=== PATIENT | male | born 1955 | race American Indian/Alaskan Native ===

== ENCOUNTER 2016-11-18 11:36 | Inpatient (IN) | payer MEDICAID, OTHER ==
[2016-11-18 11:41] VITALS: BMI 27.5
--- NOTE | 2016-11-18 12:17 | C.PDOC ---
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 Patient is currently c/o feeling nausea and chills for "a while now". He denies chest pain, SOB, or any other complaints. Time Seen by Provider: 11/18/16 11:47 Chief Complaint (Nursing): Lower Extremity Problem/Injury History Per: Patient History/Exam Limitations: no limitations Onset/Duration Of Symptoms: Persistent Current Symptoms Are (Timing): Still Present Severity: Moderate Past Medical History Reviewed: Historical Data, Nursing Documentation, Vital Signs Vital Signs: Last Vital Signs Temp 97.4 F L 11/20/16 08:23 Pulse 66 11/20/16 08:23 Resp 20 11/20/16 08:23 BP 150/80 11/20/16 08:23 Pulse Ox 96 11/20/16 17:22 - Medical History PMH: Anxiety, Arthritis, Atrial Fibrillation, Depression, Deep Vein Thrombosis, Fractures (neck, back Rt. leg fx in 5 places), Hepatitis (Patient reported history of alcohol hepatitis), HTN, Hypercholesterolemia, Pancreatitis, Peripheral Edema (chronic), Seizures (alcohol induced), Chronic Pain (leg pain/ dermatitis) Surgical History: Back Surgery, Cholecystectomy - [facility] Procedures ALCOHOL DETOXIFICATION (09/09/13) CENTRAL VENOUS CATHETER PLACEMENT WITH GUIDANCE (11/27/13) DETOXIFICATION SERVICES FOR SUBSTANCE ABUSE TREATMENT (06/02/15) GROUP PSYCHOTHERAPY (06/02/15) INFLUENZA VACCINATION (07/14/14) INJECT/INFUSE NEC (03/20/13) INSERTION OF TOTALLY IMPLANTABLE VASC ACCESS DEVIC (04/10/14) NONEXCIS DEBRID OF WOUND, INFECT, OR BURN (04/10/14) REMOV THERAPEUT DEV NEC (11/27/13) VACCINATION NEC (07/14/14) Family History: States: No Known Family Hx - Social History Hx Tobacco Use: No Hx Alcohol Use: Yes (3-4 ounces of liquor/day) Hx Substance Use: Yes (Marijuana smoking daily) - Immunization History Hx Tetanus Toxoid Vaccination: Yes Hx Influenza Vaccination: Yes Hx Pneumococcal Vaccination: Yes Review Of Systems Except As Marked, All Systems Reviewed And Found Negative. Constitutional: Positive for: Chills Cardiovascular: Negative for: Chest Pain, Palpitations Respiratory: Negative for: Cough, Shortness of Breath Gastrointestinal: Positive for: Nausea. Negative for: Vomiting, Abdominal Pain , Diarrhea Musculoskeletal: Positive for: Foot Pain (Bilateral foot/leg wounds) Physical Exam - Physical Exam Appears: Non-toxic, Unkempt, Chronically Ill, Other (Smells of ETOH) Skin: Warm, Dry, Other (see extremity exam) Head: Normacephalic Oral Mucosa: Moist Cardiovascular: Rhythm Regular Respiratory: Normal Breath Sounds, No Rales, No Rhonchi, No Wheezing Gastrointestinal/Abdominal: Normal Exam, Bowel Sounds, Soft, No Tenderness Extremity: Tenderness (difuse TTP B/L lower legs), No Calf Tenderness, Capillary Refill (<2 secs all digits ), No Deformity, Other (Chronic skin changes B/L lower legs, weeping, oozing wounds to the bilateral lower legs.) Neurological/Psych: Oriented x3 ED Course And Treatment - Laboratory Results Result Diagrams: 11/18/16 12:58 11/18/16 12:58 O2 Sat by Pulse Oximetry: 96 (RA) Pulse Ox Interpretation: Normal Progress Note: Blood work ordered and reviewed. Patient given dose of IV Vancomycin in ED. - Physician Consult Information Physician Contacted: Roman Brand Outcome Of Conversation: Discussed patient with Dr. Brand, he agrees with admission for lower leg cellulitis, infected wounds. Will consult Dr. Masters for podiatry. Disposition - Disposition Disposition: HOSPITALIZED Disposition Time: 14:38 Condition: STABLE - Clinical Impression Clinical Impression: Cellulitis, leg, Infection of wound due to methicillin resistant Staphylococcus aureus (MRSA) - Scribe Statement The provider has reviewed the documentation as recorded by the Yingibpolly martin All medical record entries made by the Yingibpolly were at my direction and personally dictated by me. I have reviewed the chart and agree that the record accurately reflects my personal performance of the history, physical exam, medical decision making, and the department course for this patient. I have also personally directed, reviewed, and agree with the discharge instructions and disposition. Decision To Admit - Pt Status Changed To: Hospital Disposition Of: Inpatient - Admit Certification Admit to Inpatient:: After my assessment, the patient will require hospitalization for at least two midnights. This is because of the severity of symptoms shown, intensity of services needed, and/or the medical risk in this patient being treated as an outpatient. - InPatient: Physician Admission Certification: I certify that this patient requires 2 or more midnights of care for the following reason:: see notes - . Bed Request Type: Regular Admitting Physician: Roman Brand Patient Diagnosis: Cellulitis, leg, Infection of wound due to methicillin resistant Staphylococcus aureus (MRSA)
[2016-11-18] MEDS ORDERED: Vancomycin 1 GM 1 GM/250 ML BAG IV STA (12:53)
[2016-11-18 13:09] LABS: BASO % 0.4 % (0.0-2.0); EOS # 0.2 K/uL (0.0-0.7); EOS % 2.9 % (0.0-4.0); LYMPH # 0.7 K/uL (1.0-4.3); LYMPH % 10.5 % (20.0-40.0); MEAN CELL VOLUME 86.5 fL (80.0-94.0); MEAN CORPUSCULAR HEMOGLOBIN 29.9 pg (27.0-31.0); MEAN CORPUSCULAR HGB CONC 34.6 g/dL (33.0-37.0); MEAN PLATELET VOLUME 5.5 fL (7.2-11.7); MONO # 0.6 K/uL (0.0-0.8); NEUT # 5.5 K/uL (1.8-7.0); NEUT % 77.2 % (50.0-75.0); RBC 3.56 Mil/uL (4.40-5.90); RED CELL DISTRIBUTION WIDTH 13.9 % (11.5-14.5); WHITE BLOOD COUNT 7.1 K/uL (4.8-10.8)
[2016-11-18 13:11] LABS: HEMOGLOBIN 10.7 g/dL (12.0-18.0)
[2016-11-18] MEDS ORDERED: Vancomycin 1 GM 1 GM/250 ML BAG IVPB ONE (13:12)
[2016-11-18 13:16] LABS: ALBUMIN 2.9 g/dL (3.5-5.0)
[2016-11-18 13:19] LABS: ALB/GLOB RATIO 0.9 (1.0-2.1); AST/SGOT 12 U/L (17-59); GFR AFRICAN-AMERICAN > 60; GFR NON-AFRICAN AMERICAN 52
[2016-11-18 13:20] LABS: ALT/SGPT 22 U/L (21-72); BLOOD UREA NITROGEN 11 mg/dL (9-20)
--- NOTE | 2016-11-18 16:39 | CP.PCM.CON ---
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 Patient is c/o feeling nausea and chills for a while now. Denies SOB, chest pain, or any other complaints. - Medical History PMH: Anxiety, Arthritis, Atrial Fibrillation, Depression, Deep Vein Thrombosis, Fractures (neck, back Rt. leg fx in 5 places), Hepatitis (Patient reported history of alcohol hepatitis), HTN, Hypercholesterolemia, Pancreatitis, Peripheral Edema (chronic), Seizures (alcohol induced), Chronic Pain (leg pain/ dermatitis) Denies: Chronic Kidney Disease Surgical History: Back Surgery, Cholecystectomy Denies: Pacemaker Review of Systems - Constitutional Constitutional: As Per HPI - EENT Eyes: absent: As Per HPI, Blind Spots, Blurred Vision, Change in Vision, Decreased Night Vision, Diplopia, Discharge, Dry Eye, Exophthalmos, Floaters, Irritation, Itchy Eyes, Loss of Peripheral Vision, Pain, Photophobia, Requires Corrective Lenses, Sees Flashes, Spots in Vision, Tunnel Vision, Other Visual Disturbances, Loss of Vision, Other Ears: absent: As Per HPI, Decreased Hearing, Ear Discharge, Ear Pain, Tinnitus, Abnormal Hearing, Disequilibrium, Dizziness, Other Nose/Mouth/Throat: absent: As Per HPI, Epistaxis, Nasal Congestion, Nasal Discharge, Nasal Obstruction, Nasal Trauma, Nose Pain, Post Nasal Drip, Sinus Pain, Sinus Pressure, Bleeding Gums, Change in Voice, Dental Pain, Dry Mouth, Dysphagia, Halitosis, Hoarsness, Lip Swelling, Mouth Lesions, Mouth Pain, Odynophagia, Sore Throat, Throat Swelling, Tongue Swelling, Facial Pain, Neck Pain, Neck Mass, Other - Cardiovascular Cardiovascular: absent: As Per HPI, Acrocyanosis, Chest Pain, Chest Pain at Rest , Chest Pain with Activity, Claudication, Diaphoresis, Dyspnea, Dyspnea on Exertion, Edema, Irregular Heart Rhythm, Pain Radiating to Arm/Neck/Jaw, Leg Edema, Leg Ulcers, Lightheadedness, Orthopnea, Palpitations, Paroxysmal Nocturnal Dyspnea, Pedal Edema, Radiating Pain, Rapid Heart Rate, Slow Heart Rate, Syncope, Other - Respiratory Respiratory: absent: As Per HPI, Cough, Dyspnea, Hemoptysis, Dyspnea on Exertion , Wheezing, Snoring, Stridor, Pain on Inspiration, Chest Congestion, Excessive Mucous Production, Change in Mucous Color, Pain with Coughing, Other - Gastrointestinal Gastrointestinal: absent: As Per HPI, Abdominal Pain, Belching, Bloating, Change in Bowel Habits, Change in Stool Character, Coffee Ground Emesis, Constipation, Cramping, Diarrhea, Dyspepsia, Dysphagia, Early Satiety, Excessive Flatus, Fecal Incontinence, Heartburn, Hematemesis, Hematochezia, Loose Stools, Melena, Nausea, Odynophagia, Temesmus, Vomiting, Other - Genitourinary Genitourinary: absent: As Per HPI, Change in Urinary Stream, Difficulty Urinating, Dysuria, Flank Pain, Hematuria, Pyuria, Nocturia, Urinary Incontinence, Urinary Frequency, Urinary Hesitance, Urinary Urgency, Voiding Freq/Small Amts, Freq UTI, Hx Renal/Bladder Calculi, Hx /Renal Surgery, Bladder Distension, Other - Musculoskeletal Musculoskeletal: As Per HPI, Deformity - Integumentary Integumentary: As Per HPI, Skin Pain, Wounds - Neurological Neurological: absent: As Per HPI, Abnormal Gait, Abnormal Hearing, Abnormal Movements, Abnormal Speech, Behavioral Changes, Burning Sensations, Confusion, Convulsions, Disequilibrium, Dizziness, Numbness, Focal Weakness, Frequent Falls , Headaches, Lack of Coordination, Loss of Vision, Memory Loss, Paresthesias, Radicular Pain, Restless Legs, Sensory Deficit, Syncope, Tingling, Tremor, Vertigo, Weakness, Other Visual Disturbances, Other - Psychiatric Psychiatric: absent: As Per HPI, Abnormal Sleep Pattern, Anhedonia, Anxiety, Auditory Hallucinations, Behavioral Changes, Change in Appetite, Change in Libido, Confusion, Depression, Difficulty Concentrating, Hallucinations, Homicidal Ideation, Hopelessness, Irritability, Memory Loss, Mood Swings, Panic Attacks, Paranoia, Suicidal Ideation, Visual Hallucinations, Tactile Hallucinations, Other - Endocrine Endocrine: absent: As Per HPI, Change in Body Appearance, Change in Libido, Cold Intolorance, Deepening of Voice, Excessive Sweating, Fatigue, Flushing, Heat Intolorance, Increase in Ring/Shoe/Hat Size, Palpitations, Polydipsia, Polyphagia, Polyuria, Other - Hematologic/Lymphatic Hematologic: absent: As Per HPI, Easy Bleeding, Easy Bruising, Lymphadenopathy, Other Past Patient History - Infectious Disease Hx of Infectious Diseases: None - Tetanus Immunizations Tetanus Immunization: Unknown - Past Medical History & Family History Past Medical History?: Yes - Past Social History Smoking Status: Former Smoker - CARDIAC Hx Atrial Fibrillation: Yes Hx Hypercholesterolemia: Yes Hx Hypertension: Yes Hx Pacemaker: No Hx Peripheral Edema: Yes (chronic) - PULMONARY Hx Respiratory Disorders: No - NEUROLOGICAL Hx Seizures: Yes (alcohol induced) - HEENT Hx Cataracts: Yes (Rt. and Lt. cataract sx) - RENAL Hx Chronic Kidney Disease: No - ENDOCRINE/METABOLIC Hx Endocrine Disorders: Yes Other/Comment: SPOT ON PANCREAS - INTEGUMENTARY Hx Dermatological Problems: Yes Hx Cellulitis: Yes (bilateral legs) Other/Comment: Venous stasis bilateral legs - MUSCULOSKELETAL/RHEUMATOLOGICAL Hx Arthritis: Yes Hx Fractures: Yes (neck, back Rt. leg fx in 5 places) - GASTROINTESTINAL Hx Pancreatitis: Yes - PSYCHIATRIC Hx Anxiety: Yes Hx Depression: Yes Hx Substance Use: Yes (Marijuana smoking daily) - SURGICAL HISTORY Hx Cholecystectomy: Yes - ANESTHESIA Hx Anesthesia: Yes Hx Anesthesia Reactions: No Hx Malignant Hyperthermia: No Meds Allergies/Adverse Reactions: Allergies Allergy/AdvReac Type Severity Reaction Status Date / Time Penicillins Allergy Severe RASH Verified 11/18/16 11:40 - Medications Medications: Current Medications Heparin Sodium (Porcine) (Heparin) 5,000 units SC Q12 [facility] Pantoprazole Sodium (Protonix Ec Tab) 40 mg PO DAILY [facility] Thiamine HCl (Vitamin B1 Tab) 100 mg PO DAILY [facility] Tramadol HCl (Ultram) 50 mg PO TID PRN PRN Reason: Pain, moderate (4-7) Physical Exam - Constitutional Appears: Non-toxic, Chronically Ill - Head Exam Head Exam: NORMOCEPHALIC - Eye Exam Eye Exam: absent: Scleral icterus - ENT Exam ENT Exam: Mucous Membranes Dry, Normal External Ear Exam - Neck Exam Neck exam: Negative for: Lymphadenopathy, Thyromegaly - Respiratory Exam Respiratory Exam: Decreased Breath Sounds, Rhonchi - Cardiovascular Exam Cardiovascular Exam: REGULAR RHYTHM - GI/Abdominal Exam GI & Abdominal Exam: Diminished Bowel Sounds, Soft. absent: Tenderness - Rectal Exam Rectal Exam: Deferred - Exam Exam: NORMAL INSPECTION - Extremities Exam Extremities exam: Positive for: calf tenderness, pedal edema, tenderness, pedal pulses present - Back Exam Back exam: absent: CVA tenderness (L), CVA tenderness (R) - Neurological Exam Neurological exam: Alert, CN II-XII Intact, Oriented x3, Reflexes Normal - Psychiatric Exam Psychiatric exam: Normal Mood - Skin Skin Exam: Rash Results - Vital Signs Recent Vital Signs: Last Vital Signs Temp 97.5 F L 11/18/16 15:26 Pulse 96 H 11/18/16 15:26 Resp 19 11/18/16 15:26 BP 131/65 11/18/16 15:26 Pulse Ox 96 11/18/16 15:26 - Labs Result Diagrams: 11/18/16 12:58 11/18/16 12:58 Assessment & Plan (1) Alcohol use Status: Acute (2) Bilateral cellulitis of lower leg Status: Acute - Assessment and Plan (Free Text) Assessment: cont iv rx will discuss with dr silva and dr boggs- may need or/debridement
[2016-11-18 21:45] VITALS: RESP 20
--- NOTE | 2016-11-18 22:59 | CP.PCM.HP ---
History of Present Illness - History of Present Illness History of Present Illness: 61 Y/O WAS ADMITTED WITH POSITIVE CULTURES FROM THE LEG WITH MRSA, AND HE NEEDS ANTIBIOTICS, SEEING WOUND CARE DR QUIGLEY IN [facility], NO FEVER, PAIN, IN THE LEGS NO SOB, NO NAUSEA, NO CHEST PAIN, NO VERTIGO Present on Admission - Present on Admission Any Indicators Present on Admission: No History of DVT/PE: No History of Uncontrolled Diabetes: No Urinary Catheter: No Decubitus Ulcer Present: No Review of Systems - Review of Systems Systems not reviewed;Unavailable: Uncooperative - Constitutional Constitutional: Headache, Night Sweats - EENT Eyes: Blurred Vision Nose/Mouth/Throat: Nasal Congestion - Cardiovascular Cardiovascular: Leg Edema, Leg Ulcers, Rapid Heart Rate - Respiratory Respiratory: Cough - Gastrointestinal Gastrointestinal: Bloating, Nausea - Musculoskeletal Musculoskeletal: Abnormal Gait, Arthralgias, Joint Swelling, Limited Range of Motion - Integumentary Integumentary: Pruritus, Rash, Skin Pain, Skin Ulcer, Sores, Striae, Wounds - Neurological Neurological: Weakness - Psychiatric Psychiatric: Anhedonia, Anxiety, Change in Libido - Endocrine Endocrine: Fatigue, Palpitations Past Patient History - Infectious Disease Hx of Infectious Diseases: None - Tetanus Immunizations Tetanus Immunization: Unknown - Past Medical History & Family History Past Medical History?: Yes - Past Social History Smoking Status: marijuana - CARDIAC Hx Cardiac Disorders: Yes Hx Atrial Fibrillation: Yes Hx Hypercholesterolemia: Yes Hx Hypertension: Yes Hx Pacemaker: No Hx Peripheral Edema: Yes (chronic) - PULMONARY Hx Respiratory Disorders: No - NEUROLOGICAL Hx Neurological Disorder: Yes Hx Seizures: Yes (alcohol induced) - HEENT Hx HEENT Problems: Yes Hx Cataracts: Yes (Rt. and Lt. cataract sx) - RENAL Hx Chronic Kidney Disease: No - ENDOCRINE/METABOLIC Hx Endocrine Disorders: Yes Other/Comment: SPOT ON PANCREAS - HEMATOLOGICAL/ONCOLOGICAL Hx Blood Disorders: Yes Hx Blood Transfusions: Yes Hx Hepatitis C: Yes - INTEGUMENTARY Hx Dermatological Problems: Yes Hx Cellulitis: Yes (bilateral legs) Other/Comment: Venous stasis bilateral legs - MUSCULOSKELETAL/RHEUMATOLOGICAL Hx Arthritis: Yes Hx Falls: Yes Hx Fractures: Yes (neck, back Rt. leg fx in 5 places) Hx Unsteady Gait: Yes - GASTROINTESTINAL Hx Constipation: Yes Hx Gastroesophageal Reflux: Yes Hx Pancreatitis: Yes - GENITOURINARY/GYNECOLOGICAL Hx Genitourinary Disorders: No - PSYCHIATRIC Hx Psychophysiologic Disorder: Yes Hx Anxiety: Yes Hx Depression: Yes Hx Substance Use: Yes (Marijuana smoking daily) - SURGICAL HISTORY Hx Surgeries: Yes Hx Cholecystectomy: Yes - ANESTHESIA Hx Anesthesia: Yes Hx Anesthesia Reactions: No Hx Malignant Hyperthermia: No Has any member of the family had a problem w/ anesthesia?: No Meds Allergies/Adverse Reactions: Allergies Allergy/AdvReac Type Severity Reaction Status Date / Time Penicillins Allergy Severe RASH Verified 11/18/16 11:40 Physical Exam - Constitutional Appears: Non-toxic, No Acute Distress, Chronically Ill - Head Exam Head Exam: ATRAUMATIC, NORMAL INSPECTION, NORMOCEPHALIC - Eye Exam Eye Exam: EOMI, Normal appearance, PERRL Pupil Exam: NORMAL ACCOMODATION - ENT Exam ENT Exam: Mucous Membranes Moist, Normal Exam, Normal Oropharynx, TM's Normal Bilaterally - Neck Exam Neck exam: Positive for: Normal Inspection - Respiratory Exam Respiratory Exam: Clear to Auscultation Bilateral, NORMAL BREATHING PATTERN - Cardiovascular Exam Cardiovascular Exam: REGULAR RHYTHM, +S1, +S2 - GI/Abdominal Exam GI & Abdominal Exam: Normal Bowel Sounds - Rectal Exam Rectal Exam: NORMAL INSPECTION - Exam Exam: NORMAL INSPECTION External exam: NORMAL EXTERNAL EXAM - Back Exam Back exam: NORMAL INSPECTION - Neurological Exam Neurological exam: Abnormal Gait, Alert, CN II-XII Intact, Oriented x3, Reflexes Normal - Psychiatric Exam Psychiatric exam: Anxious, Flat Affect - Skin Skin Exam: Dry, Erythema, Rash Results - Vital Signs Recent Vital Signs: Last Vital Signs Temp 97.8 F 11/18/16 16:40 Pulse 97 H 11/18/16 16:40 Resp 20 11/18/16 16:40 BP 130/78 11/18/16 16:40 Pulse Ox 96 11/18/16 16:40 - Labs Result Diagrams: 11/18/16 12:58 11/18/16 12:58 Labs: Laboratory Results - last 24 hr 11/18/16 11/18/16 16:44 21:42 POC Glucose (mg/dL) 91 104 Assessment & Plan (1) Cellulitis and abscess of leg Assessment and Plan: MRSA Status: Acute (2) Stasis dermatitis of both legs Status: Chronic (3) Alcohol dependence Status: Chronic (4) Homelessness Status: Chronic
[2016-11-19] MEDS: Vancomycin 1 gm/NS 200 ml 1 GM/200 ML BAG IVPB SCH ×2 (02:20→13:42)
[2016-11-19] MEDS: Pantoprazole 40 mg EC Tab PO SCH (10:00)
--- NOTE | 2016-11-19 11:36 | CP.PCM.CON ---
History of Present Illness - History of Present Illness History of Present Illness: 61 year old male with extensive PMH was seen with attending, Dr. Masters for chronic wounds to bilateral legs. Patient states that yesterday he saw Dr. Masters in the [facility] and was sent to the ED for Iv abx. He currently complains of some tenderness to his right and left legs. He admits to some nausea but denies v/f/c/sob/cp. Past Patient History - Infectious Disease Hx of Infectious Diseases: None - Tetanus Immunizations Tetanus Immunization: Unknown - Past Medical History & Family History Past Medical History?: Yes - Past Social History Smoking Status: marijuana - CARDIAC Hx Cardiac Disorders: Yes Hx Atrial Fibrillation: Yes Hx Hypercholesterolemia: Yes Hx Hypertension: Yes Hx Pacemaker: No Hx Peripheral Edema: Yes (chronic) - PULMONARY Hx Respiratory Disorders: No - NEUROLOGICAL Hx Neurological Disorder: Yes Hx Seizures: Yes (alcohol induced) - HEENT Hx HEENT Problems: Yes Hx Cataracts: Yes (Rt. and Lt. cataract sx) - RENAL Hx Chronic Kidney Disease: No - ENDOCRINE/METABOLIC Hx Endocrine Disorders: Yes Other/Comment: SPOT ON PANCREAS - HEMATOLOGICAL/ONCOLOGICAL Hx Blood Disorders: Yes Hx Blood Transfusions: Yes Hx Hepatitis C: Yes - INTEGUMENTARY Hx Dermatological Problems: Yes Hx Cellulitis: Yes (bilateral legs) Other/Comment: Venous stasis bilateral legs - MUSCULOSKELETAL/RHEUMATOLOGICAL Hx Arthritis: Yes Hx Falls: Yes Hx Fractures: Yes (neck, back Rt. leg fx in 5 places) Hx Unsteady Gait: Yes - GASTROINTESTINAL Hx Constipation: Yes Hx Gastroesophageal Reflux: Yes Hx Pancreatitis: Yes - GENITOURINARY/GYNECOLOGICAL Hx Genitourinary Disorders: No - PSYCHIATRIC Hx Psychophysiologic Disorder: Yes Hx Anxiety: Yes Hx Depression: Yes Hx Substance Use: Yes (Marijuana smoking daily) - SURGICAL HISTORY Hx Surgeries: Yes Hx Cholecystectomy: Yes - ANESTHESIA Hx Anesthesia: Yes Hx Anesthesia Reactions: No Hx Malignant Hyperthermia: No Has any member of the family had a problem w/ anesthesia?: No Meds Allergies/Adverse Reactions: Allergies Allergy/AdvReac Type Severity Reaction Status Date / Time Penicillins Allergy Severe RASH Verified 11/18/16 11:40 - Medications Medications: Current Medications Acetaminophen (Tylenol 325mg Tab) 650 mg PO Q6 PRN PRN Reason: Pain, Mild (1-3) Last Admin: 11/18/16 21:22 Dose: 650 mg Heparin Sodium (Porcine) (Heparin) 5,000 units SC Q12 [facility] Last Admin: 11/19/16 10:00 Dose: 5,000 units Vancomycin/Sodium Chloride (Vancocin) 1 gm in 200 mls @ 133 mls/hr IVPB Q12H [facility] Stop: 11/24/16 01:31 Last Admin: 11/19/16 02:20 Dose: 133 mls/hr Ondansetron HCl (Zofran Inj) 4 mg IVP Q8 PRN PRN Reason: Nausea/Vomiting Last Admin: 11/18/16 21:23 Dose: 4 mg Pantoprazole Sodium (Protonix Ec Tab) 40 mg PO DAILY [facility] Last Admin: 11/19/16 10:00 Dose: 40 mg Thiamine HCl (Vitamin B1 Tab) 100 mg PO DAILY [facility] Last Admin: 11/19/16 10:00 Dose: 100 mg Tramadol HCl (Ultram) 50 mg PO TID PRN PRN Reason: Pain, moderate (4-7) Last Admin: 11/19/16 02:53 Dose: 50 mg Physical Exam - Constitutional Appears: Non-toxic, No Acute Distress - Extremities Exam Additional comments: lower extremity focused exam: VASC: DP/PT pulses are palpable 1/4 b/l, INTEGRATION AIDE: < 3 sec to all digits, TG: warm to warm pitting edema with skin tenting noted on distal lower extremity, R>L DERM: diffuse superficial ulcerations on bilateral legs from distal to tibial tuberosity to ankle joint (R>L), wound bases appeared fibro-granular with serous drainage from multiple sites no malodor present, no probe to bone, no undermining wounds, erythema extending from knee joint to the ankle joint with glossy appearance of the skin. moderate amount of serousanginoud drainage noted. Severe xerosis noted to entire foot b/l. NEURO: Protective sensation mildly diminished ORTHO: No tenderness to palpation lower extremity b/l. - Neurological Exam Neurological exam: Alert, Oriented x3 - Psychiatric Exam Psychiatric exam: Normal Affect, Normal Mood Results - Vital Signs Recent Vital Signs: Last Vital Signs Temp 97.0 F L 11/19/16 07:35 Pulse 66 11/19/16 07:35 Resp 20 11/19/16 07:35 BP 117/73 11/19/16 07:35 Pulse Ox 97 11/19/16 07:35 - Labs Result Diagrams: 11/18/16 12:58 11/18/16 12:58 Labs: Laboratory Results - last 24 hr 11/18/16 11/18/16 16:44 21:42 POC Glucose (mg/dL) 91 104 Assessment & Plan - Assessment and Plan (Free Text) Assessment: 61 year old male with chronic ulcerations to bilateral legs secondary to venous stasis Plan: Patient seen and evaluated at bedside with attending Dr. Masters Charts, labs, vitals reviewed Wounds cleansed with sterile saline then dressed with xeroform, ABDs, kerlix continue IV abx per ID wound culture gram neg rods, gram pos cocci podiatry will continue to follow while in house
--- NOTE | 2016-11-19 18:18 | CP.PCM.PN ---
Subjective - Date & Time of Evaluation Date of Evaluation: 11/19/16 Time of Evaluation: 07:00 - Subjective Subjective: bilat ulcers noted mixed keturah on c/s- add aztreonam Objective - Vital Signs/Intake and Output Vital Signs (last 24 hours): Temp Pulse Resp BP Pulse Ox 97.8 F 78 20 135/79 98 11/19/16 15:00 11/19/16 15:00 11/19/16 15:00 11/19/16 15:00 11/19/16 15:00 Intake and Output: 11/19/16 11/19/16 06:59 18:59 Intake Total 800 Balance 800 - Medications Medications: Current Medications Acetaminophen (Tylenol 325mg Tab) 650 mg PO Q6 PRN PRN Reason: Pain, Mild (1-3) Last Admin: 11/18/16 21:22 Dose: 650 mg Heparin Sodium (Porcine) (Heparin) 5,000 units SC Q12 [facility] Last Admin: 11/19/16 10:00 Dose: 5,000 units Vancomycin/Sodium Chloride (Vancocin) 1 gm in 200 mls @ 133 mls/hr IVPB Q12H [facility] Stop: 11/24/16 01:31 Last Admin: 11/19/16 13:42 Dose: 133 mls/hr Aztreonam 2 gm/ Sodium (Chloride) 100 mls @ 200 mls/hr IVPB Q8H [facility] Multivitamins (Hexavitamin) 1 tab PO DAILY [facility] Ondansetron HCl (Zofran Inj) 4 mg IVP Q8 PRN PRN Reason: Nausea/Vomiting Last Admin: 11/18/16 21:23 Dose: 4 mg Pantoprazole Sodium (Protonix Ec Tab) 40 mg PO DAILY [facility] Last Admin: 11/19/16 10:00 Dose: 40 mg Thiamine HCl (Vitamin B1 Tab) 100 mg PO DAILY [facility] Last Admin: 11/19/16 10:00 Dose: 100 mg Tramadol HCl (Ultram) 50 mg PO TID PRN PRN Reason: Pain, moderate (4-7) Last Admin: 11/19/16 02:53 Dose: 50 mg - Constitutional Appears: Non-toxic - Eye Exam Eye Exam: EOMI - ENT Exam ENT Exam: Mucous Membranes Dry - Neck Exam Neck Exam: absent: Lymphadenopathy - Respiratory Exam Respiratory Exam: Decreased Breath Sounds Assessment and Plan (1) Alcohol use Status: Acute (2) Bilateral cellulitis of lower leg Status: Acute
[2016-11-19] MEDS: Aztreonam 2 GM in Sodium Chloride 0.9% 100 ML IVPB SCH (19:46)
--- NOTE | 2016-11-19 22:08 | CP.PCM.PN ---
Subjective - Date & Time of Evaluation Date of Evaluation: 11/19/16 - Subjective Subjective: weakness, generlized, pain in legs with foul smell, no fever, wound culture both gram negative and positive Objective - Vital Signs/Intake and Output Vital Signs (last 24 hours): Temp Pulse Resp BP Pulse Ox 97.8 F 78 20 135/79 98 11/19/16 15:00 11/19/16 15:00 11/19/16 15:00 11/19/16 15:00 11/19/16 15:00 - Medications Medications: Current Medications Acetaminophen (Tylenol 325mg Tab) 650 mg PO Q6 PRN PRN Reason: Pain, Mild (1-3) Last Admin: 11/18/16 21:22 Dose: 650 mg Heparin Sodium (Porcine) (Heparin) 5,000 units SC Q12 [facility] Last Admin: 11/19/16 10:00 Dose: 5,000 units Vancomycin/Sodium Chloride (Vancocin) 1 gm in 200 mls @ 133 mls/hr IVPB Q12H [facility] Stop: 11/24/16 01:31 Last Admin: 11/19/16 13:42 Dose: 133 mls/hr Aztreonam 2 gm/ Sodium (Chloride) 100 mls @ 200 mls/hr IVPB Q8H [facility] Last Admin: 11/19/16 19:46 Dose: 200 mls/hr Multivitamins (Hexavitamin) 1 tab PO DAILY [facility] Ondansetron HCl (Zofran Inj) 4 mg IVP Q8 PRN PRN Reason: Nausea/Vomiting Last Admin: 11/18/16 21:23 Dose: 4 mg Pantoprazole Sodium (Protonix Ec Tab) 40 mg PO DAILY [facility] Last Admin: 11/19/16 10:00 Dose: 40 mg Thiamine HCl (Vitamin B1 Tab) 100 mg PO DAILY [facility] Last Admin: 11/19/16 10:00 Dose: 100 mg Tramadol HCl (Ultram) 50 mg PO TID PRN PRN Reason: Pain, moderate (4-7) Last Admin: 11/19/16 02:53 Dose: 50 mg - Constitutional Appears: Non-toxic - Head Exam Head Exam: ATRAUMATIC, NORMAL INSPECTION, NORMOCEPHALIC - Eye Exam Eye Exam: EOMI, Normal appearance, PERRL Pupil Exam: NORMAL ACCOMODATION - ENT Exam ENT Exam: Mucous Membranes Moist, Normal Exam, Normal Oropharynx, TM's Normal Bilaterally - Neck Exam Neck Exam: Normal Inspection - Respiratory Exam Respiratory Exam: Clear to Ausculation Bilateral, NORMAL BREATHING PATTERN - Cardiovascular Exam Cardiovascular Exam: REGULAR RHYTHM, +S1, +S2 - GI/Abdominal Exam GI & Abdominal Exam: Soft, Normal Bowel Sounds - Rectal Exam Rectal Exam: NORMAL INSPECTION - Exam Exam: NORMAL INSPECTION - Extremities Exam Extremities Exam: Normal Capillary Refill - Neurological Exam Neurological Exam: Abnormal Gait, Alert, Awake, CN II-XII Intact, Oriented x3 Neuro motor strength exam: Left Upper Extremity: 5, Right Upper Extremity: 5, Left Lower Extremity: 5, Right Lower Extremity: 5 - Psychiatric Exam Psychiatric exam: Anxious, Depressed, Flat Affect - Skin Skin Exam: Erythema, Intact, Mottled, Vesicles Assessment and Plan (1) Cellulitis and abscess of leg Assessment & Plan: wound cultures positive, on antibiotics Status: Acute (2) Stasis dermatitis of both legs Status: Chronic (3) Alcohol dependence Status: Chronic (4) Homelessness Status: Chronic
[2016-11-20] MEDS: Vancomycin 1 gm/NS 200 ml 1 GM/200 ML BAG IVPB SCH ×2 (02:00→15:13)
[2016-11-20] MEDS: Aztreonam 2 GM in Sodium Chloride 0.9% 100 ML IVPB SCH ×3 (04:55→20:04)
[2016-11-20] MEDS: Pantoprazole 40 mg EC Tab PO SCH (09:13)
[2016-11-20] MEDS: Multiple Vitamins Tab PO SCH (09:13)
[2016-11-20] MEDS ORDERED: Pneumococcal 23-Valent Vaccine IM ONE (10:00)
--- NOTE | 2016-11-20 15:03 | CP.PCM.PN ---
Subjective - Date & Time of Evaluation Date of Evaluation: 11/20/16 Time of Evaluation: 15:01 - Subjective Subjective: 61 year old male was seen at bedside for chronic wounds to bilateral legs. He complains of some itching to his legs. He is NAD, AAOx3. He denies n/v/f/c/sob/ cp. Objective - Vital Signs/Intake and Output Vital Signs (last 24 hours): Temp Pulse Resp BP Pulse Ox 97.4 F L 66 20 150/80 97 11/20/16 08:23 11/20/16 08:23 11/20/16 08:23 11/20/16 08:23 11/20/16 08:23 - Medications Medications: Current Medications Acetaminophen (Tylenol 325mg Tab) 650 mg PO Q6 PRN PRN Reason: Pain, Mild (1-3) Last Admin: 11/18/16 21:22 Dose: 650 mg Heparin Sodium (Porcine) (Heparin) 5,000 units SC Q12 [facility] Last Admin: 11/20/16 09:13 Dose: 5,000 units Vancomycin/Sodium Chloride (Vancocin) 1 gm in 200 mls @ 133 mls/hr IVPB Q12H [facility] Stop: 11/24/16 01:31 Last Admin: 11/20/16 02:00 Dose: 133 mls/hr Aztreonam 2 gm/ Sodium (Chloride) 100 mls @ 200 mls/hr IVPB Q8H [facility] Last Admin: 11/20/16 12:09 Dose: 200 mls/hr Multivitamins (Hexavitamin) 1 tab PO DAILY [facility] Last Admin: 11/20/16 09:13 Dose: 1 tab Ondansetron HCl (Zofran Inj) 4 mg IVP Q8 PRN PRN Reason: Nausea/Vomiting Last Admin: 11/18/16 21:23 Dose: 4 mg Pantoprazole Sodium (Protonix Ec Tab) 40 mg PO DAILY [facility] Last Admin: 11/20/16 09:13 Dose: 40 mg Thiamine HCl (Vitamin B1 Tab) 100 mg PO DAILY [facility] Last Admin: 11/20/16 09:13 Dose: 100 mg Tramadol HCl (Ultram) 50 mg PO TID PRN PRN Reason: Pain, moderate (4-7) Last Admin: 11/20/16 14:05 Dose: 50 mg - Constitutional Appears: Well, Non-toxic, No Acute Distress - Extremities Exam Additional comments: lower extremity focused exam: VASC: DP and PT pulses are palpable 1/4 b/l, GRID MOLDER: < 3 sec to all digits, TG: warm to warm pitting edema with skin tenting noted on distal lower extremity, R> L DERM: diffuse superficial ulcerations on bilateral legs from distal to tibial tuberosity to ankle joint on the right, and circumferential to the calf on the left, wound bases appeared fibro-granular with serous drainage from multiple sites no malodor present, no probe to bone, no undermining wounds, erythema extending from knee joint to the ankle joint with glossy appearance of the skin. moderate amount of serosanginous drainage noted. Severe xerosis noted to entire foot b/l. NEURO: Protective sensation mildly diminished ORTHO: No tenderness to palpation lower extremity b/l. - Neurological Exam Neurological Exam: Alert, Awake, Oriented x3 - Psychiatric Exam Psychiatric exam: Normal Affect, Normal Mood Assessment and Plan - Assessment and Plan (Free Text) Assessment: 61 year old male with chronic ulcerations to bilateral legs secondary to venous stasis Plan: Patient seen and evaluated at bedside discussed with attending Dr. Masters Charts, labs, vitals reviewed Wounds cleansed with sterile saline then dressed with xeroform, ABDs, kerlix wound cultures: acubectibacter,staph aurues, pseudomonas continue IV abx per ID podiatry will continue to follow while in house
--- NOTE | 2016-11-20 22:58 | CP.PCM.PN ---
Subjective - Date & Time of Evaluation Date of Evaluation: 11/20/16 - Subjective Subjective: ADMITTED WITH LEG INFECTION ,PAIN AND WEAKNESS, AND HE IS ON IV ANTIBIOTICS Objective - Vital Signs/Intake and Output Vital Signs (last 24 hours): Temp Pulse Resp BP Pulse Ox 97.4 F L 66 20 150/80 96 11/20/16 08:23 11/20/16 08:23 11/20/16 08:23 11/20/16 08:23 11/20/16 17:22 Intake and Output: 11/20/16 11/21/16 18:59 06:59 Intake Total 580 540 Output Total 1100 800 Balance -520 -260 - Medications Medications: Current Medications Acetaminophen (Tylenol 325mg Tab) 650 mg PO Q6 PRN PRN Reason: Pain, Mild (1-3) Last Admin: 11/18/16 21:22 Dose: 650 mg Heparin Sodium (Porcine) (Heparin) 5,000 units SC Q12 [facility] Last Admin: 11/20/16 21:20 Dose: 5,000 units Vancomycin/Sodium Chloride (Vancocin) 1 gm in 200 mls @ 133 mls/hr IVPB Q12H [facility] Stop: 11/24/16 01:31 Last Admin: 11/20/16 15:13 Dose: 133 mls/hr Aztreonam 2 gm/ Sodium (Chloride) 100 mls @ 200 mls/hr IVPB Q8H [facility] Last Admin: 11/20/16 20:04 Dose: 200 mls/hr Multivitamins (Hexavitamin) 1 tab PO DAILY [facility] Last Admin: 11/20/16 09:13 Dose: 1 tab Ondansetron HCl (Zofran Inj) 4 mg IVP Q8 PRN PRN Reason: Nausea/Vomiting Last Admin: 11/20/16 20:10 Dose: 4 mg Pantoprazole Sodium (Protonix Ec Tab) 40 mg PO DAILY [facility] Last Admin: 11/20/16 09:13 Dose: 40 mg Thiamine HCl (Vitamin B1 Tab) 100 mg PO DAILY [facility] Last Admin: 11/20/16 09:13 Dose: 100 mg Tramadol HCl (Ultram) 50 mg PO TID PRN PRN Reason: Pain, moderate (4-7) Last Admin: 11/20/16 14:05 Dose: 50 mg - Constitutional Appears: Non-toxic, No Acute Distress, Chronically Ill - Head Exam Head Exam: ATRAUMATIC, NORMAL INSPECTION, NORMOCEPHALIC - Eye Exam Eye Exam: EOMI, Normal appearance, PERRL Pupil Exam: NORMAL ACCOMODATION - ENT Exam ENT Exam: Mucous Membranes Moist, Normal Exam - Neck Exam Neck Exam: Normal Inspection - Respiratory Exam Respiratory Exam: Clear to Ausculation Bilateral, NORMAL BREATHING PATTERN - Cardiovascular Exam Cardiovascular Exam: REGULAR RHYTHM, +S1, +S2 - GI/Abdominal Exam GI & Abdominal Exam: Soft, Normal Bowel Sounds - Exam Exam: NORMAL INSPECTION - Extremities Exam Extremities Exam: Normal Capillary Refill - Neurological Exam Neurological Exam: Abnormal Gait, Alert, Awake, CN II-XII Intact, Oriented x3 - Psychiatric Exam Psychiatric exam: Flat Affect - Skin Skin Exam: Intact Assessment and Plan (1) Cellulitis and abscess of leg Status: Acute (2) Stasis dermatitis of both legs Status: Chronic (3) Alcohol dependence Status: Chronic (4) Homelessness Status: Chronic
[2016-11-21] MEDS: Vancomycin 1 gm/NS 200 ml 1 GM/200 ML BAG IVPB SCH ×2 (01:57→13:07)
[2016-11-21] MEDS: Aztreonam 2 GM in Sodium Chloride 0.9% 100 ML IVPB SCH ×3 (04:19→19:04)
[2016-11-21] MEDS: Pantoprazole 40 mg EC Tab PO SCH (09:47)
[2016-11-21] MEDS: Multiple Vitamins Tab PO SCH (09:47)
--- NOTE | 2016-11-21 15:04 | CP.PCM.PN ---
Subjective - Date & Time of Evaluation Date of Evaluation: 11/21/16 Time of Evaluation: 12:01 - Subjective Subjective: 61 year old male was seen at bedside for chronic wounds to bilateral legs. He complains of some itching to his legs. He is NAD, AAOx3. He denies n/v/f/c/sob/ cp. Objective - Vital Signs/Intake and Output Vital Signs (last 24 hours): Temp Pulse Resp BP Pulse Ox 97.3 F L 67 20 125/74 98 11/21/16 08:00 11/21/16 08:00 11/21/16 08:00 11/21/16 08:00 11/21/16 08:00 Intake and Output: 11/21/16 11/21/16 06:59 18:59 Intake Total 540 Output Total 800 Balance -260 - Medications Medications: Current Medications Acetaminophen (Tylenol 325mg Tab) 650 mg PO Q6 PRN PRN Reason: Pain, Mild (1-3) Last Admin: 11/18/16 21:22 Dose: 650 mg Heparin Sodium (Porcine) (Heparin) 5,000 units SC Q12 [facility] Last Admin: 11/21/16 09:47 Dose: 5,000 units Vancomycin/Sodium Chloride (Vancocin) 1 gm in 200 mls @ 133 mls/hr IVPB Q12H [facility] Stop: 11/24/16 01:31 Last Admin: 11/21/16 13:07 Dose: 133 mls/hr Aztreonam 2 gm/ Sodium (Chloride) 100 mls @ 200 mls/hr IVPB Q8H [facility] Last Admin: 11/21/16 04:19 Dose: 200 mls/hr Multivitamins (Hexavitamin) 1 tab PO DAILY [facility] Last Admin: 11/21/16 09:47 Dose: 1 tab Ondansetron HCl (Zofran Inj) 4 mg IVP Q8 PRN PRN Reason: Nausea/Vomiting Last Admin: 11/21/16 02:03 Dose: 4 mg Pantoprazole Sodium (Protonix Ec Tab) 40 mg PO DAILY [facility] Last Admin: 11/21/16 09:47 Dose: 40 mg Thiamine HCl (Vitamin B1 Tab) 100 mg PO DAILY [facility] Last Admin: 11/21/16 09:47 Dose: 100 mg Tramadol HCl (Ultram) 50 mg PO TID PRN PRN Reason: Pain, moderate (4-7) Last Admin: 11/20/16 23:58 Dose: 50 mg - Constitutional Appears: Well, Non-toxic, No Acute Distress - Extremities Exam Additional comments: lower extremity focused exam: VASC: DP and PT pulses are palpable 1/4 b/l, CONTACT LENS LATHE OPERATOR: < 3 sec to all digits, TG: warm to warm pitting edema with skin tenting noted on distal lower extremity, R> L DERM: diffuse superficial ulcerations on bilateral legs from distal to tibial tuberosity to ankle joint on the right, and circumferential to the calf on the left, wound bases appeared fibro-granular with serous drainage from multiple sites no malodor present, no probe to bone, no undermining wounds, erythema extending from knee joint to the ankle joint with glossy appearance of the skin. moderate amount of serosanginous drainage noted. Severe xerosis noted to entire foot b/l. NEURO: Protective sensation mildly diminished ORTHO: No tenderness to palpation lower extremity b/l. - Neurological Exam Neurological Exam: Alert, Awake, Oriented x3 - Psychiatric Exam Psychiatric exam: Normal Affect, Normal Mood Assessment and Plan - Assessment and Plan (Free Text) Assessment: 61 year old male with chronic ulcerations to bilateral legs secondary to venous stasis Plan: Patient seen and evaluated at bedside with attending Dr. Masters Charts, labs, vitals reviewed Wounds cleansed with sterile saline then dressed with xeroform, ABDs, kerlix continue IV abx per ID podiatry will continue to follow while in house
[2016-11-22] MEDS: Vancomycin 1 gm/NS 200 ml 1 GM/200 ML BAG IVPB SCH ×2 (01:39→13:22)
[2016-11-22] MEDS: Aztreonam 2 GM in Sodium Chloride 0.9% 100 ML IVPB SCH ×3 (04:54→20:00)
[2016-11-22 07:42] LABS: BASO % 0.5 % (0.0-2.0); EOS # 0.2 K/uL (0.0-0.7); EOS % 4.2 % (0.0-4.0); HEMOGLOBIN 11.4 g/dL (12.0-18.0); LYMPH # 0.8 K/uL (1.0-4.3); LYMPH % 15.9 % (20.0-40.0); MEAN CELL VOLUME 86.7 fL (80.0-94.0); MEAN CORPUSCULAR HEMOGLOBIN 29.5 pg (27.0-31.0); MEAN CORPUSCULAR HGB CONC 34.1 g/dL (33.0-37.0); MEAN PLATELET VOLUME 6.1 fL (7.2-11.7); MONO # 0.6 K/uL (0.0-0.8); MONO % 10.9 % (0.0-10.0); NEUT # 3.6 K/uL (1.8-7.0); NEUT % 68.5 % (50.0-75.0); RBC 3.86 Mil/uL (4.40-5.90); RED CELL DISTRIBUTION WIDTH 13.9 % (11.5-14.5); WHITE BLOOD COUNT 5.3 K/uL (4.8-10.8)
[2016-11-22 07:43] LABS: ALBUMIN 2.7 g/dL (3.5-5.0)
[2016-11-22 07:46] LABS: ALB/GLOB RATIO 0.8 (1.0-2.1); ALT/SGPT 24 U/L (21-72); AST/SGOT 20 U/L (17-59); BLOOD UREA NITROGEN 12 mg/dL (9-20); GFR AFRICAN-AMERICAN > 60; GFR NON-AFRICAN AMERICAN > 60
[2016-11-22 07:47] LABS: CALCIUM 7.9 mg/dl (8.6-10.4)
[2016-11-22] MEDS: Pantoprazole 40 mg EC Tab PO SCH (09:47)
[2016-11-22] MEDS: Multiple Vitamins Tab PO SCH (09:47)
--- NOTE | 2016-11-22 15:48 | CP.PCM.PN ---
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 cont wound care ands iv rx needs STEVE Objective - Vital Signs/Intake and Output Vital Signs (last 24 hours): Temp Pulse Resp BP Pulse Ox 98.1 F 73 20 134/80 95 11/22/16 08:44 11/22/16 08:44 11/22/16 08:44 11/22/16 08:44 11/22/16 08:44 Intake and Output: 11/22/16 11/22/16 06:59 18:59 Intake Total 300 Balance 300 - Medications Medications: Current Medications Acetaminophen (Tylenol 325mg Tab) 650 mg PO Q6 PRN PRN Reason: Pain, Mild (1-3) Last Admin: 11/18/16 21:22 Dose: 650 mg Vancomycin/Sodium Chloride (Vancocin) 1 gm in 200 mls @ 133 mls/hr IVPB Q12H [facility] Stop: 11/24/16 01:31 Last Admin: 11/22/16 13:22 Dose: 133 mls/hr Aztreonam 2 gm/ Sodium (Chloride) 100 mls @ 200 mls/hr IVPB Q8H [facility] Last Admin: 11/22/16 11:05 Dose: 200 mls/hr Multivitamins (Hexavitamin) 1 tab PO DAILY [facility] Last Admin: 11/22/16 09:47 Dose: 1 tab Ondansetron HCl (Zofran Inj) 4 mg IVP Q8 PRN PRN Reason: Nausea/Vomiting Last Admin: 11/21/16 02:03 Dose: 4 mg Pantoprazole Sodium (Protonix Ec Tab) 40 mg PO DAILY [facility] Last Admin: 11/22/16 09:47 Dose: 40 mg Thiamine HCl (Vitamin B1 Tab) 100 mg PO DAILY [facility] Last Admin: 11/22/16 09:47 Dose: 100 mg Tramadol HCl (Ultram) 50 mg PO TID PRN PRN Reason: Pain, moderate (4-7) Last Admin: 11/22/16 05:14 Dose: 50 mg - Labs Labs: 11/22/16 07:15 11/22/16 07:15 - Constitutional Appears: Non-toxic, Chronically Ill - Head Exam Head Exam: NORMOCEPHALIC - Eye Exam Eye Exam: PERRL - ENT Exam ENT Exam: Mucous Membranes Dry - Neck Exam Neck Exam: Lymphadenopathy - Respiratory Exam Respiratory Exam: Decreased Breath Sounds - Cardiovascular Exam Cardiovascular Exam: REGULAR RHYTHM - GI/Abdominal Exam GI & Abdominal Exam: Distended, Soft - Rectal Exam Rectal Exam: Deferred - Exam Exam: NORMAL INSPECTION - Extremities Exam Additional comments: lower extremity focused exam: VASC: DP and PT pulses are palpable 1/4 b/l, AG SERVICE MANAGER: < 3 sec to all digits, TG: warm to warm pitting edema with skin tenting noted on distal lower extremity, R> L DERM: diffuse superficial ulcerations on bilateral legs from distal to tibial tuberosity to ankle joint on the right, and circumferential to the calf on the left, wound bases appeared fibro-granular with serous drainage from multiple sites no malodor present, no probe to bone, no undermining wounds, erythema extending from knee joint to the ankle joint with glossy appearance of the skin. moderate amount of serosanginous drainage noted. Severe xerosis noted to entire foot b/l. NEURO: Protective sensation mildly diminished ORTHO: No tenderness to palpation lower extremity b/l. - Neurological Exam Neurological Exam: Alert, Awake, Oriented x3 Assessment and Plan (1) Alcohol use Status: Acute (2) Bilateral cellulitis of lower leg Status: Acute
--- NOTE | 2016-11-22 15:56 | CP.PCM.PN ---
Subjective - Date & Time of Evaluation Date of Evaluation: 11/22/16 Time of Evaluation: 12:53 - Subjective Subjective: 61 year old male was seen at bedside for chronic wounds to bilateral legs. He complains of some itching to his legs but states that the itching is improved since yesterday. He is NAD, AAOx3. He denies n/v/f/c/sob/cp. Objective - Vital Signs/Intake and Output Vital Signs (last 24 hours): Temp Pulse Resp BP Pulse Ox 98.1 F 73 20 134/80 95 11/22/16 08:44 11/22/16 08:44 11/22/16 08:44 11/22/16 08:44 11/22/16 08:44 Intake and Output: 11/22/16 11/22/16 06:59 18:59 Intake Total 300 Balance 300 - Medications Medications: Current Medications Acetaminophen (Tylenol 325mg Tab) 650 mg PO Q6 PRN PRN Reason: Pain, Mild (1-3) Last Admin: 11/18/16 21:22 Dose: 650 mg Vancomycin/Sodium Chloride (Vancocin) 1 gm in 200 mls @ 133 mls/hr IVPB Q12H [facility] Stop: 11/24/16 01:31 Last Admin: 11/22/16 13:22 Dose: 133 mls/hr Aztreonam 2 gm/ Sodium (Chloride) 100 mls @ 200 mls/hr IVPB Q8H [facility] Last Admin: 11/22/16 11:05 Dose: 200 mls/hr Multivitamins (Hexavitamin) 1 tab PO DAILY [facility] Last Admin: 11/22/16 09:47 Dose: 1 tab Ondansetron HCl (Zofran Inj) 4 mg IVP Q8 PRN PRN Reason: Nausea/Vomiting Last Admin: 11/21/16 02:03 Dose: 4 mg Pantoprazole Sodium (Protonix Ec Tab) 40 mg PO DAILY [facility] Last Admin: 11/22/16 09:47 Dose: 40 mg Thiamine HCl (Vitamin B1 Tab) 100 mg PO DAILY [facility] Last Admin: 11/22/16 09:47 Dose: 100 mg Tramadol HCl (Ultram) 50 mg PO TID PRN PRN Reason: Pain, moderate (4-7) Last Admin: 11/22/16 05:14 Dose: 50 mg - Labs Labs: 11/22/16 07:15 11/22/16 07:15 - Constitutional Appears: Well, Non-toxic, No Acute Distress - Extremities Exam Additional comments: lower extremity focused exam: VASC: DP and PT pulses are palpable 1/4 b/l, CULINARY DIRECTOR: < 3 sec to all digits, TG: warm to warm pitting edema DERM: diffuse superficial ulcerations on bilateral legs from distal to tibial tuberosity to ankle joint on the right, and circumferential to the calf on the left, wound bases appeared fibrogranular with serous drainage from multiple sites no malodor present, no probe to bone, no undermining wounds, erythema extending from knee joint to the ankle joint with glossy appearance of the skin. moderate amount of serosanginous drainage noted. Severe xerosis noted to entire foot b/l. Condition appears to be slowly improving NEURO: Protective sensation mildly diminished ORTHO: No tenderness to palpation lower extremity b/l. - Neurological Exam Neurological Exam: Alert, Awake, Oriented x3 - Psychiatric Exam Psychiatric exam: Normal Affect, Normal Mood Assessment and Plan - Assessment and Plan (Free Text) Assessment: 61 year old male with chronic ulcerations to bilateral legs secondary to venous stasis Plan: Patient seen and evaluated at bedside Charts, labs, vitals reviewed Plan discussed with attending Dr. Masters Wounds dressed with xeroform, ABDs, kerlix continue IV abx per ID podiatry will continue to follow while in house
--- NOTE | 2016-11-22 21:24 | CP.PCM.PN ---
Subjective - Date & Time of Evaluation Date of Evaluation: 11/21/16 - Subjective Subjective: PAIN IN LEGS WITH OPEN ULCERS, NO SOB, AND HE HAS POSITIVE WOUND CULTURES, NO NAUSEA, NO VOMITING Objective - Vital Signs/Intake and Output Vital Signs (last 24 hours): Temp Pulse Resp BP Pulse Ox 98.3 F 58 L 20 133/77 98 11/22/16 17:06 11/22/16 17:06 11/22/16 17:06 11/22/16 17:06 11/22/16 17:06 Intake and Output: 11/22/16 11/23/16 18:59 06:59 Intake Total 300 Balance 300 - Medications Medications: Current Medications Acetaminophen (Tylenol 325mg Tab) 650 mg PO Q6 PRN PRN Reason: Pain, Mild (1-3) Last Admin: 11/18/16 21:22 Dose: 650 mg Vancomycin/Sodium Chloride (Vancocin) 1 gm in 200 mls @ 133 mls/hr IVPB Q12H [facility] Stop: 11/24/16 01:31 Last Admin: 11/22/16 13:22 Dose: 133 mls/hr Aztreonam 2 gm/ Sodium (Chloride) 100 mls @ 200 mls/hr IVPB Q8H [facility] Last Admin: 11/22/16 11:05 Dose: 200 mls/hr Multivitamins (Hexavitamin) 1 tab PO DAILY [facility] Last Admin: 11/22/16 09:47 Dose: 1 tab Ondansetron HCl (Zofran Inj) 4 mg IVP Q8 PRN PRN Reason: Nausea/Vomiting Last Admin: 11/21/16 02:03 Dose: 4 mg Pantoprazole Sodium (Protonix Ec Tab) 40 mg PO DAILY [facility] Last Admin: 11/22/16 09:47 Dose: 40 mg Thiamine HCl (Vitamin B1 Tab) 100 mg PO DAILY [facility] Last Admin: 11/22/16 09:47 Dose: 100 mg Tramadol HCl (Ultram) 50 mg PO TID PRN PRN Reason: Pain, moderate (4-7) Last Admin: 11/22/16 05:14 Dose: 50 mg - Labs Labs: 11/22/16 07:15 11/22/16 07:15 - Constitutional Appears: Non-toxic, No Acute Distress, Chronically Ill - Head Exam Head Exam: ATRAUMATIC, NORMAL INSPECTION, NORMOCEPHALIC - Eye Exam Eye Exam: EOMI, Normal appearance Pupil Exam: NORMAL ACCOMODATION, PERRL - ENT Exam ENT Exam: Mucous Membranes Moist, Normal Exam - Respiratory Exam Respiratory Exam: Clear to Ausculation Bilateral, NORMAL BREATHING PATTERN - Cardiovascular Exam Cardiovascular Exam: REGULAR RHYTHM, +S1, +S2 - GI/Abdominal Exam GI & Abdominal Exam: Normal Bowel Sounds - Rectal Exam Rectal Exam: NORMAL INSPECTION - Exam External exam: NORMAL EXTERNAL EXAM - Extremities Exam Extremities Exam: Full ROM, Normal Capillary Refill, Normal Inspection - Back Exam Back Exam: NORMAL INSPECTION Assessment and Plan (1) Cellulitis and abscess of leg Assessment & Plan: ON IV ANTIBIOTICS Status: Acute (2) Stasis dermatitis of both legs Status: Chronic (3) Alcohol dependence Status: Chronic (4) Homelessness Status: Chronic
--- NOTE | 2016-11-22 22:29 | CP.PCM.PN ---
Subjective - Date & Time of Evaluation Date of Evaluation: 11/22/16 - Subjective Subjective: NO CHANGES, NO SOB Objective - Vital Signs/Intake and Output Vital Signs (last 24 hours): Temp Pulse Resp BP Pulse Ox 98.3 F 58 L 20 133/77 98 11/22/16 17:06 11/22/16 17:06 11/22/16 17:06 11/22/16 17:06 11/22/16 17:06 Intake and Output: 11/22/16 11/23/16 18:59 06:59 Intake Total 300 Balance 300 - Medications Medications: Current Medications Acetaminophen (Tylenol 325mg Tab) 650 mg PO Q6 PRN PRN Reason: Pain, Mild (1-3) Last Admin: 11/18/16 21:22 Dose: 650 mg Vancomycin/Sodium Chloride (Vancocin) 1 gm in 200 mls @ 133 mls/hr IVPB Q12H [facility] Stop: 11/24/16 01:31 Last Admin: 11/22/16 13:22 Dose: 133 mls/hr Aztreonam 2 gm/ Sodium (Chloride) 100 mls @ 200 mls/hr IVPB Q8H [facility] Last Admin: 11/22/16 20:00 Dose: 200 mls/hr Multivitamins (Hexavitamin) 1 tab PO DAILY [facility] Last Admin: 11/22/16 09:47 Dose: 1 tab Ondansetron HCl (Zofran Inj) 4 mg IVP Q8 PRN PRN Reason: Nausea/Vomiting Last Admin: 11/21/16 02:03 Dose: 4 mg Pantoprazole Sodium (Protonix Ec Tab) 40 mg PO DAILY [facility] Last Admin: 11/22/16 09:47 Dose: 40 mg Thiamine HCl (Vitamin B1 Tab) 100 mg PO DAILY [facility] Last Admin: 11/22/16 09:47 Dose: 100 mg Tramadol HCl (Ultram) 50 mg PO TID PRN PRN Reason: Pain, moderate (4-7) Last Admin: 11/22/16 05:14 Dose: 50 mg - Labs Labs: 11/22/16 07:15 11/22/16 07:15 - Constitutional Appears: Non-toxic, No Acute Distress, Chronically Ill - Head Exam Head Exam: ATRAUMATIC, NORMAL INSPECTION, NORMOCEPHALIC - Eye Exam Pupil Exam: NORMAL ACCOMODATION, PERRL - ENT Exam ENT Exam: Mucous Membranes Moist, Normal Exam - Respiratory Exam Respiratory Exam: Clear to Ausculation Bilateral, NORMAL BREATHING PATTERN - Cardiovascular Exam Cardiovascular Exam: REGULAR RHYTHM - Skin Skin Exam: Erythema, Rash Assessment and Plan (1) Cellulitis and abscess of leg Assessment & Plan: ON ANTIBIOTICS Status: Acute (2) Stasis dermatitis of both legs Status: Chronic (3) Alcohol dependence Status: Chronic (4) Homelessness Status: Chronic
[2016-11-23 00:41] VITALS: O2SAT 96
[2016-11-23] MEDS: Vancomycin 1 gm/NS 200 ml 1 GM/200 ML BAG IVPB SCH ×2 (00:53→14:03)
[2016-11-23] MEDS: Aztreonam 2 GM in Sodium Chloride 0.9% 100 ML IVPB SCH ×2 (03:51→11:44)
[2016-11-23] MEDS: Pantoprazole 40 mg EC Tab PO SCH (10:22)
[2016-11-23] MEDS: Multiple Vitamins Tab PO SCH (10:22)
[2016-11-23 13:13] LABS: BASO % 0.4 % (0.0-2.0); EOS # 0.2 K/uL (0.0-0.7); EOS % 3.2 % (0.0-4.0); HEMOGLOBIN 11.8 g/dL (12.0-18.0); LYMPH # 0.9 K/uL (1.0-4.3); LYMPH % 14.2 % (20.0-40.0); MEAN CELL VOLUME 86.7 fL (80.0-94.0); MEAN CORPUSCULAR HEMOGLOBIN 29.8 pg (27.0-31.0); MEAN CORPUSCULAR HGB CONC 34.3 g/dL (33.0-37.0); MEAN PLATELET VOLUME 5.8 fL (7.2-11.7); MONO # 0.5 K/uL (0.0-0.8); MONO % 7.2 % (0.0-10.0); NEUT # 4.8 K/uL (1.8-7.0); RBC 3.98 Mil/uL (4.40-5.90); RED CELL DISTRIBUTION WIDTH 14.2 % (11.5-14.5); WHITE BLOOD COUNT 6.4 K/uL (4.8-10.8)
[2016-11-23 13:31] LABS: BLOOD UREA NITROGEN 10 mg/dL (9-20); CALCIUM 7.9 mg/dl (8.6-10.4); GFR AFRICAN-AMERICAN > 60; GFR NON-AFRICAN AMERICAN > 60
--- NOTE | 2016-11-23 14:28 | CP.PCM.PN ---
Subjective - Date & Time of Evaluation Date of Evaluation: 11/23/16 Time of Evaluation: 14:26 - Subjective Subjective: 61 year old male was seen at bedside for chronic wounds to bilateral legs. He complains of some itching to his legs but states that the itching is improved since yesterday. He is NAD, AAOx3. He states that he wishes to go to rehab when he is done here. He denies n/v/f/c/sob/cp. Objective - Vital Signs/Intake and Output Vital Signs (last 24 hours): Temp Pulse Resp BP Pulse Ox 97.8 F 64 20 121/79 96 11/23/16 08:29 11/23/16 08:29 11/23/16 08:29 11/23/16 08:29 11/23/16 08:29 Intake and Output: 11/23/16 11/23/16 06:59 18:59 Intake Total 440 Output Total 400 Balance 440 -400 - Medications Medications: Current Medications Acetaminophen (Tylenol 325mg Tab) 650 mg PO Q6 PRN PRN Reason: Pain, Mild (1-3) Last Admin: 11/18/16 21:22 Dose: 650 mg Vancomycin/Sodium Chloride (Vancocin) 1 gm in 200 mls @ 133 mls/hr IVPB Q12H [facility] Stop: 11/24/16 01:31 Last Admin: 11/23/16 14:03 Dose: 133 mls/hr Aztreonam 2 gm/ Sodium (Chloride) 100 mls @ 200 mls/hr IVPB Q8H [facility] Last Admin: 11/23/16 11:44 Dose: 200 mls/hr Multivitamins (Hexavitamin) 1 tab PO DAILY [facility] Last Admin: 11/23/16 10:22 Dose: 1 tab Ondansetron HCl (Zofran Inj) 4 mg IVP Q8 PRN PRN Reason: Nausea/Vomiting Last Admin: 11/23/16 12:00 Dose: 4 mg Pantoprazole Sodium (Protonix Ec Tab) 40 mg PO DAILY [facility] Last Admin: 11/23/16 10:22 Dose: 40 mg Thiamine HCl (Vitamin B1 Tab) 100 mg PO DAILY [facility] Last Admin: 11/23/16 10:22 Dose: 100 mg Tramadol HCl (Ultram) 50 mg PO TID PRN PRN Reason: Pain, moderate (4-7) Last Admin: 11/23/16 11:59 Dose: 50 mg - Labs Labs: 11/23/16 13:08 11/23/16 13:08 - Constitutional Appears: Non-toxic, No Acute Distress - Extremities Exam Additional comments: lower extremity focused exam: VASC: DP and PT pulses are palpable 1/4 b/l, 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 moderate amount of serosanginous drainage noted. Severe xerosis noted to entire foot b/l. Condition appears to be slowly improving NEURO: Protective sensation mildly diminished ORTHO: No tenderness to palpation lower extremity b/l. - Neurological Exam Neurological Exam: Alert, Awake, Oriented x3 - Psychiatric Exam Psychiatric exam: Normal Affect, Normal Mood Assessment and Plan - Assessment and Plan (Free Text) Assessment: 61 year old male with chronic ulcerations to bilateral legs secondary to venous stasis Plan: Patient seen and evaluated at bedside Discussed in detail with attending, Dr. Masters Charts, labs, vitals reviewed Wounds dressed with xeroform, ABDs, kerlix continue IV abx per ID patient stable for d/c per podiatry patient will follow up with Dr. Masters in [facility] podiatry will continue to follow while in house
[2016-11-23 16:00] VITALS: BP 132/80; PULSE 62; TEMP 97.7
--- NOTE | 2016-11-23 16:40 | CP.PCM.PN ---
Subjective - Date & Time of Evaluation Date of Evaluation: 11/23/16 Time of Evaluation: 12:00 - Subjective Subjective: Patient seen an d examined today ,awake, alert, oriented , c/o B/L leg pain, denie s any chest pain, sob, abdominal pain a febrile Objective - Vital Signs/Intake and Output Vital Signs (last 24 hours): Temp Pulse Resp BP Pulse Ox 97.7 F 62 20 132/80 96 11/23/16 15:58 11/23/16 15:58 11/23/16 15:58 11/23/16 15:58 11/23/16 15:58 Intake and Output: 11/23/16 11/23/16 06:59 18:59 Intake Total 440 660 Output Total 400 Balance 440 260 - Medications Medications: Current Medications Acetaminophen (Tylenol 325mg Tab) 650 mg PO Q6 PRN PRN Reason: Pain, Mild (1-3) Last Admin: 11/18/16 21:22 Dose: 650 mg Vancomycin/Sodium Chloride (Vancocin) 1 gm in 200 mls @ 133 mls/hr IVPB Q12H [facility] Stop: 11/24/16 01:31 Last Admin: 11/23/16 14:03 Dose: 133 mls/hr Aztreonam 2 gm/ Sodium (Chloride) 100 mls @ 200 mls/hr IVPB Q8H [facility] Last Admin: 11/23/16 11:44 Dose: 200 mls/hr Multivitamins (Hexavitamin) 1 tab PO DAILY [facility] Last Admin: 11/23/16 10:22 Dose: 1 tab Ondansetron HCl (Zofran Inj) 4 mg IVP Q8 PRN PRN Reason: Nausea/Vomiting Last Admin: 11/23/16 12:00 Dose: 4 mg Pantoprazole Sodium (Protonix Ec Tab) 40 mg PO DAILY [facility] Last Admin: 11/23/16 10:22 Dose: 40 mg Thiamine HCl (Vitamin B1 Tab) 100 mg PO DAILY [facility] Last Admin: 11/23/16 10:22 Dose: 100 mg Tramadol HCl (Ultram) 50 mg PO TID PRN PRN Reason: Pain, moderate (4-7) Last Admin: 11/23/16 11:59 Dose: 50 mg - Labs Labs: 11/23/16 13:08 11/23/16 13:08
--- NOTE | 2016-11-23 23:21 | CP.PCM.DIS ---
Provider - Provider Date of Admission: 11/18/16 14:38 Attending physician: Roman Brand MD Diagnosis - Discharge Diagnosis (1) Cellulitis and abscess of leg Status: Acute (2) Stasis dermatitis of both legs Status: Chronic (3) Alcohol dependence Status: Chronic (4) Homelessness Status: Chronic Hospital Course - Lab Results Lab Results: Most Recent Lab Values WBC 6.4 K/uL (4.8-10.8) 11/23/16 13:08 RBC 3.98 Mil/uL (4.40-5.90) L 11/23/16 13:08 Hgb 11.8 g/dL (12.0-18.0) L 11/23/16 13:08 Hct 34.5 % (35.0-51.0) L 11/23/16 13:08 MCV 86.7 fL (80.0-94.0) 11/23/16 13:08 MCH 29.8 pg (27.0-31.0) 11/23/16 13:08 MCHC 34.3 g/dL (33.0-37.0) 11/23/16 13:08 RDW 14.2 % (11.5-14.5) 11/23/16 13:08 Plt Count 357 K/uL (130-400) 11/23/16 13:08 MPV 5.8 fL (7.2-11.7) L 11/23/16 13:08 Neut % (Auto) 75.0 % (50.0-75.0) 11/23/16 13:08 Lymph % (Auto) 14.2 % (20.0-40.0) L 11/23/16 13:08 [place] % (Auto) 7.2 % (0.0-10.0) 11/23/16 13:08 Eos % (Auto) 3.2 % (0.0-4.0) 11/23/16 13:08 Baso % (Auto) 0.4 % (0.0-2.0) 11/23/16 13:08 Neut # 4.8 K/uL (1.8-7.0) 11/23/16 13:08 Lymph # 0.9 K/uL (1.0-4.3) L 11/23/16 13:08 [place] # 0.5 K/uL (0.0-0.8) 11/23/16 13:08 Eos # 0.2 K/uL (0.0-0.7) 11/23/16 13:08 Baso # 0.0 K/uL (0.0-0.2) 11/23/16 13:08 ESR 75 mm/hr (0-15) H 11/18/16 12:58 Sodium 136 mmol/L (132-148) 11/23/16 13:08 Potassium 3.8 mmol/L (3.6-5.2) 11/23/16 13:08 Chloride 98 mmol/L (98-107) 11/23/16 13:08 Carbon Dioxide 29 mmol/L (22-30) 11/23/16 13:08 Anion Gap 13 (10-20) 11/23/16 13:08 BUN 10 mg/dL (9-20) 11/23/16 13:08 Creatinine 1.0 MG/DL (0.8-1.5) 11/23/16 13:08 Est GFR ( Amer) > 60 11/23/16 13:08 Est GFR (Non-Af Amer) > 60 11/23/16 13:08 POC Glucose (mg/dL) 104 mg/dL (65-110) 11/18/16 21:42 Random Glucose 126 mg/dL (75-110) H 11/23/16 13:08 Calcium 7.9 mg/dl (8.6-10.4) L 11/23/16 13:08 Total Bilirubin 0.4 mg/dL (0.2-1.3) 11/22/16 07:15 AST 20 U/L (17-59) 11/22/16 07:15 ALT 24 U/L (21-72) 11/22/16 07:15 Alkaline Phosphatase 82 U/L (38-126) 11/22/16 07:15 Total Protein 5.8 g/dL (6.3-8.3) L 11/22/16 07:15 Albumin 2.7 g/dL (3.5-5.0) L 11/22/16 07:15 Globulin 3.2 gm/dL (2.2-3.9) 11/22/16 07:15 Albumin/Globulin Ratio 0.8 (1.0-2.1) L 11/22/16 07:15 Vancomycin Trough 18.3 ug/mL (5.0-10.0) H 11/23/16 13:08 - Hospital Course Hospital Course: 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 AND WAS TARTED ON ANTIBIOTICS AND IS FOR DISCHARGE TO [facility] ON IV ANTIBIOTICS Discharge Exam - Head Exam Head Exam: ATRAUMATIC, NORMAL INSPECTION, NORMOCEPHALIC - Eye Exam Eye Exam: EOMI, Normal appearance, PERRL Pupil Exam: NORMAL ACCOMODATION - ENT Exam ENT Exam: Mucous Membranes Moist, Normal Exam - Neck Exam Neck exam: Normal Inspection - Respiratory Exam Respiratory Exam: Clear to PA & Lateral, NORMAL BREATHING PATTERN - Cardiovascular Exam Cardiovascular Exam: REGULAR RHYTHM, +S1, +S2 - GI/Abdominal Exam GI & Abdominal Exam: Normal Bowel Sounds - Exam Exam: NORMAL INSPECTION - Extremities Exam Extremities exam: normal capillary refill, pedal edema (OPEN WOUNDS) - Back Exam Back exam: rash noted - Neurological Exam Neurological exam: Abnormal Gait, Alert, CN II-XII Intact, Oriented x3 - Psychiatric Exam Psychiatric exam: Anxious, Depressed, Flat Affect - Skin Skin Exam: Dry, Erythema, Rash Discharge Plan - Discharge Medications Prescriptions: Aztreonam [Azactam] 2 gm IVPB Q8H 21 Days Calcium Carbonate [Calcium] 500 mg PO DAILY #10 tablet Vancomycin 1 gm/NS 200 ml [Vancocin] 1 gm IVPB DAILY 21 Days Ondansetron [Zofran] 4 mg PO Q8H PRN #20 tab PRN Reason: Nausea/Vomiting - Follow Up Plan Condition: STABLE Disposition: REHAB FACILITY/REHAB UNIT Instructions: Hypertension (DC), Hypertension (GEN) Additional Instructions: Please admit patient under Dr. Brand service - call Dr. Brand upon patient arrival to the facility PLEASE F/U WITH [facility] WITH DR. QUIGLEY- CALL AND MAKE APPOINTMENT AND ARRANGEMENT Continue medication as per Med. rec.continue Vancomycin and azactum 3 more weeks BMP CBC , VANCO TROUGH Q WEEKLY STARTING WEDNESDAY continue vancomycin and azactum 3 more weeks
== END 2016-11-23 19:52 | DRG 277 ==
LOC: C.ER 11:36 → C.9E 14:38 → C.5T 15:08 → C.3T 11-21 21:41
PROVIDERS: ADMIT Internal Medicine; ATTEND Internal Medicine
DX: L03.115 Cellulitis of right lower limb (principal); L97.311 Non-pressure chronic ulcer of right ankle limited to breakdown of skin; I10 Essential (primary) hypertension; L97.321 Non-pressure chronic ulcer of left ankle limited to breakdown of skin; I87.2 Venous insufficiency (chronic) (peripheral); L03.116 Cellulitis of left lower limb; I87.8 Other specified disorders of veins; F10.20 Alcohol dependence, uncomplicated; Z59.0 Homelessness; E78.00 Pure hypercholesterolemia, unspecified; I48.91 Unspecified atrial fibrillation; Z87.891 Personal history of nicotine dependence

== ENCOUNTER 2017-03-16 04:36 | Observation (INO) | payer OTHER ==
[2017-03-16 04:36] VITALS: BMI 27.5
--- NOTE | 2017-03-16 05:00 | C.PDOC ---
History Of Present Illness Patient presents to the ED with complaints of bilateral foot pain. Patient is homeless and [place] by EMS. Patient admits to drinking 3-5 quarts of alcohol daily. Patient denies fever or chills. Time Seen by Provider: 03/16/17 05:00 Chief Complaint (Nursing): Lower Extremity Problem/Injury History Per: Patient, EMS History/Exam Limitations: no limitations Onset/Duration Of Symptoms: Persistent Current Symptoms Are (Timing): Still Present Recent travel outside of the [place]: No Past Medical History Reviewed: Historical Data, Nursing Documentation, Vital Signs Vital Signs: Last Vital Signs Temp 98.3 F 03/16/17 04:49 Pulse 96 H 03/16/17 04:49 Resp 18 03/16/17 04:49 BP 131/72 03/16/17 04:49 Pulse Ox 100 03/16/17 06:15 - Medical History PMH: Anxiety, Arthritis, Atrial Fibrillation, Depression, Deep Vein Thrombosis, Fractures (neck, back Rt. leg fx in 5 places), Hepatitis (Patient reported history of alcohol hepatitis), HTN, Hypercholesterolemia, Pancreatitis, Peripheral Edema (chronic), Seizures (alcohol induced), Chronic Pain (leg pain/ dermatitis) Denies: Chronic Kidney Disease Surgical History: Back Surgery, Cholecystectomy Denies: Pacemaker - [facility] Procedures ALCOHOL DETOXIFICATION (09/09/13) CENTRAL VENOUS CATHETER PLACEMENT WITH GUIDANCE (11/27/13) DETOXIFICATION SERVICES FOR SUBSTANCE ABUSE TREATMENT (06/02/15) GROUP PSYCHOTHERAPY (06/02/15) INFLUENZA VACCINATION (07/14/14) INJECT/INFUSE NEC (03/20/13) INSERTION OF TOTALLY IMPLANTABLE VASC ACCESS DEVIC (04/10/14) NONEXCIS DEBRID OF WOUND, INFECT, OR BURN (04/10/14) REMOV THERAPEUT DEV NEC (11/27/13) VACCINATION NEC (07/14/14) Family History: States: No Known Family Hx - Social History Hx Tobacco Use: No Hx Alcohol Use: Yes (quart of hard liqour and beer) Hx Substance Use: Yes (Marijuana smoking daily) - Immunization History Hx Tetanus Toxoid Vaccination: Yes Hx Influenza Vaccination: Yes Hx Pneumococcal Vaccination: Yes Review Of Systems Constitutional: Negative for: Fever, Chills Musculoskeletal: Positive for: Foot Pain (bilateral foot pain ) Physical Exam - Physical Exam Appears: Non-toxic, No Acute Distress Skin: Warm, Dry, Other (patient has chronic skin changes; abrasions to bilateral feet) Head: Atraumatic, Normacephalic, No Tenderness Eye(s): bilateral: Normal Inspection, PERRL, EOMI Oral Mucosa: Moist Neck: Supple Chest: Symmetrical, No Deformity Cardiovascular: Rhythm Regular, No Murmur Respiratory: No Rales, No Rhonchi, No Wheezing, Other (clear to auscultation bilaterally) Gastrointestinal/Abdominal: No Distention, No Guarding, No Rebound Extremity: Tenderness (diffuse tenderness of bilateral feet ), Pedal Edema ( chronic edema of the lower extremity), No Calf Tenderness, Capillary Refill (< 2 seconds ), No Deformity (no obvious deformity ) Neurological/Psych: Oriented x3 ED Course And Treatment - Laboratory Results Result Diagrams: 03/16/17 05:53 03/16/17 05:53 ECG: Interpreted By Me, Viewed By Me ECG Rhythm: Sinus Rhythm (103), Nonspecific Changes O2 Sat by Pulse Oximetry: 100 (RA) Pulse Ox Interpretation: Normal Progress Note: VBG, EKG, CXR, blood work, and labs were ordered. Disposition Counseled Patient/Family Regarding: Studies Performed, Diagnosis - Disposition Disposition Time: 05:00 Condition: FAIR Forms: [facility] [facility] (Lao) - Clinical Impression Clinical Impression: Alcohol dependence, Chronic ulcer of leg, Stasis dermatitis of both legs - Scribe Statement The provider has reviewed the documentation as recorded by the Scribe Mary Membreno All medical record entries made by the Scribe were at my direction and personally dictated by me. I have reviewed the chart and agree that the record accurately reflects my personal performance of the history, physical exam, medical decision making, and the department course for this patient. I have also personally directed, reviewed, and agree with the discharge instructions and disposition. Physician Patient Turnover Patient Signed Over To: Jesús Subramanian Handoff Comments: pending labs, podiatry and social service
[2017-03-16 05:58] LABS: BASO % 0.5 % (0.0-2.0); EOS # 0.1 K/uL (0.0-0.7); EOS % 0.9 % (0.0-4.0); HEMATOCRIT 32.8 % (35.0-51.0); LYMPH # 0.9 K/uL (1.0-4.3); LYMPH % 11.5 % (20.0-40.0); MEAN CELL VOLUME 87.3 fL (80.0-94.0); MEAN CORPUSCULAR HEMOGLOBIN 30.2 pg (27.0-31.0); MEAN CORPUSCULAR HGB CONC 34.6 g/dL (33.0-37.0); MEAN PLATELET VOLUME 6.5 fL (7.2-11.7); MONO # 0.9 K/uL (0.0-0.8); MONO % 11.2 % (0.0-10.0); RED CELL DISTRIBUTION WIDTH 12.7 % (11.5-14.5); WHITE BLOOD COUNT 8.1 K/uL (4.8-10.8)
[2017-03-16 05:59] LABS: VENOUS BLOOD GAS BASE EXCESS -1.8 mmol/L (0.0-2.0); VENOUS BLOOD GAS PCO2 39 mmHg (40-60); VENOUS BLOOD PH 7.38 (7.32-7.43)
[2017-03-16 06:09] LABS: INR 1.1
[2017-03-16 06:15] LABS: ALB/GLOB RATIO 1.4 (1.0-2.1); ALCOHOL SERUM < 10 mg/dl (0-10); ALKALINE PHOSPHATASE 118 U/L (38-126); ALT/SGPT 35 U/L (21-72); AST/SGOT 27 U/L (17-59); BILIRUBIN,TOTAL 1.1 mg/dL (0.2-1.3); BLOOD UREA NITROGEN 9 mg/dL (9-20); CARBON DIOXIDE 22 mmol/L (22-30); CHLORIDE 99 mmol/L (98-107); GFR AFRICAN-AMERICAN > 60; GLUCOSE,RANDOM 97 mg/dL (75-110); POTASSIUM 3.6 mmol/L (3.6-5.2); SODIUM 132 mmol/L (132-148); TOTAL PROTEIN 6.5 g/dL (6.3-8.3)
--- NOTE | 2017-03-16 09:55 | RAD ---
PROCEDURE: CHEST RADIOGRAPH, 1 VIEW HISTORY: SOB COMPARISON: 11/10/2015 FINDINGS: LUNGS: Shallow lung volumes. Central pulmonary venous congestion/crowding. Where the expected round Port-A-Cath projects over the anterior right valencia thorax there is vague rounded opacity that is increased compared to the prior 11/10/2015. Findings are indeterminate. May simply represent increased conspicuity of the port. An underlying round infiltrate here is not excluded. PLEURA: No pneumothorax or pleural fluid seen. CARDIOVASCULAR: Mild cardiomegaly. Mild pulmonary venous congestion OSSEOUS STRUCTURES: Acromioclavicular osseous hypertrophic arthrosis. Bilateral cervical spine postsurgical hardware present -similar-appearing. VISUALIZED UPPER ABDOMEN: Normal. OTHER FINDINGS: None. IMPRESSION: Currently inspiration is less than before -intrinsic pulmonary venous congestion accentuated by crowding of vessels is inferred.Mild cardiomegaly. The vague relative increased opacity over the right port is indeterminate in its significance if any. This may simply represent increase conspicuity of it. Superimposed rounded patchy infiltrate or coalescing pulmonary edema here is not excluded. If needed, consider follow-up chest x-ray with improved inspiration -PA and lateral. .
--- NOTE | 2017-03-16 15:05 | CP.PCM.CON ---
<Jesús Subramanian M - Last Filed: 03/16/17 16:29> Meds Allergies/Adverse Reactions: Allergies Allergy/AdvReac Type Severity Reaction Status Date / Time Penicillins Allergy Severe RASH Verified 03/16/17 04:48 Results - Vital Signs Recent Vital Signs: Last Vital Signs Temp 97.6 F 03/16/17 15:52 Pulse 92 H 03/16/17 15:52 Resp 18 03/16/17 15:52 BP 147/88 03/16/17 15:52 Pulse Ox 99 03/16/17 15:52 - Labs Result Diagrams: 03/16/17 05:53 03/16/17 05:53 Labs: Laboratory Results - last 24 hr 03/16/17 03/16/17 03/16/17 05:53 05:53 05:53 WBC 8.1 RBC 3.76 L Hgb 11.3 L Hct 32.8 L MCV 87.3 MCH 30.2 MCHC 34.6 RDW 12.7 Plt Count 295 MPV 6.5 L Neut % (Auto) 75.9 H Lymph % (Auto) 11.5 L [place] % (Auto) 11.2 H Eos % (Auto) 0.9 Baso % (Auto) 0.5 Neut # 6.2 Lymph # 0.9 L [place] # 0.9 H Eos # 0.1 Baso # 0.0 PT 12.6 H INR 1.1 APTT 33 pO2 VBG pH VBG pCO2 VBG HCO3 VBG Total CO2 VBG O2 Sat (Calc) VBG Base Excess VBG Potassium Glucose Lactate Sodium 132 Potassium 3.6 Chloride 99 Carbon Dioxide 22 Anion Gap 15 BUN 9 Creatinine 0.6 L Est GFR ( Amer) > 60 Est GFR (Non-Af Amer) > 60 Random Glucose 97 Calcium 8.0 L Total Bilirubin 1.1 AST 27 ALT 35 Alkaline Phosphatase 118 Total Protein 6.5 Albumin 3.7 Globulin 2.7 Albumin/Globulin Ratio 1.4 Lipase 20 L Venous Blood Potassium Alcohol, Quantitative < 10 03/16/17 05:55 WBC RBC Hgb Hct MCV MCH MCHC RDW Plt Count MPV Neut % (Auto) Lymph % (Auto) [place] % (Auto) Eos % (Auto) Baso % (Auto) Neut # Lymph # [place] # Eos # Baso # PT INR APTT pO2 38 VBG pH 7.38 VBG pCO2 39 L VBG HCO3 22.8 VBG Total CO2 24.3 VBG O2 Sat (Calc) 81.1 H VBG Base Excess -1.8 L VBG Potassium 3.5 L Glucose 106 Lactate 1.4 Sodium 136.0 Potassium Chloride 104.0 Carbon Dioxide Anion Gap BUN Creatinine Est GFR ( Amer) Est GFR (Non-Af Amer) Random Glucose Calcium Total Bilirubin AST ALT Alkaline Phosphatase Total Protein Albumin Globulin Albumin/Globulin Ratio Lipase Venous Blood Potassium 3.5 L Alcohol, Quantitative Disposition Discussed With Dr.: Ave Olivarez Doctor Will See Patient In The: Hospital Counseled Patient/Family Regarding: Studies Performed, Diagnosis Disposition Time: 16:30 Condition: FAIR Referrals: Non [facility] Provider, [Primary Care Provider] - Stand Alone Forms: [facility] (Azeri) <Amy Elizabeth - Last Filed: 03/17/17 21:12> History of Present Illness - History of Present Illness History of Present Illness: 61 year old male with extensive PMH was seen at bedside in ED for chronic wounds to bilateral legs. Pt is well know to podiatry service. [facility] Pt is homeless and returned to indigent lifestyle of sleeping on benches. Pt reports that pain and irritation returned to his posterior lower leg. Pt denies recent f/c/cp/sob/n/v/d. Past Patient History - Infectious Disease Hx of Infectious Diseases: None - Tetanus Immunizations Tetanus Immunization: Unknown - Past Medical History & Family History Past Medical History?: Yes - Past Social History Smoking Status: Never Smoked - CARDIAC Hx Atrial Fibrillation: Yes Hx Hypercholesterolemia: Yes Hx Hypertension: Yes Hx Pacemaker: No Hx Peripheral Edema: Yes (chronic) - PULMONARY Hx Respiratory Disorders: No - NEUROLOGICAL Hx Seizures: Yes (alcohol induced) - HEENT Hx HEENT Problems: Yes Hx Cataracts: Yes (Rt. and Lt. cataract sx) - RENAL Hx Chronic Kidney Disease: No - ENDOCRINE/METABOLIC Hx Endocrine Disorders: Yes Other/Comment: SPOT ON PANCREAS - INTEGUMENTARY Hx Dermatological Problems: Yes Hx Cellulitis: Yes (bilateral legs) Other/Comment: Venous stasis bilateral legs - MUSCULOSKELETAL/RHEUMATOLOGICAL Hx Arthritis: Yes Hx Fractures: Yes (neck, back Rt. 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 Moderate pitting edema noted to distal lower extremity, L>R DERM: Localized identical patch of 3x2cm superficial ulcerations with wound bases appearing fibro-granular with serous drainage from multiple sites no malodor present, no probe to bone, no undermining. Wounds periwound skin maceration noted to posterior aspect of distal 1/3 of legs. Basent acute signs of infection, purulence or streaking erythema. Diffuse blanchable erythema noted to bilateral lower legs. Pallor on elevation, and rubor on dependency noted bilaterally. Indurated plaques noted to anterior aspect of right leg with mild diffuse lichenifications to left leg. Glossy appearance of the anterior medial leg skin absent fluctuance. NEURO: Protective sensation mildly diminished ORTHO: No tenderness to palpation lower extremity b/l. - Neurological Exam Neurological exam: Alert, Oriented x3 - Psychiatric Exam Psychiatric exam: Normal Affect, Normal Mood Results - Vital Signs Recent Vital Signs: Last Vital Signs Temp 99.0 F 03/16/17 07:45 Pulse 100 H 03/16/17 07:45 Resp 18 03/16/17 07:45 BP 141/79 03/16/17 07:45 Pulse Ox 96 03/16/17 07:45 - Labs Result Diagrams: 03/16/17 05:53 03/16/17 05:53 Labs: Laboratory Results - last 24 hr 03/16/17 03/16/17 03/16/17 05:53 05:53 05:53 WBC 8.1 RBC 3.76 L Hgb 11.3 L Hct 32.8 L MCV 87.3 MCH 30.2 MCHC 34.6 RDW 12.7 Plt Count 295 MPV 6.5 L Neut % (Auto) 75.9 H Lymph % (Auto) 11.5 L [place] % (Auto) 11.2 H Eos % (Auto) 0.9 Baso % (Auto) 0.5 Neut # 6.2 Lymph # 0.9 L [place] # 0.9 H Eos # 0.1 Baso # 0.0 PT 12.6 H INR 1.1 APTT 33 pO2 VBG pH VBG pCO2 VBG HCO3 VBG Total CO2 VBG O2 Sat (Calc) VBG Base Excess VBG Potassium Glucose Lactate Sodium 132 Potassium 3.6 Chloride 99 Carbon Dioxide 22 Anion Gap 15 BUN 9 Creatinine 0.6 L Est GFR ( Amer) > 60 Est GFR (Non-Af Amer) > 60 Random Glucose 97 Calcium 8.0 L Total Bilirubin 1.1 AST 27 ALT 35 Alkaline Phosphatase 118 Total Protein 6.5 Albumin 3.7 Globulin 2.7 Albumin/Globulin Ratio 1.4 Lipase 20 L Venous Blood Potassium Alcohol, Quantitative < 10 03/16/17 05:55 WBC RBC Hgb Hct MCV MCH MCHC RDW Plt Count MPV Neut % (Auto) Lymph % (Auto) [place] % (Auto) Eos % (Auto) Baso % (Auto) Neut # Lymph # [place] # Eos # Baso # PT INR APTT pO2 38 VBG pH 7.38 VBG pCO2 39 L VBG HCO3 22.8 VBG Total CO2 24.3 VBG O2 Sat (Calc) 81.1 H VBG Base Excess -1.8 L VBG Potassium 3.5 L Glucose 106 Lactate 1.4 Sodium 136.0 Potassium Chloride 104.0 Carbon Dioxide Anion Gap BUN Creatinine Est GFR ( Amer) Est GFR (Non-Af Amer) Random Glucose Calcium Total Bilirubin AST ALT Alkaline Phosphatase Total Protein Albumin Globulin Albumin/Globulin Ratio Lipase Venous Blood Potassium 3.5 L Alcohol, Quantitative Assessment & Plan - Assessment and Plan (Free Text) Assessment: 61 year old male with chronic ulcerations to bilateral legs secondary to venous stasis Plan: Patient seen and evaluated at bedside. Discussed with attending Dr. Masters Charts, labs, vitals reviewed. Afebribe, absent leukocytosis Wounds cleansed with sterile saline then dressed with xeroform, ABDs, kerlix, and KELSEA. Follow up in [facility], with attending Dr. Masters - Date & Time Date: 03/16/17 Time: 12:00
[2017-03-16 20:38] VITALS: RESP 20
[2017-03-16] MEDS: Enoxaparin 40 mg Syringe SC SCH (20:54)
[2017-03-16] MEDS: Pantoprazole 40 mg EC Tab PO SCH (20:55)
[2017-03-16 21:26] LABS: RBC URINE 1 /hpf (0-3); TRANSITIONAL EPITHIAL < 1 /hpf (0-3); URINE BACTERIA RARE (<OCC); URINE BILIRUBIN NEGATIVE (NEGATIVE); URINE BLOOD NEGATIVE (NEGATIVE); URINE COLOR Yellow (YELLOW); URINE GLUCOSE (UA) NORMAL (Normal); URINE KETONE TRACE mg/dL (NEGATIVE); URINE LEUKOCYTE ESTERASE NEG Leu/uL (Negative); URINE PROTEIN NEGATIVE (NEGATIVE); WBC URINE 1 /hpf (0-5)
--- NOTE | 2017-03-17 07:34 | CP.PCM.CON ---
History of Present Illness - History of Present Illness History of Present Illness: CONSULT DICTATED SUBSTANCE ABUSED NEUROPATHY PODIATRY CONSULT ABSTINENCE FROM DRUGS AND ETOH PSYCHIATRY CONSULT Past Patient History - Infectious Disease Hx of Infectious Diseases: None - Tetanus Immunizations Tetanus Immunization: Unknown - Past Medical History & Family History Past Medical History?: Yes - Past Social History Smoking Status: Never Smoked - CARDIAC Hx Hypercholesterolemia: Yes Hx Hypertension: Yes - PULMONARY Hx Respiratory Disorders: No - NEUROLOGICAL Hx Seizures: Yes (alcohol induced) - HEENT Hx HEENT Problems: Yes Hx Cataracts: Yes (Rt. and Lt. cataract sx) - RENAL Hx Chronic Kidney Disease: No - ENDOCRINE/METABOLIC Hx Endocrine Disorders: Yes Other/Comment: SPOT ON PANCREAS - INTEGUMENTARY Hx Dermatological Problems: Yes Hx Cellulitis: Yes (bilateral legs) Other/Comment: Venous stasis bilateral legs - MUSCULOSKELETAL/RHEUMATOLOGICAL Hx Falls: Yes - GASTROINTESTINAL Hx Pancreatitis: Yes - PSYCHIATRIC Hx Anxiety: Yes Hx Depression: Yes Hx Substance Use: Yes (Marijuana smoking daily) - SURGICAL HISTORY Hx Cholecystectomy: Yes - ANESTHESIA Hx Anesthesia: Yes Hx Anesthesia Reactions: No Hx Malignant Hyperthermia: No Meds Allergies/Adverse Reactions: Allergies Allergy/AdvReac Type Severity Reaction Status Date / Time Penicillins Allergy Severe RASH Verified 03/16/17 04:48 - Medications Medications: Current Medications Calcium Carbonate (Oscal) 500 mg PO DAILY [facility] Enoxaparin Sodium (Lovenox) 40 mg SC DAILY [facility] Last Admin: 03/16/17 20:54 Dose: 40 mg Multivitamins (Hexavitamin) 1 tab PO DAILY [facility] Ondansetron HCl (Zofran Tab) 4 mg PO Q8H PRN PRN Reason: Nausea/Vomiting Pantoprazole Sodium (Protonix Ec Tab) 40 mg PO DAILY [facility] Last Admin: 03/16/17 20:55 Dose: 40 mg Thiamine HCl (Vitamin B1 Tab) 100 mg PO DAILY [facility] Thiamine HCl (Vitamin B1 Tab) 100 mg PO DAILY [facility] Tramadol HCl (Ultram) 50 mg PO TID PRN PRN Reason: Pain, moderate (4-7) Last Admin: 03/16/17 23:06 Dose: 50 mg Results - Vital Signs Recent Vital Signs: Last Vital Signs Temp 98.8 F 03/17/17 00:00 Pulse 100 H 03/17/17 00:00 Resp 20 03/17/17 00:00 BP 130/64 03/17/17 00:00 Pulse Ox 96 03/17/17 00:00 - Labs Result Diagrams: 03/16/17 05:53 03/16/17 05:53 Labs: Laboratory Results - last 24 hr 03/16/17 03/16/17 20:57 20:57 Urine Color Yellow Urine Clarity Clear Urine pH 5.0 Ur Specific [place] 1.012 Urine Protein Negative Urine Glucose (UA) Normal Urine Ketones Trace Urine Blood Negative Urine Nitrate Negative Urine Bilirubin Negative Urine Urobilinogen 2.0 Ur Leukocyte Esterase Neg Urine WBC (Auto) 1 Urine RBC (Auto) 1 Ur Squamous Epith Cells < 1 Ur Transition Epith Cell < 1 Urine Bacteria Rare Urine Opiates Screen Negative Urine Methadone Screen Negative Ur Barbiturates Screen Negative Ur Phencyclidine Scrn Negative Ur Amphetamines Screen Negative U Benzodiazepines Scrn Negative U Oth Cocaine Metabols Negative U Cannabinoids Screen Positive H
[2017-03-17 08:09] LABS: FREE T4 1.19 ng/dL (0.78-2.19)
[2017-03-17 08:23] LABS: THYROID STIMULATING HORMONE 2.01 mIU/L (0.46-4.68)
[2017-03-17 09:00] LABS: FOLATE 14.2 ng/mL
[2017-03-17] MEDS: Multiple Vitamins Tab PO SCH (10:07)
[2017-03-17] MEDS: Enoxaparin 40 mg Syringe SC SCH (10:07)
[2017-03-17] MEDS: Pantoprazole 40 mg EC Tab PO SCH (10:07)
--- NOTE | 2017-03-17 11:58 | CON ---
DATE: 03/17/2017 REASON FOR CONSULTATION: Weakness of his legs. CHIEF COMPLAINT: The patient was brought into with a history of weakness of his feet. From neurologic point of view, I was called in to evaluate him for further management. HISTORY OF PRESENT ILLNESS: Mr. Brett Vines is a 61-year-old moderately obese, right-handed, well-built male, brought into with history of progressive weakness and swelling of his legs. No history of fall, tend to fall, losing his balance. No history of neck pain. No history of headache. No history of visual or bulbar dysfunction. However, he admits visual hallucination. No sign of auditory hallucination. No sign of depression. No sign of suicidal ideation. He has been drinking because of visual hallucination, which has been helping him for now. He also admits a history of marijuana smoking. MEDICATIONS: Ultram, vitamin B1, Protonix, Zofran, extra vitamins, calcium, and Tylenol. REVIEW OF SYSTEMS: A 12-point system had been reviewed. From neuro, weakness of his feet. PHYSICAL EXAMINATION: VITAL SIGNS: Blood pressure 130/65, mean arterial pressure 86, respiratory rate 18, temperature 98.8, pulse rate 100 and regular. NECK: Supple. No carotid bruit. HEART: Sounds are regular. EXTREMITIES: Edematous, infected. Stasis dermatitis had been dressed with bandage on both legs. NEUROLOGICAL: Mental status: He is awake, alert, and oriented to patient, place, and time. Speech is clear. Naming, repetition, fluency, and comprehension all within normal. Cranial nerves: Visual field intact. Pupils reactive to light. Extraocular movement normal. No nystagmus. No facial sensory deficit. No facial asymmetry. Hearing is normal. Tongue is midline. Good gag. Motor: Significant distal muscle group atrophy noted in both upper extremities. Pain limited exam. No tremor; however, we see the tremor on outstretched hand. No asterixis. Legs, he could able to lift both lower extremities against the gravity. Deep tendon reflexes absent. Plantars are mute. Sensory: Significantly impaired pinprick and temperature in both lower extremities appreciating the position sense noted. Coordination: Vvalrt-grdb-cspjhq test is intact. Gait is deferred at this time. LABORATORY DATA: WBC 8.1, hemoglobin 11.3, hematocrit 32.8, platelets 295. PT 12.6, INR 1.1, PTT 33. Sodium 132, potassium 3.6, chloride 99, bicarbonate 22, BUN 9, GFR more than 60, calcium 8.0. Lipase 20. Urine shows tox screen positive for cannabinoids and alcohol level is less than 10. CONCLUSION: Mr. Brett Vines had been presenting with, 1. Significant bilateral distal symmetric sensorimotor neuropathy, superimposed with cellulitis in both lower extremities. These are all related to his toxic use of alcohol for long period of time since he was 19 years old. 2. Auditory hallucination is probably secondary to his substance abuse; however, seizures should be ruled out. RECOMMENDATION: 1. Fall precaution. 2. Proper wound control by process mechanic. 3. Physical therapy. 4. Abstinence from alcohol and substance abuse. The patient may need psychiatric help because of auditory hallucination with substance abuse. The patient will be followed closely with you. Thom Lara MD
--- NOTE | 2017-03-17 18:55 | CP.PCM.HP ---
History of Present Illness - History of Present Illness History of Present Illness: A 61-year-old female with PMHanxiety, arthritis, atrial fibrillation, depression , DVT, hepatitis [alcoholic beverages], HTN, hypercholesterolemia, pancreatitis , seizures [alcohol induced] and lower limb dermatitis presents to the ER with C /O-bilateral foot pain. C/O - bilateral foot pain for a few days. Insidious in onset, progressive, burning sensation, from soles of lower limbs to the mid leg. Patient is homeless and was brought to the ER from [facility]. Patient admits to drinking 3-5 quarts of alcohol daily. No C/Oabdominal pain, fever, chills, rigors, shortness of breath, cough, the less description of urine and sclera. Present on Admission - Present on Admission Any Indicators Present on Admission: No Past Patient History - Infectious Disease Hx of Infectious Diseases: None - Tetanus Immunizations Tetanus Immunization: Unknown - Past Medical History & Family History Past Medical History?: Yes - Past Social History Smoking Status: Never Smoked - CARDIAC Hx Hypercholesterolemia: Yes Hx Hypertension: Yes - PULMONARY Hx Respiratory Disorders: No - NEUROLOGICAL Hx Seizures: Yes (alcohol induced) - HEENT Hx HEENT Problems: Yes Hx Cataracts: Yes (Rt. and Lt. cataract sx) - RENAL Hx Chronic Kidney Disease: No - ENDOCRINE/METABOLIC Hx Endocrine Disorders: Yes Other/Comment: SPOT ON PANCREAS - INTEGUMENTARY Hx Dermatological Problems: Yes Hx Cellulitis: Yes (bilateral legs) Other/Comment: Venous stasis bilateral legs - MUSCULOSKELETAL/RHEUMATOLOGICAL Hx Falls: Yes - GASTROINTESTINAL Hx Pancreatitis: Yes - PSYCHIATRIC Hx Anxiety: Yes Hx Depression: Yes Hx Substance Use: Yes (Marijuana smoking daily) - SURGICAL HISTORY Hx Cholecystectomy: Yes - ANESTHESIA Hx Anesthesia: Yes Hx Anesthesia Reactions: No Hx Malignant Hyperthermia: No Meds Allergies/Adverse Reactions: Allergies Allergy/AdvReac Type Severity Reaction Status Date / Time Penicillins Allergy Severe RASH Verified 03/16/17 04:48 Physical Exam - Constitutional Appears: Well - Head Exam Head Exam: ATRAUMATIC, NORMAL INSPECTION, NORMOCEPHALIC - Eye Exam Eye Exam: EOMI, Normal appearance, PERRL Pupil Exam: NORMAL ACCOMODATION, PERRL - ENT Exam ENT Exam: Mucous Membranes Moist, Normal Exam - Neck Exam Neck exam: Positive for: Normal Inspection - Respiratory Exam Respiratory Exam: Decreased Breath Sounds - Cardiovascular Exam Cardiovascular Exam: REGULAR RHYTHM, +S1, +S2 - GI/Abdominal Exam GI & Abdominal Exam: Diminished Bowel Sounds, Soft - Rectal Exam Rectal Exam: Deferred Results - Vital Signs Recent Vital Signs: Last Vital Signs Temp 98.8 F 03/17/17 00:00 Pulse 100 H 03/17/17 00:00 Resp 20 03/17/17 00:00 BP 130/64 03/17/17 00:00 Pulse Ox 96 03/17/17 00:00 - Labs Result Diagrams: 03/18/17 07:06 03/18/17 07:06 Labs: Laboratory Results - last 24 hr 03/16/17 03/16/17 03/17/17 20:57 20:57 06:55 ESR 48 H Hemoglobin A1c Vitamin B12 Folate Free T4 TSH 3rd Generation Urine Color Yellow Urine Clarity Clear Urine pH 5.0 Ur Specific [place] 1.012 Urine Protein Negative Urine Glucose (UA) Normal Urine Ketones Trace Urine Blood Negative Urine Nitrate Negative Urine Bilirubin Negative Urine Urobilinogen 2.0 Ur Leukocyte Esterase Neg Urine WBC (Auto) 1 Urine RBC (Auto) 1 Ur Squamous Epith Cells < 1 Ur Transition Epith Cell < 1 Urine Bacteria Rare Urine Opiates Screen Negative Urine Methadone Screen Negative Ur Barbiturates Screen Negative Ur Phencyclidine Scrn Negative Ur Amphetamines Screen Negative U Benzodiazepines Scrn Negative U Oth Cocaine Metabols Negative U Cannabinoids Screen Positive H RPR 03/17/17 03/17/17 03/17/17 06:55 06:55 06:55 ESR Hemoglobin A1c 6.0 Vitamin B12 283 Folate 14.2 Free T4 1.19 TSH 3rd Generation 2.01 Urine Color Urine Clarity Urine pH Ur Specific [place] Urine Protein Urine Glucose (UA) Urine Ketones Urine Blood Urine Nitrate Urine Bilirubin Urine Urobilinogen Ur Leukocyte Esterase Urine WBC (Auto) Urine RBC (Auto) Ur Squamous Epith Cells Ur Transition Epith Cell Urine Bacteria Urine Opiates Screen Urine Methadone Screen Ur Barbiturates Screen Ur Phencyclidine Scrn Ur Amphetamines Screen U Benzodiazepines Scrn U Oth Cocaine Metabols U Cannabinoids Screen RPR 03/17/17 06:55 ESR Hemoglobin A1c Vitamin B12 Folate Free T4 TSH 3rd Generation Urine Color Urine Clarity Urine pH Ur Specific [place] Urine Protein Urine Glucose (UA) Urine Ketones Urine Blood Urine Nitrate Urine Bilirubin Urine Urobilinogen Ur Leukocyte Esterase Urine WBC (Auto) Urine RBC (Auto) Ur Squamous Epith Cells Ur Transition Epith Cell Urine Bacteria Urine Opiates Screen Urine Methadone Screen Ur Barbiturates Screen Ur Phencyclidine Scrn Ur Amphetamines Screen U Benzodiazepines Scrn U Oth Cocaine Metabols U Cannabinoids Screen RPR Nonreactive
[2017-03-18 07:34] LABS: BASO % 0.4 % (0.0-2.0); EOS # 0.3 K/uL (0.0-0.7); HEMATOCRIT 32.7 % (35.0-51.0); LYMPH % 18.6 % (20.0-40.0); MEAN CELL VOLUME 88.9 fL (80.0-94.0); MEAN CORPUSCULAR HEMOGLOBIN 30.5 pg (27.0-31.0); MEAN CORPUSCULAR HGB CONC 34.3 g/dL (33.0-37.0); MEAN PLATELET VOLUME 6.8 fL (7.2-11.7); MONO # 0.5 K/uL (0.0-0.8); MONO % 9.2 % (0.0-10.0); NRBC % 0.1 % (0.0-2.0); RED CELL DISTRIBUTION WIDTH 12.6 % (11.5-14.5); WHITE BLOOD COUNT 5.1 K/uL (4.8-10.8)
[2017-03-18 08:33] LABS: BLOOD UREA NITROGEN 6 mg/dL (9-20); CALCIUM 7.6 mg/dl (8.6-10.4); CARBON DIOXIDE 29 mmol/L (22-30); CHLORIDE 100 mmol/L (98-107); GFR AFRICAN-AMERICAN > 60; GLUCOSE,RANDOM 96 mg/dL (75-110); POTASSIUM 3.9 mmol/L (3.6-5.2); SODIUM 138 mmol/L (132-148)
[2017-03-18] MEDS: Pantoprazole 40 mg EC Tab PO SCH (09:30)
[2017-03-18] MEDS: Enoxaparin 40 mg Syringe SC SCH (09:30)
[2017-03-18] MEDS: Multiple Vitamins Tab PO SCH (09:30)
[2017-03-18 13:25] VITALS: BP 150/73; PULSE 88; TEMP 97.5; O2SAT 97
--- NOTE | 2017-03-18 13:34 | CP.PCM.PN ---
Subjective - Date & Time of Evaluation Date of Evaluation: 03/18/17 Time of Evaluation: 12:00 - Subjective Subjective: 61 year old male seen at bedside for chronic wounds to bilateral legs. with attending, Dr. Masters present. Pt reports no pain or irritation to his posterior lower legs today. Pt has no pedal discomfort at this time. Pt denies recent f/c/ cp/sob/n/v/d. Objective - Vital Signs/Intake and Output Vital Signs (last 24 hours): Temp Pulse Resp BP Pulse Ox 97.5 F L 88 20 150/73 97 03/18/17 10:00 03/18/17 10:00 03/18/17 10:00 03/18/17 10:00 03/18/17 10:00 Intake and Output: 03/18/17 03/18/17 06:59 18:59 Intake Total 300 Balance 300 - Medications Medications: Current Medications Calcium Carbonate (Oscal) 500 mg PO DAILY [facility] Last Admin: 03/18/17 09:30 Dose: 500 mg Enoxaparin Sodium (Lovenox) 40 mg SC DAILY [facility] Last Admin: 03/18/17 09:30 Dose: 40 mg Multivitamins (Hexavitamin) 1 tab PO DAILY [facility] Last Admin: 03/18/17 09:30 Dose: 1 tab Ondansetron HCl (Zofran Tab) 4 mg PO Q8H PRN PRN Reason: Nausea/Vomiting Pantoprazole Sodium (Protonix Ec Tab) 40 mg PO DAILY [facility] Last Admin: 03/18/17 09:30 Dose: 40 mg Thiamine HCl (Vitamin B1 Tab) 100 mg PO DAILY [facility] Last Admin: 03/18/17 09:30 Dose: 100 mg Tramadol HCl (Ultram) 50 mg PO TID PRN PRN Reason: Pain, moderate (4-7) Last Admin: 03/16/17 23:06 Dose: 50 mg - Labs Labs: 03/18/17 07:06 03/18/17 07:06 PT 12.6 SECONDS (9.7-12.2) H 03/16/17 05:53 INR 1.1 03/16/17 05:53 APTT 33 SECONDS (21-34) 03/16/17 05:53 - Constitutional Appears: Well, Non-toxic, No Acute Distress - Extremities Exam Additional comments: lower extremity focused exam: VASC: DP/PT pulses are palpable 1/4 b/l, [employer]: < 3 sec to all digits, TG runs warm to warm proximal to distal. Moderate pitting edema noted to distal lower extremity, L>R DERM: Localized identical patch of 2x1cm superficial ulcerations to left posterior lower leg with granular wound base. Weeping serous drainage site, no noted malodor present, no probe to bone, no undermining. Wounds periwound skin maceration noted to posterior aspect of distal 1/3 of legs. Absent acute signs of infection, purulence or streaking erythema. Diffuse blanchable erythema noted to bilateral lower legs. Pallor on elevation, and rubor on dependency noted bilaterally. Indurated plaques noted to anterior aspect of right leg with mild diffuse lichenifications to left leg. Glossy appearance of the anterior medial leg skin absent fluctuance. Right side posterior leg wound resolved. NEURO: Protective sensation mildly diminished ORTHO: No tenderness to palpation lower extremity b/l. - Neurological Exam Neurological Exam: Alert, Awake, Oriented x3 - Psychiatric Exam Psychiatric exam: Normal Affect, Normal Mood Assessment and Plan - Assessment and Plan (Free Text) Assessment: 61 year old male with chronic ulcerations to bilateral legs secondary to venous stasis Plan: Patient seen and evaluated at bedside, with attending Dr. Masters present Charts, labs, vitals reviewed. Afebribe, absent leukocytosis Right leg ulcerations resolved. Left leg ulcer active. Left leg wounds cleansed with sterile saline then dressed with xeroform, ABDs, kerlix, and KELSEA. Right leg dressed with KELSEA wrap. Pt is stable from podiatry standpoint for discharge. Podiatry will continue to follow while inhouse. Follow up in [facility], with attending Dr. Masters
--- NOTE | 2017-03-18 16:56 | CP.PCM.PN ---
Subjective - Date & Time of Evaluation Date of Evaluation: 03/18/17 Time of Evaluation: 16:56 Objective - Vital Signs/Intake and Output Vital Signs (last 24 hours): Temp Pulse Resp BP Pulse Ox 97.5 F L 88 20 150/73 97 03/18/17 10:00 03/18/17 10:00 03/18/17 10:00 03/18/17 10:00 03/18/17 10:00 Intake and Output: 03/18/17 03/18/17 06:59 18:59 Intake Total 300 400 Balance 300 400 - Medications Medications: Current Medications Calcium Carbonate (Oscal) 500 mg PO DAILY [facility] Last Admin: 03/18/17 09:30 Dose: 500 mg Enoxaparin Sodium (Lovenox) 40 mg SC DAILY [facility] Last Admin: 03/18/17 09:30 Dose: 40 mg Multivitamins (Hexavitamin) 1 tab PO DAILY [facility] Last Admin: 03/18/17 09:30 Dose: 1 tab Ondansetron HCl (Zofran Tab) 4 mg PO Q8H PRN PRN Reason: Nausea/Vomiting Pantoprazole Sodium (Protonix Ec Tab) 40 mg PO DAILY [facility] Last Admin: 03/18/17 09:30 Dose: 40 mg Thiamine HCl (Vitamin B1 Tab) 100 mg PO DAILY [facility] Last Admin: 03/18/17 09:30 Dose: 100 mg Tramadol HCl (Ultram) 50 mg PO TID PRN PRN Reason: Pain, moderate (4-7) Last Admin: 03/16/17 23:06 Dose: 50 mg - Labs Labs: 03/18/17 07:06 03/18/17 07:06 PT 12.6 SECONDS (9.7-12.2) H 03/16/17 05:53 INR 1.1 03/16/17 05:53 APTT 33 SECONDS (21-34) 03/16/17 05:53
--- NOTE | 2017-03-18 18:48 | CP.PCM.PN ---
Subjective - Date & Time of Evaluation Date of Evaluation: 03/18/17 Time of Evaluation: 07:40 - Subjective Subjective: clinically same Objective - Vital Signs/Intake and Output Vital Signs (last 24 hours): Temp Pulse Resp BP Pulse Ox 97.5 F L 88 20 150/73 97 03/18/17 10:00 03/18/17 10:00 03/18/17 10:00 03/18/17 10:00 03/18/17 10:00 Intake and Output: 03/18/17 03/18/17 06:59 18:59 Intake Total 300 400 Balance 300 400 - Medications Medications: Current Medications Calcium Carbonate (Oscal) 500 mg PO DAILY [facility] Last Admin: 03/18/17 09:30 Dose: 500 mg Enoxaparin Sodium (Lovenox) 40 mg SC DAILY [facility] Last Admin: 03/18/17 09:30 Dose: 40 mg Multivitamins (Hexavitamin) 1 tab PO DAILY [facility] Last Admin: 03/18/17 09:30 Dose: 1 tab Ondansetron HCl (Zofran Tab) 4 mg PO Q8H PRN PRN Reason: Nausea/Vomiting Pantoprazole Sodium (Protonix Ec Tab) 40 mg PO DAILY [facility] Last Admin: 03/18/17 09:30 Dose: 40 mg Thiamine HCl (Vitamin B1 Tab) 100 mg PO DAILY [facility] Last Admin: 03/18/17 09:30 Dose: 100 mg Tramadol HCl (Ultram) 50 mg PO TID PRN PRN Reason: Pain, moderate (4-7) Last Admin: 03/16/17 23:06 Dose: 50 mg - Labs Labs: 03/18/17 07:06 03/18/17 07:06 PT 12.6 SECONDS (9.7-12.2) H 03/16/17 05:53 INR 1.1 03/16/17 05:53 APTT 33 SECONDS (21-34) 03/16/17 05:53
--- NOTE | 2017-03-19 19:37 | CARD ---
APPROVED REPORT EKG Measurement Heart [id number] CO [id number] <Conclusion> Sinus tachycardia Otherwise normal ECG
== END 2017-03-18 21:55 ==
LOC: C.ER 04:36 → SUPCPDRO 04:36 → C.9E 16:31 → INTOOBSV 16:31 → C.3T 20:23
PROVIDERS: ADMIT Internal Medicine Nephrology; ATTEND Internal Medicine Nephrology
DX: I83.218 Varicose veins of right lower extremity with both ulcer of other part of lower extremity and inflammation (principal); I83.228 Varicose veins of left lower extremity with both ulcer of other part of lower extremity and inflammation; L97.819 Non-pressure chronic ulcer of other part of right lower leg with unspecified severity; L97.829 Non-pressure chronic ulcer of other part of left lower leg with unspecified severity; R26.2 Difficulty in walking, not elsewhere classified; I10 Essential (primary) hypertension; F10.20 Alcohol dependence, uncomplicated; G60.8 Other hereditary and idiopathic neuropathies; L03.116 Cellulitis of left lower limb; L03.115 Cellulitis of right lower limb; R44.0 Auditory hallucinations; Z59.0 Homelessness
CPT/HCPCS: 36415; 71010; 80048; 80053; 80320; 80324; 80345; 80346; 80349; 80353; 80358; 80361; 81001; 82607; 82746; 82803; 83036; 83520; 83690; 83992; 84439; 84443; 85025; 85610; 85651; 85730; 86334; 86592; 96372; 97162; 97530; 99285; G0378; G8978; G8979; J1642; J1650

== ENCOUNTER 2017-04-25 07:52 | Emergency (ER) | payer OTHER ==
[2017-04-25 08:01] VITALS: BMI 28.1
[2017-04-25 08:23] VITALS: TEMP 97.5
--- NOTE | 2017-04-25 08:32 | C.PDOC ---
History Of Present Illness Patient is a 61 y/o male, with a Hx of alcoholism, homelessness, and venou stasis, who presents to the ED with a complaint of chronic pain to lower extremity. Patient reports lower extremities are "painful"; denies any new injuries or trauma. Denies fever or chills. No other physical complaints at this time. Time Seen by Provider: 04/25/17 08:05 Chief Complaint (Nursing): Lower Extremity Problem/Injury History Per: Patient History/Exam Limitations: no limitations Current Symptoms Are (Timing): Still Present Recent travel outside of the [place]: No Past Medical History Reviewed: Historical Data, Nursing Documentation, Vital Signs Vital Signs: Last Vital Signs Temp 97.5 F L 04/25/17 08:00 Pulse 95 H 04/25/17 13:12 Resp 18 04/25/17 13:12 BP 129/53 L 04/25/17 13:12 Pulse Ox 99 04/25/17 15:05 - Medical History PMH: Anxiety, Arthritis, Atrial Fibrillation, Depression, Deep Vein Thrombosis, Fractures (neck, back Rt. leg fx in 5 places), Hepatitis (Patient reported history of alcohol hepatitis), HTN, Hypercholesterolemia, Pancreatitis, Peripheral Edema (chronic), Seizures (alcohol induced), Chronic Pain (leg pain/ dermatitis) Denies: Chronic Kidney Disease Surgical History: Back Surgery, Cholecystectomy Denies: Pacemaker - [facility] ALCOHOL DETOXIFICATION (09/09/13) CENTRAL VENOUS CATHETER PLACEMENT WITH GUIDANCE (11/27/13) DETOXIFICATION SERVICES FOR SUBSTANCE ABUSE TREATMENT (06/02/15) GROUP PSYCHOTHERAPY (06/02/15) INFLUENZA VACCINATION (07/14/14) INJECT/INFUSE NEC (03/20/13) INSERTION OF TOTALLY IMPLANTABLE VASC ACCESS DEVIC (04/10/14) NONEXCIS DEBRID OF WOUND, INFECT, OR BURN (04/10/14) REMOV THERAPEUT DEV NEC (11/27/13) VACCINATION NEC (07/14/14) Family History: States: Unknown Family Hx - Social History Hx Tobacco Use: No Hx Alcohol Use: Yes Hx Substance Use: Yes (Marijuana smoking daily) - Immunization History Hx Tetanus Toxoid Vaccination: Yes Hx Influenza Vaccination: Yes Hx Pneumococcal Vaccination: Yes Review Of Systems Constitutional: Negative for: Fever, Chills Musculoskeletal: Positive for: Leg Pain Physical Exam - Physical Exam Appears: Well, Non-toxic, No Acute Distress Skin: Normal Color, Warm, Dry Head: Atraumatic, Normacephalic Oral Mucosa: Moist Chest: Symmetrical Cardiovascular: Rhythm Regular, No Murmur Respiratory: Normal Breath Sounds, No Rales, No Rhonchi, No Wheezing Gastrointestinal/Abdominal: Other (hepatomegaly) Extremity: Other (chronic venous stasis to bilateral extremities; positive fungal changes to bilateral feet) ED Course And Treatment - Laboratory Results Result Diagrams: 04/25/17 10:05 04/25/17 10:05 ECG: Interpreted By Me, Viewed By Me ECG Rhythm: Sinus Tachycardia, Nonspecific Changes (ST/T wave changes) Interpretation Of ECG: left axis deviation; normal intervals. Positive artifact present. Rate From EC (bpm) O2 Sat by Pulse Oximetry: 99 (room air) Pulse Ox Interpretation: Normal Progress Note: Venous Duplex interpretation: bilateral lower extremity deep calf veins; poorly visualized due to severe edema. Venous stasis, chronic dermatitis and cellulitis. Medical Decision Making Medical Decision Making: EKG, CXR, and blood work ordered. Ultram administered. Podiatry paged at 8:45am and is to assess patient. Patient assessed by podiatry and cleared by Dr. Masters. Patient states he is going through withdrawal and requests detox; no clinical signs of withdrawal were noted by the physician. Crisis consulted the patient, clearing him for discharge. Patient ambulated in ER without limitations or instability. Patient diagnosed with chronic venous stasis and alcohol abuse; patient to be discharged home and to follow up as discussed. Disposition Counseled Patient/Family Regarding: Studies Performed, Diagnosis, Need For Followup, Rx Given - Disposition Referrals: Danilo Masters DPM [Staff Provider] - Disposition: HOME/ ROUTINE Disposition Time: 15:03 Condition: STABLE Additional Instructions: follow up with Dr. Masters in 2 days call to make an appointment take pain medication as needed return to ER if symptoms worsens or progress Prescriptions: traMADol [Ultram] 50 mg PO TID PRN #12 tab PRN Reason: Pain, Moderate (4-7) Instructions: Stasis Dermatitis (ED), Chronic Wound Care (ED), Abuse of Alcohol (ED) Forms: [facility] (Korean) - POA Present On Arrival: Pressure Ulcer - Clinical Impression Clinical Impression: Leg ulcer, Stasis dermatitis, Alcohol dependence - Scribe Statement The provider has reviewed the documentation as recorded by the Scribe Elisas Suárezan All medical record entries made by the Yingibpolly were at my direction and personally dictated by me. I have reviewed the chart and agree that the record accurately reflects my personal performance of the history, physical exam, medical decision making, and the department course for this patient. I have also personally directed, reviewed, and agree with the discharge instructions and disposition.
[2017-04-25 10:13] LABS: BASO # 0.1 K/uL (0.0-0.2); BASO % 0.5 % (0.0-2.0); EOS # 0.1 K/uL (0.0-0.7); EOS % 0.6 % (0.0-4.0); HEMOGLOBIN 12.2 g/dL (12.0-18.0); LYMPH # 0.9 K/uL (1.0-4.3); LYMPH % 8.8 % (20.0-40.0); MEAN CORPUSCULAR HEMOGLOBIN 30.4 pg (27.0-31.0); MEAN CORPUSCULAR HGB CONC 35.1 g/dL (33.0-37.0); MEAN PLATELET VOLUME 7.3 fL (7.2-11.7); MONO # 0.7 K/uL (0.0-0.8); MONO % 6.6 % (0.0-10.0); NEUT # 8.9 K/uL (1.8-7.0); NEUT % 83.5 % (50.0-75.0); NRBC % 0.1 % (0.0-2.0); PLATELET COUNT 297 K/uL (130-400); RBC 4.03 Mil/uL (4.40-5.90)
[2017-04-25 10:22] LABS: MEAN CELL VOLUME 86.5 fL (80.0-94.0); WHITE BLOOD COUNT 10.7 K/uL (4.8-10.8)
--- NOTE | 2017-04-25 10:26 | CP.PCM.CON ---
History of Present Illness - History of Present Illness History of Present Illness: Podiatry Consult Note - Dr. Masters 61 year old undomiciled male with extensive PMHx seen and evaluated in ED regarding chronic pain to bilateral lower extremity. Patient is well known to podiatry service. Patient states he was recently released from [facility] and since then has returned to heavy ETOH use and "sleeping on the streets." Patient admits to drinking heavily last night and admits to nausea and headache 2/2 ETOH withdrawal. Patient complaining of chronic pain to bilateral LE ongoing for a few years; states this return to his "old lifestyle" will cause his legs to worsen once again, which led him to present to [facility] ED. Denies trauma to his lower extremity. Denies new injuries or new appearance of wounds. Patient offers no other pedal complaints at this time. Denies fever, chills, SOB, calf pain. PMH: Anxiety, Arthritis, Atrial Fibrillation, Depression, Deep Vein Thrombosis, Fractures (neck, back Rt. leg fx in 5 places), Hepatitis (Patient reported history of alcohol hepatitis), HTN, Hypercholesterolemia, Pancreatitis, Peripheral Edema (chronic), Seizures (alcohol induced), Chronic Pain (leg pain/ dermatitis) PSH: back surgery, cholecystectomy FH: unknown SH: daily heavy ETOH use, +tobacco use, +illicit drug use (marijuana, cocaine, other unknown) Meds: see meds list All: PCN Review of Systems - Review of Systems All systems: reviewed and no additional remarkable complaints except (as per HPI ) Past Patient History - Infectious Disease Hx of Infectious Diseases: None - Tetanus Immunizations Tetanus Immunization: Unknown - Past Medical History & Family History Past Medical History?: Yes - Past Social History Smoking Status: Never Smoked - CARDIAC Hx Atrial Fibrillation: Yes Hx Hypercholesterolemia: Yes Hx Hypertension: Yes Hx Pacemaker: No Hx Peripheral Edema: Yes (chronic) - PULMONARY Hx Respiratory Disorders: No - NEUROLOGICAL Hx Seizures: Yes (alcohol induced) - HEENT Hx HEENT Problems: Yes Hx Cataracts: Yes (Rt. and Lt. cataract sx) - RENAL Hx Chronic Kidney Disease: No - ENDOCRINE/METABOLIC Hx Endocrine Disorders: Yes Other/Comment: SPOT ON PANCREAS - INTEGUMENTARY Hx Dermatological Problems: Yes Hx Cellulitis: Yes (bilateral legs) Other/Comment: Venous stasis bilateral legs - MUSCULOSKELETAL/RHEUMATOLOGICAL Hx Arthritis: Yes Hx Fractures: Yes (neck, back Rt. leg fx in 5 places) - GASTROINTESTINAL Hx Pancreatitis: Yes - PSYCHIATRIC Hx Anxiety: Yes Hx Depression: Yes Hx Substance Use: Yes (Marijuana smoking daily) - SURGICAL HISTORY Hx Cholecystectomy: Yes - ANESTHESIA Hx Anesthesia: Yes Hx Anesthesia Reactions: No Hx Malignant Hyperthermia: No Meds Allergies/Adverse Reactions: Allergies Allergy/AdvReac Type Severity Reaction Status Date / Time Penicillins Allergy Severe RASH Verified 03/16/17 04:48 Physical Exam - Constitutional Appears: Well, Non-toxic, No Acute Distress - Extremities Exam Additional comments: lower extremity focused exam: VASC: DP/PT pulses are palpable 1/4 b/l, CADDY PACKER: < 3 sec to all digits, TG runs warm to warm proximal to distal. +1 pitting edema to bilateral LE. DERM: Healing superficial ulceration measuring approximately 2 x 1 cm at left posterior lower leg with epithelialized wound base; minimal serosanguinous drainage noted; absent purulence, fluctuance, malodor, probe to bone, undermining, maceration. Circumfirential glossy, erythematous skin changes 2/2 healed venous stasis ulcerations present bilaterally with overlying lichenifications. No weeping noted to bilateral LE. Diffus NEURO: Protective sensation mildly diminished ORTHO: No tenderness to palpation lower extremity b/l. No pain upon ROM 1st MPJ , MTJ, STJ, ankle joint. Muscle strength 5/5 for all dorsiflexors, plantarflexors, inverters, and everters b/l. - Neurological Exam Neurological exam: Alert, Oriented x3 - Psychiatric Exam Psychiatric exam: Depressed Results - Vital Signs Recent Vital Signs: Last Vital Signs Temp 97.5 F L 04/25/17 08:00 Pulse 104 H 04/25/17 08:00 Resp 16 04/25/17 08:00 BP 171/66 H 04/25/17 08:00 Pulse Ox 99 04/25/17 09:05 - Labs Result Diagrams: 04/25/17 10:05 04/25/17 10:05 Labs: Laboratory Results - last 24 hr 04/25/17 10:05 WBC 10.7 D RBC 4.03 L Hgb 12.2 Hct 34.8 L MCV 86.5 D MCH 30.4 MCHC 35.1 RDW 13.0 Plt Count 297 MPV 7.3 Neut % (Auto) 83.5 H Lymph % (Auto) 8.8 L Mcintosh % (Auto) 6.6 Eos % (Auto) 0.6 Baso % (Auto) 0.5 Neut # 8.9 H Lymph # 0.9 L Mcintosh # 0.7 Eos # 0.1 Baso # 0.1 Assessment & Plan - Assessment and Plan (Free Text) Assessment: 61 year old male with healing chronic ulceration left leg secondary to venous stasis Plan: Patient seen and evaluated in ED Discussed with attending, Dr. Masters Afebrile, absent leukocytosis Right leg stable - previous ulcerations have resolved. Left leg ulceration healing, stable. Posterior left leg wound cleansed with saline and dressed with xeroform DSD KELSEA wraps to bilateral LE Stable per podiatry standpoint Patient to follow up with Dr. Masters in [facility] within 1 week of discharge Thank you for the consult, please reconsult podiatry as needed.
[2017-04-25 10:28] LABS: ALB/GLOB RATIO 1.1 (1.0-2.1); ALBUMIN 3.9 g/dL (3.5-5.0); ALT/SGPT 23 U/L (21-72); AST/SGOT 19 U/L (17-59); BLOOD UREA NITROGEN 9 mg/dL (9-20); CALCIUM 8.2 mg/dl (8.6-10.4); GFR AFRICAN-AMERICAN > 60; GFR NON-AFRICAN AMERICAN > 60; LIPASE 23 U/L (23-300); MAGNESIUM 1.7 mg/dL (1.6-2.3)
[2017-04-25 10:36] LABS: INR 1.1; PROTHROMBIN TIME 13.1 SECONDS (9.7-12.2)
[2017-04-25 10:37] LABS: B-TYPE NATRIURETIC PEPTIDE 56.6 pg/mL (0-900)
--- NOTE | 2017-04-25 10:54 | RAD ---
PROCEDURE: CHEST RADIOGRAPH, 1 VIEW HISTORY: SOB COMPARISON: Comparison is made with 03/16/2017 FINDINGS: LUNGS: No evidence of new infiltrate or consolidation in the lungs. Prominent right lung is again noted. PLEURA: No pneumothorax or pleural fluid seen. CARDIOVASCULAR: Normal. OSSEOUS STRUCTURES: No significant abnormalities. VISUALIZED UPPER ABDOMEN: Normal. OTHER FINDINGS: Right-sided Infusaport is again seen in place. IMPRESSION: No evidence of significant interval change noted since the previous exam P
[2017-04-25 10:55] LABS: BANDS 1 % (0-2); LYMPHOCYTE 8 % (20-40); MONOCYTE 7 % (0-10); NEUTROPHIL 84 % (50-75); PLATELET ESTIMATE NORMAL (NORMAL); TOTAL CELLS COUNTED 100
[2017-04-25 11:48] LABS: SQUAMOUS EPITHIAL 3 /hpf (0-5); URINE AMORPHOUS SEDIMENT RARE /ul (<OCC); URINE BILIRUBIN NEGATIVE (NEGATIVE); URINE BLOOD NEGATIVE (NEGATIVE); URINE CLARITY Hazy (Clear); URINE COLOR Amber (YELLOW); URINE GLUCOSE (UA) NORMAL (Normal); URINE LEUKOCYTE ESTERASE NEG Leu/uL (Negative); URINE NITRATE NEGATIVE (NEGATIVE); URINE PROTEIN 2+ mg/dL (NEGATIVE)
[2017-04-25 12:12] LABS: BARBITURATES, UR NEGATIVE (NEGATIVE); BENZODIAZEPINES, UR NEGATIVE (NEGATIVE); OPIATES, UR NEGATIVE (NEGATIVE); PHENCYCLIDINE, UR NEGATIVE (NEGATIVE)
[2017-04-25 15:44] VITALS: BP 144/83; PULSE 100; RESP 20; O2SAT 96
--- NOTE | 2017-04-26 11:34 | VASCLAB ---
PROCEDURE: Lower Extremity Venous Duplex Exam. HISTORY: leg pain and swelling B/L LE chronic venous stasis, dermatitis/cellulitis) PRIORS: None. TECHNIQUE: Bilateral common femoral, femoral, popliteal and posterior tibial, peroneal and great saphenous veins were evaluated. Flow was assessed with color Doppler, compressibility, assessment of phasic flow and augmentation response. Report prepared by Frandy Silva, T FINDINGS: RIGHT: 1. Common Femoral Vein: 1.1. Compressibility - Fully compressible: Thrombus - None : Flow - Phasic: Augmentation -Normal: Reflux - . 2. Femoral Vein: 2.1. Compressibility - Fully compressible: Thrombus - None : Flow - Phasic: Augmentation -Normal: Reflux - . 3. Popliteal Vein: 3.1. Compressibility - Fully compressible: Thrombus - None : Flow - Phasic: Augmentation -Normal: Reflux - . 4. Posterior Tibial Vein: 4.1. Compressibility - : Thrombus - : Flow - : Augmentation -: Reflux - . 5. Peroneal Vein: 5.1. Compressibility - : Thrombus - : Flow - : Augmentation -: Reflux - . 6. Great Saphenous Vein: 6.1. Compressibility - Fully compressible: Thrombus - None: Flow - Phasic: Augmentation - : Reflux - . LEFT: 1. Common Femoral Vein: 1.1. Compressibility - Fully compressible: Thrombus - None: Flow - Phasic: Augmentation -Normal: Reflux - . 2. Femoral Vein: 2.1. Compressibility - Fully compressible: Thrombus - None: Flow - Phasic: Augmentation -Normal: Reflux - . 3. Popliteal Vein: 3.1. Compressibility - Fully compressible: Thrombus - None : Flow - Phasic: Augmentation -Normal: Reflux - . 4. Posterior Tibial Vein: 4.1. Compressibility - : Thrombus - : Flow - : Augmentation -: Reflux - . 5. Peroneal Vein: 5.1. Compressibility - : Thrombus - : Flow - : Augmentation -: Reflux - . 6. Great Saphenous Vein: 6.1. Compressibility - Fully compressible: Thrombus - None: Flow - Phasic: Augmentation - : Reflux - . OTHER FINDINGS: Right: Multiple Enlarged lymph nodes were noted in the groin area. Left: Multiple Enlarged lymph nodes were noted in the groin area. IMPRESSION: Right: The posterior tibial, peroneal veins were poorly visualized due to severe edema. No evidence of deep or superficial vein thrombosis for those clearly visualized veins of the right lower extremity. Left: The posterior tibial, peroneal veins were poorly visualized due to severe edema. No evidence of deep or superficial vein thrombosis for those clearly visualized veins of the left lower extremity.
--- NOTE | 2017-04-27 00:05 | CARD ---
APPROVED REPORT EKG Measurement Heart [id number] <Conclusion> Sinus tachycardia with short GA with occasional premature ventricular complexes Left axis deviation Junctional ST depression, probably normal Abnormal ECG
== END 2017-04-25 16:39 | disposition home or self-care (01) ==
LOC: C.ER 07:52
DX: I87.2 Venous insufficiency (chronic) (peripheral) (principal); F10.20 Alcohol dependence, uncomplicated; Y90.9 Presence of alcohol in blood, level not specified; Z59.0 Homelessness

== ENCOUNTER 2017-05-05 08:30 | Inpatient (IN) | payer MEDICAID, OTHER ==
[2017-05-05 08:30] VITALS: BMI 28.1
--- NOTE | 2017-05-05 09:08 | C.PDOC ---
History Of Present Illness 61 y/o male with history of ETOH abuse and Chronic leg edema presents to ED with complaints of leg pain and in an acute etoh intoxication. Patient states " I want to live in a penitentiary", patient was living in [facility] penitentiary until 04/10 when he left because "I needed to go to a birthday democrat". Patient has many prior evaluations at ED for low extremities edema and was last evaluated on 04/[address] Espinosa, had no DVT and was discharged. No other complaints at this time. Time Seen by Provider: 05/05/17 08:39 Chief Complaint (Nursing): Abnormal Skin Integrity History Per: Patient History/Exam Limitations: no limitations Onset/Duration Of Symptoms: Days Current Symptoms Are (Timing): Still Present Past Medical History Reviewed: Historical Data, Nursing Documentation, Vital Signs Vital Signs: Last Vital Signs Temp 97.3 F L 05/05/17 08:44 Pulse 92 H 05/05/17 08:44 Resp 20 05/05/17 08:44 BP 146/89 05/05/17 08:44 Pulse Ox 97 05/05/17 14:40 - Medical History PMH: Anxiety, Arthritis, Atrial Fibrillation, Depression, Deep Vein Thrombosis, Fractures (neck, back Rt. leg fx in 5 places), Hepatitis (Patient reported history of alcohol hepatitis), HTN, Hypercholesterolemia, Pancreatitis, Peripheral Edema (chronic), Seizures (alcohol induced), Chronic Pain (leg pain/ dermatitis) Surgical History: Back Surgery, Cholecystectomy - [facility] Procedures ALCOHOL DETOXIFICATION (09/09/13) CENTRAL VENOUS CATHETER PLACEMENT WITH GUIDANCE (11/27/13) DETOXIFICATION SERVICES FOR SUBSTANCE ABUSE TREATMENT (06/02/15) GROUP PSYCHOTHERAPY (06/02/15) INFLUENZA VACCINATION (07/14/14) INJECT/INFUSE NEC (03/20/13) INSERTION OF TOTALLY IMPLANTABLE VASC ACCESS DEVIC (04/10/14) NONEXCIS DEBRID OF WOUND, INFECT, OR BURN (04/10/14) REMOV THERAPEUT DEV NEC (11/27/13) VACCINATION NEC (07/14/14) Family History: States: No Known Family Hx - Social History Hx Tobacco Use: No Hx Alcohol Use: Yes Hx Substance Use: Yes (Marijuana smoking daily) - Immunization History Hx Tetanus Toxoid Vaccination: No Hx Influenza Vaccination: Yes (2016) Hx Pneumococcal Vaccination: No Review Of Systems Constitutional: Negative for: Fever, Chills Gastrointestinal: Negative for: Nausea, Vomiting Skin: Negative for: Rash Neurological: Negative for: Weakness, Numbness Psych: Negative for: Suicidal ideation, Withdrawal Physical Exam - Physical Exam Appears: Other (Disheveled, Intoxicated) Skin: Warm, Dry, No Rash Head: Atraumatic, Normacephalic Eye(s): bilateral: Normal Inspection Oral Mucosa: Moist Neck: Normal ROM, Supple Cardiovascular: Rhythm Regular Respiratory: Normal Breath Sounds, No Rales, No Rhonchi, No Wheezing Gastrointestinal/Abdominal: Soft, No Tenderness, No Guarding, No Rebound Extremity: Pedal Edema (Chronic lymph edema), No Deformity Extremity: Bilateral: Normal ROM Pulses: Left Dorsalis Pedis: Normal, Right Dorsalis Pedis: Normal Neurological/Psych: Oriented x3 ED Course And Treatment - Laboratory Results Result Diagrams: 05/05/17 09:10 05/05/17 09:10 Lab Interpretation: Abnormal (etoh 68, tox neg, UA neg.) ECG: Interpreted By Me ECG Rhythm: Sinus Rhythm, Nonspecific Changes (frequent PVC's) ECG Interpretation: Normal Rate From EC O2 Sat by Pulse Oximetry: 97 (RA) Pulse Ox Interpretation: Normal - Radiology CXR: Interpreted by Me CXR Interpretation: Yes: No Acute Disease - Other Rad b/l venous US legs X-Ray: Interpreted by Me, Read By Radiologist (neg for DVT) Reevaluation Time: 11:58 Reassessment Condition: Improved - Physician Consult Information Outcome Of Conversation: 1100 d/w Crisis Evaluators- will eval for ETOH detox. 1430: d/w Crisis, ok to Detox Medical Decision Making Medical Decision Making: acute on chronic alcoholism, left [facility] 04/10/17 voluntarily and resumed homeless alcoholism. Chronic lower extremity edema without DVT today, chronic wounds @ baseline, last seen by Podiatry 04/25/17 and referred for opt f/u @ [facility], but pt lost to f/u. 1200: medically cleared for inpt ETOH Detox, may consult Podiatry, Dr. Michael Masters for f/u eval and wound bandage changes while on Detox floor. Disposition Doctor Will See Patient In The: Hospital Counseled Patient/Family Regarding: Studies Performed, Diagnosis - Disposition Disposition: HOSPITALIZED Disposition Time: 14:40 Condition: GOOD - Clinical Impression Clinical Impression: Skin ulcer, Alcohol abuse, Leg edema - Scribe Statement The provider has reviewed the documentation as recorded by the Yingibpolly Franco All medical record entries made by the Yingibpolly were at my direction and personally dictated by me. I have reviewed the chart and agree that the record accurately reflects my personal performance of the history, physical exam, medical decision making, and the department course for this patient. I have also personally directed, reviewed, and agree with the discharge instructions and disposition. ED Procedural Sedation - Pre Anesthesia Assessment Chief Complaint: Abnormal Skin Integrity - Pre-Procedure Airway Assessment ASA Criteria: 1 - Healthy, normal. 2 - Mild systemic disease (No functional limitations, mildline obesity, DM withot complications, Hypertention). 3 - Severe systemic disease (Some functional limitation, stable angina, morbid obesity, controlled COPD/Asthma/CHF). 4 - Sever systemic disease constant threat to life (Unstable angina, active symptoms of COPD/Asthma, CHF/ Hypertension. 5 - Moribund
[2017-05-05 09:26] LABS: BASO % 0.7 % (0.0-2.0); EOS # 0.1 K/uL (0.0-0.7); EOS % 1.7 % (0.0-4.0); HEMOGLOBIN 11.5 g/dL (12.0-18.0); LYMPH # 1.1 K/uL (1.0-4.3); LYMPH % 17.2 % (20.0-40.0); MEAN CELL VOLUME 86.9 fL (80.0-94.0); MEAN CORPUSCULAR HEMOGLOBIN 29.8 pg (27.0-31.0); MEAN CORPUSCULAR HGB CONC 34.2 g/dL (33.0-37.0); MONO # 0.5 K/uL (0.0-0.8); MONO % 8.8 % (0.0-10.0); NEUT # 4.4 K/uL (1.8-7.0); NEUT % 71.6 % (50.0-75.0); RBC 3.85 Mil/uL (4.40-5.90); RED CELL DISTRIBUTION WIDTH 13.6 % (11.5-14.5); WHITE BLOOD COUNT 6.2 K/uL (4.8-10.8)
[2017-05-05 09:34] LABS: INR 1.1; PROTHROMBIN TIME 12.6 SECONDS (9.7-12.2)
[2017-05-05 09:55] LABS: ALB/GLOB RATIO 1.1 (1.0-2.1); ALBUMIN 3.7 g/dL (3.5-5.0); ALT/SGPT 28 U/L (21-72); AST/SGOT 32 U/L (17-59); BLOOD UREA NITROGEN 5 mg/dL (9-20); GFR AFRICAN-AMERICAN > 60; GFR NON-AFRICAN AMERICAN > 60
[2017-05-05 09:59] LABS: B-TYPE NATRIURETIC PEPTIDE 73.4 pg/mL (0-900)
[2017-05-05 10:29] LABS: SQUAMOUS EPITHIAL < 1 /hpf (0-5); URINE BILIRUBIN NEGATIVE (NEGATIVE); URINE BLOOD NEGATIVE (NEGATIVE); URINE CLARITY Clear (Clear); URINE COLOR Straw (YELLOW); URINE GLUCOSE (UA) NORMAL (Normal); URINE LEUKOCYTE ESTERASE NEG Leu/uL (Negative); URINE NITRATE NEGATIVE (NEGATIVE); URINE PROTEIN NEGATIVE (NEGATIVE); URINE UROBILINOGEN NORMAL mg/dL (0.2-1.0)
[2017-05-05 10:58] LABS: BARBITURATES, UR NEGATIVE (NEGATIVE); BENZODIAZEPINES, UR NEGATIVE (NEGATIVE); OPIATES, UR NEGATIVE (NEGATIVE); PHENCYCLIDINE, UR NEGATIVE (NEGATIVE)
--- NOTE | 2017-05-05 11:32 | VASCLAB ---
PROCEDURE: Bilateral Lower Extremity Venous Duplex Exam. HISTORY: Chronic leg edema, h/o DVT PRIORS: None. TECHNIQUE: Bilateral common femoral, femoral, popliteal and posterior tibial, peroneal and great saphenous veins were evaluated. Flow was assessed with color Doppler, compressibility, assessment of phasic flow and augmentation response. Report prepared by JASON Vasquez FINDINGS: RIGHT: 1. Common Femoral Vein: 1.1. Compressibility - Fully compressible: Thrombus - None : Flow - Phasic: Augmentation -Normal: Reflux - None. 2. Femoral Vein: (proximal and mid views only) 2.1. Compressibility - Fully compressible: Thrombus - None : Flow - Phasic: Augmentation -Normal: Reflux - None. 3. Popliteal Vein: 3.1. Compressibility - Fully compressible: Thrombus - None : Flow - Phasic: Augmentation -Normal: Reflux - None. 4. Posterior Tibial Vein: 5. Peroneal Vein: 6. Great Saphenous Vein: (upper view only) 6.1. Compressibility - Fully compressible: Thrombus - None: Flow - Phasic: Augmentation - Normal: Reflux - None. LEFT: 1. Common Femoral Vein: 1.1. Compressibility - Fully compressible: Thrombus - None: Flow - Phasic: Augmentation -Normal: Reflux - None. 2. Femoral Vein: (proximal and mid views only) 2.1. Compressibility - Fully compressible: Thrombus - None: Flow - Phasic: Augmentation -Normal: Reflux - None. 3. Popliteal Vein: 3.1. Compressibility - Fully compressible: Thrombus - None : Flow - Phasic: Augmentation -Normal: Reflux - None. 4. Posterior Tibial Vein: 5. Peroneal Vein: 6. Great Saphenous Vein: (upper view only) 6.1. Compressibility - Fully compressible: Thrombus - None: Flow - Phasic: Augmentation - Normal: Reflux - None. OTHER FINDINGS: Multiple enlarged lymph nodes are noted in bilateral groin areas. IMPRESSION: 1. Bilateral common femoral, femoral, popliteal and great saphenous veins are compressible. No evidence of DVT. 2. Unable to image bilateral posterior tibial and peroneal veins, due to severe edema.
--- NOTE | 2017-05-05 11:37 | RAD ---
HISTORY: SOB COMPARISON: Chest x-ray performed 04/25/17 TECHNIQUE: Chest, one view. FINDINGS: Tubing projects over the lowered neck of unclear significance , possibly external to the patient; correlate clinically. Right-sided central venous catheter extends to the SVC. LUNGS: Subtle patchy opacity at the right lung base may reflect pneumonia. Right hilar prominence. Please note that chest x-ray has limited sensitivity for the detection of pulmonary masses. PLEURA: No significant pleural effusion identified. No definite pneumothorax . CARDIOVASCULAR: Mild cardiomegaly. OSSEOUS STRUCTURES: Cervical hardware. VISUALIZED UPPER ABDOMEN: Elevation, right hemidiaphragm. OTHER FINDINGS: None. IMPRESSION: Tubing projects over the lowered neck of unclear significance , possibly external to the patient; correlate clinically. Subtle patchy opacity at the right lung base may reflect pneumonia. Right hilar prominence. Mild cardiomegaly.
--- NOTE | 2017-05-05 16:46 | PCM.BM ---
Treatment Plan Problems - Problems identified on initial assessmt potiential for autonomic instability related to alcohol withdrawal Date Initiated: 05/05/17 Time Initiated: 16:45 Assessment reference: NA Status: Active Treatment assets and liabiliti Patient Assests: cognitively intact Patient Liabilities: substance abuse, medical problems - Milieu Protocol Maintain good personal hygiene: daily Encourage regular showers, daily Remind patient to perform daily oral care, daily Assist patient to perform ADL's Maintain personal safety: every shift Educate patient to report safety concerns to staff, every shift Monitor environment for contraband/sharps Medication safety: Monitor for expected outcome, potential side effects: every shift, Assess barriers to learning: every shift, Assess readiness for medication education: every shift
--- NOTE | 2017-05-05 19:54 | CP.PCM.CON ---
History of Present Illness - History of Present Illness History of Present Illness: 61 year old male with a past medical history of hypertension, etoh abuse, afib ( not on anticoagulation), DVT who admitted to the hospital for detox this morning. Later on the day the patient reports bilateral leg pain that has been occurring the past couple of days. The patient reports his legs have been leaking for the same time period. The patient describes the pain as throbbing in nature with no radiation. Of note, the patient has a Port a cath that has been in place for a year. The patient states it's due to him being a poor stick.The patient denies any chest pain, shortness of breath, nausea, vomiting, fevers, chills, syncopal episodes, headaches, palpitations, sick contacts, or any other complaints. Past medical history: hypertension, etoh abuse, afib (not on anticoagulation), dvt Past surgical history: neck and back surgeries, right clavicle repair, cholecystectomy Allergies: Penicillins Medications: MAR reviewed Family history: Non-contributory Social history: Drinks whatever he can get a hand on: 04/23 of Scotch, Vodka, Champalfonso, Gwendolyn. Former cocaine user. Homeless. Review of Systems - Constitutional Constitutional: absent: Chills, Headache, Night Sweats, Snoring, Weakness - EENT Eyes: absent: Blurred Vision, Discharge, Loss of Peripheral Vision, Sees Flashes , Loss of Vision Ears: absent: Ear Discharge, Dizziness Nose/Mouth/Throat: absent: Nasal Congestion, Nasal Trauma, Bleeding Gums, Dysphagia, Mouth Pain, Facial Pain - Cardiovascular Cardiovascular: Pedal Edema. absent: Chest Pain, Claudication, Irregular Heart Rhythm, Leg Edema, Syncope - Respiratory Respiratory: absent: Dyspnea, Hemoptysis, Stridor - Gastrointestinal Gastrointestinal: absent: Belching, Diarrhea, Dyspepsia, Loose Stools - Genitourinary Genitourinary: absent: Change in Urinary Stream, Difficulty Urinating, Urinary Incontinence, Urinary Urgency - Musculoskeletal Musculoskeletal: absent: Arthralgias, Atrophy, Myalgias, Tingling - Integumentary Integumentary: absent: Lesions, Rash, Swelling Additional comments: Bilateral cellulitis extending up to the kneecap Weeping bilaterally extending up to the kneecap. - Neurological Neurological: absent: Burning Sensations, Confusion, Loss of Vision, Vertigo, Weakness - Psychiatric Psychiatric: absent: Anxiety, Change in Appetite, Hopelessness, Panic Attacks - Endocrine Endocrine: absent: Polydipsia, Polyphagia, Polyuria Past Patient History - Infectious Disease Hx of Infectious Diseases: None - Tetanus Immunizations Tetanus Immunization: Unknown - Past Medical History & Family History Past Medical History?: Yes - Past Social History Smoking Status: Never Smoked - CARDIAC Hx Atrial Fibrillation: Yes Hx Hypercholesterolemia: Yes Hx Hypertension: Yes Hx Peripheral Edema: Yes (chronic) - PULMONARY Hx Tuberculosis: No - NEUROLOGICAL Hx Seizures: Yes (alcohol induced) - HEENT Hx HEENT Problems: Yes Hx Cataracts: Yes (Rt. and Lt. cataract sx) - RENAL Hx Chronic Kidney Disease: No - ENDOCRINE/METABOLIC Hx Endocrine Disorders: Yes Other/Comment: SPOT ON PANCREAS - INTEGUMENTARY Hx Dermatological Problems: Yes Hx Cellulitis: Yes (bilateral legs) Other/Comment: Venous stasis bilateral legs - MUSCULOSKELETAL/RHEUMATOLOGICAL Hx Arthritis: Yes Hx Falls: No Hx Fractures: Yes (neck, back Rt. leg fx in 5 places) - GASTROINTESTINAL Hx Pancreatitis: Yes - PSYCHIATRIC Hx Anxiety: Yes Hx Depression: Yes Hx Substance Use: Yes (Marijuana smoking daily) - SURGICAL HISTORY Hx Cholecystectomy: Yes - ANESTHESIA Hx Anesthesia: Yes Hx Anesthesia Reactions: No Hx Malignant Hyperthermia: No Meds Allergies/Adverse Reactions: Allergies Allergy/AdvReac Type Severity Reaction Status Date / Time Penicillins Allergy Severe RASH Verified 05/05/17 08:48 - Medications Medications: Current Medications Azithromycin (Zithromax) 500 mg PO DAILY [facility] Vancomycin/Sodium Chloride (Vancomycin 1 Gm/Ns 200 Ml) 1 gm in 200 mls @ 133 mls/hr IVPB Q12H [facility] Stop: 05/10/17 20:01 Physical Exam - Head Exam Head Exam: ATRAUMATIC, NORMAL INSPECTION, NORMOCEPHALIC - Eye Exam Eye Exam: EOMI, Normal appearance, PERRL Pupil Exam: NORMAL ACCOMODATION, PERRL. absent: Irregular, Unequal - ENT Exam ENT Exam: Mucous Membranes Moist, Normal Exam, Normal Oropharynx - Neck Exam Neck exam: Negative for: Lymphadenopathy, Thyromegaly - Respiratory Exam Respiratory Exam: Clear to Auscultation Bilateral, NORMAL BREATHING PATTERN. absent: Chest Wall Tenderness, Prolonged Expiratory Phase, Respiratory Distress - Cardiovascular Exam Cardiovascular Exam: REGULAR RHYTHM, RRR, +S1, +S2. absent: Gallop, Rubs - GI/Abdominal Exam GI & Abdominal Exam: Normal Bowel Sounds, Soft. absent: Distended, Hypoactive Bowel Sounds, Organomegaly, Tenderness - Extremities Exam Extremities exam: Positive for: normal inspection. Negative for: full ROM, joint swelling, pedal edema, tenderness Additional comments: Bilateral cellulitis extending up to the kneecap Weeping bilaterally extending up to the kneecap. - Back Exam Back exam: NORMAL INSPECTION. absent: CVA tenderness (L), CVA tenderness (R), paraspinal tenderness - Neurological Exam Neurological exam: Alert, CN II-XII Intact, Oriented x3 - Psychiatric Exam Psychiatric exam: Normal Affect, Normal Mood - Skin Skin Exam: Warm Additional comments: Bilateral cellulitis extending up to the kneecap Weeping bilaterally extending up to the kneecap. Results - Vital Signs Recent Vital Signs: Last Vital Signs Temp 97.6 F 05/05/17 15:33 Pulse 118 H 05/05/17 15:33 Resp 20 05/05/17 15:33 BP 149/79 05/05/17 15:33 Pulse Ox 98 05/05/17 15:33 - Labs Result Diagrams: 05/05/17 09:10 05/05/17 09:10 Labs: Laboratory Results - last 24 hr 05/05/17 05/05/17 05/05/17 09:10 09:10 09:19 WBC 6.2 RBC 3.85 L Hgb 11.5 L Hct 33.5 L MCV 86.9 MCH 29.8 MCHC 34.2 RDW 13.6 Plt Count 350 MPV 6.0 L Neut % (Auto) 71.6 Lymph % (Auto) 17.[address] [place] % (Auto) 8.8 Eos % (Auto) 1.7 Baso % (Auto) 0.7 Neut # 4.4 Lymph # 1.1 [place] # 0.5 Eos # 0.1 Baso # 0.0 PT 12.6 H INR 1.1 APTT 34 Sodium 134 Potassium 3.9 Chloride 99 Carbon Dioxide 26 Anion Gap 13 BUN 5 L Creatinine 0.6 L Est GFR ( Amer) > 60 Est GFR (Non-Af Amer) > 60 Random Glucose 94 Calcium 8.0 L Total Bilirubin 0.5 AST 32 ALT 28 Alkaline Phosphatase 146 H NT-Pro-B Natriuret Pep 73.4 Total Protein 7.1 Albumin 3.7 Globulin 3.4 Albumin/Globulin Ratio 1.1 Urine Color Urine Clarity Urine pH Ur Specific [place] Urine Protein Urine Glucose (UA) Urine Ketones Urine Blood Urine Nitrate Urine Bilirubin Urine Urobilinogen Ur Leukocyte Esterase Urine WBC (Auto) Urine RBC (Auto) Ur Squamous Epith Cells Urine Opiates Screen Urine Methadone Screen Ur Barbiturates Screen Ur Phencyclidine Scrn Ur Amphetamines Screen U Benzodiazepines Scrn U Oth Cocaine Metabols U Cannabinoids Screen Alcohol, Quantitative 68 H 05/05/17 05/05/17 10:22 10:22 WBC RBC Hgb Hct MCV MCH MCHC RDW Plt Count MPV Neut % (Auto) Lymph % (Auto) [place] % (Auto) Eos % (Auto) Baso % (Auto) Neut # Lymph # [place] # Eos # Baso # PT INR APTT Sodium Potassium Chloride Carbon Dioxide Anion Gap BUN Creatinine Est GFR ( Amer) Est GFR (Non-Af Amer) Random Glucose Calcium Total Bilirubin AST ALT Alkaline Phosphatase NT-Pro-B Natriuret Pep Total Protein Albumin Globulin Albumin/Globulin Ratio Urine Color Straw Urine Clarity Clear Urine pH 5.0 Ur Specific [place] 1.003 Urine Protein Negative Urine Glucose (UA) Normal Urine Ketones Negative Urine Blood Negative Urine Nitrate Negative Urine Bilirubin Negative Urine Urobilinogen Normal Ur Leukocyte Esterase Neg Urine WBC (Auto) < 1 Urine RBC (Auto) < 1 Ur Squamous Epith Cells < 1 Urine Opiates Screen Negative Urine Methadone Screen Negative Ur Barbiturates Screen Negative Ur Phencyclidine Scrn Negative Ur Amphetamines Screen Negative U Benzodiazepines Scrn Negative U Oth Cocaine Metabols Negative U Cannabinoids Screen Negative Alcohol, Quantitative Assessment & Plan - Assessment and Plan (Free Text) Assessment: 61 year old male with a past medical history of etoh abuse, hypertension, afib ( not on anticoagulation), dvt who is being transferred to med/surg for cellulitis. Plan: Cellulitis -Bilateral weeping and warm lower extremities upon physical exam. Patient states that this has happened before. Follows with [employer] [facility] A[employer]. Dr. Masters -Duplex studies negative for DVT -Vancomycin 1gm Q12 IVP started. -Infectious disease consulted. Will f/u with recommendations. -Podiatry consulted. Will f/u with recommendations. -Wound care consulted. PNA? -Chest xray showed patchy opacity at Right lung base. Non conclusive for Pneumonia. -Zithromax 500mg PO Daily started. -Will continue to monitor clinical course and make necessary adjustments. Hypertension -Restart home medications History of Atrial fibrillation -Patient not currently on anticoagulation secondary to frequent falls in the past -Restart home medications ETOH Abuse -Seizure precautions -Fall precautions -C[employer] protocol -Continue Detox unit medications Prophylaxis Pepcid 20mg BID Heparin 5000 units BID
[2017-05-05] MEDS: Vancomycin 1 gm/NS 200 ml 1 GM/200 ML BAG IVPB SCH (22:58)
[2017-05-05] MEDS: Multiple Vitamins Tab PO SCH (22:59)
[2017-05-06 07:49] LABS: BASO % 0.4 % (0.0-2.0); EOS # 0.1 K/uL (0.0-0.7); EOS % 1.5 % (0.0-4.0); HEMOGLOBIN 10.3 g/dL (12.0-18.0); LYMPH # 0.9 K/uL (1.0-4.3); LYMPH % 18.5 % (20.0-40.0); MEAN CELL VOLUME 87.4 fL (80.0-94.0); MEAN CORPUSCULAR HEMOGLOBIN 30.2 pg (27.0-31.0); MEAN CORPUSCULAR HGB CONC 34.6 g/dL (33.0-37.0); MEAN PLATELET VOLUME 6.5 fL (7.2-11.7); MONO # 0.5 K/uL (0.0-0.8); MONO % 10.1 % (0.0-10.0); NEUT # 3.3 K/uL (1.8-7.0); NEUT % 69.5 % (50.0-75.0); RBC 3.42 Mil/uL (4.40-5.90); RED CELL DISTRIBUTION WIDTH 13.5 % (11.5-14.5); WHITE BLOOD COUNT 4.8 K/uL (4.8-10.8)
[2017-05-06 08:40] LABS: ALBUMIN 2.9 g/dL (3.5-5.0); ALT/SGPT 23 U/L (21-72); AST/SGOT 29 U/L (17-59); BLOOD UREA NITROGEN 6 mg/dL (9-20); CALCIUM 7.8 mg/dl (8.6-10.4); GFR AFRICAN-AMERICAN > 60; GFR NON-AFRICAN AMERICAN > 60
[2017-05-06] MEDS: Vancomycin 1 gm/NS 200 ml 1 GM/200 ML BAG IVPB SCH ×2 (08:43→22:35)
--- NOTE | 2017-05-06 09:28 | CP.PCM.PN ---
Subjective - Date & Time of Evaluation Date of Evaluation: 05/06/17 Time of Evaluation: 09:30 - Subjective Subjective: Medicine progress note for Dr. Barcenas Patient seen and examined at bedside. Patient was sleeping at time of encounter. Unable to arouse from sleep, although he was responsive to painful stimulus. Objective - Vital Signs/Intake and Output Vital Signs (last 24 hours): Temp Pulse Resp BP Pulse Ox 98.3 F 92 H 20 147/68 97 05/06/17 08:18 05/06/17 08:18 05/06/17 08:18 05/06/17 08:18 05/06/17 08:18 Intake and Output: 05/06/17 05/06/17 06:59 18:59 Intake Total 200 Output Total 300 Balance -100 - Medications Medications: Current Medications Azithromycin (Zithromax) 500 mg PO DAILY [facility] Chlordiazepoxide (Librium) 25 mg PO Q6H MALIK PRN Reason: Taper Stop: 05/09/17 23:59 Last Admin: 05/06/17 05:54 Dose: 25 mg Chlordiazepoxide (Librium) 25 mg PO Q4H PRN PRN Reason: Alcohol Withdrawal Clonidine HCl (Catapres) 0.1 mg PO Q4H PRN PRN Reason: BP>150/100 or P>100 Famotidine (Pepcid) 20 mg PO BID [facility] Last Admin: 05/05/17 22:59 Dose: 20 mg Folic Acid (Folic Acid) 1 mg PO DAILY [facility] Last Admin: 05/05/17 22:59 Dose: 1 mg Heparin Sodium (Porcine) (Heparin) 5,000 units SC BID [facility] Vancomycin/Sodium Chloride (Vancomycin 1 Gm/Ns 200 Ml) 1 gm in 200 mls @ 133 mls/hr IVPB Q12H [facility] Stop: 05/10/17 20:01 Last Admin: 05/06/17 08:43 Dose: Not Given Vancomycin HCl 1,500 mg/ (Dextrose) 250 mls @ 125 mls/hr IVPB Q12H [facility] Multivitamins (Hexavitamin) 1 tab PO DAILY [facility] Last Admin: 05/05/17 22:59 Dose: 1 tab Thiamine HCl (Vitamin B1 Tab) 100 mg PO DAILY [facility] Last Admin: 05/05/17 22:59 Dose: 100 mg Trazodone HCl (Desyrel) 50 mg PO HS [facility] Last Admin: 05/05/17 23:00 Dose: 50 mg - Labs Labs: 05/06/17 07:35 05/06/17 07:35 PT 12.6 SECONDS (9.7-12.2) H 05/05/17 09:19 INR 1.1 05/05/17 09:19 APTT 34 SECONDS (21-34) 05/05/17 09:19 - Constitutional Appears: No Acute Distress - Head Exam Head Exam: ATRAUMATIC, NORMOCEPHALIC - Eye Exam Eye Exam: EOMI, Normal appearance - ENT Exam ENT Exam: Mucous Membranes Moist - Respiratory Exam Respiratory Exam: Clear to Ausculation Bilateral, NORMAL BREATHING PATTERN. absent: Rales, Rhonchi, Wheezes - Cardiovascular Exam Cardiovascular Exam: REGULAR RHYTHM, +S1, +S2 - GI/Abdominal Exam GI & Abdominal Exam: Soft, Normal Bowel Sounds. 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 Masters consulted, help appreciated Duplex studies negative for DVT Vancomycin 1.5 gm Q12 ID consult, Dr. Hackett, help appreciated Wound care referral Possible Pneumonia Chest xray showed patchy opacity at Right lung base. Non conclusive for Pneumonia. Zithromax 500mg PO Daily Will continue to monitor clinical course and make necessary adjustments. Hypertension Will need to find out Home medications History of Atrial fibrillation Patient not currently on anticoagulation secondary to frequent falls in the past Will need to find out Home medications Alcohol Abuse Seizure precautions Fall precautions [facility] protocol Continue Detox unit medications Prophylactic Measures Pepcid 20mg BID Heparin [address] Narinder Cortés PGY-1
[2017-05-06] MEDS: Multiple Vitamins Tab PO SCH (09:58)
--- NOTE | 2017-05-06 12:09 | CP.PCM.CON ---
History of Present Illness - History of Present Illness History of Present Illness: Podiatry Consult Note - Dr. Masters 61 year old undomiciled male with extensive PMHx seen and evaluated at bedside regarding chronic pain to bilateral lower extremity. Patient is well known to podiatry service. Patient states he was recently released from [facility] and since then has returned to heavy ETOH use and "sleeping on the streets." Patient complaining of chronic pain to bilateral LE ongoing for a few years; states this return to his "old lifestyle" will cause his legs to worsen once again. Denies trauma to his lower extremity. Denies new injuries or new appearance of wounds. Patient offers no other pedal complaints at this time. Denies fever, chills, SOB, calf pain. PMH: Anxiety, Arthritis, Atrial Fibrillation, Depression, Deep Vein Thrombosis, Fractures (neck, back Rt. leg fx in 5 places), Hepatitis (Patient reported history of alcohol hepatitis), HTN, Hypercholesterolemia, Pancreatitis, Peripheral Edema (chronic), Seizures (alcohol induced), Chronic Pain (leg pain/ dermatitis) PSH: back surgery, cholecystectomy FH: unknown SH: daily heavy ETOH use, +tobacco use, +illicit drug use (marijuana, cocaine, other unknown) Meds: see meds list All: PCN Review of Systems - Constitutional Constitutional: As Per HPI Past Patient History - Infectious Disease Hx of Infectious Diseases: None - Tetanus Immunizations Tetanus Immunization: Unknown - Past Medical History & Family History Past Medical History?: Yes - Past Social History Smoking Status: Never Smoked - CARDIAC Hx Atrial Fibrillation: Yes Hx Hypercholesterolemia: Yes Hx Hypertension: Yes Hx Peripheral Edema: Yes (chronic) - PULMONARY Hx Tuberculosis: No - NEUROLOGICAL Hx Seizures: Yes (alcohol induced) - HEENT Hx HEENT Problems: Yes Hx Cataracts: Yes (Rt. and Lt. cataract sx) - RENAL Hx Chronic Kidney Disease: No - ENDOCRINE/METABOLIC Hx Endocrine Disorders: Yes Other/Comment: SPOT ON PANCREAS - INTEGUMENTARY Hx Dermatological Problems: Yes Hx Cellulitis: Yes (bilateral legs) Other/Comment: Venous stasis bilateral legs - MUSCULOSKELETAL/RHEUMATOLOGICAL Hx Arthritis: Yes Hx Falls: No Hx Fractures: Yes (neck, back Rt. leg fx in 5 places) - GASTROINTESTINAL Hx Pancreatitis: Yes - PSYCHIATRIC Hx Anxiety: Yes Hx Depression: Yes Hx Substance Use: Yes (Marijuana smoking daily) - SURGICAL HISTORY Hx Cholecystectomy: Yes - ANESTHESIA Hx Anesthesia: Yes Hx Anesthesia Reactions: No Hx Malignant Hyperthermia: No Meds Allergies/Adverse Reactions: Allergies Allergy/AdvReac Type Severity Reaction Status Date / Time Penicillins Allergy Severe RASH Verified 05/05/17 08:48 - Medications Medications: Current Medications Azithromycin (Zithromax) 500 mg PO DAILY [facility] Last Admin: 05/06/17 09:58 Dose: 500 mg Chlordiazepoxide (Librium) 25 mg PO Q6H [facility] PRN Reason: Taper Stop: 05/09/17 23:59 Last Admin: 05/06/17 05:54 Dose: 25 mg Chlordiazepoxide (Librium) 25 mg PO Q4H PRN PRN Reason: Alcohol Withdrawal Clonidine HCl (Catapres) 0.1 mg PO Q4H PRN PRN Reason: BP>150/100 or P>100 Famotidine (Pepcid) 20 mg PO BID [facility] Last Admin: 05/06/17 09:58 Dose: 20 mg Folic Acid (Folic Acid) 1 mg PO DAILY [facility] Last Admin: 05/06/17 09:59 Dose: 1 mg Heparin Sodium (Porcine) (Heparin) 5,000 units SC BID [facility] Last Admin: 05/06/17 09:58 Dose: 5,000 units Vancomycin/Sodium Chloride (Vancomycin 1 Gm/Ns 200 Ml) 1 gm in 200 mls @ 133 mls/hr IVPB Q12H [facility] Stop: 05/10/17 20:01 Last Admin: 05/06/17 08:43 Dose: Not Given Vancomycin HCl 1,500 mg/ (Dextrose) 250 mls @ 125 mls/hr IVPB Q12H [facility] Last Admin: 05/06/17 10:34 Dose: 125 mls/hr Multivitamins (Hexavitamin) 1 tab PO DAILY [facility] Last Admin: 05/06/17 09:58 Dose: 1 tab Thiamine HCl (Vitamin B1 Tab) 100 mg PO DAILY [facility] Last Admin: 05/06/17 09:58 Dose: 100 mg Trazodone HCl (Desyrel) 50 mg PO HS [facility] Last Admin: 05/05/17 23:00 Dose: 50 mg Physical Exam - Constitutional Appears: Non-toxic, No Acute Distress - Extremities Exam Additional comments: lower extremity focused exam: VASC: DP/PT pulses are palpable 1/4 b/l, [employer]: < 3 sec to all digits, TG runs warm to warm proximal to distal. +1 pitting edema to bilateral LE. DERM: Healing superficial ulceration measuring approximately 5 x 4 cm at left posterior lower leg with epithelialized wound base; minimal serosanguinous drainage noted; absent purulence, fluctuance, malodor, probe to bone, undermining, maceration. Circumfirential glossy, erythematous skin changes 2/2 healed venous stasis ulcerations present bilaterally with overlying lichenifications. No weeping noted to bilateral LE. Diffus NEURO: Protective sensation mildly diminished ORTHO: No tenderness to palpation lower extremity b/l. No pain upon ROM 1st MPJ , MTJ, STJ, ankle joint. Muscle strength 5/5 for all dorsiflexors, plantarflexors, inverters, and everters b/l. - Neurological Exam Neurological exam: Alert, Oriented x3 Results - Vital Signs Recent Vital Signs: Last Vital Signs Temp 98.3 F 05/06/17 08:18 Pulse 92 H 05/06/17 08:18 Resp 20 05/06/17 08:18 BP 147/68 05/06/17 08:18 Pulse Ox 97 05/06/17 08:18 - Labs Result Diagrams: 05/06/17 07:35 05/06/17 07:35 Labs: Laboratory Results - last 24 hr 05/06/17 05/06/17 07:35 07:35 WBC 4.8 RBC 3.42 L Hgb 10.3 L Hct 29.9 L MCV 87.4 MCH 30.2 MCHC 34.6 RDW 13.5 Plt Count 279 MPV 6.5 L Neut % (Auto) 69.5 Lymph % (Auto) 18.5 L [place] % (Auto) 10.1 H Eos % (Auto) 1.5 Baso % (Auto) 0.4 Neut # 3.3 Lymph # 0.9 L [place] # 0.5 Eos # 0.1 Baso # 0.0 Sodium 131 L Potassium 3.4 L Chloride 100 Carbon Dioxide 27 Anion Gap 7 L BUN 6 L Creatinine 0.7 L Est GFR ( Amer) > 60 Est GFR (Non-Af Amer) > 60 Random Glucose 85 Calcium 7.8 L Total Bilirubin 1.1 AST 29 ALT 23 Alkaline Phosphatase 108 Total Protein 5.8 L Albumin 2.9 L D Globulin 3.0 Albumin/Globulin Ratio 1.0 Assessment & Plan - Assessment and Plan (Free Text) Assessment: 61 year old male with chronic ulceration left leg, edema secondary to venous stasis Plan: patient evaluated and seen at bedside with attending Dr. Masters labs and vitals reviewed; afebrile, WBC 4.8 left leg wound cx awaiting results duplex scan of bilateral lower extremities show no evidence of DVT applied xeroform, DSD to bilateral lower extremities cont. abx as recommended podiatry will continue to follow while in house
--- NOTE | 2017-05-06 12:15 | CARD ---
APPROVED REPORT EKG Measurement Heart [id number] <Conclusion> Undetermined rhythm Left axis deviation Anterior infarct, age undetermined Abnormal ECG
--- NOTE | 2017-05-06 14:17 | PCM.PSYCH ---
Initial Psychiatric Evaluation - Initial Psychiatric Evaluation Type of Admission: Voluntary Legal Status: Capacity Chief Complaint (in patient's own words): "I want to detox from alcohol" History of Present Illness and Precipitating Events: Psych Consult: Alcohol Detox The pt is seen, chart reviewed, case discussed with staff. Patient is a 61 year old male admitted to the medicine floor for bilateral cellulites of his lower extremity. The patient is currently entering alcohol withdrawal and our services were consulted. Patient is single with no kids. He is currently unemployed and collecting social security. He is homeless and does not live in shelters. He has a "very long history" of alcohol use disorder. He states he drinks 1 pint of hard liquor and 3 cans of beer daily. At this time he is experiencing muscle aches, shakes, and anxiety. He denies any hallucinations or seizures both currently and in the past. Patient states he occasionally snorts heroin but is not a consistent user. Patient denies any use of alcohol, tobacco, or pills. PMH: Cellulites Past Psych Hx: Depression and anxiety. Family Psych Hx: Father has a history of alcohol use disorder Current Medications: Active Medications Generic Name Dose Route Start Last Admin Trade Name Freq PRN Reason Stop Dose Admin Azithromycin 500 mg 05/06/17 10:00 05/06/17 09:58 Zithromax PO 500 mg DAILY MALIK Administration Chlordiazepoxide 25 mg 05/06/17 00:00 05/06/17 12:08 Librium PO 05/09/17 23:59 25 mg Q6H MALIK Administration Taper Chlordiazepoxide 25 mg 05/05/17 21:29 Librium PO Q4H PRN Alcohol Withdrawal Clonidine HCl 0.1 mg 05/05/17 21:29 Catapres PO Q4H PRN BP>150/100 or P>100 Famotidine 20 mg 05/05/17 20:15 05/06/17 09:58 Pepcid PO 20 mg BID MALIK Administration Folic Acid 1 mg 05/05/17 22:00 05/06/17 09:59 Folic Acid PO 1 mg DAILY MALIK Administration Heparin Sodium (Porcine) 5,000 units 05/06/17 10:00 05/06/17 09:58 Heparin SC 5,000 units BID MALIK Administration Vancomycin/Sodium Chloride 1 gm in 200 mls @ 133 mls/hr 05/05/17 20:00 08:43 Vancomycin 1 Gm/Ns 200 Ml IVPB 05/10/17 20:01 Not Given Q12H MALIK Vancomycin HCl 1,500 mg/ 250 mls @ 125 mls/hr 05/06/17 10:00 05/06/17 10:34 Dextrose IVPB 125 mls/hr Q12H MALIK Administration Multivitamins 1 tab 05/05/17 22:00 05/06/17 09:58 Hexavitamin PO 1 tab DAILY MALIK Administration Thiamine HCl 100 mg 05/05/17 22:00 05/06/17 09:58 Vitamin B1 Tab PO 100 mg DAILY MALIK Administration Trazodone HCl 50 mg 05/05/17 22:00 05/05/17 23:00 Desyrel PO 50 mg HS MALIK Administration Past Psychiatric History - Past Psychiatric History Pertinent Medical Hx (Current Medical&Sleep Prob, Allergies): Allergies Allergy/AdvReac Type Severity Reaction Status Date / Time Penicillins Allergy Severe RASH Verified 05/05/17 08:48 Acetaminophen [Tylenol 325mg tab] 650 mg PO Q6 PRN tab 11/23/16 Calcium Carbonate [Calcium] 500 mg PO DAILY #10 tablet 11/23/16 Multivitamins [Hexavitamin] 1 tab PO DAILY tab 11/23/16 Ondansetron [Zofran Tab] 4 mg PO Q8H PRN #20 tab 11/23/16 Pantoprazole [Protonix EC Tab] 40 mg PO DAILY ect 11/23/16 Thiamine [Vitamin B1 Tab] 100 mg PO DAILY tab 11/23/16 traMADol [Ultram] 50 mg PO TID PRN #20 tab 11/23/16 traMADol [Ultram] 50 mg PO TID PRN #12 tab 04/25/17 Review of Systems - Review of Systems All systems: reviewed and no additional remarkable complaints except - Constitutional Constitutional: Sweats - Musculoskeletal Musculoskeletal: Muscle Weakness - Neurological Neurological: Tremor - Psychiatric Psychiatric: Anxiety, Depression. absent: Auditory Hallucinations, Hallucinations, Homicidal Ideation, Paranoia, Suicidal Ideation, Visual Hallucinations Mental Status Examination - Personal Presentation Personal Presentation: Looks stated age - Affect Affect: Broad - Motor Activity Motor Activity: Calm - Reliability in Providing Information Reliability in Providing Information: Good - Speech Speech: Disorganized, Tangential - Mood Mood: Anxious - Formal Thought Process Formal Thought Process: No Impairment - Cognitive Functions Orientation: Person, Place, Situation, Time Sensorium: Alert Attention/Concentration: Easily distracted Abstract Thinking: Independence Estimate of Intelligence: Below average - Risk Risk: Withdrawal, Diminished functioning DSM 5 DX - DSM 5 DSM 5 Diagnosis: Alcohol use d/o- severe Alcohol withdrawal 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
--- NOTE | 2017-05-06 19:12 | CP.PCM.CON ---
History of Present Illness - History of Present Illness History of Present Illness: 61 year old homeless male with extensive PMHx was recently released from [facility] and since then has returned to heavy ETOH use and "sleeping on the streets." Patient complaining of chronic pain to bilateral LE ongoing for a few years; Admitted for stasis dermatitis and cellulitis of both legs PMH: Anxiety, Arthritis, Atrial Fibrillation, Depression, Deep Vein Thrombosis, Fractures (neck, back Rt. leg fx in 5 places), Hepatitis (Patient reported history of alcohol hepatitis), HTN, Hypercholesterolemia, Pancreatitis, Peripheral Edema (chronic), Seizures (alcohol induced), Chronic Pain (leg pain/ dermatitis) PSH: back surgery, cholecystectomy FH: unknown SH: daily heavy ETOH use, +tobacco use, +illicit drug use (marijuana, cocaine, other unknown) Meds: see meds list All: PCN Review of Systems - Constitutional Constitutional: As Per HPI - EENT Eyes: absent: As Per HPI, Blind Spots, Blurred Vision, Change in Vision, Decreased Night Vision, Diplopia, Discharge, Dry Eye, Exophthalmos, Floaters, Irritation, Itchy Eyes, Loss of Peripheral Vision, Pain, Photophobia, Requires Corrective Lenses, Sees Flashes, Spots in Vision, Tunnel Vision, Other Visual Disturbances, Loss of Vision, Other Ears: absent: As Per HPI, Decreased Hearing, Ear Discharge, Ear Pain, Tinnitus, Abnormal Hearing, Disequilibrium, Dizziness, Other Nose/Mouth/Throat: absent: As Per HPI, Epistaxis, Nasal Congestion, Nasal Discharge, Nasal Obstruction, Nasal Trauma, Nose Pain, Post Nasal Drip, Sinus Pain, Sinus Pressure, Bleeding Gums, Change in Voice, Dental Pain, Dry Mouth, Dysphagia, Halitosis, Hoarsness, Lip Swelling, Mouth Lesions, Mouth Pain, Odynophagia, Sore Throat, Throat Swelling, Tongue Swelling, Facial Pain, Neck Pain, Neck Mass, Other - Cardiovascular Cardiovascular: absent: As Per HPI, Acrocyanosis, Chest Pain, Chest Pain at Rest , Chest Pain with Activity, Claudication, Diaphoresis, Dyspnea, Dyspnea on Exertion, Edema, Irregular Heart Rhythm, Pain Radiating to Arm/Neck/Jaw, Leg Edema, Leg Ulcers, Lightheadedness, Orthopnea, Palpitations, Paroxysmal Nocturnal Dyspnea, Pedal Edema, Radiating Pain, Rapid Heart Rate, Slow Heart Rate, Syncope, Other - Respiratory Respiratory: absent: As Per HPI, Cough, Dyspnea, Hemoptysis, Dyspnea on Exertion , Wheezing, Snoring, Stridor, Pain on Inspiration, Chest Congestion, Excessive Mucous Production, Change in Mucous Color, Pain with Coughing, Other - Gastrointestinal Gastrointestinal: absent: As Per HPI, Abdominal Pain, Belching, Bloating, Change in Bowel Habits, Change in Stool Character, Coffee Ground Emesis, Constipation, Cramping, Diarrhea, Dyspepsia, Dysphagia, Early Satiety, Excessive Flatus, Fecal Incontinence, Heartburn, Hematemesis, Hematochezia, Loose Stools, Melena, Nausea, Odynophagia, Temesmus, Vomiting, Other - Genitourinary Genitourinary: absent: As Per HPI, Change in Urinary Stream, Difficulty Urinating, Dysuria, Flank Pain, Hematuria, Pyuria, Nocturia, Urinary Incontinence, Urinary Frequency, Urinary Hesitance, Urinary Urgency, Voiding Freq/Small Amts, Freq UTI, Hx Renal/Bladder Calculi, Hx /Renal Surgery, Bladder Distension, Other - Musculoskeletal Musculoskeletal: As Per HPI - Integumentary Integumentary: As Per HPI - Neurological Neurological: absent: As Per HPI, Abnormal Gait, Abnormal Hearing, Abnormal Movements, Abnormal Speech, Behavioral Changes, Burning Sensations, Confusion, Convulsions, Disequilibrium, Dizziness, Numbness, Focal Weakness, Frequent Falls , Headaches, Lack of Coordination, Loss of Vision, Memory Loss, Paresthesias, Radicular Pain, Restless Legs, Sensory Deficit, Syncope, Tingling, Tremor, Vertigo, Weakness, Other Visual Disturbances, Other - Psychiatric Psychiatric: absent: As Per HPI, Abnormal Sleep Pattern, Anhedonia, Anxiety, Auditory Hallucinations, Behavioral Changes, Change in Appetite, Change in Libido, Confusion, Depression, Difficulty Concentrating, Hallucinations, Homicidal Ideation, Hopelessness, Irritability, Memory Loss, Mood Swings, Panic Attacks, Paranoia, Suicidal Ideation, Visual Hallucinations, Tactile Hallucinations, Other - Endocrine Endocrine: absent: As Per HPI, Change in Body Appearance, Change in Libido, Cold Intolorance, Deepening of Voice, Excessive Sweating, Fatigue, Flushing, Heat Intolorance, Increase in Ring/Shoe/Hat Size, Palpitations, Polydipsia, Polyphagia, Polyuria, Other - Hematologic/Lymphatic Hematologic: absent: As Per HPI, Easy Bleeding, Easy Bruising, Lymphadenopathy, Other Past Patient History - Infectious Disease Hx of Infectious Diseases: None - Tetanus Immunizations Tetanus Immunization: Unknown - Past Medical History & Family History Past Medical History?: Yes - Past Social History Smoking Status: Never Smoked - CARDIAC Hx Atrial Fibrillation: Yes Hx Hypercholesterolemia: Yes Hx Hypertension: Yes Hx Peripheral Edema: Yes (chronic) - PULMONARY Hx Tuberculosis: No - NEUROLOGICAL Hx Seizures: Yes (alcohol induced) - HEENT Hx HEENT Problems: Yes Hx Cataracts: Yes (Rt. and Lt. cataract sx) - RENAL Hx Chronic Kidney Disease: No - ENDOCRINE/METABOLIC Hx Endocrine Disorders: Yes Other/Comment: SPOT ON PANCREAS - INTEGUMENTARY Hx Dermatological Problems: Yes Hx Cellulitis: Yes (bilateral legs) Other/Comment: Venous stasis bilateral legs - MUSCULOSKELETAL/RHEUMATOLOGICAL Hx Arthritis: Yes Hx Falls: No Hx Fractures: Yes (neck, back Rt. leg fx in 5 places) - GASTROINTESTINAL Hx Pancreatitis: Yes - PSYCHIATRIC Hx Anxiety: Yes Hx Depression: Yes Hx Substance Use: Yes (Marijuana smoking daily) - SURGICAL HISTORY Hx Cholecystectomy: Yes - ANESTHESIA Hx Anesthesia: Yes Hx Anesthesia Reactions: No Hx Malignant Hyperthermia: No Meds Allergies/Adverse Reactions: Allergies Allergy/AdvReac Type Severity Reaction Status Date / Time Penicillins Allergy Severe RASH Verified 05/05/17 08:48 - Medications Medications: Current Medications Azithromycin (Zithromax) 500 mg PO DAILY [facility] Last Admin: 05/06/17 09:58 Dose: 500 mg Chlordiazepoxide (Librium) 25 mg PO Q6H [facility] PRN Reason: Taper Stop: 05/09/17 23:59 Last Admin: 05/06/17 18:04 Dose: 25 mg Chlordiazepoxide (Librium) 25 mg PO Q4H PRN PRN Reason: Alcohol Withdrawal Clonidine HCl (Catapres) 0.1 mg PO Q4H PRN PRN Reason: BP>150/100 or P>100 Famotidine (Pepcid) 20 mg PO BID [facility] Last Admin: 05/06/17 18:04 Dose: 20 mg Folic Acid (Folic Acid) 1 mg PO DAILY [facility] Last Admin: 05/06/17 09:59 Dose: 1 mg Heparin Sodium (Porcine) (Heparin) 5,000 units SC BID [facility] Last Admin: 05/06/17 18:04 Dose: 5,000 units Vancomycin HCl 1,500 mg/ (Dextrose) 500 mls @ 250 mls/hr IVPB Q12H [facility] Multivitamins (Hexavitamin) 1 tab PO DAILY [facility] Last Admin: 05/06/17 09:58 Dose: 1 tab Thiamine HCl (Vitamin B1 Tab) 100 mg PO DAILY [facility] Last Admin: 05/06/17 09:58 Dose: 100 mg Trazodone HCl (Desyrel) 50 mg PO HS [facility] Last Admin: 05/05/17 23:00 Dose: 50 mg Physical Exam - Constitutional Appears: Non-toxic, Chronically Ill - Head Exam Head Exam: NORMOCEPHALIC - Eye Exam Eye Exam: PERRL - ENT Exam ENT Exam: Mucous Membranes Dry - Neck Exam Neck exam: Negative for: Lymphadenopathy - Respiratory Exam Respiratory Exam: Decreased Breath Sounds - Cardiovascular Exam Cardiovascular Exam: REGULAR RHYTHM - GI/Abdominal Exam GI & Abdominal Exam: Diminished Bowel Sounds, Soft. absent: Tenderness - Rectal Exam Rectal Exam: Deferred - Exam Exam: NORMAL INSPECTION - Extremities Exam Extremities exam: Positive for: pedal edema, pedal pulses present. Negative for : calf tenderness, tenderness - Back Exam Back exam: absent: CVA tenderness (L), CVA tenderness (R) - Neurological Exam Neurological exam: Alert, CN II-XII Intact, Oriented x3, Reflexes Normal - Psychiatric Exam Psychiatric exam: Depressed - Skin Skin Exam: Dry - Additional Findings Additional findings: lower extremity focused exam: VASC: DP/PT pulses are palpable 1/4 b/l, [employer]: < 3 sec to all digits, TG runs warm to warm proximal to distal. +1 pitting edema to bilateral LE. DERM: Healing superficial ulceration measuring approximately 5 x 4 cm at left posterior lower leg with epithelialized wound base; minimal serosanguinous drainage noted; absent purulence, fluctuance, malodor, probe to bone, undermining, maceration. Circumfirential glossy, erythematous skin changes 2/2 healed venous stasis ulcerations present bilaterally with overlying lichenifications. No weeping noted to bilateral LE. Diffus NEURO: Protective sensation mildly diminished ORTHO: No tenderness to palpation lower extremity b/l. No pain upon ROM 1st MPJ , MTJ, STJ, ankle joint. Muscle strength 5/5 for all dorsiflexors, plantarflexors, inverters, and everters b/l. Results - Vital Signs Recent Vital Signs: Last Vital Signs Temp 98 F 05/06/17 15:15 Pulse 91 H 05/06/17 15:15 Resp 20 05/06/17 15:15 BP 124/70 05/06/17 15:15 Pulse Ox 97 05/06/17 15:15 - Labs Result Diagrams: 05/06/17 07:35 05/06/17 07:35 Labs: Laboratory Results - last 24 hr 05/06/17 05/06/17 07:35 07:35 WBC 4.8 RBC 3.42 L Hgb 10.3 L Hct 29.9 L MCV 87.4 MCH 30.2 MCHC 34.6 RDW 13.5 Plt Count 279 MPV 6.5 L Neut % (Auto) 69.5 Lymph % (Auto) 18.5 L Haskell % (Auto) 10.1 H Eos % (Auto) 1.5 Baso % (Auto) 0.4 Neut # 3.3 Lymph # 0.9 L Haskell # 0.5 Eos # 0.1 Baso # 0.0 Sodium 131 L Potassium 3.4 L Chloride 100 Carbon Dioxide 27 Anion Gap 7 L BUN 6 L Creatinine 0.7 L Est GFR ( Amer) > 60 Est GFR (Non-Af Amer) > 60 Random Glucose 85 Calcium 7.8 L Total Bilirubin 1.1 AST 29 ALT 23 Alkaline Phosphatase 108 Total Protein 5.8 L Albumin 2.9 L D Globulin 3.0 Albumin/Globulin Ratio 1.0 Assessment & Plan (1) Alcohol abuse Status: Acute (2) Leg edema Status: Acute (3) Skin ulcer Status: Acute - Assessment and Plan (Free Text) Assessment: cont wound care and IV antibiotics for now possible unna boot rx once stable consider vascular consult
--- NOTE | 2017-05-07 06:30 | CP.PCM.PN ---
Subjective - Date & Time of Evaluation Date of Evaluation: 05/07/17 Time of Evaluation: 07:00 - Subjective Subjective: Medicine progress note for Dr. Barcenas Patient seen and examined at bedside. Patient reports that his leg pain is a throbbing intermittent pain. He otherwise voices no other complaints and appears very sleepy. Objective - Vital Signs/Intake and Output Vital Signs (last 24 hours): Temp Pulse Resp BP Pulse Ox 98.1 F 85 20 144/80 96 05/07/17 00:00 05/07/17 00:00 05/07/17 00:00 05/07/17 00:00 05/07/17 00:00 Intake and Output: 05/06/17 05/07/17 18:59 06:59 Intake Total 200 350 Output Total 300 700 Balance -100 -350 - Medications Medications: Current Medications Azithromycin (Zithromax) 500 mg PO DAILY [facility] Last Admin: 05/06/17 09:58 Dose: 500 mg Chlordiazepoxide (Librium) 25 mg PO Q8H [facility] PRN Reason: Taper Stop: 05/09/17 23:59 Last Admin: 05/07/17 01:04 Dose: Not Given Chlordiazepoxide (Librium) 25 mg PO Q4H PRN PRN Reason: Alcohol Withdrawal Clonidine HCl (Catapres) 0.1 mg PO Q4H PRN PRN Reason: BP>150/100 or P>100 Famotidine (Pepcid) 20 mg PO BID [facility] Last Admin: 05/06/17 18:04 Dose: 20 mg Folic Acid (Folic Acid) 1 mg PO DAILY [facility] Last Admin: 05/06/17 09:59 Dose: 1 mg Heparin Sodium (Porcine) (Heparin) 5,000 units SC BID [facility] Last Admin: 05/06/17 18:04 Dose: 5,000 units Vancomycin/Sodium Chloride (Vancomycin 1 Gm/Ns 200 Ml) 1 gm in 200 mls @ 133.333 mls/hr IVPB Q12H [facility] Stop: 05/11/17 22:01 Last Admin: 05/06/17 22:35 Dose: 133.333 mls/hr Multivitamins (Hexavitamin) 1 tab PO DAILY [facility] Last Admin: 05/06/17 09:58 Dose: 1 tab Thiamine HCl (Vitamin B1 Tab) 100 mg PO DAILY [facility] Last Admin: 05/06/17 09:58 Dose: 100 mg Trazodone HCl (Desyrel) 50 mg PO HS [facility] Last Admin: 05/06/17 22:36 Dose: 50 mg - Labs Labs: 05/06/17 07:35 05/06/17 07:35 PT 12.6 SECONDS (9.7-12.2) H 05/05/17 09:19 INR 1.1 05/05/17 09:19 APTT 34 SECONDS (21-34) 05/05/17 09:19 - Additional Findings Additional findings: - Constitutional Appears: No Acute Distress - Head Exam Head Exam: ATRAUMATIC, NORMOCEPHALIC - Eye Exam Eye Exam: EOMI, Normal appearance - ENT Exam ENT Exam: Mucous Membranes Moist - Respiratory Exam Respiratory Exam: Clear to Ausculation Bilateral, NORMAL BREATHING PATTERN. absent: Rales, Rhonchi, Wheezes - Cardiovascular Exam Cardiovascular Exam: REGULAR RHYTHM, +S1, +S2 - GI/Abdominal Exam GI & Abdominal Exam: Soft, Normal Bowel Sounds. absent: Distended, Tenderness - Extremities Exam Additional comments: Bilateral cellulitis in the legs There is some weeping in certain areas of the legs Pedal pulses difficult to palpate secondary to thickened skin - Skin Skin Exam: Warm Assessment and Plan - Assessment and Plan (Free Text) Plan: Cellulitis Follows with [facility], Dr. Masters consulted, help appreciated Duplex studies negative for DVT Vancomycin 1.5 gm Q12 ID consult, Dr. Hackett, help appreciated Wound care referral Possible Pneumonia Chest xray showed patchy opacity at Right lung base. Non conclusive for Pneumonia. Zithromax 500mg PO Daily Will continue to monitor clinical course and make necessary adjustments. Hypertension Blood pressure has been moderately controlled thus far without medication History of Atrial fibrillation Patient not currently on anticoagulation secondary to frequent falls in the past Heart rate under control Alcohol Abuse Seizure precautions Fall precautions CIWA protocol Continue Detox unit medications Psychiatry signing off To complete detox by tomorrow Prophylactic Measures Pepcid 20mg BID Heparin [address] units [address] [facility] [address]. Narinder Cortés PGY-1
[2017-05-07 09:33] LABS: BASO % 0.2 % (0.0-2.0); EOS # 0.1 K/uL (0.0-0.7); EOS % 2.9 % (0.0-4.0); HEMOGLOBIN 10.9 g/dL (12.0-18.0); LYMPH # 0.9 K/uL (1.0-4.3); LYMPH % 18.7 % (20.0-40.0); MEAN CELL VOLUME 87.5 fL (80.0-94.0); MEAN CORPUSCULAR HGB CONC 34.3 g/dL (33.0-37.0); MEAN PLATELET VOLUME 6.1 fL (7.2-11.7); MONO # 0.3 K/uL (0.0-0.8); MONO % 7.1 % (0.0-10.0); NEUT # 3.4 K/uL (1.8-7.0); NEUT % 71.1 % (50.0-75.0); RBC 3.63 Mil/uL (4.40-5.90); RED CELL DISTRIBUTION WIDTH 13.4 % (11.5-14.5); WHITE BLOOD COUNT 4.8 K/uL (4.8-10.8)
[2017-05-07 10:05] LABS: ALBUMIN 2.8 g/dL (3.5-5.0); ALT/SGPT 19 U/L (21-72); AST/SGOT 27 U/L (17-59); BLOOD UREA NITROGEN 6 mg/dL (9-20); CALCIUM 8.1 mg/dl (8.6-10.4); GFR AFRICAN-AMERICAN > 60; GFR NON-AFRICAN AMERICAN > 60; MAGNESIUM 1.7 mg/dL (1.6-2.3)
[2017-05-07 10:06] LABS: ALB/GLOB RATIO 0.9 (1.0-2.1)
[2017-05-07] MEDS: Multiple Vitamins Tab PO SCH (10:11)
[2017-05-07] MEDS: Vancomycin 1 gm/NS 200 ml 1 GM/200 ML BAG IVPB SCH ×2 (10:50→21:48)
--- NOTE | 2017-05-07 11:51 | PCM.PYCHPN ---
Psychiatric Progress Note - Psychiatric Progress Note Patient seen today, length of contact: 16 min Patient Chief Complaint: "I am uncomfortable" Problems Identified/Issues Discussed: The pt is seen, chart reviewed, case discussed with staff. Patient states he is feeling uncomfortable and that he was unable to sleep through the night The pt is compliant with medications and reports no side-effects. Symptoms are improving but needs more time to stabilize. After care discussed, support and psychoeducation given. He has one more day to complete his detox He can be referred to [facility], [facility] or [facility] re[facility]. Not certain if they will accept him with his open wounds, though [facility] will not take him with his disability (he cannot work - and [facility] is a work-rehab) [facility] may be a better referral until he heals. Psych will sign off. Medication Change: Yes (Librium taper ) Medical Record Reviewed: Yes Mental Status Examination - Cognitive Function Orientation: Person, Place, Situation, Time Memory: Intact Attention: Poor Concentration: Poor Association: WNL Fund of Knowledge: WNL - Mood Mood: Anxious - Affect Affect: Broad - Speech Speech: Appropriate - Formal Thought Process Formal Thought Process: No Impairment - Suicidal Ideation Suicidal Ideation: No - Homicidal Ideation Homicidal Ideation: No Goal/Treatment Plan - Goal/Treatment Plan Need for Continued Stay: Discharge may exacerbated symptoms, Severe functional impairment Progress Toward Problem(s) and Goals/Treatment Plan: Librium detox ending Vitamins started As needed medications Supportive therapy and psychoeducation [place] for abstinence CBT for relapse prevention Encourage MAT Refer to rehab or IOP Attend self-help groups as well
--- NOTE | 2017-05-07 16:10 | CP.PCM.PN ---
Subjective - Date & Time of Evaluation Date of Evaluation: 05/07/17 Time of Evaluation: 09:00 - Subjective Subjective: wound shows mixed keturah will add gram neg coverage consider bone scan Objective - Vital Signs/Intake and Output Vital Signs (last 24 hours): Temp Pulse Resp BP Pulse Ox 97.3 F L 86 20 132/80 99 05/07/17 08:34 05/07/17 08:34 05/07/17 08:34 05/07/17 08:34 05/07/17 08:34 Intake and Output: 05/07/17 05/07/17 06:59 18:59 Intake Total 350 560 Output Total 1050 450 Balance -700 110 - Medications Medications: Current Medications Azithromycin (Zithromax) 500 mg PO DAILY [facility] Last Admin: 05/07/17 10:30 Dose: 500 mg Chlordiazepoxide (Librium) 25 mg PO Q4H PRN PRN Reason: Alcohol Withdrawal Chlordiazepoxide (Librium) 25 mg PO BID [facility] Stop: 05/08/17 10:01 Clonidine HCl (Catapres) 0.1 mg PO Q4H PRN PRN Reason: BP>150/100 or P>100 Famotidine (Pepcid) 20 mg PO BID [facility] Last Admin: 05/07/17 10:11 Dose: 20 mg Folic Acid (Folic Acid) 1 mg PO DAILY [facility] Last Admin: 05/07/17 10:11 Dose: 1 mg Heparin Sodium (Porcine) (Heparin) 5,000 units SC BID [facility] Last Admin: 05/07/17 10:11 Dose: 5,000 units Vancomycin/Sodium Chloride (Vancomycin 1 Gm/Ns 200 Ml) 1 gm in 200 mls @ 133.333 mls/hr IVPB Q12H [facility] Stop: 05/11/17 22:01 Last Admin: 05/07/17 10:50 Dose: 133.333 mls/hr Multivitamins (Hexavitamin) 1 tab PO DAILY [facility] Last Admin: 05/07/17 10:11 Dose: 1 tab Thiamine HCl (Vitamin B1 Tab) 100 mg PO DAILY [facility] Last Admin: 05/07/17 10:10 Dose: 100 mg Trazodone HCl (Desyrel) 50 mg PO HS [facility] Last Admin: 05/06/17 22:36 Dose: 50 mg - Labs Labs: 05/07/17 09:24 05/07/17 09:24 PT 12.6 SECONDS (9.7-12.2) H 05/05/17 09:19 INR 1.1 05/05/17 09:19 APTT 34 SECONDS (21-34) 05/05/17 09:19 - Constitutional Appears: Non-toxic, Chronically Ill - Head Exam Head Exam: NORMOCEPHALIC - Eye Exam Eye Exam: PERRL - ENT Exam ENT Exam: Mucous Membranes Dry - Neck Exam Neck Exam: absent: Lymphadenopathy - Respiratory Exam Respiratory Exam: Decreased Breath Sounds - Cardiovascular Exam Cardiovascular Exam: REGULAR RHYTHM - GI/Abdominal Exam GI & Abdominal Exam: Distended - Rectal Exam Rectal Exam: Deferred - Exam Exam: NORMAL INSPECTION - Extremities Exam Extremities Exam: Pedal Edema. absent: Tenderness - Back Exam Back Exam: absent: CVA tenderness (L), CVA tenderness (R) - Neurological Exam Neurological Exam: Alert, Awake, Oriented x3 Assessment and Plan (1) Alcohol abuse Status: Acute (2) Leg edema Status: Acute (3) Skin ulcer Status: Acute
[2017-05-07] MEDS: Aztreonam 1 GM in Sodium Chloride 0.9% 100 ML IVPB SCH (17:07)
[2017-05-08] MEDS: Aztreonam 1 GM in Sodium Chloride 0.9% 100 ML IVPB SCH ×2 (00:46→09:06)
[2017-05-08 07:34] LABS: BASO % 0.3 % (0.0-2.0); EOS # 0.2 K/uL (0.0-0.7); EOS % 3.7 % (0.0-4.0); HEMOGLOBIN 10.8 g/dL (12.0-18.0); LYMPH # 0.9 K/uL (1.0-4.3); LYMPH % 18.6 % (20.0-40.0); MEAN CELL VOLUME 87.7 fL (80.0-94.0); MEAN CORPUSCULAR HEMOGLOBIN 29.9 pg (27.0-31.0); MEAN CORPUSCULAR HGB CONC 34.2 g/dL (33.0-37.0); MEAN PLATELET VOLUME 6.4 fL (7.2-11.7); MONO # 0.4 K/uL (0.0-0.8); MONO % 7.5 % (0.0-10.0); NEUT # 3.5 K/uL (1.8-7.0); NEUT % 69.9 % (50.0-75.0); RBC 3.61 Mil/uL (4.40-5.90); RED CELL DISTRIBUTION WIDTH 13.3 % (11.5-14.5)
[2017-05-08 08:18] LABS: ALB/GLOB RATIO 0.9 (1.0-2.1); ALBUMIN 2.9 g/dL (3.5-5.0); ALT/SGPT 24 U/L (21-72); AST/SGOT 23 U/L (17-59); BLOOD UREA NITROGEN 9 mg/dL (9-20); CALCIUM 7.7 mg/dl (8.6-10.4); GFR AFRICAN-AMERICAN > 60; GFR NON-AFRICAN AMERICAN > 60
--- NOTE | 2017-05-08 08:35 | CP.PCM.PN ---
Subjective - Date & Time of Evaluation Date of Evaluation: 05/08/17 Time of Evaluation: 08:31 - Subjective Subjective: 61 year old undomiciled male with extensive PMHx seen and evaluated with attending Dr. Masters regarding chronic pain to bilateral lower extremity. Patient is AAOx3 and is in NAD. Patient denies of any acute overnight events. Denies of having any recent F/N/V/C/SOB/CP. Denies of having any new complains at this time. Objective - Vital Signs/Intake and Output Vital Signs (last 24 hours): Temp Pulse Resp BP Pulse Ox 98.4 F 86 20 122/72 96 05/08/17 08:29 05/08/17 08:29 05/08/17 08:29 05/08/17 08:29 05/08/17 08:29 Intake and Output: 05/08/17 05/08/17 06:59 18:59 Intake Total 400 Output Total 400 Balance 0 - Medications Medications: Current Medications Chlordiazepoxide (Librium) 25 mg PO Q4H PRN PRN Reason: Alcohol Withdrawal Chlordiazepoxide (Librium) 25 mg PO BID [facility] Stop: 05/08/17 10:01 Last Admin: 05/07/17 17:51 Dose: 25 mg Clonidine HCl (Catapres) 0.1 mg PO Q4H PRN PRN Reason: BP>150/100 or P>100 Famotidine (Pepcid) 20 mg PO BID [facility] Last Admin: 05/07/17 17:51 Dose: 20 mg Folic Acid (Folic Acid) 1 mg PO DAILY [facility] Last Admin: 05/07/17 10:11 Dose: 1 mg Heparin Sodium (Porcine) (Heparin) 5,000 units SC BID [facility] Last Admin: 05/07/17 17:51 Dose: 5,000 units Vancomycin/Sodium Chloride (Vancomycin 1 Gm/Ns 200 Ml) 1 gm in 200 mls @ 133.333 mls/hr IVPB Q12H [facility] Stop: 05/11/17 22:01 Last Admin: 05/07/17 21:48 Dose: 133.333 mls/hr Aztreonam 1 gm/ Sodium (Chloride) 100 mls @ 200 mls/hr IVPB Q8H [facility] Last Admin: 05/08/17 00:46 Dose: 200 mls/hr Multivitamins (Hexavitamin) 1 tab PO DAILY [facility] Last Admin: 05/07/17 10:11 Dose: 1 tab Thiamine HCl (Vitamin B1 Tab) 100 mg PO DAILY [facility] Last Admin: 05/07/17 10:10 Dose: 100 mg Trazodone HCl (Desyrel) 50 mg PO HS [facility] Last Admin: 05/07/17 21:43 Dose: 50 mg - Labs Labs: 05/08/17 07:23 05/08/17 07:23 PT 12.6 SECONDS (9.7-12.2) H 05/05/17 09:19 INR 1.1 05/05/17 09:19 APTT 34 SECONDS (21-34) 05/05/17 09:19 - Constitutional Appears: Well, Non-toxic, No Acute Distress - Extremities Exam Additional comments: ower extremity focused exam: VASC: DP/PT pulses are palpable 1/4 b/l, 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 +1 pitting edema to bilateral LE. DERM: Healing superficial ulceration measuring approximately 5 x 4 cm at left posterior lower leg with epithelialized wound base; minimal serosanguinous drainage noted; absent purulence, fluctuance, malodor, probe to bone, undermining, maceration. Circumfirential glossy, erythematous skin changes 2/2 healed venous stasis ulcerations present bilaterally with overlying lichenifications. No weeping noted to bilateral LE. Diffus NEURO: Protective sensation mildly diminished ORTHO: No tenderness to palpation lower extremity b/l. No pain upon ROM 1st MPJ , MTJ, STJ, ankle joint. Muscle strength 5/5 for all dorsiflexors, plantarflexors, inverters, and everters b/l. - Neurological Exam Neurological Exam: Alert, Awake, Oriented x3 - Psychiatric Exam Psychiatric exam: Normal Affect, Normal Mood Assessment and Plan - Assessment and Plan (Free Text) Assessment: 61 year old male with chronic ulceration left leg, edema secondary to venous stasis Plan: patient evaluated and seen at bedside with attending Dr. Masters labs and vitals reviewed; afebrile, WBC 5.0 left leg wound cx (Final): E. coli, Staph. aureus duplex scan of bilateral lower extremities show no evidence of DVT applied xeroform, DSD, KELSEA to bilateral lower extremities Cont. abx as recommended by ID podiatry will continue to follow while in house
[2017-05-08] MEDS: Multiple Vitamins Tab PO SCH (09:06)
[2017-05-08] MEDS: Vancomycin 1 gm/NS 200 ml 1 GM/200 ML BAG IVPB SCH (10:04)
[2017-05-08] MEDS: guaiFENesin 600 mg ER Tab PO SCH ×2 (11:09→17:28)
--- NOTE | 2017-05-08 17:27 | CP.PCM.CON ---
History of Present Illness - History of Present Illness History of Present Illness: Surgery: Pt. is a 61 y/o male with history of venous stasis ad cellulitis of the lower extremities who presents to the hospital with bilateral heel pain. Pt. states it started about 10 days ago when he stopped taking his medications and just drank alcohol. As per pt., he tried to get into detox but was admitted to the medical floor instead. Pt. states he has had similar incidence regarding his lower extremities 3 yrs. ago. He describes the pain as burning and throbbing and radiates up to the thigh. Pt. rates the pain as 5/10, and nothing relieves the pain other than alcohol and medications. Currently, pt. states he only has bilateral leg pain/numbness and slight RUQ abdominal pain. He denies MORAN, tingling, n/v/d. Social: smokes marijuana and drinks 3-5 40oz malt liquor daily; denies smoking cigarettes; homeless (on SSI) MHx: cellulitis and venous stasis (3 yrs. ago); gastritis; fatty liver; right left fx. Allergies: PCN Surgery: neck + back sx, right leg tibia/fibula surgical repair; left hip repair (3 pins placed); cholecystectomy; cataracts Review of Systems - Constitutional Constitutional: As Per HPI. absent: Chills, Headache - EENT Eyes: As Per HPI Ears: As Per HPI Nose/Mouth/Throat: As Per HPI - Cardiovascular Cardiovascular: Leg Edema. absent: Chest Pain - Respiratory Respiratory: As Per HPI Additional comments: congestion - Gastrointestinal Gastrointestinal: As Per HPI, Loose Stools. absent: Constipation, Diarrhea Additional comments: RUQ abdominal pain - Genitourinary Genitourinary: As Per HPI - Reproductive: Male Reproductive:Male: As Per HPI - Musculoskeletal Musculoskeletal: Myalgias, Numbness, Radiating Pain into Limb Additional comments: Bilateral heel pain/numbness; radiates up to thigh - Integumentary Integumentary: As Per HPI Past Patient History - Infectious Disease Hx of Infectious Diseases: None - Tetanus Immunizations Tetanus Immunization: Unknown - Past Medical History & Family History Past Medical History?: Yes - Past Social History Smoking Status: Never Smoked - CARDIAC Hx Atrial Fibrillation: Yes Hx Hypercholesterolemia: Yes Hx Hypertension: Yes Hx Peripheral Edema: Yes (chronic) - PULMONARY Hx Tuberculosis: No - NEUROLOGICAL Hx Seizures: Yes (alcohol induced) - HEENT Hx HEENT Problems: Yes Hx Cataracts: Yes (Rt. and Lt. cataract sx) - RENAL Hx Chronic Kidney Disease: No - ENDOCRINE/METABOLIC Hx Endocrine Disorders: Yes Other/Comment: SPOT ON PANCREAS - INTEGUMENTARY Hx Dermatological Problems: Yes Hx Cellulitis: Yes (bilateral legs) Other/Comment: Venous stasis bilateral legs - MUSCULOSKELETAL/RHEUMATOLOGICAL Hx Arthritis: Yes Hx Falls: No Hx Fractures: Yes (neck, back Rt. leg fx in 5 places) - GASTROINTESTINAL Hx Pancreatitis: Yes - PSYCHIATRIC Hx Anxiety: Yes Hx Depression: Yes Hx Substance Use: Yes (Marijuana smoking daily) - SURGICAL HISTORY Hx Cholecystectomy: Yes - ANESTHESIA Hx Anesthesia: Yes Hx Anesthesia Reactions: No Hx Malignant Hyperthermia: No Meds Allergies/Adverse Reactions: Allergies Allergy/AdvReac Type Severity Reaction Status Date / Time Penicillins Allergy Severe RASH Verified 05/05/17 08:48 - Medications Medications: Current Medications Chlordiazepoxide (Librium) 25 mg PO Q4H PRN PRN Reason: Alcohol Withdrawal Clonidine HCl (Catapres) 0.1 mg PO Q4H PRN PRN Reason: BP>150/100 or P>100 Famotidine (Pepcid) 20 mg PO BID [facility] Last Admin: 05/08/17 09:06 Dose: 20 mg Folic Acid (Folic Acid) 1 mg PO DAILY [facility] Last Admin: 05/08/17 09:06 Dose: 1 mg Guaifenesin (Mucinex La) 600 mg PO BID [facility] Last Admin: 05/08/17 11:09 Dose: 600 mg Heparin Sodium (Porcine) (Heparin) 5,000 units SC BID [facility] Last Admin: 05/08/17 09:06 Dose: 5,000 units Tigecycline 50 mg/ Sodium (Chloride) 100 mls @ 100 mls/hr IVPB Q12H [facility] Multivitamins (Hexavitamin) 1 tab PO DAILY [facility] Last Admin: 05/08/17 09:06 Dose: 1 tab Thiamine HCl (Vitamin B1 Tab) 100 mg PO DAILY [facility] Last Admin: 05/08/17 09:06 Dose: 100 mg Trazodone HCl (Desyrel) 50 mg PO HS [facility] Last Admin: 05/07/17 21:43 Dose: 50 mg Physical Exam - Constitutional Appears: No Acute Distress - Head Exam Head Exam: ATRAUMATIC, NORMAL INSPECTION, NORMOCEPHALIC - Eye Exam Eye Exam: EOMI, Normal appearance - ENT Exam ENT Exam: Normal Exam - Neck Exam Neck exam: Positive for: Normal Inspection - Respiratory Exam Respiratory Exam: Clear to Auscultation Bilateral - Cardiovascular Exam Cardiovascular Exam: +S1, +S2 - GI/Abdominal Exam GI & Abdominal Exam: Normal Bowel Sounds, Soft - Extremities Exam Extremities exam: Positive for: calf tenderness, pedal edema, tenderness, pedal pulses present Additional comments: Bilateral cellulitis - Back Exam Back exam: NORMAL INSPECTION - Neurological Exam Neurological exam: Alert, CN II-XII Intact, Oriented x3 - Psychiatric Exam Psychiatric exam: Anxious Additional comments: Tangential - Skin Skin Exam: Warm Results - Vital Signs Recent Vital Signs: Last Vital Signs Temp 98.4 F 05/08/17 15:15 Pulse 75 05/08/17 15:15 Resp 20 05/08/17 15:15 BP 150/89 05/08/17 15:15 Pulse Ox 97 05/08/17 15:15 - Labs Result Diagrams: 05/08/17 07:23 05/08/17 07:23 Labs: Laboratory Results - last 24 hr 05/07/17 05/08/17 05/08/17 21:21 07:23 07:23 WBC 5.0 RBC 3.61 L Hgb 10.8 L Hct 31.6 L MCV 87.7 MCH 29.9 MCHC 34.2 RDW 13.3 Plt Count 307 MPV 6.4 L Neut % (Auto) 69.9 Lymph % (Auto) 18.6 L [place] % (Auto) 7.5 Eos % (Auto) 3.7 Baso % (Auto) 0.3 Neut # 3.5 Lymph # 0.9 L [place] # 0.4 Eos # 0.2 Baso # 0.0 Sodium 131 L Potassium 3.6 Chloride 101 Carbon Dioxide 27 Anion Gap 7 L BUN 9 Creatinine 0.6 L Est GFR ( Amer) > 60 Est GFR (Non-Af Amer) > 60 Random Glucose 105 Calcium 7.7 L Total Bilirubin 0.5 AST 23 ALT 24 Alkaline Phosphatase 93 Total Protein 5.9 L Albumin 2.9 L Globulin 3.0 Albumin/Globulin Ratio 0.9 L Vancomycin Trough 12.1 H Assessment & Plan - Assessment and Plan (Free Text) Assessment: Bilateral venous stasis and cellulitis of LE Plan: Leg elevation COmpression stocking Podiatry on board DVT ppx Medical management No surgical intervention Recommend luanna boots D/W Dr. Waters - Date & Time Date: 05/08/17 Time: 05:45
--- NOTE | 2017-05-08 20:01 | CP.PCM.PN ---
Subjective - Date & Time of Evaluation Date of Evaluation: 05/08/17 Time of Evaluation: 08:45 - Subjective Subjective: Medicine progress note for Dr. Barcenas Patient seen and examined at bedside. Patient is tolerating his diet. Reports mild wheezes. He also reports continued intermittent / throbbing leg pain. He has no additional complaints at this time. Objective - Vital Signs/Intake and Output Vital Signs (last 24 hours): Temp Pulse Resp BP Pulse Ox 98.4 F 75 20 150/89 97 05/08/17 15:15 05/08/17 15:15 05/08/17 15:15 05/08/17 15:15 05/08/17 15:15 Intake and Output: 05/08/17 05/09/17 18:59 06:59 Intake Total 1000 Balance 1000 - Medications Medications: Current Medications Chlordiazepoxide (Librium) 25 mg PO Q4H PRN PRN Reason: Alcohol Withdrawal Clonidine HCl (Catapres) 0.1 mg PO Q4H PRN PRN Reason: BP>150/100 or P>100 Famotidine (Pepcid) 20 mg PO BID [facility] Last Admin: 05/08/17 17:28 Dose: 20 mg Folic Acid (Folic Acid) 1 mg PO DAILY [facility] Last Admin: 05/08/17 09:06 Dose: 1 mg Guaifenesin (Mucinex La) 600 mg PO BID [facility] Last Admin: 05/08/17 17:28 Dose: 600 mg Heparin Sodium (Porcine) (Heparin) 5,000 units SC BID [facility] Last Admin: 05/08/17 17:28 Dose: 5,000 units Tigecycline 50 mg/ Sodium (Chloride) 100 mls @ 100 mls/hr IVPB Q12H [facility] Multivitamins (Hexavitamin) 1 tab PO DAILY [facility] Last Admin: 05/08/17 09:06 Dose: 1 tab Thiamine HCl (Vitamin B1 Tab) 100 mg PO DAILY [facility] Last Admin: 05/08/17 09:06 Dose: 100 mg Trazodone HCl (Desyrel) 50 mg PO HS [facility] Last Admin: 05/07/17 21:43 Dose: 50 mg - Labs Labs: 05/08/17 07:23 05/08/17 07:23 PT 12.6 SECONDS (9.7-12.2) H 05/05/17 09:19 INR 1.1 05/05/17 09:19 APTT 34 SECONDS (21-34) 05/05/17 09:19 - Additional Findings Additional findings: - Constitutional Appears: No Acute Distress - Head Exam Head Exam: ATRAUMATIC, NORMOCEPHALIC - Eye Exam Eye Exam: EOMI, Normal appearance - ENT Exam ENT Exam: Mucous Membranes Moist - Respiratory Exam Respiratory Exam: Wheezes (mild diffuse), Rhonchi (mild, diffuse), NORMAL BREATHING PATTERN. absent: Rales - Cardiovascular Exam Cardiovascular Exam: REGULAR RHYTHM, +S1, +S2 - GI/Abdominal Exam GI & Abdominal Exam: Soft, Normal Bowel Sounds. absent: Distended, Tenderness - Extremities Exam Additional comments: Bilateral cellulitis in the legs There is some weeping in certain areas of the legs Pedal pulses difficult to palpate secondary to thickened skin - Skin Skin Exam: Warm Assessment and Plan - Assessment and Plan (Free Text) Assessment: Cellulitis 05/08: Duplex study partial negative. Could not image tibial/peroneal veins 2/2 edema. Vascular surgery consult to Dr. Waters, help appreciated. f/u recs. Wound culture ESBL+ ; Astreonam and Vanco stopped per ID Dr. Hackett. Start Tigecycline 100mg IVPB x1 dose, followed by Tigecycline 50mg IVPB Q12H x7days. Consider bone scan vs MRI? Follows with Inventory Auditor, Dr. Masters consulted, help appreciated Vancomycin 1.5 gm Q12 ID consult, Dr. Hackett, help appreciated Wound care referral Possible Pneumonia 05/08: Start Mucinex to mobilize mucous. Continue Abx. Chest xray showed patchy opacity at Right lung base. Non conclusive for Pneumonia. Zithromax 500mg PO Daily Will continue to monitor clinical course and make necessary adjustments. Hypertension Blood pressure has been moderately controlled thus far without medication History of Atrial fibrillation Patient not currently on anticoagulation secondary to frequent falls in the past Heart rate under control Alcohol Abuse Seizure precautions Fall precautions CIWA protocol Continue Detox unit medications Psychiatry signing off To complete detox by tomorrow Prophylactic Measures Pepcid 20mg BID Heparin 5000 units BID PT eval and treat Case DW Dr. Narinder Gunderson, PGY2
[2017-05-09 07:09] LABS: ALB/GLOB RATIO 0.9 (1.0-2.1); ALBUMIN 2.9 g/dL (3.5-5.0); ALT/SGPT 20 U/L (21-72); AST/SGOT 20 U/L (17-59); BLOOD UREA NITROGEN 11 mg/dL (9-20); CALCIUM 8.1 mg/dl (8.6-10.4); GFR AFRICAN-AMERICAN > 60; GFR NON-AFRICAN AMERICAN > 60
[2017-05-09 07:13] LABS: BASO % 0.4 % (0.0-2.0); EOS # 0.2 K/uL (0.0-0.7); EOS % 4.1 % (0.0-4.0); HEMOGLOBIN 11.2 g/dL (12.0-18.0); LYMPH % 19.4 % (20.0-40.0); MEAN CELL VOLUME 87.3 fL (80.0-94.0); MEAN CORPUSCULAR HEMOGLOBIN 30.1 pg (27.0-31.0); MEAN CORPUSCULAR HGB CONC 34.4 g/dL (33.0-37.0); MEAN PLATELET VOLUME 6.3 fL (7.2-11.7); MONO # 0.4 K/uL (0.0-0.8); MONO % 7.8 % (0.0-10.0); NEUT # 3.6 K/uL (1.8-7.0); NEUT % 68.3 % (50.0-75.0); NRBC % 0.1 % (0.0-2.0); RBC 3.73 Mil/uL (4.40-5.90); RED CELL DISTRIBUTION WIDTH 13.5 % (11.5-14.5); WHITE BLOOD COUNT 5.3 K/uL (4.8-10.8)
[2017-05-09] MEDS: guaiFENesin 600 mg ER Tab PO SCH ×2 (09:25→17:31)
[2017-05-09] MEDS: Multiple Vitamins Tab PO SCH (09:26)
--- NOTE | 2017-05-09 15:39 | CP.PCM.PN ---
Subjective - Date & Time of Evaluation Date of Evaluation: 05/09/17 Time of Evaluation: 07:00 - Subjective Subjective: ESBL+ from leg ulcer may need debridement in OR for MRI to r/o OM if OK with dr silva Objective - Vital Signs/Intake and Output Vital Signs (last 24 hours): Temp Pulse Resp BP Pulse Ox 98.0 F 69 20 141/89 96 05/09/17 08:00 05/09/17 08:00 05/09/17 08:00 05/09/17 08:00 05/09/17 08:00 Intake and Output: 05/09/17 05/09/17 06:59 18:59 Intake Total 680 700 Output Total 550 900 Balance 130 -200 - Medications Medications: Current Medications Chlordiazepoxide (Librium) 25 mg PO Q4H PRN PRN Reason: Alcohol Withdrawal Clonidine HCl (Catapres) 0.1 mg PO Q4H PRN PRN Reason: BP>150/100 or P>100 Famotidine (Pepcid) 20 mg PO BID [facility] Last Admin: 05/09/17 09:26 Dose: 20 mg Folic Acid (Folic Acid) 1 mg PO DAILY [facility] Last Admin: 05/09/17 09:26 Dose: 1 mg Guaifenesin (Mucinex La) 600 mg PO BID [facility] Last Admin: 05/09/17 09:25 Dose: 600 mg Heparin Sodium (Porcine) (Heparin) 5,000 units SC BID [facility] Last Admin: 05/09/17 09:26 Dose: 5,000 units Tigecycline 50 mg/ Sodium (Chloride) 100 mls @ 100 mls/hr IVPB Q12H [facility] Last Admin: 05/09/17 11:01 Dose: 100 mls/hr Multivitamins (Hexavitamin) 1 tab PO DAILY [facility] Last Admin: 05/09/17 09:26 Dose: 1 tab Thiamine HCl (Vitamin B1 Tab) 100 mg PO DAILY [facility] Last Admin: 05/09/17 09:26 Dose: 100 mg Trazodone HCl (Desyrel) 50 mg PO HS [facility] Last Admin: 05/08/17 21:23 Dose: 50 mg - Labs Labs: 05/09/17 06:40 05/09/17 06:40 PT 12.6 SECONDS (9.7-12.2) H 05/05/17 09:19 INR 1.1 05/05/17 09:19 APTT 34 SECONDS (21-34) 05/05/17 09:19 - Constitutional Appears: Non-toxic, Chronically Ill - Head Exam Head Exam: NORMOCEPHALIC - Eye Exam Eye Exam: PERRL - ENT Exam ENT Exam: Mucous Membranes Dry - Neck Exam Neck Exam: absent: Lymphadenopathy - Respiratory Exam Respiratory Exam: Decreased Breath Sounds - Cardiovascular Exam Cardiovascular Exam: REGULAR RHYTHM - GI/Abdominal Exam GI & Abdominal Exam: Distended, Soft - Rectal Exam Rectal Exam: Deferred - Exam Exam: NORMAL INSPECTION - Extremities Exam Extremities Exam: absent: Pedal Edema - Back Exam Back Exam: absent: CVA tenderness (L), CVA tenderness (R) Assessment and Plan (1) Alcohol abuse Status: Acute (2) Leg edema Status: Acute (3) Skin ulcer Status: Acute
--- NOTE | 2017-05-09 21:45 | CP.PCM.PN ---
Subjective - Date & Time of Evaluation Date of Evaluation: 05/09/17 Time of Evaluation: 08:40 - Subjective Subjective: Medicine progress note for Dr. Barcenas Patient seen and examined at bedside. Patient is tolerating his diet. Reports he is breathing well today. He reports his leg swelling has come down with compression stocking. He has no additional complaints at this time. Objective - Vital Signs/Intake and Output Vital Signs (last 24 hours): Temp Pulse Resp BP Pulse Ox 98.1 F 81 20 144/90 97 05/09/17 16:07 05/09/17 16:07 05/09/17 16:07 05/09/17 16:07 05/09/17 16:07 Intake and Output: 05/09/17 05/10/17 18:59 06:59 Intake Total 700 Output Total 900 Balance -200 - Medications Medications: Current Medications Chlordiazepoxide (Librium) 25 mg PO Q4H PRN PRN Reason: Alcohol Withdrawal Clonidine HCl (Catapres) 0.1 mg PO Q4H PRN PRN Reason: BP>150/100 or P>100 Famotidine (Pepcid) 20 mg PO BID [facility] Last Admin: 05/09/17 17:31 Dose: 20 mg Folic Acid (Folic Acid) 1 mg PO DAILY [facility] Last Admin: 05/09/17 09:26 Dose: 1 mg Guaifenesin (Mucinex La) 600 mg PO BID [facility] Last Admin: 05/09/17 17:31 Dose: 600 mg Heparin Sodium (Porcine) (Heparin) 5,000 units SC BID [facility] Last Admin: 05/09/17 17:31 Dose: 5,000 units Tigecycline 50 mg/ Sodium (Chloride) 100 mls @ 100 mls/hr IVPB Q12H [facility] Last Admin: 05/09/17 11:01 Dose: 100 mls/hr Multivitamins (Hexavitamin) 1 tab PO DAILY [facility] Last Admin: 05/09/17 09:26 Dose: 1 tab Thiamine HCl (Vitamin B1 Tab) 100 mg PO DAILY [facility] Last Admin: 05/09/17 09:26 Dose: 100 mg Trazodone HCl (Desyrel) 50 mg PO HS [facility] Last Admin: 05/09/17 21:09 Dose: 50 mg - Labs Labs: 05/09/17 06:40 05/09/17 06:40 PT 12.6 SECONDS (9.7-12.2) H 05/05/17 09:19 INR 1.1 05/05/17 09:19 APTT 34 SECONDS (21-34) 05/05/17 09:19 - Additional Findings Additional findings: - Constitutional Appears: No Acute Distress - Head Exam Head Exam: ATRAUMATIC, NORMOCEPHALIC - Eye Exam Eye Exam: EOMI, Normal appearance - ENT Exam ENT Exam: Mucous Membranes Moist - Respiratory Exam Respiratory Exam: Wheezes (mild diffuse), Rhonchi (mild, diffuse), NORMAL BREATHING PATTERN. absent: Rales - Cardiovascular Exam Cardiovascular Exam: REGULAR RHYTHM, +S1, +S2 - GI/Abdominal Exam GI & Abdominal Exam: Soft, Normal Bowel Sounds. absent: Distended, Tenderness - Extremities Exam Additional comments: Bilateral cellulitis in the legs (improving). Decreased swelling s/p compression stockings. Pedal pulses difficult to palpate secondary to thickened skin - Skin Skin Exam: Warm Assessment and Plan - Assessment and Plan (Free Text) Assessment: Cellulitis 05/09: Dr. Hackett on board -> may need debridement in OR, recommend MRI to r/o OM if OK with dr masters. Will investigate if patient is MRI appropriate (status of any pacemaker / metal). Dr. Waters - rec. leg elevation, compression stockings; no surgical intervention. 05/08: Duplex study partial negative. Could not image tibial/peroneal veins 2/2 edema. Vascular surgery consult to Dr. Waters, help appreciated. f/u recs. Wound culture ESBL+ ; Astreonam and Vanco stopped per ID Dr. Hackett. Start Tigecycline 100mg IVPB x1 dose, followed by Tigecycline 50mg IVPB Q12H x7days. Consider bone scan vs MRI? Follows with Deep Fryer Assembler, Dr. Masters consulted, help appreciated Vancomycin 1.5 gm Q12 ID consult, Dr. Hackett, help appreciated Wound care referral Possible Pneumonia 05/09: patient afebrile. Saturating well. Continue current treatment. 05/08: Start Mucinex to mobilize mucous. Continue Abx. Chest xray showed patchy opacity at Right lung base. Non conclusive for Pneumonia. Zithromax 500mg PO Daily Will continue to monitor clinical course and make necessary adjustments. Hypertension Blood pressure has been moderately controlled thus far without medication History of Atrial fibrillation Patient not currently on anticoagulation secondary to frequent falls in the past Heart rate under control Alcohol Abuse Seizure precautions Fall precautions CIWA protocol Continue Detox unit medications Psychiatry signing off To complete detox by tomorrow Prophylactic Measures Pepcid 20mg BID Heparin 5000 units BID PT eval and treat Case DW Dr. Narinder Gunderson, PGY2
[2017-05-10 06:17] LABS: BASO % 0.7 % (0.0-2.0); EOS # 0.2 K/uL (0.0-0.7); EOS % 4.2 % (0.0-4.0); HEMOGLOBIN 11.9 g/dL (12.0-18.0); LYMPH % 20.8 % (20.0-40.0); MEAN CELL VOLUME 87.2 fL (80.0-94.0); MEAN CORPUSCULAR HGB CONC 34.4 g/dL (33.0-37.0); MEAN PLATELET VOLUME 6.3 fL (7.2-11.7); MONO # 0.4 K/uL (0.0-0.8); MONO % 7.8 % (0.0-10.0); NEUT # 3.3 K/uL (1.8-7.0); NEUT % 66.5 % (50.0-75.0); NRBC % 0.1 % (0.0-2.0); RBC 3.97 Mil/uL (4.40-5.90); RED CELL DISTRIBUTION WIDTH 13.3 % (11.5-14.5); WHITE BLOOD COUNT 4.9 K/uL (4.8-10.8)
[2017-05-10 06:49] LABS: ALB/GLOB RATIO 0.9 (1.0-2.1); ALBUMIN 3.1 g/dL (3.5-5.0); ALT/SGPT 14 U/L (21-72); AST/SGOT 28 U/L (17-59); BLOOD UREA NITROGEN 16 mg/dL (9-20); CALCIUM 8.1 mg/dl (8.6-10.4); GFR AFRICAN-AMERICAN > 60; GFR NON-AFRICAN AMERICAN > 60
--- NOTE | 2017-05-10 07:21 | CP.PCM.PN ---
<RobertaJay stevena Khai - Last Filed: 05/10/17 17:40> Subjective - Date & Time of Evaluation Date of Evaluation: 05/10/17 Time of Evaluation: 07:20 - Subjective Subjective: Medicine progress note for Dr. Kelly Patient seen and examined. Patient continues to experiences intermittent leg throbbing and congestion. Patient denies any symptoms of alcohol withdrawal at this time. Objective - Vital Signs/Intake and Output Vital Signs (last 24 hours): Temp Pulse Resp BP Pulse Ox 97.5 F L 73 20 134/72 96 05/10/17 00:00 05/10/17 00:00 05/10/17 00:00 05/10/17 00:00 05/10/17 00:00 Intake and Output: 05/10/17 05/10/17 06:59 18:59 Intake Total 800 Output Total 1200 Balance -400 - Medications Medications: Current Medications Chlordiazepoxide (Librium) 25 mg PO Q4H PRN PRN Reason: Alcohol Withdrawal Clonidine HCl (Catapres) 0.1 mg PO Q4H PRN PRN Reason: BP>150/100 or P>100 Famotidine (Pepcid) 20 mg PO BID [facility] Last Admin: 05/09/17 17:31 Dose: 20 mg Folic Acid (Folic Acid) 1 mg PO DAILY [facility] Last Admin: 05/09/17 09:26 Dose: 1 mg Guaifenesin (Mucinex La) 600 mg PO BID [facility] Last Admin: 05/09/17 17:31 Dose: 600 mg Heparin Sodium (Porcine) (Heparin) 5,000 units SC BID [facility] Last Admin: 05/09/17 17:31 Dose: 5,000 units Tigecycline 50 mg/ Sodium (Chloride) 100 mls @ 100 mls/hr IVPB Q12H [facility] Last Admin: 05/09/17 23:45 Dose: 100 mls/hr Multivitamins (Hexavitamin) 1 tab PO DAILY [facility] Last Admin: 05/09/17 09:26 Dose: 1 tab Thiamine HCl (Vitamin B1 Tab) 100 mg PO DAILY [facility] Last Admin: 05/09/17 09:26 Dose: 100 mg Trazodone HCl (Desyrel) 50 mg PO HS [facility] Last Admin: 05/09/17 21:09 Dose: 50 mg - Labs Labs: 05/10/17 06:06 05/10/17 06:06 PT 12.6 SECONDS (9.7-12.2) H 05/05/17 09:19 INR 1.1 05/05/17 09:19 APTT 34 SECONDS (21-34) 05/05/17 09:19 - Additional Findings Additional findings: - Constitutional Appears: No Acute Distress - Head Exam Head Exam: ATRAUMATIC, NORMOCEPHALIC - Eye Exam Eye Exam: EOMI, Normal appearance - ENT Exam ENT Exam: Mucous Membranes Moist - Respiratory Exam Respiratory Exam: Coarse breath sounds, NORMAL BREATHING PATTERN. absent: Rales - Cardiovascular Exam Cardiovascular Exam: REGULAR RHYTHM, +S1, +S2 - GI/Abdominal Exam GI & Abdominal Exam: Soft, Normal Bowel Sounds. absent: Distended, Tenderness - Extremities Exam Additional comments: Bilateral cellulitis in the legs (improving). Decreased swelling s/p compression stockings. Pedal pulses difficult to palpate secondary to thickened skin Legs wrapped in KELSEA bandages - Skin Skin Exam: Dry, Warm Assessment and Plan - Assessment and Plan (Free Text) Plan: Cellulitis Dr. Hackett on board, help appreciated Dr. Waters - rec. leg elevation, compression stockings; no surgical intervention. 05/08: Duplex study partial negative. Could not image tibial/peroneal veins 2/2 edema. Vascular surgery consult to Dr. Waters, help appreciated. f/u recs. Wound culture ESBL+ E.coli as well as S. Aureus ; Astreonam and Vanco stopped per ID Dr. Hackett. Start Tigecycline 100mg IVPB x1 dose, followed by Tigecycline 50mg IVPB Q12H x7days. Follows with Public Health Director, Dr. Masters consulted, help appreciated Wound care referral Per patient, he has metal pins in his left hip. MRI contraindicated. Bone Scan ordered instead. Possible Pneumonia Mucinex 600 mg PO BID Chest xray showed patchy opacity at Right lung base. Non conclusive for Pneumonia. Zithromax 500mg PO Daily--discontinued Will continue to monitor clinical course and make necessary adjustments. Hypertension Blood pressure has been moderately controlled thus far without medication History of Atrial fibrillation Patient not currently on anticoagulation secondary to frequent falls in the past Heart rate under control Alcohol Abuse Seizure precautions Fall precautions CIWA protocol Continue Detox unit prn medications Psychiatry signing off Detox completed Prophylactic Measures Pepcid 20mg BID Heparin 5000 units BID PT eval and treat Disposition: Continue Tygacil for ESBL+ cellulitis. Bone scan instead of MRI due to metal in left hip. Case DW Dr. Leticia Cortés PGY-1 <Michael Kelly H - Last Filed: 05/10/17 18:16> Objective - Vital Signs/Intake and Output Vital Signs (last 24 hours): Temp Pulse Resp BP Pulse Ox 98.7 F 76 20 169/85 H 95 05/10/17 15:00 05/10/17 16:45 05/10/17 15:00 05/10/17 16:45 05/10/17 16:45 Intake and Output: 05/10/17 05/10/17 06:59 18:59 Intake Total 800 580 Output Total 1200 Balance -400 580 - Medications Medications: Current Medications Chlordiazepoxide (Librium) 25 mg PO Q4H PRN PRN Reason: Alcohol Withdrawal Clonidine HCl (Catapres) 0.1 mg PO Q4H PRN PRN Reason: BP>150/100 or P>100 Famotidine (Pepcid) 20 mg PO BID [facility] Last Admin: 05/10/17 17:08 Dose: 20 mg Folic Acid (Folic Acid) 1 mg PO DAILY [facility] Last Admin: 05/10/17 10:30 Dose: 1 mg Guaifenesin (Mucinex La) 600 mg PO BID [facility] Last Admin: 05/10/17 17:08 Dose: 600 mg Heparin Sodium (Porcine) (Heparin) 5,000 units SC BID [facility] Last Admin: 05/10/17 17:08 Dose: 5,000 units Tigecycline 50 mg/ Sodium (Chloride) 100 mls @ 100 mls/hr IVPB Q12H [facility] Last Admin: 05/10/17 12:54 Dose: 100 mls/hr Multivitamins (Hexavitamin) 1 tab PO DAILY [facility] Last Admin: 05/10/17 10:30 Dose: 1 tab Thiamine HCl (Vitamin B1 Tab) 100 mg PO DAILY [facility] Last Admin: 05/10/17 10:30 Dose: 100 mg Trazodone HCl (Desyrel) 50 mg PO HS [facility] Last Admin: 05/09/17 21:09 Dose: 50 mg - Labs Labs: 05/10/17 06:06 05/10/17 06:06 PT 12.6 SECONDS (9.7-12.2) H 05/05/17 09:19 INR 1.1 05/05/17 09:19 APTT 34 SECONDS (21-34) 05/05/17 09:19 Attending/Attestation - Attestation I have personally seen and examined this patient.: Yes I have fully participated in the care of the patient.: Yes I have reviewed all pertinent clinical information, including history, physical exam and plan: Yes Notes (Text): 05/10/17 18:16 Medical attending: Patient was seen and examined, I reviewed and agree with the above note by clinical medical transcriptionist. The patient remains on IV antibiotics at this time. He is now on tigecycline. I asked the patient how long lower extremity cellulitis has gone on for and he was not able to give me a direct answer he would go off on random tangents that had nothing to do with his cellulitis. After many repeat questioning and redirections he explained to me that it has "been going on for at least over a year" Considering the patient's reporting that this has been gone for long time and his inability to tell us exactly how long there is concern if he could possibly have osteomyelitis of the lower extremities. He tells us that he does have old metal in his body. He is not entirely sure how old this metal is. Considering how unreliable the patient is with his own medical history, we will avoid getting MRI. We put in order for WBC Ceretec scan to see if any areas light up for potential osteomyelitis particularly of his lower extremities Thank you very much, Michael Kelly
[2017-05-10] MEDS: Multiple Vitamins Tab PO SCH (10:30)
[2017-05-10] MEDS: guaiFENesin 600 mg ER Tab PO SCH ×2 (10:30→17:08)
--- NOTE | 2017-05-10 11:58 | CP.PCM.PN ---
Subjective - Date & Time of Evaluation Date of Evaluation: 05/10/17 Time of Evaluation: 09:00 - Subjective Subjective: afeb await MRI cont rx Objective - Vital Signs/Intake and Output Vital Signs (last 24 hours): Temp Pulse Resp BP Pulse Ox 98 F 76 20 146/76 97 05/10/17 07:56 05/10/17 07:56 05/10/17 07:56 05/10/17 07:56 05/10/17 07:56 Intake and Output: 05/10/17 05/10/17 06:59 18:59 Intake Total 800 Output Total 1200 Balance -400 - Medications Medications: Current Medications Chlordiazepoxide (Librium) 25 mg PO Q4H PRN PRN Reason: Alcohol Withdrawal Clonidine HCl (Catapres) 0.1 mg PO Q4H PRN PRN Reason: BP>150/100 or P>100 Famotidine (Pepcid) 20 mg PO BID [facility] Last Admin: 05/10/17 10:30 Dose: 20 mg Folic Acid (Folic Acid) 1 mg PO DAILY [facility] Last Admin: 05/10/17 10:30 Dose: 1 mg Guaifenesin (Mucinex La) 600 mg PO BID [facility] Last Admin: 05/10/17 10:30 Dose: 600 mg Heparin Sodium (Porcine) (Heparin) 5,000 units SC BID [facility] Last Admin: 05/10/17 10:30 Dose: 5,000 units Tigecycline 50 mg/ Sodium (Chloride) 100 mls @ 100 mls/hr IVPB Q12H [facility] Last Admin: 05/09/17 23:45 Dose: 100 mls/hr Multivitamins (Hexavitamin) 1 tab PO DAILY [facility] Last Admin: 05/10/17 10:30 Dose: 1 tab Thiamine HCl (Vitamin B1 Tab) 100 mg PO DAILY [facility] Last Admin: 05/10/17 10:30 Dose: 100 mg Trazodone HCl (Desyrel) 50 mg PO HS [facility] Last Admin: 05/09/17 21:09 Dose: 50 mg - Labs Labs: 05/10/17 06:06 05/10/17 06:06 PT 12.6 SECONDS (9.7-12.2) H 05/05/17 09:19 INR 1.1 05/05/17 09:19 APTT 34 SECONDS (21-34) 05/05/17 09:19 - Constitutional Appears: Non-toxic, Chronically Ill - Head Exam Head Exam: NORMOCEPHALIC - Eye Exam Eye Exam: PERRL - ENT Exam ENT Exam: Mucous Membranes Dry - Neck Exam Neck Exam: absent: Lymphadenopathy - Cardiovascular Exam Cardiovascular Exam: REGULAR RHYTHM - GI/Abdominal Exam GI & Abdominal Exam: Distended, Soft Assessment and Plan (1) Alcohol abuse Status: Acute (2) Leg edema Status: Acute (3) Skin ulcer Status: Acute
[2017-05-11 08:00] LABS: BASO % 0.5 % (0.0-2.0); EOS # 0.2 K/uL (0.0-0.7); EOS % 4.5 % (0.0-4.0); HEMOGLOBIN 12.1 g/dL (12.0-18.0); LYMPH # 1.2 K/uL (1.0-4.3); LYMPH % 24.1 % (20.0-40.0); MEAN CELL VOLUME 86.9 fL (80.0-94.0); MEAN CORPUSCULAR HEMOGLOBIN 29.9 pg (27.0-31.0); MEAN CORPUSCULAR HGB CONC 34.3 g/dL (33.0-37.0); MEAN PLATELET VOLUME 6.6 fL (7.2-11.7); MONO # 0.5 K/uL (0.0-0.8); MONO % 10.3 % (0.0-10.0); NEUT # 2.9 K/uL (1.8-7.0); NEUT % 60.6 % (50.0-75.0); NRBC % 0.1 % (0.0-2.0); RBC 4.06 Mil/uL (4.40-5.90); RED CELL DISTRIBUTION WIDTH 13.9 % (11.5-14.5); WHITE BLOOD COUNT 4.8 K/uL (4.8-10.8)
[2017-05-11 08:23] LABS: ALBUMIN 3.1 g/dL (3.5-5.0); ALT/SGPT 23 U/L (21-72); AST/SGOT 28 U/L (17-59); BLOOD UREA NITROGEN 16 mg/dL (9-20); GFR AFRICAN-AMERICAN > 60; GFR NON-AFRICAN AMERICAN > 60
[2017-05-11] MEDS: guaiFENesin 600 mg ER Tab PO SCH ×2 (10:32→18:00)
[2017-05-11] MEDS: Multiple Vitamins Tab PO SCH (10:33)
--- NOTE | 2017-05-11 12:15 | CP.PCM.PN ---
Subjective - Date & Time of Evaluation Date of Evaluation: 05/11/17 Time of Evaluation: 11:00 - Subjective Subjective: Podiatry Progress Note- Dr. Masters: 61 yo male pt seen at bedside this morning regarding chronic ulcerations of b/l lower extremities. Pt is seen sitting upright in bed at time of visit, appears AAOX3 and NAD. Denies any acute overnight events. Does complain of some intermittent tenderness to the b.l leg wounds today. Also mentions he has had an intermittent cough for the past week (denies any production from the cough). Denies d/n/v/c/sob/cp/weakness or dizziness at this time. Says he is awaiting the bone scan as MRI could not be done due to his hip implants. Objective - Vital Signs/Intake and Output Vital Signs (last 24 hours): Temp Pulse Resp BP Pulse Ox 98 F 70 20 131/80 96 05/11/17 08:18 05/11/17 08:18 05/11/17 08:18 05/11/17 08:18 05/11/17 08:18 Intake and Output: 05/11/17 05/11/17 06:59 18:59 Intake Total 180 250 Balance 180 250 - Medications Medications: Current Medications Chlordiazepoxide (Librium) 25 mg PO Q4H PRN PRN Reason: Alcohol Withdrawal Clonidine HCl (Catapres) 0.1 mg PO Q4H PRN PRN Reason: BP>150/100 or P>100 Famotidine (Pepcid) 20 mg PO BID [facility] Last Admin: 05/11/17 10:33 Dose: 20 mg Folic Acid (Folic Acid) 1 mg PO DAILY [facility] Last Admin: 05/11/17 10:32 Dose: 1 mg Guaifenesin (Mucinex La) 600 mg PO BID [facility] Last Admin: 05/11/17 10:32 Dose: 600 mg Heparin Sodium (Porcine) (Heparin) 5,000 units SC BID [facility] Last Admin: 05/11/17 10:33 Dose: 5,000 units Heparin Sodium (Porcine) (Heparin) 1,000 units IVP ONCE [facility] Tigecycline 50 mg/ Sodium (Chloride) 100 mls @ 100 mls/hr IVPB Q12H [facility] Last Admin: 05/11/17 10:59 Dose: 100 mls/hr Multivitamins (Hexavitamin) 1 tab PO DAILY [facility] Last Admin: 05/11/17 10:33 Dose: 1 tab Thiamine HCl (Vitamin B1 Tab) 100 mg PO DAILY [facility] Last Admin: 05/11/17 10:32 Dose: 100 mg Trazodone HCl (Desyrel) 50 mg PO HS [facility] Last Admin: 05/10/17 21:07 Dose: 50 mg - Labs Labs: 05/11/17 07:45 05/11/17 07:45 PT 12.6 SECONDS (9.7-12.2) H 05/05/17 09:19 INR 1.1 05/05/17 09:19 APTT 34 SECONDS (21-34) 05/05/17 09:19 - Constitutional Appears: Non-toxic, No Acute Distress - Extremities Exam Extremities Exam: absent: Calf Tenderness Additional comments: B/L low ext exam: dressings to both legs appear c/d/i VASC: DP/PT pulses are palpable 1/4 b/l, cap refill < 3 sec to all digits, skin temp runs warm to cool from proximal to distal, minimal pedal edema appreciated today b/l NEURO: NEURO: Protective sensation mildly diminished b/l DERM: DERM: healing superficial ulceration measuring approximately 5 x 4 cm at left posterior lower leg with epithelialized wound base; minimal serosanguinous drainage noted; absent purulence, fluctuance, malodor, probe to bone, undermining, maceration. Circumferntial glossy, erythematous skin changes 2/2 healed venous stasis ulcerations present bilaterally with overlying lichenifications. ORTHO: slight tenderness noted on palpation of posterior left leg wound, no pain on compression of b/l calves - Neurological Exam Neurological Exam: Alert, Awake, Oriented x3 - Psychiatric Exam Psychiatric exam: Normal Affect, Normal Mood Assessment and Plan - Assessment and Plan (Free Text) Assessment: 61 year old male chronic healing ulcerations of b/l lower extremities 2/2 venous stasis disease. Plan: Pt S&E at the bedside Chart, labs and vitals reviewed: afebrile, no leukocytosis Left leg wound cx: E. coli, Staph. aureus Venous duplex b/l LE: - for DVT B/l leg wounds cleansed with saline and dressed with xeroform, DSD, and KELSEA compressive wraps. c/w abx as per ID awaiting lower ext bone scan (r/o OM) stable per podiatry, will follow
[2017-05-12 07:33] LABS: BASO % 0.3 % (0.0-2.0); EOS # 0.2 K/uL (0.0-0.7); EOS % 4.4 % (0.0-4.0); HEMOGLOBIN 12.3 g/dL (12.0-18.0); LYMPH # 1.2 K/uL (1.0-4.3); LYMPH % 27.1 % (20.0-40.0); MEAN CELL VOLUME 87.6 fL (80.0-94.0); MEAN CORPUSCULAR HEMOGLOBIN 29.8 pg (27.0-31.0); MEAN PLATELET VOLUME 6.5 fL (7.2-11.7); MONO # 0.4 K/uL (0.0-0.8); MONO % 9.7 % (0.0-10.0); NEUT # 2.7 K/uL (1.8-7.0); NEUT % 58.5 % (50.0-75.0); NRBC % 0.1 % (0.0-2.0); RBC 4.14 Mil/uL (4.40-5.90); RED CELL DISTRIBUTION WIDTH 13.6 % (11.5-14.5); WHITE BLOOD COUNT 4.6 K/uL (4.8-10.8)
--- NOTE | 2017-05-12 07:43 | CP.PCM.PN ---
Addendum entered and electronically signed by Julio Cortés DO 05/12/17 07:44: Progress note for 05/11/17. Original Note: <Julio Cortés - Last Filed: 05/12/17 07:41> Subjective - Date & Time of Evaluation Date of Evaluation: 05/11/17 Time of Evaluation: 11:00 - Subjective Subjective: Medicine progress note for Dr. Kelly Patient seen and examined. Reports improvement in leg pain. No acute complaints at this time. Objective - Vital Signs/Intake and Output Vital Signs (last 24 hours): Temp Pulse Resp BP Pulse Ox 98 F 70 20 136/76 94 L 05/12/17 00:00 05/12/17 00:00 05/12/17 00:00 05/12/17 00:00 05/12/17 00:00 Intake and Output: 05/12/17 05/12/17 06:59 18:59 Intake Total 640 Output Total 850 Balance -210 - Medications Medications: Current Medications Chlordiazepoxide (Librium) 25 mg PO Q4H PRN PRN Reason: Alcohol Withdrawal Clonidine HCl (Catapres) 0.1 mg PO Q4H PRN PRN Reason: BP>150/100 or P>100 Famotidine (Pepcid) 20 mg PO BID [facility] Last Admin: 05/11/17 17:09 Dose: 20 mg Folic Acid (Folic Acid) 1 mg PO DAILY [facility] Last Admin: 05/11/17 10:32 Dose: 1 mg Guaifenesin (Mucinex La) 600 mg PO BID [facility] Last Admin: 05/11/17 18:00 Dose: 600 mg Heparin Sodium (Porcine) (Heparin) 1,000 units IVP ONCE [facility] Tigecycline 50 mg/ Sodium (Chloride) 100 mls @ 100 mls/hr IVPB Q12H [facility] Last Admin: 05/12/17 00:12 Dose: 100 mls/hr Multivitamins (Hexavitamin) 1 tab PO DAILY [facility] Last Admin: 05/11/17 10:33 Dose: 1 tab Thiamine HCl (Vitamin B1 Tab) 100 mg PO DAILY [facility] Last Admin: 05/11/17 10:32 Dose: 100 mg Trazodone HCl (Desyrel) 50 mg PO HS [facility] Last Admin: 05/11/17 21:52 Dose: 50 mg - Labs Labs: 05/12/17 07:16 05/11/17 07:45 PT 12.6 SECONDS (9.7-12.2) H 05/05/17 09:19 INR 1.1 05/05/17 09:19 APTT 34 SECONDS (21-34) 05/05/17 09:19 - Additional Findings Additional findings: - Constitutional Appears: No Acute Distress - Head Exam Head Exam: ATRAUMATIC, NORMOCEPHALIC - Eye Exam Eye Exam: EOMI, Normal appearance - ENT Exam ENT Exam: Mucous Membranes Moist - Respiratory Exam Respiratory Exam: Coarse breath sounds, NORMAL BREATHING PATTERN. absent: Rales - Cardiovascular Exam Cardiovascular Exam: REGULAR RHYTHM, +S1, +S2 - GI/Abdominal Exam GI & Abdominal Exam: Soft, Normal Bowel Sounds. absent: Distended, Tenderness - Extremities Exam Additional comments: Bilateral cellulitis in the legs (improving). Decreased swelling s/p compression stockings. Pedal pulses difficult to palpate secondary to thickened skin Legs wrapped in KELSEA bandages - Skin Skin Exam: Dry, Warm Assessment and Plan - Assessment and Plan (Free Text) Plan: Cellulitis Dr. Hackett on board, help appreciated Dr. Waters - rec. leg elevation, compression stockings; no surgical intervention. 05/08: Duplex study partial negative. Could not image tibial/peroneal veins 2/2 edema. Vascular surgery consult to Dr. Waters, help appreciated. f/u recs. Wound culture ESBL+ E.coli as well as S. Aureus ; Astreonam and Vanco stopped per ID Dr. Hackett. Start Tigecycline 100mg IVPB x1 dose, followed by Tigecycline 50mg IVPB Q12H x7days. Follows with Travel Insurance Agent, Dr. Masters consulted, help appreciated Wound care referral Per patient, he has metal pins in his left hip. MRI contraindicated. Bone Scan ordered instead. Possible Pneumonia Mucinex 600 mg PO BID Chest xray showed patchy opacity at Right lung base. Non conclusive for Pneumonia. Zithromax 500mg PO Daily--discontinued Will continue to monitor clinical course and make necessary adjustments. Hypertension Blood pressure has been moderately controlled thus far without medication History of Atrial fibrillation Patient not currently on anticoagulation secondary to frequent falls in the past Heart rate under control Alcohol Abuse Seizure precautions Fall precautions CIWA protocol Continue Detox unit prn medications Psychiatry signing off Detox completed Prophylactic Measures Pepcid 20mg BID Heparin 5000 units BID PT eval and treat Disposition: Continue Tygacil for ESBL+ cellulitis. Bone scan instead of MRI due to metal in left hip. Case DW Dr. Leticia Cortés PGY-1 <Michael Kelly H - Last Filed: 05/12/17 15:09> Objective - Vital Signs/Intake and Output Vital Signs (last 24 hours): Temp Pulse Resp BP Pulse Ox 98.2 F 68 20 137/83 95 05/12/17 08:06 05/12/17 08:06 05/12/17 08:06 05/12/17 08:06 05/12/17 08:06 Intake and Output: 05/12/17 05/12/17 06:59 18:59 Intake Total 640 700 Output Total 850 Balance -210 700 - Medications Medications: Current Medications Chlordiazepoxide (Librium) 25 mg PO Q4H PRN PRN Reason: Alcohol Withdrawal Clonidine HCl (Catapres) 0.1 mg PO Q4H PRN PRN Reason: BP>150/100 or P>100 Famotidine (Pepcid) 20 mg PO BID [facility] Last Admin: 05/12/17 09:22 Dose: 20 mg Folic Acid (Folic Acid) 1 mg PO DAILY [facility] Last Admin: 05/12/17 09:22 Dose: 1 mg Guaifenesin (Mucinex La) 600 mg PO BID [facility] Last Admin: 05/12/17 09:23 Dose: 600 mg Heparin Sodium (Porcine) (Heparin) 1,000 units IVP ONCE [facility] Tigecycline 50 mg/ Sodium (Chloride) 100 mls @ 100 mls/hr IVPB Q12H [facility] Last Admin: 05/12/17 11:53 Dose: 100 mls/hr Multivitamins (Hexavitamin) 1 tab PO DAILY [facility] Last Admin: 05/12/17 09:22 Dose: 1 tab Thiamine HCl (Vitamin B1 Tab) 100 mg PO DAILY [facility] Last Admin: 05/12/17 09:22 Dose: 100 mg Trazodone HCl (Desyrel) 50 mg PO HS [facility] Last Admin: 05/11/17 21:52 Dose: 50 mg - Labs Labs: 05/12/17 07:16 05/12/17 07:16 PT 12.6 SECONDS (9.7-12.2) H 05/05/17 09:19 INR 1.1 05/05/17 09:19 APTT 34 SECONDS (21-34) 05/05/17 09:19 Attending/Attestation - Attestation I have personally seen and examined this patient.: Yes I have fully participated in the care of the patient.: Yes I have reviewed all pertinent clinical information, including history, physical exam and plan: Yes Notes (Text): 05/12/17 15:09 Medical attending: Patient was seen and examined by me, agrees the above note by medical screener. Today the patient underwent a bone scan to evaluate his lower extremities. As mentioned previously the patient has old metal in his body he is unable to tell us the exact nature of this metal accidents in his hips and he has difficulty telling us how long he's had this metal. Because of the patient's inconsistent history we did not feel comfortable ordering an MRI Results of the bone scan are still pending at this moment. He is not having any alcohol withdrawal symptoms Thank you very much, Michael Kelly
--- NOTE | 2017-05-12 07:44 | CP.PCM.PN ---
Subjective - Date & Time of Evaluation Date of Evaluation: 05/12/17 Time of Evaluation: 06:50 - Subjective Subjective: Medicine progress note for Dr. Kelly Patient seen and examined at bedside. Patient was sleepy this morning but stated that his leg pain is improved. Patient denied any other complaint at this time, wishing to go back to sleep. Objective - Vital Signs/Intake and Output Vital Signs (last 24 hours): Temp Pulse Resp BP Pulse Ox 98 F 70 20 136/76 94 L 05/12/17 00:00 05/12/17 00:00 05/12/17 00:00 05/12/17 00:00 05/12/17 00:00 Intake and Output: 05/12/17 05/12/17 06:59 18:59 Intake Total 640 Output Total 850 Balance -210 - Medications Medications: Current Medications Chlordiazepoxide (Librium) 25 mg PO Q4H PRN PRN Reason: Alcohol Withdrawal Clonidine HCl (Catapres) 0.1 mg PO Q4H PRN PRN Reason: BP>150/100 or P>100 Famotidine (Pepcid) 20 mg PO BID [facility] Last Admin: 05/11/17 17:09 Dose: 20 mg Folic Acid (Folic Acid) 1 mg PO DAILY [facility] Last Admin: 05/11/17 10:32 Dose: 1 mg Guaifenesin (Mucinex La) 600 mg PO BID [facility] Last Admin: 05/11/17 18:00 Dose: 600 mg Heparin Sodium (Porcine) (Heparin) 1,000 units IVP ONCE [facility] Tigecycline 50 mg/ Sodium (Chloride) 100 mls @ 100 mls/hr IVPB Q12H [facility] Last Admin: 05/12/17 00:12 Dose: 100 mls/hr Multivitamins (Hexavitamin) 1 tab PO DAILY [facility] Last Admin: 05/11/17 10:33 Dose: 1 tab Thiamine HCl (Vitamin B1 Tab) 100 mg PO DAILY [facility] Last Admin: 05/11/17 10:32 Dose: 100 mg Trazodone HCl (Desyrel) 50 mg PO HS [facility] Last Admin: 05/11/17 21:52 Dose: 50 mg - Labs Labs: 05/12/17 07:16 05/11/17 07:45 PT 12.6 SECONDS (9.7-12.2) H 01/17/18 09:19 INR 1.1 05/05/17 09:19 APTT 34 SECONDS (21-34) 05/05/17 09:19 - Additional Findings Additional findings: - Constitutional Appears: No Acute Distress - Head Exam Head Exam: ATRAUMATIC, NORMOCEPHALIC - Eye Exam Eye Exam: EOMI, Normal appearance - ENT Exam ENT Exam: Mucous Membranes Moist - Respiratory Exam Respiratory Exam: Coarse breath sounds, NORMAL BREATHING PATTERN. absent: Rales - Cardiovascular Exam Cardiovascular Exam: REGULAR RHYTHM, +S1, +S2 - GI/Abdominal Exam GI & Abdominal Exam: Soft, Normal Bowel Sounds. absent: Distended, Tenderness - Extremities Exam Additional comments: Bilateral cellulitis in the legs (improving). Decreased swelling s/p compression stockings. Pedal pulses difficult to palpate secondary to thickened skin Legs wrapped in KELSEA bandages - Skin Skin Exam: Dry, Warm Assessment and Plan - Assessment and Plan (Free Text) Plan: Cellulitis Dr. Hackett on board, help appreciated Dr. Waters - rec. leg elevation, compression stockings; no surgical intervention. 05/08: Duplex study partial negative. Could not image tibial/peroneal veins 2/2 edema. Vascular surgery consult to Dr. Waters, help appreciated. f/u recs. Wound culture ESBL+ E.coli as well as S. Aureus ; Astreonam and Vanco stopped per ID Dr. Hackett. Start Tigecycline 100mg IVPB x1 dose, followed by Tigecycline 50mg IVPB Q12H x7days. Follows with Oil Developer, Dr. Masters consulted, help appreciated Wound care referral Per patient, he has metal pins in his left hip. MRI contraindicated. Bone Scan ordered instead which did not show evidence of acute osteomyelitis. Inflammation is limited to the soft tissues. Possible Pneumonia Mucinex 600 mg PO BID Chest xray showed patchy opacity at Right lung base. Non conclusive for Pneumonia. Zithromax 500mg PO Daily--discontinued Will continue to monitor clinical course and make necessary adjustments. Hypertension Blood pressure has been moderately controlled thus far without medication History of Atrial fibrillation Patient not currently on anticoagulation secondary to frequent falls in the past Heart rate under control Alcohol Abuse Seizure precautions Fall precautions CIWA protocol Continue Detox unit prn medications Psychiatry signing off Detox completed Prophylactic Measures Pepcid 20mg BID Heparin 5000 units BID PT eval and treat Disposition: Continue Tygacil for ESBL+ cellulitis. Case DW Dr. Leticia Cortés PGY-1
[2017-05-12 07:58] LABS: ALBUMIN 3.1 g/dL (3.5-5.0); ALT/SGPT 20 U/L (21-72); AST/SGOT 24 U/L (17-59); BLOOD UREA NITROGEN 17 mg/dL (9-20); CALCIUM 8.2 mg/dl (8.6-10.4); GFR AFRICAN-AMERICAN > 60; GFR NON-AFRICAN AMERICAN > 60
[2017-05-12 08:01] LABS: ALB/GLOB RATIO 0.9 (1.0-2.1)
[2017-05-12] MEDS: Multiple Vitamins Tab PO SCH (09:22)
[2017-05-12] MEDS: guaiFENesin 600 mg ER Tab PO SCH ×2 (09:23→17:16)
--- NOTE | 2017-05-12 13:21 | NM ---
PROCEDURE: Ceretec labeled white blood cell study. HISTORY: Rule out osteo of lower extremity. Cannot get MRI COMPARISON: None TECHNIQUE: 17.2 mCi technetium 99 M Ceretec labeled white blood cells administered intravenously. Per institutional protocol imaging obtained at 2 and 20 hours. FINDINGS: There is no scintigraphic evidence of acute osteomyelitis. There foci of increased accumulation of radionuclide in the cutaneous tissues proximal right thigh region posterior laterally and in the lower left calf region posteriorly. Apparently this individual has gauze bandages this may represent the absorption of radionuclide from an inflammatory process confined to the cutaneous and subcutaneous tissues. IMPRESSION: Negative study for acute osteomyelitis. Uptake in soft tissues right and left lower extremities as described above.
--- NOTE | 2017-05-12 19:02 | CP.PCM.PN ---
Subjective - Date & Time of Evaluation Date of Evaluation: 05/12/17 Time of Evaluation: 07:00 - Subjective Subjective: neg om consider OR / debridement cont IV rx and wound care Objective - Vital Signs/Intake and Output Vital Signs (last 24 hours): Temp Pulse Resp BP Pulse Ox 98.1 F 69 20 156/98 H 97 05/12/17 15:00 05/12/17 15:00 05/12/17 15:00 05/12/17 15:00 05/12/17 15:00 Intake and Output: 05/12/17 05/13/17 18:59 06:59 Intake Total 700 Balance 700 - Medications Medications: Current Medications Chlordiazepoxide (Librium) 25 mg PO Q4H PRN PRN Reason: Alcohol Withdrawal Clonidine HCl (Catapres) 0.1 mg PO Q4H PRN PRN Reason: BP>150/100 or P>100 Famotidine (Pepcid) 20 mg PO BID [facility] Last Admin: 05/12/17 17:16 Dose: 20 mg Folic Acid (Folic Acid) 1 mg PO DAILY [facility] Last Admin: 05/12/17 09:22 Dose: 1 mg Guaifenesin (Mucinex La) 600 mg PO BID [facility] Last Admin: 05/12/17 17:16 Dose: 600 mg Heparin Sodium (Porcine) (Heparin) 1,000 units IVP ONCE [facility] Tigecycline 50 mg/ Sodium (Chloride) 100 mls @ 100 mls/hr IVPB Q12H [facility] Last Admin: 05/12/17 11:53 Dose: 100 mls/hr Multivitamins (Hexavitamin) 1 tab PO DAILY [facility] Last Admin: 05/12/17 09:22 Dose: 1 tab Thiamine HCl (Vitamin B1 Tab) 100 mg PO DAILY [facility] Last Admin: 05/12/17 09:22 Dose: 100 mg Trazodone HCl (Desyrel) 50 mg PO HS [facility] Last Admin: 05/11/17 21:52 Dose: 50 mg - Labs Labs: 05/12/17 07:16 05/12/17 07:16 PT 12.6 SECONDS (9.7-12.2) H 05/05/17 09:19 INR 1.1 05/05/17 09:19 APTT 34 SECONDS (21-34) 05/05/17 09:19 - Constitutional Appears: Chronically Ill - Head Exam Head Exam: NORMAL INSPECTION - Eye Exam Eye Exam: PERRL - ENT Exam ENT Exam: Mucous Membranes Dry - Neck Exam Neck Exam: absent: Lymphadenopathy - Respiratory Exam Respiratory Exam: Decreased Breath Sounds - Cardiovascular Exam Cardiovascular Exam: REGULAR RHYTHM - GI/Abdominal Exam GI & Abdominal Exam: Distended - Rectal Exam Rectal Exam: Deferred - Exam Exam: NORMAL INSPECTION Assessment and Plan (1) Alcohol abuse Status: Acute (2) Leg edema Status: Acute (3) Skin ulcer Status: Acute
--- NOTE | 2017-05-13 07:24 | CP.PCM.PN ---
<Julio Cortés - Last Filed: 05/13/17 14:35> Subjective - Date & Time of Evaluation Date of Evaluation: 05/13/17 Time of Evaluation: 07:50 - Subjective Subjective: Medicine progress note for Dr. Kelly Patient seen and examined at bedside. Patient states that his legs remain with intermittent throbbing but notes improvement. Patient complaining of excessive sleepiness. No other acute complaints. Objective - Vital Signs/Intake and Output Vital Signs (last 24 hours): Temp Pulse Resp BP Pulse Ox 98.0 F 77 20 123/78 97 05/13/17 00:00 05/13/17 00:00 05/13/17 00:00 05/13/17 00:00 05/13/17 00:00 Intake and Output: 05/13/17 05/13/17 06:59 18:59 Intake Total 340 Output Total 650 Balance -310 - Medications Medications: Current Medications Chlordiazepoxide (Librium) 25 mg PO Q4H PRN PRN Reason: Alcohol Withdrawal Clonidine HCl (Catapres) 0.1 mg PO Q4H PRN PRN Reason: BP>150/100 or P>100 Famotidine (Pepcid) 20 mg PO BID [facility] Last Admin: 05/12/17 17:16 Dose: 20 mg Folic Acid (Folic Acid) 1 mg PO DAILY [facility] Last Admin: 05/12/17 09:22 Dose: 1 mg Guaifenesin (Mucinex La) 600 mg PO BID [facility] Last Admin: 05/12/17 17:16 Dose: 600 mg Heparin Sodium (Porcine) (Heparin) 1,000 units IVP ONCE [facility] Tigecycline 50 mg/ Sodium (Chloride) 100 mls @ 100 mls/hr IVPB Q12H [facility] Last Admin: 05/13/17 00:08 Dose: 100 mls/hr Multivitamins (Hexavitamin) 1 tab PO DAILY [facility] Last Admin: 05/12/17 09:22 Dose: 1 tab Thiamine HCl (Vitamin B1 Tab) 100 mg PO DAILY [facility] Last Admin: 05/12/17 09:22 Dose: 100 mg Trazodone HCl (Desyrel) 50 mg PO HS [facility] Last Admin: 05/12/17 22:25 Dose: 50 mg - Labs Labs: 05/12/17 07:16 05/12/17 07:16 PT 12.6 SECONDS (9.7-12.2) H 05/05/17 09:19 INR 1.1 05/05/17 09:19 APTT 34 SECONDS (21-34) 05/05/17 09:19 - Additional Findings Additional findings: - Constitutional Appears: No Acute Distress - Head Exam Head Exam: ATRAUMATIC, NORMOCEPHALIC - Eye Exam Eye Exam: EOMI, Normal appearance - ENT Exam ENT Exam: Mucous Membranes Moist - Respiratory Exam Respiratory Exam: Coarse breath sounds, NORMAL BREATHING PATTERN. absent: Rales - Cardiovascular Exam Cardiovascular Exam: REGULAR RHYTHM, +S1, +S2 - GI/Abdominal Exam GI & Abdominal Exam: Soft, Normal Bowel Sounds. absent: Distended, Tenderness - Extremities Exam Additional comments: Bilateral cellulitis in the legs (improving). Decreased swelling s/p compression stockings. Pedal pulses difficult to palpate secondary to thickened skin Legs wrapped in KELSEA bandages - Skin Skin Exam: Dry, Warm Assessment and Plan - Assessment and Plan (Free Text) Plan: Cellulitis Dr. Hackett on board, help appreciated Dr. Waters - rec. leg elevation, compression stockings; no surgical intervention. 05/08: Duplex study partial negative. Could not image tibial/peroneal veins 2/2 edema. Vascular surgery consult to Dr. Waters, help appreciated. f/u recs. Wound culture ESBL+ E.coli as well as S. Aureus ; Astreonam and Vanco stopped per ID Dr. Hackett. Start Tigecycline 100mg IVPB x1 dose, followed by Tigecycline 50mg IVPB Q12H x7days. Follows with [employer] Maker, Dr. Masters consulted, help appreciated Wound care referral Per patient, he has metal pins in his left hip. MRI contraindicated. Bone Scan ordered instead which did not show evidence of acute osteomyelitis. Inflammation is limited to the soft tissues. Possible Pneumonia Mucinex 600 mg PO BID Chest xray showed patchy opacity at Right lung base. Non conclusive for Pneumonia. Zithromax 500mg PO Daily--discontinued Will continue to monitor clinical course and make necessary adjustments. Hypertension Blood pressure has been moderately controlled thus far without medication History of Atrial fibrillation Patient not currently on anticoagulation secondary to frequent falls in the past Heart rate under control Alcohol Abuse Seizure precautions Fall precautions CIWA protocol Continue Detox unit prn medications Psychiatry signing off Detox completed Prophylactic Measures Pepcid 20mg BID Heparin 5000 units Q12H PT eval and treat Disposition: Discharge planning initiated. Patient needs 7 days of IV antibiotics per Dr. Hackett. No oral antibiotics needed after that. Tygacil was started on Wednesday05/08/17. Last dose would be on Wednesday evening. Patient has insurance, so it is possible to place him into [facility]. We will follow up with case management/social work team. Case DW Dr. Leticia Cortés PGY-1 <Michael Kelly H - Last Filed: 05/13/17 16:45> Objective - Vital Signs/Intake and Output Vital Signs (last 24 hours): Temp Pulse Resp BP Pulse Ox 97.5 F L 66 20 142/86 97 05/13/17 15:00 05/13/17 15:00 05/13/17 15:00 05/13/17 15:00 05/13/17 15:00 Intake and Output: 05/13/17 05/13/17 06:59 18:59 Intake Total 340 800 Output Total 650 Balance -310 800 - Medications Medications: Current Medications Chlordiazepoxide (Librium) 25 mg PO Q4H PRN PRN Reason: Alcohol Withdrawal Clonidine HCl (Catapres) 0.1 mg PO Q4H PRN PRN Reason: BP>150/100 or P>100 Famotidine (Pepcid) 20 mg PO BID [facility] Last Admin: 05/13/17 09:51 Dose: 20 mg Folic Acid (Folic Acid) 1 mg PO DAILY [facility] Last Admin: 05/13/17 09:51 Dose: 1 mg Guaifenesin (Mucinex La) 600 mg PO BID [facility] Last Admin: 05/13/17 09:51 Dose: 600 mg Heparin Sodium (Porcine) (Heparin) 5,000 units SC Q8 [facility] Last Admin: 05/13/17 13:44 Dose: 5,000 units Tigecycline 50 mg/ Sodium (Chloride) 100 mls @ 100 mls/hr IVPB Q12H [facility] Last Admin: 05/13/17 12:00 Dose: 100 mls/hr Multivitamins (Hexavitamin) 1 tab PO DAILY [facility] Last Admin: 05/13/17 09:51 Dose: 1 tab Thiamine HCl (Vitamin B1 Tab) 100 mg PO DAILY [facility] Last Admin: 05/13/17 09:51 Dose: 100 mg Trazodone HCl (Desyrel) 50 mg PO HS [facility] Last Admin: 05/12/17 22:25 Dose: 50 mg - Labs Labs: 05/13/17 07:42 05/13/17 07:42 PT 12.6 SECONDS (9.7-12.2) H 05/05/17 09:19 INR 1.1 05/05/17 09:19 APTT 34 SECONDS (21-34) 05/05/17 09:19 Attending/Attestation - Attestation I have personally seen and examined this patient.: Yes I have fully participated in the care of the patient.: Yes I have reviewed all pertinent clinical information, including history, physical exam and plan: Yes Notes (Text): 05/13/17 16:45 Medical attending: Patient was seen and examined by me with the medical billing instructor. I reviewed the above note by medical billing instructor and agree. The patient was not in any acute distress today. He is still on the IV antibiotics tomorrow will be day #7. The WBC bone scan returned and was negative for osteomyelitis. The patient is ambulating but he does need assistance. I spoke with PT there suggesting that he would benefit from being [facility]. So I'll try to see the patient to go to [facility]. Spoke with the caseworkers thank you Michael Kelly
[2017-05-13 07:57] LABS: BASO % 0.3 % (0.0-2.0); EOS # 0.2 K/uL (0.0-0.7); EOS % 3.7 % (0.0-4.0); HEMOGLOBIN 12.6 g/dL (12.0-18.0); LYMPH # 1.1 K/uL (1.0-4.3); MEAN CORPUSCULAR HEMOGLOBIN 30.6 pg (27.0-31.0); MEAN CORPUSCULAR HGB CONC 35.2 g/dL (33.0-37.0); MEAN PLATELET VOLUME 6.4 fL (7.2-11.7); MONO # 0.5 K/uL (0.0-0.8); MONO % 8.6 % (0.0-10.0); NEUT # 3.5 K/uL (1.8-7.0); NEUT % 66.4 % (50.0-75.0); RBC 4.12 Mil/uL (4.40-5.90); RED CELL DISTRIBUTION WIDTH 13.6 % (11.5-14.5); WHITE BLOOD COUNT 5.3 K/uL (4.8-10.8)
[2017-05-13 08:32] LABS: ALBUMIN 3.1 g/dL (3.5-5.0); ALT/SGPT 18 U/L (21-72); AST/SGOT 25 U/L (17-59); BLOOD UREA NITROGEN 17 mg/dL (9-20); CALCIUM 8.1 mg/dl (8.6-10.4); GFR AFRICAN-AMERICAN > 60; GFR NON-AFRICAN AMERICAN > 60
[2017-05-13 08:39] LABS: ALB/GLOB RATIO 0.9 (1.0-2.1)
[2017-05-13] MEDS: guaiFENesin 600 mg ER Tab PO SCH ×2 (09:51→17:52)
[2017-05-13] MEDS: Multiple Vitamins Tab PO SCH (09:51)
--- NOTE | 2017-05-13 11:08 | CP.PCM.PN ---
Subjective - Date & Time of Evaluation Date of Evaluation: 05/13/17 Time of Evaluation: 11:05 - Subjective Subjective: 61 yo male pt seen at bedside this morning regarding chronic ulcerations of b/l lower extremities. Pt is seen sitting upright in bed at time of visit, appears AAOX3 and NAD. Denies any acute overnight events. Patient states that the tenderness he was recently experiencing with his wounds is improving. Denies d/n /v/c/sob/cp/weakness or dizziness at this time. Denies any further pedal complaints Objective - Vital Signs/Intake and Output Vital Signs (last 24 hours): Temp Pulse Resp BP Pulse Ox 98.1 F 66 20 134/83 96 05/13/17 08:05 05/13/17 08:05 05/13/17 08:05 05/13/17 08:05 05/13/17 08:05 Intake and Output: 05/13/17 05/13/17 06:59 18:59 Intake Total 340 100 Output Total 650 Balance -310 100 - Medications Medications: Current Medications Chlordiazepoxide (Librium) 25 mg PO Q4H PRN PRN Reason: Alcohol Withdrawal Clonidine HCl (Catapres) 0.1 mg PO Q4H PRN PRN Reason: BP>150/100 or P>100 Famotidine (Pepcid) 20 mg PO BID [facility] Last Admin: 05/13/17 09:51 Dose: 20 mg Folic Acid (Folic Acid) 1 mg PO DAILY [facility] Last Admin: 05/13/17 09:51 Dose: 1 mg Guaifenesin (Mucinex La) 600 mg PO BID [facility] Last Admin: 05/13/17 09:51 Dose: 600 mg Heparin Sodium (Porcine) (Heparin) 1,000 units IVP ONCE [facility] Heparin Sodium (Porcine) (Heparin) 5,000 units SC Q8 [facility] Tigecycline 50 mg/ Sodium (Chloride) 100 mls @ 100 mls/hr IVPB Q12H [facility] Last Admin: 05/13/17 00:08 Dose: 100 mls/hr Multivitamins (Hexavitamin) 1 tab PO DAILY [facility] Last Admin: 05/13/17 09:51 Dose: 1 tab Thiamine HCl (Vitamin B1 Tab) 100 mg PO DAILY [facility] Last Admin: 05/13/17 09:51 Dose: 100 mg Trazodone HCl (Desyrel) 50 mg PO HS [facility] Last Admin: 05/12/17 22:25 Dose: 50 mg - Labs Labs: 05/13/17 07:42 05/13/17 07:42 PT 12.6 SECONDS (9.7-12.2) H 05/05/17 09:19 INR 1.1 05/05/17 09:19 APTT 34 SECONDS (21-34) 05/05/17 09:19 - Constitutional Appears: Well, Non-toxic, No Acute Distress - Extremities Exam Additional comments: B/L low ext exam: dressings to both legs appear c/d/i VASC: DP/PT pulses are palpable 1/4 b/l, cap refill < 3 sec to all digits, skin temp runs warm to cool from proximal to distal, minimal pedal edema appreciated today b/l NEURO: Protective sensation mildly diminished b/l DERM: healing superficial ulceration measuring approximately 5 x 4 cm at left posterior lower leg with epithelialized wound base; minimal serosanguinous drainage noted; absent purulence, fluctuance, malodor, probe to bone, undermining, maceration. 3 cm x 2 cm superficial ulceration to lateral right leg. Healthy bleeding appreciated and no clinical signs of infection noted.Circumferntial glossy, erythematous skin changes 2/2 healed venous stasis ulcerations present bilaterally with overlying lichenifications. ORTHO: slight tenderness noted on palpation of posterior left leg wound, no pain on compression of b/l calves - Neurological Exam Neurological Exam: Alert, Awake, Oriented x3 - Psychiatric Exam Psychiatric exam: Normal Affect, Normal Mood Assessment and Plan - Assessment and Plan (Free Text) Assessment: 61 year old male seen at bedside for b/l venous stasis ulcerations, uninfected and improving Plan: Patient seen and evaluated at bedside with attending Dr. Masters Afebrile, absent leukocytosis Wound cx R leg wound: E. coli, Staph Aureus Continue IV abx per ID WBC nuclear medicine bone scan: No signs of OM to LE Wounds dressed with xeroform, ABD, DSD, KELSEA No plan for surgical intervention at this time Podiatry will continue to follow while patient in house
--- NOTE | 2017-05-14 07:05 | CP.PCM.PN ---
<Rossy De León - Last Filed: 05/14/17 18:55> Subjective - Date & Time of Evaluation Date of Evaluation: 05/14/17 Time of Evaluation: 07:00 - Subjective Subjective: Medicine Progress Note: Patient was seen and examined at bedside in the AM. Patient states his legs continue to hurt. Patient denies fever, nausea, vomiting, diarrhea or constipation. Patient states he has been thinking about how he really needs to quit drinking. Discussed with patient the importance of alcohol cessation. Objective - Vital Signs/Intake and Output Vital Signs (last 24 hours): Temp Pulse Resp BP Pulse Ox 98.3 F 76 20 134/79 95 05/14/17 00:00 05/14/17 00:00 05/14/17 00:00 05/14/17 00:00 05/14/17 00:00 - Medications Medications: Current Medications Chlordiazepoxide (Librium) 25 mg PO Q4H PRN PRN Reason: Alcohol Withdrawal Clonidine HCl (Catapres) 0.1 mg PO Q4H PRN PRN Reason: BP>150/100 or P>100 Famotidine (Pepcid) 20 mg PO BID [facility] Last Admin: 05/13/17 17:53 Dose: 20 mg Folic Acid (Folic Acid) 1 mg PO DAILY [facility] Last Admin: 05/13/17 09:51 Dose: 1 mg Guaifenesin (Mucinex La) 600 mg PO BID [facility] Last Admin: 05/13/17 17:52 Dose: 600 mg Heparin Sodium (Porcine) (Heparin) 5,000 units SC Q8 [facility] Last Admin: 05/13/17 21:44 Dose: 5,000 units Tigecycline 50 mg/ Sodium (Chloride) 100 mls @ 100 mls/hr IVPB Q12H [facility] Last Admin: 05/14/17 00:02 Dose: 100 mls/hr Multivitamins (Hexavitamin) 1 tab PO DAILY [facility] Last Admin: 05/13/17 09:51 Dose: 1 tab Thiamine HCl (Vitamin B1 Tab) 100 mg PO DAILY [facility] Last Admin: 05/13/17 09:51 Dose: 100 mg Trazodone HCl (Desyrel) 50 mg PO HS [facility] Last Admin: 05/13/17 21:44 Dose: 50 mg - Labs Labs: 05/13/17 07:42 05/13/17 07:42 PT 12.6 SECONDS (9.7-12.2) H 05/05/17 09:19 INR 1.1 05/05/17 09:19 APTT 34 SECONDS (21-34) 05/05/17 09:19 - Constitutional Appears: No Acute Distress - Head Exam Head Exam: ATRAUMATIC, NORMAL INSPECTION - Eye Exam Eye Exam: EOMI, Normal appearance - ENT Exam ENT Exam: Mucous Membranes Moist - Respiratory Exam Respiratory Exam: Clear to Ausculation Bilateral, NORMAL BREATHING PATTERN - Cardiovascular Exam Cardiovascular Exam: REGULAR RHYTHM, +S1, +S2 - GI/Abdominal Exam GI & Abdominal Exam: Soft, Normal Bowel Sounds. absent: Tenderness - Extremities Exam Additional comments: Bilateral cellulitis in the legs. Legs wrapped in KELSEA bandages - Neurological Exam Neurological Exam: Alert, Awake, Oriented x3 - Psychiatric Exam Psychiatric exam: Normal Affect, Normal Mood - Skin Skin Exam: Erythema (erythema bilateral lower extremities ), Intact, Normal Color, Warm Assessment and Plan - Assessment and Plan (Free Text) Assessment: Cellulitis Dr. Hackett on board, help appreciated Dr. Waters - rec. leg elevation, compression stockings; no surgical intervention. 05/08: Duplex study partial negative. Could not image tibial/peroneal veins 2/2 edema. Vascular surgery consult to Dr. Waters, help appreciated. f/u recs. Wound culture ESBL+ E.coli as well as S. Aureus ; Astreonam and Vanco stopped per ID Dr. Hackett. Start Tigecycline 100mg IVPB x1 dose, followed by Tigecycline 50mg IVPB Q12H x7days.- Last day today 05/14/17 Follows with [facility], Dr. Masters consulted, help appreciated Wound care referral Per patient, he has metal pins in his left hip. MRI contraindicated. Bone Scan ordered instead which did not show evidence of acute osteomyelitis. Inflammation is limited to the soft tissues. Possible Pneumonia Mucinex 600 mg PO BID Chest xray showed patchy opacity at Right lung base. Non conclusive for Pneumonia. Zithromax 500mg PO Daily--discontinued Will continue to monitor clinical course and make necessary adjustments. Hypertension Blood pressure has been moderately controlled thus far without medication History of Atrial fibrillation Patient not currently on anticoagulation secondary to frequent falls in the past Heart rate under control Alcohol Abuse Seizure precautions Fall precautions CIWA protocol Continue Detox unit prn medications Psychiatry signing off Detox completed Prophylactic Measures Pepcid 20mg BID Heparin 5000 units Q12H PT eval and treat Disposition: Discharge planning initiated. Patient pending [facility] placement. Discharge most likely Wednesday05/17/[address] Leticia De León PGY-1 <Michael Kelly H - Last Filed: 05/15/17 07:18> Objective - Vital Signs/Intake and Output Vital Signs (last 24 hours): Temp Pulse Resp BP Pulse Ox 97.7 F 62 20 137/83 95 05/15/17 00:00 05/15/17 00:00 05/15/17 00:00 05/15/17 00:00 05/15/17 00:00 Intake and Output: 05/15/17 05/15/17 06:59 18:59 Intake Total 1000 Balance 1000 - Medications Medications: Current Medications Chlordiazepoxide (Librium) 25 mg PO Q4H PRN PRN Reason: Alcohol Withdrawal Clonidine HCl (Catapres) 0.1 mg PO Q4H PRN PRN Reason: BP>150/100 or P>100 Famotidine (Pepcid) 20 mg PO BID [facility] Last Admin: 05/14/17 17:37 Dose: 20 mg Folic Acid (Folic Acid) 1 mg PO DAILY [facility] Last Admin: 05/14/17 10:08 Dose: 1 mg Guaifenesin (Mucinex La) 600 mg PO BID [facility] Last Admin: 05/14/17 17:36 Dose: 600 mg Heparin Sodium (Porcine) (Heparin) 5,000 units SC Q8 [facility] Last Admin: 05/15/17 06:40 Dose: Not Given Multivitamins (Hexavitamin) 1 tab PO DAILY [facility] Last Admin: 05/14/17 10:08 Dose: 1 tab Thiamine HCl (Vitamin B1 Tab) 100 mg PO DAILY [facility] Last Admin: 05/14/17 10:08 Dose: 100 mg Trazodone HCl (Desyrel) 50 mg PO HS [facility] Last Admin: 05/14/17 21:34 Dose: 50 mg - Labs Labs: 05/15/17 06:22 05/15/17 06:22 PT 12.6 SECONDS (9.7-12.2) H 05/05/17 09:19 INR 1.1 05/05/17 09:19 APTT 34 SECONDS (21-34) 05/05/17 09:19 Attending/Attestation - Attestation I have personally seen and examined this patient.: Yes I have fully participated in the care of the patient.: Yes I have reviewed all pertinent clinical information, including history, physical exam and plan: Yes
[2017-05-14 07:32] LABS: BASO % 0.4 % (0.0-2.0); EOS # 0.2 K/uL (0.0-0.7); EOS % 3.6 % (0.0-4.0); LYMPH # 1.3 K/uL (1.0-4.3); LYMPH % 22.5 % (20.0-40.0); MEAN CELL VOLUME 87.3 fL (80.0-94.0); MEAN CORPUSCULAR HEMOGLOBIN 30.8 pg (27.0-31.0); MEAN CORPUSCULAR HGB CONC 35.3 g/dL (33.0-37.0); MEAN PLATELET VOLUME 6.8 fL (7.2-11.7); MONO # 0.5 K/uL (0.0-0.8); MONO % 8.7 % (0.0-10.0); NEUT # 3.7 K/uL (1.8-7.0); NEUT % 64.8 % (50.0-75.0); NRBC % 0.2 % (0.0-2.0); RBC 4.22 Mil/uL (4.40-5.90); RED CELL DISTRIBUTION WIDTH 13.8 % (11.5-14.5); WHITE BLOOD COUNT 5.7 K/uL (4.8-10.8)
[2017-05-14 08:03] LABS: ALBUMIN 3.1 g/dL (3.5-5.0)
[2017-05-14 08:05] LABS: ALT/SGPT 20 U/L (21-72); AST/SGOT 23 U/L (17-59); BLOOD UREA NITROGEN 17 mg/dL (9-20); CALCIUM 8.6 mg/dl (8.6-10.4); GFR AFRICAN-AMERICAN > 60; GFR NON-AFRICAN AMERICAN > 60
[2017-05-14 08:10] LABS: ALB/GLOB RATIO 0.9 (1.0-2.1)
[2017-05-14] MEDS: guaiFENesin 600 mg ER Tab PO SCH ×2 (10:08→17:36)
[2017-05-14] MEDS: Multiple Vitamins Tab PO SCH (10:08)
--- NOTE | 2017-05-14 19:45 | CP.PCM.PN ---
Subjective - Date & Time of Evaluation Date of Evaluation: 05/14/17 Time of Evaluation: 09:00 - Subjective Subjective: events noted IV rx in progress Objective - Vital Signs/Intake and Output Vital Signs (last 24 hours): Temp Pulse Resp BP Pulse Ox 97.8 F 65 20 124/69 96 05/14/17 16:00 05/14/17 16:00 05/14/17 16:00 05/14/17 16:00 05/14/17 16:00 Intake and Output: 05/14/17 05/15/17 18:59 06:59 Intake Total 1050 Balance 1050 - Medications Medications: Current Medications Chlordiazepoxide (Librium) 25 mg PO Q4H PRN PRN Reason: Alcohol Withdrawal Clonidine HCl (Catapres) 0.1 mg PO Q4H PRN PRN Reason: BP>150/100 or P>100 Famotidine (Pepcid) 20 mg PO BID [facility] Last Admin: 05/14/17 17:37 Dose: 20 mg Folic Acid (Folic Acid) 1 mg PO DAILY [facility] Last Admin: 05/14/17 10:08 Dose: 1 mg Guaifenesin (Mucinex La) 600 mg PO BID [facility] Last Admin: 05/14/17 17:36 Dose: 600 mg Heparin Sodium (Porcine) (Heparin) 5,000 units SC Q8 [facility] Last Admin: 05/14/17 13:58 Dose: 5,000 units Tigecycline 50 mg/ Sodium (Chloride) 100 mls @ 100 mls/hr IVPB Q12H [facility] Stop: 05/15/17 00:00 Last Admin: 05/14/17 12:08 Dose: 100 mls/hr Multivitamins (Hexavitamin) 1 tab PO DAILY [facility] Last Admin: 05/14/17 10:08 Dose: 1 tab Thiamine HCl (Vitamin B1 Tab) 100 mg PO DAILY [facility] Last Admin: 05/14/17 10:08 Dose: 100 mg Trazodone HCl (Desyrel) 50 mg PO HS [facility] Last Admin: 05/13/17 21:44 Dose: 50 mg - Labs Labs: 05/14/17 07:12 05/14/17 07:12 PT 12.6 SECONDS (9.7-12.2) H 05/05/17 09:19 INR 1.1 05/05/17 09:19 APTT 34 SECONDS (21-34) 05/05/17 09:19 - Constitutional Appears: Non-toxic, Chronically Ill - Head Exam Head Exam: NORMOCEPHALIC - Eye Exam Eye Exam: PERRL - ENT Exam ENT Exam: Mucous Membranes Dry - Neck Exam Neck Exam: absent: Lymphadenopathy - Respiratory Exam Respiratory Exam: Decreased Breath Sounds - Cardiovascular Exam Cardiovascular Exam: REGULAR RHYTHM Assessment and Plan (1) Alcohol abuse Status: Acute (2) Leg edema Status: Acute (3) Skin ulcer Status: Acute
--- NOTE | 2017-05-15 03:05 | CP.PCM.PN ---
<RobertaJulio steven S - Last Filed: 05/15/17 07:28> Subjective - Date & Time of Evaluation Date of Evaluation: 05/15/17 Time of Evaluation: 05:50 - Subjective Subjective: Medicine progress note for Dr. Kelly Patient seen and examined at bedside. Patient states that his legs intermittently throb but notes improvement. Objective - Vital Signs/Intake and Output Vital Signs (last 24 hours): Temp Pulse Resp BP Pulse Ox 97.7 F 62 20 137/83 95 05/15/17 00:00 05/15/17 00:00 05/15/17 00:00 05/15/17 00:00 05/15/17 00:00 Intake and Output: 05/14/17 05/15/17 18:59 06:59 Intake Total 1050 400 Balance 1050 400 - Medications Medications: Current Medications Chlordiazepoxide (Librium) 25 mg PO Q4H PRN PRN Reason: Alcohol Withdrawal Clonidine HCl (Catapres) 0.1 mg PO Q4H PRN PRN Reason: BP>150/100 or P>100 Famotidine (Pepcid) 20 mg PO BID [facility] Last Admin: 05/14/17 17:37 Dose: 20 mg Folic Acid (Folic Acid) 1 mg PO DAILY [facility] Last Admin: 05/14/17 10:08 Dose: 1 mg Guaifenesin (Mucinex La) 600 mg PO BID [facility] Last Admin: 05/14/17 17:36 Dose: 600 mg Heparin Sodium (Porcine) (Heparin) 5,000 units SC Q8 [facility] Last Admin: 05/14/17 21:34 Dose: 5,000 units Multivitamins (Hexavitamin) 1 tab PO DAILY [facility] Last Admin: 05/14/17 10:08 Dose: 1 tab Thiamine HCl (Vitamin B1 Tab) 100 mg PO DAILY [facility] Last Admin: 05/14/17 10:08 Dose: 100 mg Trazodone HCl (Desyrel) 50 mg PO HS [facility] Last Admin: 05/14/17 21:34 Dose: 50 mg - Labs Labs: 05/14/17 07:12 05/14/17 07:12 PT 12.6 SECONDS (9.7-12.2) H 05/05/17 09:19 INR 1.1 05/05/17 09:19 APTT 34 SECONDS (21-34) 05/05/17 09:19 - Additional Findings Additional findings: - Constitutional Appears: No Acute Distress - Head Exam Head Exam: ATRAUMATIC, NORMOCEPHALIC - Eye Exam Eye Exam: EOMI, Normal appearance - ENT Exam ENT Exam: Mucous Membranes Moist - Respiratory Exam Respiratory Exam: Coarse breath sounds, NORMAL BREATHING PATTERN. absent: Rales - Cardiovascular Exam Cardiovascular Exam: REGULAR RHYTHM, +S1, +S2 - GI/Abdominal Exam GI & Abdominal Exam: Soft, Normal Bowel Sounds. absent: Distended, Tenderness - Extremities Exam Additional comments: Bilateral cellulitis in the legs has improved. Decreased swelling s/p compression stockings. Pedal pulses difficult to palpate secondary to thickened skin Legs wrapped in KELSEA bandages - Skin Skin Exam: Dry, Warm Assessment and Plan - Assessment and Plan (Free Text) Plan: Cellulitis Dr. Hackett on board, help appreciated Dr. Waters - rec. leg elevation, compression stockings; no surgical intervention. 05/08: Duplex study partial negative. Could not image tibial/peroneal veins 2/2 edema. Vascular surgery consult to Dr. Waters, help appreciated. f/u recs. Wound culture ESBL+ E.coli as well as S. Aureus ; Astreonam and Vanco stopped per ID Dr. Hackett. Start Tigecycline 100mg IVPB x1 dose, followed by Tigecycline 50mg IVPB Q12H x7days.- Last day today 05/14/17 Follows with [facility], Dr. Masters consulted, help appreciated Wound care referral Per patient, he has metal pins in his left hip. MRI contraindicated. Bone Scan ordered instead which did not show evidence of acute osteomyelitis. Inflammation is limited to the soft tissues. Possible Pneumonia Mucinex 600 mg PO BID Chest xray showed patchy opacity at Right lung base. Non conclusive for Pneumonia. Zithromax 500mg PO Daily--discontinued Will continue to monitor clinical course and make necessary adjustments. Hypertension Blood pressure has been moderately controlled thus far without medication History of Atrial fibrillation Patient not currently on anticoagulation secondary to frequent falls in the past Heart rate under control Alcohol Abuse Seizure precautions Fall precautions CIWA protocol Continue Detox unit prn medications Psychiatry signing off Detox completed Prophylactic Measures Pepcid 20mg BID Heparin 5000 units Q12H PT eval and treat Disposition: Patient completed course of IV antibiotics for ESBL+ e.coli. Discharge planning initiated. Patient pending [facility] placement. Discharge most likely Wednesday05/17/16 Will discuss case with Dr. Leticia Cortés PGY-1 <Michael Kelly H - Last Filed: 05/15/17 08:51> Objective - Vital Signs/Intake and Output Vital Signs (last 24 hours): Temp Pulse Resp BP Pulse Ox 97.7 F 62 20 137/83 95 05/15/17 00:00 05/15/17 00:00 05/15/17 00:00 05/15/17 00:00 05/15/17 00:00 Intake and Output: 05/15/17 05/15/17 06:59 18:59 Intake Total 1000 Balance 1000 - Medications Medications: Current Medications Chlordiazepoxide (Librium) 25 mg PO Q4H PRN PRN Reason: Alcohol Withdrawal Clonidine HCl (Catapres) 0.1 mg PO Q4H PRN PRN Reason: BP>150/100 or P>100 Famotidine (Pepcid) 20 mg PO BID [facility] Last Admin: 05/14/17 17:37 Dose: 20 mg Folic Acid (Folic Acid) 1 mg PO DAILY [facility] Last Admin: 05/14/17 10:08 Dose: 1 mg Guaifenesin (Mucinex La) 600 mg PO BID [facility] Last Admin: 05/14/17 17:36 Dose: 600 mg Heparin Sodium (Porcine) (Heparin) 5,000 units SC Q8 [facility] Last Admin: 05/15/17 06:40 Dose: Not Given Multivitamins (Hexavitamin) 1 tab PO DAILY [facility] Last Admin: 05/14/17 10:08 Dose: 1 tab Thiamine HCl (Vitamin B1 Tab) 100 mg PO DAILY [facility] Last Admin: 05/14/17 10:08 Dose: 100 mg Trazodone HCl (Desyrel) 50 mg PO HS [facility] Last Admin: 05/14/17 21:34 Dose: 50 mg - Labs Labs: 05/15/17 06:22 05/15/17 06:22 PT 12.6 SECONDS (9.7-12.2) H 05/05/17 09:19 INR 1.1 05/05/17 09:19 APTT 34 SECONDS (21-34) 05/05/17 09:19 Attending/Attestation - Attestation I have personally seen and examined this patient.: Yes I have fully participated in the care of the patient.: Yes I have reviewed all pertinent clinical information, including history, physical exam and plan: Yes Notes (Text): Medical attending: Patient was seen and examined by me. Agree with the above note by the resident. The patient was not in any acute distress when I saw him. He was sleeping and awoke. He reported no acute events overnight At this moment we are still pending on approval for [facility]. I inspected the skin over the antioer tucker and he will need a lot of wound care going forward when at [facility] thank you Michael Kelly
[2017-05-15 06:35] LABS: BASO % 0.8 % (0.0-2.0); EOS # 0.2 K/uL (0.0-0.7); EOS % 2.8 % (0.0-4.0); LYMPH # 1.4 K/uL (1.0-4.3); LYMPH % 24.9 % (20.0-40.0); MEAN CELL VOLUME 86.5 fL (80.0-94.0); MEAN CORPUSCULAR HEMOGLOBIN 29.9 pg (27.0-31.0); MEAN CORPUSCULAR HGB CONC 34.6 g/dL (33.0-37.0); MEAN PLATELET VOLUME 6.7 fL (7.2-11.7); MONO # 0.4 K/uL (0.0-0.8); MONO % 7.8 % (0.0-10.0); NEUT # 3.7 K/uL (1.8-7.0); NEUT % 63.7 % (50.0-75.0); RBC 4.34 Mil/uL (4.40-5.90); RED CELL DISTRIBUTION WIDTH 13.8 % (11.5-14.5); WHITE BLOOD COUNT 5.8 K/uL (4.8-10.8)
[2017-05-15 06:53] LABS: ALB/GLOB RATIO 0.9 (1.0-2.1); ALBUMIN 3.2 g/dL (3.5-5.0); ALT/SGPT 26 U/L (21-72); AST/SGOT 22 U/L (17-59); BLOOD UREA NITROGEN 18 mg/dL (9-20); CALCIUM 8.4 mg/dl (8.6-10.4); GFR AFRICAN-AMERICAN > 60; GFR NON-AFRICAN AMERICAN > 60
[2017-05-15] MEDS: guaiFENesin 600 mg ER Tab PO SCH ×2 (10:47→17:37)
[2017-05-15] MEDS: Multiple Vitamins Tab PO SCH (10:47)
--- NOTE | 2017-05-15 13:10 | CP.PCM.PN ---
Subjective - Date & Time of Evaluation Date of Evaluation: 05/15/17 Time of Evaluation: 13:08 - Subjective Subjective: 61 yo male pt seen at bedside this morning regarding chronic ulcerations of b/l lower extremities. Pt is seen sitting upright in bed at time of visit, appears AAOX3 and NAD. Denies any acute overnight events. States that pain is well controlled Denies d/n/v/c/sob/cp/weakness/posterior calf pain when squeezed at this time. Denies any further pedal complaints Objective - Vital Signs/Intake and Output Vital Signs (last 24 hours): Temp Pulse Resp BP Pulse Ox 97.7 F 62 20 137/83 95 05/15/17 00:00 05/15/17 00:00 05/15/17 00:00 05/15/17 00:00 05/15/17 00:00 Intake and Output: 05/15/17 05/15/17 06:59 18:59 Intake Total 1000 Balance 1000 - Medications Medications: Current Medications Chlordiazepoxide (Librium) 25 mg PO Q4H PRN PRN Reason: Alcohol Withdrawal Clonidine HCl (Catapres) 0.1 mg PO Q4H PRN PRN Reason: BP>150/100 or P>100 Famotidine (Pepcid) 20 mg PO BID [facility] Last Admin: 05/15/17 10:47 Dose: 20 mg Folic Acid (Folic Acid) 1 mg PO DAILY [facility] Last Admin: 05/15/17 10:47 Dose: 1 mg Guaifenesin (Mucinex La) 600 mg PO BID [facility] Last Admin: 05/15/17 10:47 Dose: 600 mg Heparin Sodium (Porcine) (Heparin) 5,000 units SC Q8 [facility] Last Admin: 05/15/17 06:40 Dose: Not Given Multivitamins (Hexavitamin) 1 tab PO DAILY [facility] Last Admin: 05/15/17 10:47 Dose: 1 tab Thiamine HCl (Vitamin B1 Tab) 100 mg PO DAILY [facility] Last Admin: 05/15/17 10:47 Dose: 100 mg Trazodone HCl (Desyrel) 50 mg PO HS [facility] Last Admin: 05/14/17 21:34 Dose: 50 mg - Labs Labs: 05/15/17 06:22 05/15/17 06:22 PT 12.6 SECONDS (9.7-12.2) H 05/05/17 09:19 INR 1.1 05/05/17 09:19 APTT 34 SECONDS (21-34) 05/05/17 09:19 - Constitutional Appears: Well, Non-toxic, No Acute Distress - Extremities Exam Additional comments: B/L low ext exam: dressings to both legs appear c/d/ and not intact VASC: DP/PT pulses are palpable 1/4 b/l, cap refill < 3 sec to all digits, skin temp runs warm to cool from proximal to distal, minimal pedal edema appreciated today b/l NEURO: Protective sensation mildly diminished b/l DERM: healing superficial ulceration measuring approximately 5 x 4 cm at left posterior lower leg with epithelialized wound base; minimal serosanguinous drainage noted; absent purulence, fluctuance, malodor, probe to bone, undermining, maceration. 3 cm x 2 cm superficial ulceration to lateral right leg. Healthy bleeding appreciated and no clinical signs of infection noted. Circumferntial glossy, erythematous skin changes 2/2 healed venous stasis ulcerations present bilaterally with overlying lichenifications. ORTHO: slight tenderness noted on palpation of posterior left leg wound, no pain on compression of b/l calves - Neurological Exam Neurological Exam: Alert, Awake, Oriented x3 - Psychiatric Exam Psychiatric exam: Normal Affect, Normal Mood Assessment and Plan - Assessment and Plan (Free Text) Assessment: 61 year old male seen at bedside for b/l venous stasis ulcerations, uninfected and improving Plan: Patient seen and evaluated at bedside with attending Dr. Masters Afebrile, absent leukocytosis Wound cx R leg wound: E. coli, Staph Aureus Continue IV abx per ID WBC nuclear medicine bone scan: No signs of OM to LE Wounds dressed with xeroform, ABD, DSD, KELSEA No plan for surgical intervention at this time Podiatry will continue to follow while patient in house
--- NOTE | 2017-05-16 00:07 | CP.PCM.PN ---
<Julio Cortés S - Last Filed: 05/16/17 07:29> Subjective - Date & Time of Evaluation Date of Evaluation: 05/16/17 Time of Evaluation: 06:10 - Subjective Subjective: Medicine progress note for Dr. Kelly Patient seen and examined at bedside. Patient states that his legs continue to throb intermittently but to a lesser extent. Objective - Vital Signs/Intake and Output Vital Signs (last 24 hours): Temp Pulse Resp BP Pulse Ox 97.2 F L 67 20 130/87 95 05/15/17 16:00 05/15/17 16:00 05/15/17 16:00 05/15/17 16:00 05/15/17 16:00 Intake and Output: 05/15/17 05/16/17 18:59 06:59 Intake Total 500 400 Output Total 700 700 Balance -200 -300 - Medications Medications: Current Medications Chlordiazepoxide (Librium) 25 mg PO Q4H PRN PRN Reason: Alcohol Withdrawal Clonidine HCl (Catapres) 0.1 mg PO Q4H PRN PRN Reason: BP>150/100 or P>100 Famotidine (Pepcid) 20 mg PO BID [facility] Last Admin: 05/15/17 17:30 Dose: 20 mg Folic Acid (Folic Acid) 1 mg PO DAILY [facility] Last Admin: 05/15/17 10:47 Dose: 1 mg Guaifenesin (Mucinex La) 600 mg PO BID [facility] Last Admin: 05/15/17 17:37 Dose: 600 mg Heparin Sodium (Porcine) (Heparin) 5,000 units SC Q8 [facility] Last Admin: 05/15/17 21:30 Dose: 5,000 units Tigecycline 50 mg/ Sodium (Chloride) 100 mls @ 100 mls/hr IVPB Q12H [facility] Multivitamins (Hexavitamin) 1 tab PO DAILY [facility] Last Admin: 05/15/17 10:47 Dose: 1 tab Thiamine HCl (Vitamin B1 Tab) 100 mg PO DAILY [facility] Last Admin: 05/15/17 10:47 Dose: 100 mg Trazodone HCl (Desyrel) 50 mg PO HS [facility] Last Admin: 05/15/17 21:31 Dose: 50 mg - Labs Labs: 05/15/17 06:22 05/15/17 06:22 PT 12.6 SECONDS (9.7-12.2) H 05/05/17 09:19 INR 1.1 05/05/17 09:19 APTT 34 SECONDS (21-34) 05/05/17 09:19 - Additional Findings Additional findings: - Constitutional Appears: No Acute Distress - Head Exam Head Exam: ATRAUMATIC, NORMOCEPHALIC - Eye Exam Eye Exam: EOMI, Normal appearance - ENT Exam ENT Exam: Mucous Membranes Moist - Respiratory Exam Respiratory Exam: Coarse breath sounds, NORMAL BREATHING PATTERN. absent: Rales - Cardiovascular Exam Cardiovascular Exam: REGULAR RHYTHM, +S1, +S2 - GI/Abdominal Exam GI & Abdominal Exam: Soft, Normal Bowel Sounds. absent: Distended, Tenderness - Extremities Exam Additional comments: Bilateral cellulitis in the legs has improved. Decreased swelling s/p compression stockings. Pedal pulses difficult to palpate secondary to thickened skin Legs wrapped in KELSEA bandages - Skin Skin Exam: Dry, Warm Assessment and Plan - Assessment and Plan (Free Text) Plan: Cellulitis Dr. Hackett on board, help appreciated Dr. Waters - rec. leg elevation, compression stockings; no surgical intervention. 05/08: Duplex study partial negative. Could not image tibial/peroneal veins 2/2 edema. Vascular surgery consult to Dr. Waters, help appreciated. f/u recs. Wound culture ESBL+ E.coli as well as S. Aureus ; Astreonam and Vanco stopped per ID Dr. Hackett. Start Tigecycline 100mg IVPB x1 dose, followed by Tigecycline 50mg IVPB Q12H x7days.- Last day today 05/14/17 Follows with L[employer]reader, Dr. Masters consulted, help appreciated Wound care referral Per patient, he has metal pins in his left hip. MRI contraindicated. Bone Scan ordered instead which did not show evidence of acute osteomyelitis. Inflammation is limited to the soft tissues. Possible Pneumonia Mucinex 600 mg PO BID Chest xray showed patchy opacity at Right lung base. Non conclusive for Pneumonia. Zithromax 500mg PO Daily--discontinued Will continue to monitor clinical course and make necessary adjustments. Hypertension Blood pressure has been moderately controlled thus far without medication History of Atrial fibrillation Patient not currently on anticoagulation secondary to frequent falls in the past Heart rate under control Alcohol Abuse Seizure precautions Fall precautions CIWA protocol Continue Detox unit prn medications Psychiatry signing off Detox completed Prophylactic Measures Pepcid 20mg BID Heparin 5000 units Q12H PT eval and treat Disposition: Patient completed course of IV antibiotics for ESBL+ e.coli. Discharge planning initiated. Patient pending STEVE placement. Discharge most likely Wednesday05/17/16 Will discuss case with Dr. Leticia Cortés PGY-1 <Michael Kelly - Last Filed: 05/16/17 12:16> Objective - Vital Signs/Intake and Output Vital Signs (last 24 hours): Temp Pulse Resp BP Pulse Ox 98.2 F 60 20 113/75 97 05/16/17 00:00 05/16/17 00:00 05/16/17 00:00 05/16/17 00:00 05/16/17 00:00 Intake and Output: 05/16/17 05/16/17 06:59 18:59 Intake Total 400 240 Output Total 700 Balance -300 240 - Medications Medications: Current Medications Chlordiazepoxide (Librium) 25 mg PO Q4H PRN PRN Reason: Alcohol Withdrawal Clonidine HCl (Catapres) 0.1 mg PO Q4H PRN PRN Reason: BP>150/100 or P>100 Famotidine (Pepcid) 20 mg PO BID [facility] Last Admin: 05/16/17 09:34 Dose: 20 mg Folic Acid (Folic Acid) 1 mg PO DAILY [facility] Last Admin: 05/16/17 09:34 Dose: 1 mg Guaifenesin (Mucinex La) 600 mg PO BID [facility] Last Admin: 05/16/17 09:36 Dose: 600 mg Heparin Sodium (Porcine) (Heparin) 5,000 units SC Q8 [facility] Last Admin: 05/16/17 06:18 Dose: Not Given Tigecycline 50 mg/ Sodium (Chloride) 100 mls @ 100 mls/hr IVPB Q12H [facility] Last Admin: 05/16/17 01:00 Dose: 100 mls/hr Multivitamins (Hexavitamin) 1 tab PO DAILY [facility] Last Admin: 05/16/17 09:34 Dose: 1 tab Thiamine HCl (Vitamin B1 Tab) 100 mg PO DAILY [facility] Last Admin: 05/16/17 09:34 Dose: 100 mg Trazodone HCl (Desyrel) 50 mg PO HS [facility] Last Admin: 05/15/17 21:31 Dose: 50 mg - Labs Labs: 05/16/17 07:15 05/16/17 07:15 PT 12.6 SECONDS (9.7-12.2) H 05/05/17 09:19 INR 1.1 05/05/17 09:19 APTT 34 SECONDS (21-34) 05/05/17 09:19 Attending/Attestation - Attestation I have personally seen and examined this patient.: Yes I have fully participated in the care of the patient.: Yes I have reviewed all pertinent clinical information, including history, physical exam and plan: Yes Notes (Text): 05/16/17 12:16 Medical attending: Patient was seen and examined by me, agree with the above note by center medical specialist. He reports that overall he feels better than when he first came. He still needs wound dressing changes. Were waiting on approval for subacute rehabilitation at this time thank you Michael Kelly
[2017-05-16 07:25] LABS: BASO % 0.4 % (0.0-2.0); EOS # 0.1 K/uL (0.0-0.7); EOS % 1.6 % (0.0-4.0); HEMOGLOBIN 12.9 g/dL (12.0-18.0); LYMPH # 1.1 K/uL (1.0-4.3); LYMPH % 18.7 % (20.0-40.0); MEAN CELL VOLUME 87.9 fL (80.0-94.0); MEAN CORPUSCULAR HGB CONC 34.1 g/dL (33.0-37.0); MEAN PLATELET VOLUME 7.1 fL (7.2-11.7); MONO # 0.5 K/uL (0.0-0.8); MONO % 7.8 % (0.0-10.0); NEUT # 4.2 K/uL (1.8-7.0); NEUT % 71.5 % (50.0-75.0); NRBC % 0.1 % (0.0-2.0); RBC 4.32 Mil/uL (4.40-5.90); RED CELL DISTRIBUTION WIDTH 13.9 % (11.5-14.5); WHITE BLOOD COUNT 5.9 K/uL (4.8-10.8)
[2017-05-16 07:49] LABS: ALB/GLOB RATIO 0.9 (1.0-2.1); ALBUMIN 3.3 g/dL (3.5-5.0); ALT/SGPT 19 U/L (21-72); AST/SGOT 26 U/L (17-59); BLOOD UREA NITROGEN 19 mg/dL (9-20); CALCIUM 8.4 mg/dl (8.6-10.4); GFR AFRICAN-AMERICAN > 60; GFR NON-AFRICAN AMERICAN > 60
[2017-05-16] MEDS: Multiple Vitamins Tab PO SCH (09:34)
[2017-05-16] MEDS: guaiFENesin 600 mg ER Tab PO SCH ×2 (09:36→17:08)
--- NOTE | 2017-05-16 15:52 | CP.PCM.PN ---
Subjective - Date & Time of Evaluation Date of Evaluation: 05/16/17 Time of Evaluation: 07:00 - Subjective Subjective: no fever chills pain less alert / oriented Objective - Vital Signs/Intake and Output Vital Signs (last 24 hours): Temp Pulse Resp BP Pulse Ox 97.9 F 59 L 20 141/71 97 05/16/17 10:00 05/16/17 10:00 05/16/17 10:00 05/16/17 10:00 05/16/17 00:00 Intake and Output: 05/16/17 05/16/17 06:59 18:59 Intake Total 400 240 Output Total 700 Balance -300 240 - Medications Medications: Current Medications Chlordiazepoxide (Librium) 25 mg PO Q4H PRN PRN Reason: Alcohol Withdrawal Clonidine HCl (Catapres) 0.1 mg PO Q4H PRN PRN Reason: BP>150/100 or P>100 Famotidine (Pepcid) 20 mg PO BID [facility] Last Admin: 05/16/17 09:34 Dose: 20 mg Folic Acid (Folic Acid) 1 mg PO DAILY [facility] Last Admin: 05/16/17 09:34 Dose: 1 mg Guaifenesin (Mucinex La) 600 mg PO BID [facility] Last Admin: 05/16/17 09:36 Dose: 600 mg Heparin Sodium (Porcine) (Heparin) 5,000 units SC Q8 [facility] Last Admin: 05/16/17 14:00 Dose: 5,000 units Tigecycline 50 mg/ Sodium (Chloride) 100 mls @ 100 mls/hr IVPB Q12H [facility] Last Admin: 05/16/17 12:00 Dose: 100 mls/hr Multivitamins (Hexavitamin) 1 tab PO DAILY [facility] Last Admin: 05/16/17 09:34 Dose: 1 tab Thiamine HCl (Vitamin B1 Tab) 100 mg PO DAILY [facility] Last Admin: 05/16/17 09:34 Dose: 100 mg Trazodone HCl (Desyrel) 50 mg PO HS [facility] Last Admin: 05/15/17 21:31 Dose: 50 mg - Labs Labs: 05/16/17 07:15 05/16/17 07:15 PT 12.6 SECONDS (9.7-12.2) H 05/05/17 09:19 INR 1.1 05/05/17 09:19 APTT 34 SECONDS (21-34) 05/05/17 09:19 - Constitutional Appears: Non-toxic, Chronically Ill - Head Exam Head Exam: NORMOCEPHALIC - Eye Exam Eye Exam: PERRL - ENT Exam ENT Exam: Mucous Membranes Dry - Neck Exam Neck Exam: absent: Lymphadenopathy - Respiratory Exam Respiratory Exam: Decreased Breath Sounds - Cardiovascular Exam Cardiovascular Exam: REGULAR RHYTHM - GI/Abdominal Exam GI & Abdominal Exam: Distended - Rectal Exam Rectal Exam: Deferred - Extremities Exam Extremities Exam: Pedal Edema. absent: Calf Tenderness Additional comments: B/L low ext exam: dressings to both legs appear c/d/ and not intact VASC: DP/PT pulses are palpable 1/4 b/l, cap refill < 3 sec to all digits, skin temp runs warm to cool from proximal to distal, minimal pedal edema appreciated today b/l NEURO: Protective sensation mildly diminished b/l DERM: healing superficial ulceration measuring approximately 5 x 4 cm at left posterior lower leg with epithelialized wound base; minimal serosanguinous drainage noted; absent purulence, fluctuance, malodor, probe to bone, undermining, maceration. 3 cm x 2 cm superficial ulceration to lateral right leg. Healthy bleeding appreciated and no clinical signs of infection noted. Circumferntial glossy, erythematous skin changes 2/2 healed venous stasis ulcerations present bilaterally with overlying lichenifications. ORTHO: slight tenderness noted on palpation of posterior left leg wound, no pain on compression of b/l calves - Back Exam Back Exam: absent: CVA tenderness (L), CVA tenderness (R) - Neurological Exam Neurological Exam: Alert, Awake, Oriented x3 Neuro motor strength exam: Left Upper Extremity: 5, Right Upper Extremity: 5, Left Lower Extremity: 5, Right Lower Extremity: 5 - Psychiatric Exam Psychiatric exam: Normal Mood - Skin Skin Exam: Dry Assessment and Plan (1) Alcohol abuse Status: Acute (2) Leg edema Status: Acute (3) Skin ulcer Status: Acute - Assessment and Plan (Free Text) Assessment: improving cellulitis/ skin ulcers would cont rx as out pt at wound care clinic
--- NOTE | 2017-05-17 07:43 | CP.PCM.PN ---
Subjective - Date & Time of Evaluation Date of Evaluation: 05/17/17 Time of Evaluation: 09:00 - Subjective Subjective: Medicine progress note for Dr. Tran Patient seen and examined at bedside. Patient reports improvement in leg pain but states that they will still intermittently bother him. He is eager to begin the rehab process. Patient denies any other complaint at this time. Objective - Vital Signs/Intake and Output Vital Signs (last 24 hours): Temp Pulse Resp BP Pulse Ox 97.8 F 100 H 98 H 139/76 18 L 05/17/17 00:00 05/17/17 00:00 05/17/17 00:00 05/17/17 00:00 05/17/17 00:00 Intake and Output: 05/17/17 05/17/17 06:59 18:59 Intake Total 720 Balance 720 - Medications Medications: Current Medications Chlordiazepoxide (Librium) 25 mg PO Q4H PRN PRN Reason: Alcohol Withdrawal Clonidine HCl (Catapres) 0.1 mg PO Q4H PRN PRN Reason: BP>150/100 or P>100 Famotidine (Pepcid) 20 mg PO BID [facility] Last Admin: 05/16/17 17:09 Dose: 20 mg Folic Acid (Folic Acid) 1 mg PO DAILY [facility] Last Admin: 05/16/17 09:34 Dose: 1 mg Guaifenesin (Mucinex La) 600 mg PO BID [facility] Last Admin: 05/16/17 17:08 Dose: 600 mg Heparin Sodium (Porcine) (Heparin) 5,000 units SC Q8 [facility] Last Admin: 05/17/17 05:56 Dose: 5,000 units Tigecycline 50 mg/ Sodium (Chloride) 100 mls @ 100 mls/hr IVPB Q12H [facility] Last Admin: 05/17/17 00:20 Dose: 100 mls/hr Multivitamins (Hexavitamin) 1 tab PO DAILY [facility] Last Admin: 05/16/17 09:34 Dose: 1 tab Thiamine HCl (Vitamin B1 Tab) 100 mg PO DAILY [facility] Last Admin: 05/16/17 09:34 Dose: 100 mg Trazodone HCl (Desyrel) 50 mg PO HS [facility] Last Admin: 05/16/17 21:52 Dose: 50 mg - Labs Labs: 05/16/17 07:15 05/16/17 07:15 PT 12.6 SECONDS (9.7-12.2) H 05/05/17 09:19 INR 1.1 05/05/17 09:19 APTT 34 SECONDS (21-34) 05/05/17 09:19 - Additional Findings Additional findings: - Constitutional Appears: No Acute Distress - Head Exam Head Exam: ATRAUMATIC, NORMOCEPHALIC - Eye Exam Eye Exam: EOMI, Normal appearance - ENT Exam ENT Exam: Mucous Membranes Moist - Respiratory Exam Respiratory Exam: Coarse breath sounds, NORMAL BREATHING PATTERN. absent: Rales - Cardiovascular Exam Cardiovascular Exam: REGULAR RHYTHM, +S1, +S2 - GI/Abdominal Exam GI & Abdominal Exam: Soft, Normal Bowel Sounds. absent: Distended, Tenderness - Extremities Exam Additional comments: Bilateral cellulitis in the legs has improved. Decreased swelling s/p compression stockings. Pedal pulses difficult to palpate secondary to thickened skin - Skin Skin Exam: Dry, Warm Assessment and Plan - Assessment and Plan (Free Text) Plan: Cellulitis Dr. Hackett on board, help appreciated Dr. Waters - rec. leg elevation, compression stockings; no surgical intervention. 05/08: Duplex study partial negative. Could not image tibial/peroneal veins 2/2 edema. Vascular surgery consult to Dr. Waters, help appreciated. f/u recs. Wound culture ESBL+ E.coli as well as S. Aureus ; Astreonam and Vanco stopped per ID Dr. Hackett. 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 Masters consulted, help appreciated Wound care referral Per patient, he has metal pins in his left hip. MRI contraindicated. Bone Scan ordered instead which did not show evidence of acute osteomyelitis. Inflammation is limited to the soft tissues. Possible Pneumonia Mucinex 600 mg PO BID Chest xray showed patchy opacity at Right lung base. Non conclusive for Pneumonia. Zithromax 500mg PO Daily--discontinued Will continue to monitor clinical course and make necessary adjustments. Hypertension Blood pressure has been moderately controlled thus far without medication History of Atrial fibrillation Patient not currently on anticoagulation secondary to frequent falls in the past Heart rate under control Alcohol Abuse Seizure precautions Fall precautions CIWA protocol Continue Detox unit prn medications Psychiatry signing off Detox completed Prophylactic Measures Pepcid 20mg BID Heparin 5000 units Q12H PT eval and treat Disposition: Per Dr. Hackett, patient may remain on Tygacil while in the hospital but will not need IV antibiotics upon discharge to [facility]. Discharge pending approval. Case DW Dr. Marc Cortés PGY-1
[2017-05-17 07:44] LABS: BASO % 0.2 % (0.0-2.0); EOS # 0.2 K/uL (0.0-0.7); EOS % 2.9 % (0.0-4.0); LYMPH # 1.5 K/uL (1.0-4.3); MEAN CELL VOLUME 88.4 fL (80.0-94.0); MEAN CORPUSCULAR HEMOGLOBIN 29.6 pg (27.0-31.0); MEAN CORPUSCULAR HGB CONC 33.5 g/dL (33.0-37.0); MEAN PLATELET VOLUME 7.4 fL (7.2-11.7); MONO # 0.5 K/uL (0.0-0.8); NEUT # 3.7 K/uL (1.8-7.0); NEUT % 62.9 % (50.0-75.0); RBC 4.4 Mil/uL (4.40-5.90); WHITE BLOOD COUNT 5.9 K/uL (4.8-10.8)
[2017-05-17 07:58] VITALS: RESP 20
[2017-05-17 08:12] LABS: ALBUMIN 3.3 g/dL (3.5-5.0); ALT/SGPT 19 U/L (21-72); AST/SGOT 20 U/L (17-59); BLOOD UREA NITROGEN 20 mg/dL (9-20); CALCIUM 8.6 mg/dl (8.6-10.4); GFR AFRICAN-AMERICAN > 60; GFR NON-AFRICAN AMERICAN > 60
[2017-05-17] MEDS: Multiple Vitamins Tab PO SCH (10:30)
[2017-05-17] MEDS: guaiFENesin 600 mg ER Tab PO SCH ×2 (12:03→17:44)
--- NOTE | 2017-05-18 07:19 | CP.PCM.PN ---
Subjective - Date & Time of Evaluation Date of Evaluation: 05/18/17 Time of Evaluation: 07:20 - Subjective Subjective: Medicine progress note for Dr. Tran Patient seen and examined at bedside. Objective - Vital Signs/Intake and Output Vital Signs (last 24 hours): Temp Pulse Resp BP Pulse Ox 98.1 F 59 L 20 118/71 97 05/18/17 00:00 05/18/17 00:00 05/18/17 00:00 05/18/17 00:00 05/18/17 00:00 Intake and Output: 05/18/17 05/18/17 06:59 18:59 Intake Total 400 580 Balance 400 580 - Medications Medications: Current Medications Chlordiazepoxide (Librium) 25 mg PO Q4H PRN PRN Reason: Alcohol Withdrawal Clonidine HCl (Catapres) 0.1 mg PO Q4H PRN PRN Reason: BP>150/100 or P>100 Famotidine (Pepcid) 20 mg PO BID [facility] Last Admin: 05/17/17 17:44 Dose: 20 mg Folic Acid (Folic Acid) 1 mg PO DAILY [facility] Last Admin: 05/17/17 10:30 Dose: 1 mg Guaifenesin (Mucinex La) 600 mg PO BID [facility] Last Admin: 05/17/17 17:44 Dose: 600 mg Heparin Sodium (Porcine) (Heparin) 5,000 units SC Q8 [facility] Last Admin: 05/18/17 07:04 Dose: 5,000 units Tigecycline 50 mg/ Sodium (Chloride) 100 mls @ 100 mls/hr IVPB Q12H [facility] Last Admin: 05/18/17 00:26 Dose: 100 mls/hr Multivitamins (Hexavitamin) 1 tab PO DAILY [facility] Last Admin: 05/17/17 10:30 Dose: 1 tab Thiamine HCl (Vitamin B1 Tab) 100 mg PO DAILY [facility] Last Admin: 05/17/17 10:30 Dose: 100 mg Trazodone HCl (Desyrel) 50 mg PO HS [facility] Last Admin: 05/17/17 21:51 Dose: 50 mg - Labs Labs: 05/17/17 07:23 05/17/17 07:23 PT 12.6 SECONDS (9.7-12.2) H 05/05/17 09:19 INR 1.1 05/05/17 09:19 APTT 34 SECONDS (21-34) 05/05/17 09:19 - Additional Findings Additional findings: - Constitutional Appears: No Acute Distress - Head Exam Head Exam: ATRAUMATIC, NORMOCEPHALIC - Eye Exam Eye Exam: EOMI, Normal appearance - ENT Exam ENT Exam: Mucous Membranes Moist - Respiratory Exam Respiratory Exam: Coarse breath sounds, NORMAL BREATHING PATTERN. absent: Rales - Cardiovascular Exam Cardiovascular Exam: REGULAR RHYTHM, +S1, +S2 - GI/Abdominal Exam GI & Abdominal Exam: Soft, Normal Bowel Sounds. absent: Distended, Tenderness - Extremities Exam Additional comments: Bilateral cellulitis in the legs has improved. Decreased swelling s/p compression stockings. Pedal pulses difficult to palpate secondary to thickened skin - Skin Skin Exam: Dry, Warm Assessment and Plan - Assessment and Plan (Free Text) Plan: Cellulitis Dr. Hackett on board, help appreciated Dr. Waters - rec. leg elevation, compression stockings; no surgical intervention. 05/08: Duplex study partial negative. Could not image tibial/peroneal veins 2/2 edema. Vascular surgery consult to Dr. Waters, help appreciated. f/u recs. Wound culture ESBL+ E.coli as well as S. Aureus ; Astreonam and Vanco stopped per ID Dr. Hackett. Start Tigecycline 100mg IVPB x1 dose, followed by Tigecycline 50mg IVPB Q12H Follows with Sales Floor Associate, Dr. Masters consulted, help appreciated Wound care referral Per patient, he has metal pins in his left hip. MRI contraindicated. Bone Scan ordered instead which did not show evidence of acute osteomyelitis. Inflammation is limited to the soft tissues. Possible Pneumonia Mucinex 600 mg PO BID Chest xray showed patchy opacity at Right lung base. Non conclusive for Pneumonia. Zithromax 500mg PO Daily--discontinued Will continue to monitor clinical course and make necessary adjustments. Hypertension Blood pressure has been moderately controlled thus far without medication History of Atrial fibrillation Patient not currently on anticoagulation secondary to frequent falls in the past Heart rate under control Alcohol Abuse Seizure precautions Fall precautions CIWA protocol Continue Detox unit prn medications Psychiatry signing off Detox completed Prophylactic Measures Pepcid 20mg BID Heparin 5000 units Q12H PT eval and treat Disposition: Per Dr. Hackett, patient may remain on Tygacil while in the hospital but will not need IV antibiotics upon discharge to [facility]. Discharge pending approval.
[2017-05-18 07:37] LABS: BASO % 0.3 % (0.0-2.0); EOS # 0.2 K/uL (0.0-0.7); EOS % 2.4 % (0.0-4.0); HEMOGLOBIN 13.4 g/dL (12.0-18.0); LYMPH # 1.5 K/uL (1.0-4.3); LYMPH % 20.8 % (20.0-40.0); MEAN CELL VOLUME 87.2 fL (80.0-94.0); MEAN CORPUSCULAR HEMOGLOBIN 30.4 pg (27.0-31.0); MEAN CORPUSCULAR HGB CONC 34.9 g/dL (33.0-37.0); MEAN PLATELET VOLUME 7.1 fL (7.2-11.7); MONO # 0.4 K/uL (0.0-0.8); MONO % 6.3 % (0.0-10.0); NEUT # 4.9 K/uL (1.8-7.0); NEUT % 70.2 % (50.0-75.0); RBC 4.42 Mil/uL (4.40-5.90); RED CELL DISTRIBUTION WIDTH 14.2 % (11.5-14.5)
[2017-05-18 07:46] LABS: ALB/GLOB RATIO 0.9 (1.0-2.1); ALBUMIN 3.3 g/dL (3.5-5.0); ALT/SGPT 22 U/L (21-72); AST/SGOT 22 U/L (17-59); BLOOD UREA NITROGEN 21 mg/dL (9-20); CALCIUM 8.4 mg/dl (8.6-10.4); GFR AFRICAN-AMERICAN > 60; GFR NON-AFRICAN AMERICAN > 60
[2017-05-18] MEDS: Multiple Vitamins Tab PO SCH (09:35)
[2017-05-18] MEDS: guaiFENesin 600 mg ER Tab PO SCH ×2 (09:37→17:46)
--- NOTE | 2017-05-18 12:04 | CP.PCM.PN ---
Subjective - Date & Time of Evaluation Date of Evaluation: 05/18/17 Time of Evaluation: 11:00 - Subjective Subjective: Podiatry progress note -Dr. Masters 61 yo male pt seen at bedside this morning regarding chronic ulcerations of b/l lower extremities. Pt seen resting comfortably in bed. Denies any pain or discomfort to the bl LE. Says his legs feel better. Objective - Vital Signs/Intake and Output Vital Signs (last 24 hours): Temp Pulse Resp BP Pulse Ox 97.5 F L 61 20 137/83 97 05/18/17 08:00 05/18/17 08:00 05/18/17 08:00 05/18/17 08:00 05/18/17 08:00 Intake and Output: 05/18/17 05/18/17 06:59 18:59 Intake Total 400 580 Balance 400 580 - Medications Medications: Current Medications Chlordiazepoxide (Librium) 25 mg PO Q4H PRN PRN Reason: Alcohol Withdrawal Clonidine HCl (Catapres) 0.1 mg PO Q4H PRN PRN Reason: BP>150/100 or P>100 Famotidine (Pepcid) 20 mg PO BID [facility] Last Admin: 05/18/17 09:35 Dose: 20 mg Folic Acid (Folic Acid) 1 mg PO DAILY [facility] Last Admin: 05/18/17 09:35 Dose: 1 mg Guaifenesin (Mucinex La) 600 mg PO BID [facility] Last Admin: 05/18/17 09:37 Dose: 600 mg Heparin Sodium (Porcine) (Heparin) 5,000 units SC Q8 [facility] Last Admin: 05/18/17 07:04 Dose: 5,000 units Tigecycline 50 mg/ Sodium (Chloride) 100 mls @ 100 mls/hr IVPB Q12H [facility] Last Admin: 05/18/17 00:26 Dose: 100 mls/hr Multivitamins (Hexavitamin) 1 tab PO DAILY [facility] Last Admin: 05/18/17 09:35 Dose: 1 tab Thiamine HCl (Vitamin B1 Tab) 100 mg PO DAILY [facility] Last Admin: 05/18/17 09:35 Dose: 100 mg Trazodone HCl (Desyrel) 50 mg PO HS [facility] Last Admin: 05/17/17 21:51 Dose: 50 mg - Labs Labs: 05/18/17 07:23 05/18/17 07:18 PT 12.6 SECONDS (9.7-12.2) H 05/05/17 09:19 INR 1.1 05/05/17 09:19 APTT 34 SECONDS (21-34) 05/05/17 09:19 - Constitutional Appears: Well, Non-toxic, No Acute Distress - Extremities Exam Extremities Exam: absent: Calf Tenderness Additional comments: B/L low ext exam: dressings to both legs appear c/d/i VASC: DP/PT pulses are palpable 1/4 b/l, cap refill < 3 sec to all digits, skin temp runs warm to cool from proximal to distal, minimal pedal edema appreciated today b/l NEURO: Protective sensation mildly diminished b/l DERM: healing superficial ulceration measuring approximately 5 x 4 cm at left posterior lower leg with epithelialized wound base; minimal serosanguinous drainage noted; absent purulence, fluctuance, malodor, probe to bone, undermining, maceration. 3 cm x 2 cm superficial ulceration to lateral right leg. Healthy bleeding appreciated and no clinical signs of infection noted.Circumferntial glossy, erythematous skin changes 2/2 healed venous stasis ulcerations present bilaterally with overlying lichenifications. ORTHO: slight tenderness noted on palpation of posterior left leg wound, no pain on compression of b/l calves - Neurological Exam Neurological Exam: Alert, Awake, Oriented x3 - Psychiatric Exam Psychiatric exam: Normal Affect, Normal Mood Assessment and Plan - Assessment and Plan (Free Text) Assessment: 61 year old male seen at bedside for b/l venous stasis ulcerations, uninfected and improving Plan: Patient seen and evaluated at bedside Afebrile, absent leukocytosis Wound cx R leg wound: E. coli, Staph Aureus Continue IV abx per ID WBC nuclear medicine bone scan: No signs of OM to LE Wounds dressed with xeroform, ABD, DSD, KELSEA Stable per podiatry Awaiting STEVE placement Podiatry will continue to follow while patient in house
[2017-05-18 16:29] VITALS: BP 134/83; PULSE 71; TEMP 98.2; O2SAT 98
--- NOTE | 2017-05-18 18:01 | CP.PCM.DIS ---
Provider - Provider Date of Admission: 05/05/17 14:40 Attending physician: Michael Kelly DO Consults: Psychiatry-Dr. Beckwith Vascular Surgery-Dr. Waters Infectious Diseases-Dr. Hackett Podiatry-Dr. Masters Time Spent in preparation of Discharge (in minutes): 45 Diagnosis - Discharge Diagnosis (1) Bilateral cellulitis of lower leg Status: Acute Comment: Cellulitis due to ESBL positive E.coli treated with Tygacil 50 mg IV Q12H for about ten days. Continue wound care at [facility]. (2) Status post alcohol detoxification Status: Resolved Comment: Patient completed alcohol detox. (3) History of hypertension Status: Chronic Comment: Patient's blood pressure well controlled without medication on this admission. (4) History of atrial fibrillation Status: Chronic Comment: Patient's heart rate well controlled on this admission. Patient is not on anticoagulation due to frequent falls in the past. Hospital Course - Lab Results Lab Results: Micro Results 05/05/17 22:34 Blood-Thru Central Line Blood Culture - Final NO GROWTH AFTER 5 DAYS 05/05/17 22:34 Blood-Thru Central Line Gram Stain - Final TEST NOT PERFORMED 05/05/17 22:34 Blood-Thru Central Line Blood Culture - Final NO GROWTH AFTER 5 DAYS 05/05/17 22:34 Blood-Thru Central Line Gram Stain - Final TEST NOT PERFORMED 05/05/17 22:35 Leg - Right Gram Stain - Final 05/05/17 22:35 Leg - Right Wound Culture - Final Escherichia Coli Staphylococcus Aureus Most Recent Lab Values WBC 7.0 K/uL (4.8-10.8) 05/18/17 07:23 RBC 4.42 Mil/uL (4.40-5.90) 05/18/17 07:23 Hgb 13.4 g/dL (12.0-18.0) 05/18/17 07:23 Hct 38.5 % (35.0-51.0) 05/18/17 07:23 MCV 87.2 fL (80.0-94.0) 05/18/17 07:23 MCH 30.4 pg (27.0-31.0) 05/18/17 07:23 MCHC 34.9 g/dL (33.0-37.0) 05/18/17 07:23 RDW 14.2 % (11.5-14.5) 05/18/17 07:23 Plt Count 360 K/uL (130-400) 05/18/17 07:23 MPV 7.1 fL (7.2-11.7) L 05/18/17 07:23 Neut % (Auto) 70.2 % (50.0-75.0) 05/18/17 07:23 Lymph % (Auto) 20.8 % (20.0-40.0) 05/18/17 07:23 Duchesne % (Auto) 6.3 % (0.0-10.0) 05/18/17 07:23 Eos % (Auto) 2.4 % (0.0-4.0) 05/18/17 07:23 Baso % (Auto) 0.3 % (0.0-2.0) 05/18/17 07:23 Neut # 4.9 K/uL (1.8-7.0) 05/18/17 07:23 Lymph # 1.5 K/uL (1.0-4.3) 05/18/17 07:23 Duchesne # 0.4 K/uL (0.0-0.8) 05/18/17 07:23 Eos # 0.2 K/uL (0.0-0.7) 05/18/17 07:23 Baso # 0.0 K/uL (0.0-0.2) 05/18/17 07:23 PT 12.6 SECONDS (9.7-12.2) H 05/05/17 09:19 INR 1.1 05/05/17 09:19 APTT 34 SECONDS (21-34) 05/05/17 09:19 Sodium 132 mmol/L (132-148) 05/18/17 07:18 Potassium 3.9 mmol/L (3.6-5.2) 05/18/17 07:18 Chloride 101 mmol/L (98-107) 05/18/17 07:18 Carbon Dioxide 23 mmol/L (22-30) 05/18/17 07:18 Anion Gap 12 (10-20) 05/18/17 07:18 BUN 21 mg/dL (9-20) H 05/18/17 07:18 Creatinine 0.8 mg/dL (0.8-1.5) 05/18/17 07:18 Est GFR ( Amer) > 60 05/18/17 07:18 Est GFR (Non-Af Amer) > 60 05/18/17 07:18 Random Glucose 91 mg/dL (75-110) 05/18/17 07:18 Calcium 8.4 mg/dl (8.6-10.4) L 05/18/17 07:18 Magnesium 1.7 mg/dL (1.6-2.3) 05/07/17 09:24 Total Bilirubin 0.7 mg/dL (0.2-1.3) 05/18/17 07:18 AST 22 U/L (17-59) 05/18/17 07:18 ALT 22 U/L (21-72) 05/18/17 07:18 Alkaline Phosphatase 125 U/L (38-126) 05/18/17 07:18 NT-Pro-B Natriuret Pep 73.4 pg/mL (0-900) 05/05/17 09:10 Total Protein 6.7 g/dL (6.3-8.3) 05/18/17 07:18 Albumin 3.3 g/dL (3.5-5.0) L 05/18/17 07:18 Globulin 3.5 gm/dL (2.2-3.9) 05/18/17 07:18 Albumin/Globulin Ratio 0.9 (1.0-2.1) L 05/18/17 07:18 Urine Color Straw (YELLOW) 05/05/17 10:22 Urine Clarity Clear (Clear) 05/05/17 10:22 Urine pH 5.0 (5.0-8.0) 05/05/17 10:22 Ur Specific [place] 1.003 (1.003-1.030) 05/05/17 10:22 Urine Protein Negative mg/dL (NEGATIVE) 05/05/17 10:22 Urine Glucose (UA) Normal mg/dL (Normal) 05/05/17 10:22 Urine Ketones Negative mg/dL (NEGATIVE) 05/05/17 10:22 Urine Blood Negative (NEGATIVE) 05/05/17 10:22 Urine Nitrate Negative (NEGATIVE) 05/05/17 10:22 Urine Bilirubin Negative (NEGATIVE) 05/05/17 10:22 Urine Urobilinogen Normal mg/dL (0.2-1.0) 05/05/17 10:22 Ur Leukocyte Esterase Neg Delma/uL (Negative) 05/05/17 10:22 Urine WBC (Auto) < 1 /hpf (0-5) 05/05/17 10:22 Urine RBC (Auto) < 1 /hpf (0-3) 05/05/17 10:22 Ur Squamous Epith Cells < 1 /hpf (0-5) 05/05/17 10:22 Vancomycin Trough 12.1 ug/mL (5.0-10.0) H 05/07/17 21:21 Urine Opiates Screen Negative (NEGATIVE) 05/05/17 10:22 Urine Methadone Screen Negative (NEGATIVE) 05/05/17 10:22 Ur Barbiturates Screen Negative (NEGATIVE) 05/05/17 10:22 Ur Phencyclidine Scrn Negative (NEGATIVE) 05/05/17 10:22 Ur Amphetamines Screen Negative (NEGATIVE) 05/05/17 10:22 U Benzodiazepines Scrn Negative (NEGATIVE) 05/05/17 10:22 U Oth Cocaine Metabols Negative (NEGATIVE) 05/05/17 10:22 U Cannabinoids Screen Negative (NEGATIVE) 05/05/17 10:22 Alcohol, Quantitative 68 mg/dl (0-10) H 05/05/17 09:10 - Hospital Course Hospital Course: Initial Consult note from hospitalist service: "61 year old male with a past medical history of hypertension, etoh abuse, afib (not on anticoagulation), DVT who admitted to the hospital for detox this morning. Later on the day the patient reports bilateral leg pain that has been occurring the past couple of days. The patient reports his legs have been leaking for the same time period. The patient describes the pain as throbbing in nature with no radiation. Of note, the patient has a Port a cath that has been in place for a year. The patient states it's due to him being a poor stick.The patient denies any chest pain, shortness of breath, nausea, vomiting, fevers, chills, syncopal episodes, headaches, palpitations, sick contacts, or any other complaints." Hospital Course: Patient admitted for bilateral leg cellulitis and alcohol detox. Patient initially admitted to detox but then transferred to medical/surgical floor due to cellulitis. Patient completed alcohol detox overseen by psychiatrist Dr. Beckwith while he was in the acute care hospital. Infectious disease specialist Dr. Hackett and spa concierge Dr. Masters were consulted. Vascular surgeon Dr. Waters consulted but stated no surgical intervention. Wound cultures from the open sores on the legs grew ESBL positive E. Coli as well as staph aureus. Per Dr. Hackett, patient needs minimum 7 day course of IV antibiotics. No oral antibiotics necessary after that. Patient treated with Tygacil 50 mg IV Q12 from 05/08/17 to 05/18/17. Patient's wound care managed non-operatively by podiatry with dressing changes daily. Patient [facility] along with the instructions from podiatry as follows: apply Xeroform gauze, DSD, and Kerlix around the wounds; dress them once daily and wrap with KELSEA bandages for compression. Patient to follow up at the [facility] wound care clinic after discharge from [facility]. This is a summary of the hospital course. For more information, refer to the medical records. Discharge Exam - Head Exam Head Exam: ATRAUMATIC, NORMOCEPHALIC - Eye Exam Eye Exam: EOMI, Normal appearance - ENT Exam ENT Exam: Mucous Membranes Moist - Respiratory Exam Respiratory Exam: Clear to PA & Lateral, NORMAL BREATHING PATTERN. absent: Rales, Rhonchi, Wheezes - Cardiovascular Exam Cardiovascular Exam: REGULAR RHYTHM, +S1, +S2 - GI/Abdominal Exam GI & Abdominal Exam: Normal Bowel Sounds, Soft. absent: Distended, Guarding, Tenderness - Extremities Exam Additional comments: Bilateral cellulitis in the legs has improved. Decreased swelling s/p compression from KELSEA bandages. Pedal pulses palpable. Leg edema markedly improved from time of admission - Neurological Exam Neurological exam: Alert, CN II-XII Intact, Oriented x3 - Psychiatric Exam Psychiatric exam: Normal Affect, Normal Mood - Skin Skin Exam: Dry, Warm Discharge Plan - Follow Up Plan Condition: GOOD Disposition: REHAB FACILITY/REHAB UNIT Instructions: Cellulitis (DC), Stasis Dermatitis (DC) Additional Instructions: Please apply Xeroform gauze, DSD, and Kerlix around the wounds. They need to be dressed once daily and wrapped with KELSEA bandages for compression. Please follow up at the [facility] for primary care needs. Please follow up with Dr. Masters in his wound care clinic at [facility]. Referrals: [facility] [Outside] [facility] [Outside] Danilo Masters DPM [Staff Provider] - Michael Masters DPM [Staff Provider] -
== END 2017-05-18 20:14 | DRG 750 ==
LOC: C.ER 08:30 → C.7D 14:40 → C.3T 20:39
PROVIDERS: ADMIT Hospitalist; ATTEND Hospitalist
PROC: HZ2ZZZZ Detoxification Services for Substance Abuse Treatment (ICD-10-PCS; principal; 2017-05-05)
PROC: HZ42ZZZ Group Counseling for Substance Abuse Treatment, Cognitive-Behavioral (ICD-10-PCS; 2017-05-05)
PROC: HZ52ZZZ Individual Psychotherapy for Substance Abuse Treatment, Cognitive-Behavioral (ICD-10-PCS; 2017-05-05)
PROC: HZ59ZZZ Individual Psychotherapy for Substance Abuse Treatment, Supportive (ICD-10-PCS; 2017-05-05)
PROC: HZ56ZZZ Individual Psychotherapy for Substance Abuse Treatment, Psychoeducation (ICD-10-PCS; 2017-05-05)
PROC: HZ46ZZZ Group Counseling for Substance Abuse Treatment, Psychoeducation (ICD-10-PCS; 2017-05-05)
DX: F10.230 Alcohol dependence with withdrawal, uncomplicated (principal); L03.116 Cellulitis of left lower limb; J18.9 Pneumonia, unspecified organism; I11.0 Hypertensive heart disease with heart failure; L03.115 Cellulitis of right lower limb; F32.0 Major depressive disorder, single episode, mild; I50.9 Heart failure, unspecified; I20.0 Unstable angina; I48.91 Unspecified atrial fibrillation; J44.9 Chronic obstructive pulmonary disease, unspecified; F10.220 Alcohol dependence with intoxication, uncomplicated; Y90.3 Blood alcohol level of 60-79 mg/100 ml; F41.1 Generalized anxiety disorder; Z59.0 Homelessness; Z88.0 Allergy status to penicillin; I87.2 Venous insufficiency (chronic) (peripheral); F17.210 Nicotine dependence, cigarettes, uncomplicated; F12.90 Cannabis use, unspecified, uncomplicated; B96.20 Unspecified Escherichia coli [E. coli] as the cause of diseases classified elsewhere; E66.9 Obesity, unspecified; Z68.30 Body mass index [BMI] 30.0-30.9, adult

== ENCOUNTER 2017-07-22 09:21 | Day surgery (SDC) | payer OTHER ==
[2017-07-22] MEDS ORDERED: Iodixanol 320 MG/ML 200 ML BOTTLE IV ONE (10:41)
[2017-07-22] MEDS ORDERED: Midazolam 2 MG/2 ML VIAL ONE (10:54)
[2017-07-22] MEDS ORDERED: Iodixanol 320 MG/ML 100 ML BOTTLE IV ONE (10:54)
--- NOTE | 2017-07-23 08:37 | PROCN ---
DATE: 07/22/2017 INDICATIONS: Brett is a pleasant 61-year-old male who was referred to me by Dr. Masters for evaluation of nonhealing ulcers . He has known history of hypertension, dyslipidemia, obesity. He was brought for further evaluation of chronic bilateral nonhealing ulcers. PROCEDURE PERFORMED: 1. Distal abdominal aortogram with bilateral iliac runoff. 2. Selective bilateral iliofemoral angiogram with runoff. 3. A 6-Omani right femoral arterial access. TECHNIQUES OF PROCEDURE: After obtaining informed consent, the patient was brought to the cardiac cath suite in post-absorptive, non-sedative state. The patient was prepped and draped in the usual sterile fashion, 2% lidocaine was used for infiltration of anesthesia. Using modified Seldinger technique, a 6-Omani sheath was introduced into the right femoral artery. Right iliofemoral angiogram with runoff was performed. Digital subtraction angiographic views of below the knee, right foot profile was obtained. Subsequently, over a guidewire, a LEGGETT catheter was advanced into the abdominal aorta. Abdominal aortogram with bilateral iliac runoff was performed. Subsequently, with the LEGGETT, a [place] catheter was advanced across the aortoiliac bifurcation which was extremely tortuous to the left common femoral artery. A 5-Omani [place] catheter was advanced left common femoral artery. Digital subtraction angiographic views of the left SFA, left popliteal, left below the knee and left foot profile was obtained. Angiographic findings: Right distal abdominal aorta has a very tortuous bifurcation of the aorta iliac junction, right common iliac and external iliac patent, SFA profunda femoris patent, three vessel runoff below the knees, severe slow flow noted consistent with microvascular dysfunction. Subsequently, over LEGGETT catheter, [place] was advanced across the aortic bifurcation to the left common femoral artery. Subsequently, digital subtraction angiographic views of the left SFA, left popliteal, left below the knee was obtained. Angiographic findings of left lower extremity: Left common iliac, external iliac patent. SFA Profunda femoris patent. Popliteal patent, three-vessel runoff below the knee, severely slow flow noted consistent with microvascular dysfunction. IMPRESSION: Severe bilateral microvascular dysfunction with slow flow noted distally. RECOMMENDATIONS: Aggressive medical management and risk factor modification. The patient has severe distal aorta iliac tortuosity, possible pelvic mass. Would recommend to get a CT of the abdomen and pelvis to rule out any abdominal causing tortuosity of the distal iliac. Keep the patient on aspirin, for further evaluation for venous insufficiency. León Kwan MD cc: Michael Masters DPM
[2017-07-28 15:02] VITALS: RESP 18; O2SAT 98
== END 2017-07-22 16:40 | disposition home or self-care (01) ==
LOC: C.CATHLAB 09:21
PROVIDERS: ATTEND Internal Medicine Interventional Cardiology
DX: I73.9 Peripheral vascular disease, unspecified (principal); I10 Essential (primary) hypertension; L97.221 Non-pressure chronic ulcer of left calf limited to breakdown of skin; Z88.0 Allergy status to penicillin; E78.5 Hyperlipidemia, unspecified; E66.9 Obesity, unspecified; Z68.30 Body mass index [BMI] 30.0-30.9, adult; L97.919 Non-pressure chronic ulcer of unspecified part of right lower leg with unspecified severity
CPT/HCPCS: 36247; 75625; 75716; 75774; C1766; C1769; C1887; C1894; J1644; J2250; J3010; Q9966; Q9967

== ENCOUNTER 2018-03-12 06:53 | Inpatient (IN) | payer OTHER ==
[2018-03-12 06:53] VITALS: BMI 28.1
--- NOTE | 2018-03-12 08:22 | C.PDOC ---
History Of Present Illness 62 years old homeless male with PMHx of chronic lower extremity cellulitis present to ED for complaints of pain and swelling to lower extremities that began a week and a half ago. Patient states associated symptoms of palpitations. Patient is also requesting detox from alcohol. He reports last drink was few hours ago. Patient admits to marijuana use but denies any other drug use. Denies fever, chills, nausea, vomiting, or headache. Time Seen by Provider: 03/12/18 07:19 Chief Complaint (Nursing): Lower Extremity Problem/Injury History Per: Patient History/Exam Limitations: no limitations Onset/Duration Of Symptoms: Days Current Symptoms Are (Timing): Still Present Recent travel outside of the [place]: No Past Medical History Reviewed: Historical Data, Nursing Documentation, Vital Signs Vital Signs: Last Vital Signs Temp 97.6 F 03/12/18 07:04 Pulse 104 H 03/12/18 07:04 Resp 20 03/12/18 07:04 BP 151/87 H 03/12/18 07:04 Pulse Ox 98 03/12/18 07:04 - Medical History PMH: Anxiety, Arthritis (back, l hip), Atrial Fibrillation, Depression, Deep Vein Thrombosis, Fractures (neck, back Rt. leg fx in 5 places), Hepatitis (Patient reported history of alcohol hepatitis), HTN (NOT ON MED. NOTED ON MED.REC. AND MD'S NOTES), Hypercholesterolemia, Pancreatitis, Peripheral Edema (chronic), Seizures (alcohol induced), Chronic Pain (leg pain/dermatitis) Surgical History: Back Surgery, Cholecystectomy - [facility] ALCOHOL DETOXIFICATION (09/09/13) CENTRAL VENOUS CATHETER PLACEMENT WITH GUIDANCE (11/27/13) DETOXIFICATION SERVICES FOR SUBSTANCE ABUSE TREATMENT (05/05/17) GROUP PARTY PLAN SALES DIRECTOR FOR SUBSTANCE ABUSE TREATMENT, PSYCHOEDUCATION (05/05/17) GROUP PARTY PLAN SALES DIRECTOR FOR SUBSTANCE ABUSE, COGNITIVE BEHAVIORAL (05/05/17) GROUP PSYCHOTHERAPY (06/02/15) INDIV PSYCHOTHERAPY FOR SUBSTANCE ABUSE TREATMENT, SUPPORT (05/05/17) INDIV PSYCHOTHERAPY FOR SUBSTANCE ABUSE, COGNITIV BEHAVIORAL (05/05/17) INDIV PSYCHOTHERAPY FOR SUBSTANCE ABUSE, PSYCHOEDUCATION (05/05/17) INFLUENZA VACCINATION (07/14/14) INJECT/INFUSE NEC (03/20/13) INSERTION OF TOTALLY IMPLANTABLE VASC ACCESS DEVIC (04/10/14) NONEXCIS DEBRID OF WOUND, INFECT, OR BURN (04/10/14) REMOV THERAPEUT DEV NEC (11/27/13) VACCINATION NEC (07/14/14) Family History: States: Unknown Family Hx - Social History Hx Tobacco Use: No Hx Alcohol Use: Yes Hx Substance Use: Yes - Immunization History Hx Tetanus Toxoid Vaccination: No Hx Influenza Vaccination: Yes (2017) Hx Pneumococcal Vaccination: No Review Of Systems Constitutional: Negative for: Fever, Chills Cardiovascular: Positive for: Palpitations. Negative for: Chest Pain Gastrointestinal: Negative for: Nausea, Vomiting Musculoskeletal: Positive for: Other (Bilateral lower extremities pain and swelling ) Skin: Negative for: Rash Neurological: Negative for: Weakness, Numbness, Headache Physical Exam - Physical Exam Appears: Non-toxic, No Acute Distress, Other (Cooperative ) Skin: Warm, Other (Significant Erythema, glossy, tight, edematous skin to bilateral lower extremities. Non-pitting. Tender to touch. ) Head: Atraumatic Eye(s): bilateral: Normal Inspection, PERRL, EOMI Oral Mucosa: Moist Neck: Normal ROM, Supple Chest: Symmetrical, No Tenderness Cardiovascular: Rhythm Regular, No Murmur Respiratory: Normal Breath Sounds, No Rales, No Rhonchi, No Wheezing Gastrointestinal/Abdominal: Bowel Sounds (Active ), Soft, No Tenderness, Other (Obese ) Extremity: Tenderness (To touch ) Pulses: Left Radial: Normal, Right Radial: Normal Neurological/Psych: Oriented x3 (Awake and Alert ), Normal Speech ED Course And Treatment - Laboratory Results Result Diagrams: 03/12/18 09:13 03/12/18 09:13 O2 Sat by Pulse Oximetry: 98 (RA) Pulse Ox Interpretation: Normal Medical Decision Making Medical Decision Making: Plan: * Blood Gas * EKG * Blood work * CXR * Blood Culture * Urinalysis Disposition Discussed With : Rayo Barcenas Doctor Will See Patient In The: Hospital Counseled Patient/Family Regarding: Studies Performed, Diagnosis - Disposition Disposition: HOSPITALIZED Disposition Time: 14:09 Condition: GUARDED Forms: [facility] (Liberian) - POA Present On Arrival: None - Clinical Impression Clinical Impression: Cellulitis of lower extremity - Scribe Statement The provider has reviewed the documentation as recorded by the Nuris Cortez All medical record entries made by the Scribe were at my direction and personally dictated by me. I have reviewed the chart and agree that the record accurately reflects my personal performance of the history, physical exam, medical decision making, and the department course for this patient. I have also personally directed, reviewed, and agree with the discharge instructions and disposition. Decision To Admit - Pt Status Changed To: Hospital Disposition Of: Inpatient - Admit Certification Admit to Inpatient:: After my assessment, the patient will require hospitalization for at least two midnights. This is because of the severity of symptoms shown, intensity of services needed, and/or the medical risk in this patient being treated as an outpatient. - InPatient: Physician Admission Certification: I certify that this patient requires 2 or more midnights of care for the following reason:: may need group home placement - . Bed Request Type: Regular Admitting Physician: Rayo Barcenas Patient Diagnosis: Cellulitis of lower extremity
[2018-03-12 09:22] LABS: BASO # 0.1 K/uL (0.0-0.2); BASO % 0.5 % (0.0-2.0); EOS # 0.1 K/uL (0.0-0.7); EOS % 0.5 % (0.0-4.0); HEMOGLOBIN 13.5 g/dL (12.0-18.0); LYMPH # 0.7 K/uL (1.0-4.3); LYMPH % 6.1 % (20.0-40.0); MEAN CELL VOLUME 87.7 fL (80.0-94.0); MEAN CORPUSCULAR HEMOGLOBIN 29.3 pg (27.0-31.0); MEAN CORPUSCULAR HGB CONC 33.4 g/dL (33.0-37.0); MEAN PLATELET VOLUME 7.5 fL (7.2-11.7); MONO # 0.9 K/uL (0.0-0.8); MONO % 8.3 % (0.0-10.0); NEUT # 9.1 K/uL (1.8-7.0); NEUT % 84.6 % (50.0-75.0); PLATELET COUNT 193 K/uL (130-400); RBC 4.59 Mil/uL (4.40-5.90); WHITE BLOOD COUNT 10.8 K/uL (4.8-10.8)
[2018-03-12 09:22] LABS: VENOUS BLOOD GAS PCO2 45 mmHg (40-60); VENOUS BLOOD GAS PO2 40 mm/Hg (30-55); VENOUS BLOOD PH 7.38 (7.32-7.43)
[2018-03-12 09:34] LABS: ALB/GLOB RATIO 1.4 (1.0-2.1); ALBUMIN 4.1 g/dL (3.5-5.0); ALT/SGPT 31 U/L (21-72); AST/SGOT 30 U/L (17-59); BLOOD UREA NITROGEN 7 mg/dL (9-20); CALCIUM 8.7 mg/dl (8.6-10.4); GFR NON-AFRICAN AMERICAN > 60
[2018-03-12 09:45] LABS: B-TYPE NATRIURETIC PEPTIDE 49.8 pg/mL (0-900)
[2018-03-12 11:14] LABS: LYMPHOCYTE 4 % (20-40); MONOCYTE 9 % (0-10); NEUTROPHIL 87 % (50-75); TOTAL CELLS COUNTED 100
[2018-03-12 11:15] LABS: PLATELET ESTIMATE NORMAL (NORMAL)
[2018-03-12 11:16] LABS: SQUAMOUS EPITHIAL 1 /hpf (0-5); URINE BILIRUBIN NEGATIVE (NEGATIVE); URINE BLOOD NEGATIVE (NEGATIVE); URINE CLARITY Clear (Clear); URINE COLOR Yellow (YELLOW); URINE GLUCOSE (UA) NORMAL (Normal); URINE LEUKOCYTE ESTERASE NEG Leu/uL (Negative); URINE PROTEIN 1+ mg/dL (NEGATIVE)
[2018-03-12 11:34] LABS: BARBITURATES, UR NEGATIVE (NEGATIVE); BENZODIAZEPINES, UR NEGATIVE (NEGATIVE); OPIATES, UR NEGATIVE (NEGATIVE); PHENCYCLIDINE, UR NEGATIVE (NEGATIVE)
[2018-03-12] MEDS ORDERED: Clindamycin 300 MG in Sodium Chloride 0.9% 50 ML IVPB STA (14:08)
[2018-03-12] MEDS ORDERED: Folic Acid 1 MG, Thiamine 100 MG, Multivitamin (MVI) 10 ML in Dextrose 5% In Water 1,00... IV SCH (17:00)
--- NOTE | 2018-03-12 17:08 | CP.PCM.HP ---
History of Present Illness - History of Present Illness History of Present Illness: Junior Tran PGY-1, H&P for Dr. Arreguin CC: leg swelling and pain This is a 62 year old male with PMH of 62 year old male PMH of homelessness, lower extremity cellulitis, HTN, DM, AFib (no AC), hx of DVT, diastolic CHF, hypercholesterolemia, etoh abuse with seizures in the past, gastritis who presents with lower extremity swelling, redness and pain for the past 1.5 weeks. Pt denies fever, chills, chest pain, sob, abdominal pain, n/v/d, hematochezia, melena, numbness or tingling, recent travel, falls. Pt's last drink was this morning. PMD: [facility]: Dr. Masters PMH:homelessness, lower extremity cellulitis, HTN, DM, AFib (no AC), hx of DVT, diastolic CHF, hypercholesterolemia, etoh abuse with seizures in the past, gastritis PSH: cholecystectomy, right leg and hip fracture repair Meds: not taking any medications for any of his medications Allx: PCN (rash) Social hx: (+) etoh, sober for 6 m but started drinking about 1 week ago; drinks whatever he can get his hands on (beer, vodka, wine). Denies tobacco use. Uses marijuana. Has been in [facility] in the past. Present on Admission - Present on Admission Any Indicators Present on Admission: Yes History of DVT/PE: Yes Review of Systems - Review of Systems All systems: reviewed and no additional remarkable complaints except (as per HPI) Past Patient History - Infectious Disease Hx of Infectious Diseases: None - Tetanus Immunizations Tetanus Immunization: Unknown - Past Medical History & Family History Past Medical History?: Yes - Past Social History Smoking Status: Never Smoked - CARDIAC Hx Atrial Fibrillation: Yes Hx Hypercholesterolemia: Yes Hx Hypertension: Yes (NOT ON MED. NOTED ON MED.REC. AND MD'S NOTES) Hx Peripheral Edema: Yes (chronic) - PULMONARY Hx Respiratory Disorders: No Hx Tuberculosis: No - NEUROLOGICAL Hx Seizures: Yes (alcohol induced) - HEENT Hx HEENT Problems: Yes Hx Cataracts: Yes (Rt. and Lt. cataract sx) - RENAL Hx Chronic Kidney Disease: No - ENDOCRINE/METABOLIC Other/Comment: HX:SPOT ON PANCREAS - INTEGUMENTARY Other/Comment: Venous stasis bilateral legs. HX: CELLULITIS LEFT LOWER LIMB. HX: CELLULITIS RIGHT LOWER LIMB - MUSCULOSKELETAL/RHEUMATOLOGICAL Hx Arthritis: Yes (back, l hip) Hx Fractures: Yes (neck, back Rt. leg fx in 5 places) - GASTROINTESTINAL Hx Pancreatitis: Yes - PSYCHIATRIC Hx Anxiety: Yes Hx Depression: Yes Hx Substance Use: Yes - SURGICAL HISTORY Hx Cholecystectomy: Yes - ANESTHESIA Hx Anesthesia: Yes Hx Anesthesia Reactions: No Hx Malignant Hyperthermia: No Meds Allergies/Adverse Reactions: Allergies Allergy/AdvReac Type Severity Reaction Status Date / Time Penicillins Allergy Severe RASH Verified 08/26/17 08:22 Physical Exam - Constitutional Appears: Non-toxic, No Acute Distress - Head Exam Head Exam: ATRAUMATIC, NORMAL INSPECTION - Eye Exam Eye Exam: EOMI, PERRL Additional comments: (+) bilateral cataracts - Neck Exam Neck exam: Positive for: Normal Inspection - Respiratory Exam Respiratory Exam: NORMAL BREATHING PATTERN. absent: Accessory Muscle Use, Rales, Rhonchi, Wheezes, Respiratory Distress - Cardiovascular Exam Cardiovascular Exam: Tachycardia, +S1, +S2 - GI/Abdominal Exam GI & Abdominal Exam: Distended (with visible veins), Hernia (scrotal hernia), Normal Bowel Sounds, Soft. absent: Firm, Guarding, Rebound, Rigid, Tenderness - Extremities Exam Extremities exam: Positive for: normal capillary refill, pedal edema. Negative for: calf tenderness Additional comments: (+) chronic venous stasis changes unable to evaluate pulses due to swelling, good capillary refill, sensation and strength intact - Back Exam Back exam: NORMAL INSPECTION - Neurological Exam Neurological exam: Alert, CN II-XII Intact, Oriented x3 - Psychiatric Exam Psychiatric exam: Normal Affect, Normal Mood - Skin Skin Exam: Dry, Normal Color, Warm Additional comments: (+) bilateral chronic venous stasis changes, with redness, swelling, and TTP Results - Vital Signs Recent Vital Signs: Last Vital Signs Temp 98 F 03/12/18 15:41 Pulse 99 H 03/12/18 15:41 Resp 18 03/12/18 15:41 BP 127/74 03/12/18 15:41 Pulse Ox 98 03/12/18 15:41 - Labs Result Diagrams: 03/12/18 09:13 03/12/18 09:13 Labs: Laboratory Results - last 24 hr 03/12/18 03/12/18 03/12/18 09:13 09:13 09:18 WBC 10.8 D RBC 4.59 Hgb 13.5 Hct 40.3 MCV 87.7 MCH 29.3 MCHC 33.4 RDW 14.0 Plt Count 193 D MPV 7.5 Neut % (Auto) 84.6 H Lymph % (Auto) 6.1 L [place] % (Auto) 8.3 Eos % (Auto) 0.5 Baso % (Auto) 0.5 Neut # (Auto) 9.1 H Lymph # (Auto) 0.7 L [place] # (Auto) 0.9 H Eos # (Auto) 0.1 Baso # (Auto) 0.1 Neutrophils % (Manual) 87 H Lymphocytes % (Manual) 4 L Monocytes % (Manual) 9 Platelet Estimate Normal RBC Morphology Normal pO2 40 VBG pH 7.38 VBG pCO2 45 VBG HCO3 25.1 VBG Total CO2 28.0 VBG O2 Sat (Calc) 79.4 H VBG Base Excess 1.0 VBG Potassium 3.6 Glucose 124 H Lactate 0.9 Sodium 134 135.0 Potassium 3.8 Chloride 100 102.0 Carbon Dioxide 26 Anion Gap 12 BUN 7 L Creatinine 0.4 L Est GFR ( Amer) > 60 Est GFR (Non-Af Amer) > 60 Random Glucose 125 H Calcium 8.7 Total Bilirubin 1.5 H AST 30 ALT 31 Alkaline Phosphatase 170 H D Troponin I 0.0130 NT-Pro-B Natriuret Pep 49.8 Total Protein 7.1 Albumin 4.1 Globulin 2.9 Albumin/Globulin Ratio 1.4 Venous Blood Potassium 3.6 Urine Color Urine Clarity Urine pH Ur Specific [place] Urine Protein Urine Glucose (UA) Urine Ketones Urine Blood Urine Nitrate Urine Bilirubin Urine Urobilinogen Ur Leukocyte Esterase Urine WBC (Auto) Urine RBC (Auto) Ur Squamous Epith Cells Urine Opiates Screen Urine Methadone Screen Ur Barbiturates Screen Ur Phencyclidine Scrn Ur Amphetamines Screen U Benzodiazepines Scrn U Oth Cocaine Metabols U Cannabinoids Screen Alcohol, Quantitative 03/12/18 03/12/18 03/12/18 10:15 11:03 11:03 WBC RBC Hgb Hct MCV MCH MCHC RDW Plt Count MPV Neut % (Auto) Lymph % (Auto) [place] % (Auto) Eos % (Auto) Baso % (Auto) Neut # (Auto) Lymph # (Auto) [place] # (Auto) Eos # (Auto) Baso # (Auto) Neutrophils % (Manual) Lymphocytes % (Manual) Monocytes % (Manual) Platelet Estimate RBC Morphology pO2 VBG pH VBG pCO2 VBG HCO3 VBG Total CO2 VBG O2 Sat (Calc) VBG Base Excess VBG Potassium Glucose Lactate Sodium Potassium Chloride Carbon Dioxide Anion Gap BUN Creatinine Est GFR ( Amer) Est GFR (Non-Af Amer) Random Glucose Calcium Total Bilirubin AST ALT Alkaline Phosphatase Troponin I NT-Pro-B Natriuret Pep Total Protein Albumin Globulin Albumin/Globulin Ratio Venous Blood Potassium Urine Color Yellow Urine Clarity Clear Urine pH 6.0 Ur Specific [place] 1.015 Urine Protein 1+ H Urine Glucose (UA) Normal Urine Ketones 1+ H Urine Blood Negative Urine Nitrate Negative Urine Bilirubin Negative Urine Urobilinogen 2.0 Ur Leukocyte Esterase Neg Urine WBC (Auto) 5 Urine RBC (Auto) 1 Ur Squamous Epith Cells 1 Urine Opiates Screen Negative Urine Methadone Screen Negative Ur Barbiturates Screen Negative Ur Phencyclidine Scrn Negative Ur Amphetamines Screen Negative U Benzodiazepines Scrn Negative U Oth Cocaine Metabols Negative U Cannabinoids Screen Positive H Alcohol, Quantitative < 10 Assessment & Plan - Assessment and Plan (Free Text) Assessment: 62 year old male PMH of homelessness, lower extremity cellulitis, HTN, DM, AFib (not on AC), hx of DVT, diastolic CHF, hypercholesterolemia, etoh abuse who presents with lower extremity swelling, redness and pain for the past 1.5 weeks. Plan: Cellulitis Podiatry consulted, Dr. Masters. Pt is known to his service. Outline rubor and monitor Allergic to PCN (hives) Clindamycin 300 mg IVPB Q8H Florastor 250 mg PO BID If weeping will take wound culture Tylenol 650 mg PO Q6H PRN fever>100.4 Baseline: blood cultures x2, UA/UCx, procalcitonin Leg swelling Venous doppler r/o DVT Echo reason: hx of diastolic heart failure Abd US to evaluate for cirrhosis; hx of heavy alcohol use If DVT ruled out, then SCDs bilaterally Alcohol abuse CIWA Ativan 1 mg IVP Q6H PRN seizure activity Banana Bag IV x1 Folic acid 1 mg PO daily Multivitamins 1 tab PO daily Thiamine 100 mg PO daily Ambulatory dysfunction PT/OT evaluation [facility] evaluation Hernia Genral surgery evaluation; optimization Cardiology, Dr. Bee service, consulted for cardiac clearance Diastolic CHF Intake and Output monitoring Fluid restriction (1500 mL) pro BNP is WNL f/u echocardiogram Cardiology consulted Hx of atrial fibrillation CHADSVASC score of 3 HASBLED; alcohol and HTN f/u echo Chemical anticoagulation CI secondary to frequent falls Diabetes Controlled f/u HgbA1c, Lipid panel Will start Lisinopril 2.5 mg PO daily Lipid disorder f/u lipid panel in am Hx of seizures Secondary to alcohol inatke Ativan 1 mg IVP Q6H PRN seizure Aspiration precautions Seizure precautions Hx of DVT Venous doppler r/o current DVT PT/OT eval EKG, CXR, INR for possible hernia surgery Hx of gastritis Hold ASA secondary to alcohol use Has had endoscopy; available on EMR to confirm PPX VTE: Heparin 5000 units SC q8h, SCDs pending DVT evaluation GI: PTX 20 mg PO daily Case discussed with Dr. Rodríguez Tran, PGY-1
[2018-03-12] MEDS ORDERED: Glucagon Recombinant 1 mg Inj IM PRN (17:28)
[2018-03-12] MEDS ORDERED: Dextrose 50% SYRINGE Inj (50 ml) IV PRN (17:28)
--- NOTE | 2018-03-12 18:04 | RAD ---
Date of service: 03/12/2018 HISTORY: Sepsis Patient COMPARISON: 05/05/2017 FINDINGS: LUNGS: No active pulmonary disease. PLEURA: No significant pleural effusion identified, no pneumothorax apparent. CARDIOVASCULAR: No aortic atherosclerotic calcification present. Normal cardiac size. No congestive change. Right central venous infusion port. Cervical fixation hardware noted. OSSEOUS STRUCTURES: No significant abnormalities. VISUALIZED UPPER ABDOMEN: Normal. OTHER FINDINGS: None. IMPRESSION: No active disease.
--- NOTE | 2018-03-12 18:43 | CP.PCM.CON ---
History of Present Illness - History of Present Illness History of Present Illness: Surgery consult note for Dr. 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 requested work up for chronic left inguinal hernia repair so general surgery was consulted. Pt states he has had the hernia extending into this scrotum for 3 years, that it is mildly tender to touch but not painful, always reducible, but makes it difficult to urinate without dribbling it on himself. Patient denies any nausea vomiting, constipation, has a non-bloody BM daily, and is passing gas. Denies any abdominal pain, fevers, chills. PMH: HTN, HLD, DM, afib, DVT, alcoholic hepatitis, pancreatitis, seizures, anxiety, arthritis, BL lower leg edema, diastolic CHF PSH: orthopedic surgery right hip, tibia, fibula, back and neck. cholecystectomy ALL: PCN Social: denies tobacco, admits to daily ETOH, smokes marijuana Review of Systems - Review of Systems All systems: reviewed and no additional remarkable complaints except (as per HPI) Past Patient History - Infectious Disease Hx of Infectious Diseases: None - Tetanus Immunizations Tetanus Immunization: Unknown - Past Medical History & Family History Past Medical History?: Yes Past Family History: Reviewed and not pertinent - Past Social History Smoking Status: Never Smoked Alcohol: > 2 Drinks/Day Drugs: Cannabis Home Situation {Lives}: Homeless - CARDIAC Hx Atrial Fibrillation: Yes Hx Hypercholesterolemia: Yes Hx Hypertension: Yes (NOT ON MED. NOTED ON MED.REC. AND MD'S NOTES) Hx Peripheral Edema: Yes (chronic) - PULMONARY Hx Respiratory Disorders: No Hx Tuberculosis: No - NEUROLOGICAL Hx Seizures: Yes (alcohol induced) - HEENT Hx HEENT Problems: Yes Hx Cataracts: Yes (Rt. and Lt. cataract sx) - RENAL Hx Chronic Kidney Disease: No - ENDOCRINE/METABOLIC Other/Comment: HX:SPOT ON PANCREAS - INTEGUMENTARY Other/Comment: Venous stasis bilateral legs. HX: CELLULITIS LEFT LOWER LIMB. HX: CELLULITIS RIGHT LOWER LIMB - MUSCULOSKELETAL/RHEUMATOLOGICAL Hx Arthritis: Yes (back, l hip) Hx Fractures: Yes (neck, back Rt. leg fx in 5 places) - GASTROINTESTINAL Hx Pancreatitis: Yes - PSYCHIATRIC Hx Anxiety: Yes Hx Depression: Yes Hx Substance Use: Yes - SURGICAL HISTORY Hx Cholecystectomy: Yes - ANESTHESIA Hx Anesthesia: Yes Hx Anesthesia Reactions: No Hx Malignant Hyperthermia: No Meds Allergies/Adverse Reactions: Allergies Allergy/AdvReac Type Severity Reaction Status Date / Time Penicillins Allergy Severe RASH Verified 08/26/17 08:22 - Medications Medications: Current Medications Chlordiazepoxide (Librium) 25 mg PO Q6 MALIK; Taper Stop: 03/16/18 17:59 Dextrose (Dextrose 50% Inj) 0 ml IV STAT PRN; Protocol PRN Reason: Hypoglycemia Protocol Dextrose (Glutose 15) 0 gm PO ONCE PRN; Protocol PRN Reason: Hypoglycemia Protocol Glucagon (Glucagen Diagnostic Kit) 0 mg IM STAT PRN; Protocol PRN Reason: Hypoglycemia Protocol Heparin Sodium (Porcine) (Heparin) 5,000 units SC Q8 MALIK Folic Acid 1 mg/ Thiamine HCl 100 mg/ Multivitamins/Vitamin C 10 ml/ Dextrose 1,011.2 mls @ 75 mls/hr IV .[id number] MALIK Stop: 03/13/18 06:28 Dextrose (Dextrose 5% In Water 1000 Ml) 1,000 mls @ 0 mls/hr IV .Q0M PRN; Protocol PRN Reason: Hypoglycemia Protocol Insulin Human Regular (Novolin R) 0 unit SC ACHS MALIK; Protocol Physical Exam - Constitutional Appears: Non-toxic, No Acute Distress, Unkempt - Head Exam Head Exam: ATRAUMATIC, NORMOCEPHALIC - Eye Exam Eye Exam: absent: Conjunctival injection, Scleral icterus - ENT Exam ENT Exam: Mucous Membranes Moist, Normal Oropharynx - Respiratory Exam Respiratory Exam: NORMAL BREATHING PATTERN. absent: Accessory Muscle Use, Respiratory Distress - Cardiovascular Exam Cardiovascular Exam: RRR - GI/Abdominal Exam GI & Abdominal Exam: Distended, Soft. absent: Tenderness - Exam Additional comments: left inguinal hernia containing bowel contents extending into the scrotum, soft, non-tender, reducible, with no overlying erythema - Extremities Exam Extremities exam: Positive for: pedal edema, pedal pulses present Additional comments: BL lower legs with 2+ pitting edema, superficial skin break down over the shins, BL erythema - Neurological Exam Neurological exam: Alert, Oriented x3 - Psychiatric Exam Psychiatric exam: Normal Affect, Normal Mood - Skin Skin Exam: Dry, Normal Color, Warm Results - Vital Signs Recent Vital Signs: Last Vital Signs Temp 98 F 03/12/18 15:41 Pulse 99 H 03/12/18 15:41 Resp 18 03/12/18 15:41 BP 127/74 03/12/18 15:41 Pulse Ox 98 03/12/18 15:41 - Labs Result Diagrams: 03/12/18 09:13 03/12/18 09:13 Labs: Laboratory Results - last 24 hr 03/12/18 03/12/18 03/12/18 09:13 09:13 09:18 WBC 10.8 D RBC 4.59 Hgb 13.5 Hct 40.3 MCV 87.7 MCH 29.3 MCHC 33.4 RDW 14.0 Plt Count 193 D MPV 7.5 Neut % (Auto) 84.6 H Lymph % (Auto) 6.1 L [place] % (Auto) 8.3 Eos % (Auto) 0.5 Baso % (Auto) 0.5 Neut # (Auto) 9.1 H Lymph # (Auto) 0.7 L [place] # (Auto) 0.9 H Eos # (Auto) 0.1 Baso # (Auto) 0.1 Neutrophils % (Manual) 87 H Lymphocytes % (Manual) 4 L Monocytes % (Manual) 9 Platelet Estimate Normal RBC Morphology Normal pO2 40 VBG pH 7.38 VBG pCO2 45 VBG HCO3 25.1 VBG Total CO2 28.0 VBG O2 Sat (Calc) 79.4 H VBG Base Excess 1.0 VBG Potassium 3.6 Glucose 124 H Lactate 0.9 Sodium 134 135.0 Potassium 3.8 Chloride 100 102.0 Carbon Dioxide 26 Anion Gap 12 BUN 7 L Creatinine 0.4 L Est GFR ( Amer) > 60 Est GFR (Non-Af Amer) > 60 Random Glucose 125 H Calcium 8.7 Total Bilirubin 1.5 H AST 30 ALT 31 Alkaline Phosphatase 170 H D Troponin I 0.0130 NT-Pro-B Natriuret Pep 49.8 Total Protein 7.1 Albumin 4.1 Globulin 2.9 Albumin/Globulin Ratio 1.4 Venous Blood Potassium 3.6 Urine Color Urine Clarity Urine pH Ur Specific [place] Urine Protein Urine Glucose (UA) Urine Ketones Urine Blood Urine Nitrate Urine Bilirubin Urine Urobilinogen Ur Leukocyte Esterase Urine WBC (Auto) Urine RBC (Auto) Ur Squamous Epith Cells Urine Opiates Screen Urine Methadone Screen Ur Barbiturates Screen Ur Phencyclidine Scrn Ur Amphetamines Screen U Benzodiazepines Scrn U Oth Cocaine Metabols U Cannabinoids Screen Alcohol, Quantitative 03/12/18 03/12/18 03/12/18 10:15 11:03 11:03 WBC RBC Hgb Hct MCV MCH MCHC RDW Plt Count MPV Neut % (Auto) Lymph % (Auto) [place] % (Auto) Eos % (Auto) Baso % (Auto) Neut # (Auto) Lymph # (Auto) [place] # (Auto) Eos # (Auto) Baso # (Auto) Neutrophils % (Manual) Lymphocytes % (Manual) Monocytes % (Manual) Platelet Estimate RBC Morphology pO2 VBG pH VBG pCO2 VBG HCO3 VBG Total CO2 VBG O2 Sat (Calc) VBG Base Excess VBG Potassium Glucose Lactate Sodium Potassium Chloride Carbon Dioxide Anion Gap BUN Creatinine Est GFR ( Amer) Est GFR (Non-Af Amer) Random Glucose Calcium Total Bilirubin AST ALT Alkaline Phosphatase Troponin I NT-Pro-B Natriuret Pep Total Protein Albumin Globulin Albumin/Globulin Ratio Venous Blood Potassium Urine Color Yellow Urine Clarity Clear Urine pH 6.0 Ur Specific [place] 1.015 Urine Protein 1+ H Urine Glucose (UA) Normal Urine Ketones 1+ H Urine Blood Negative Urine Nitrate Negative Urine Bilirubin Negative Urine Urobilinogen 2.0 Ur Leukocyte Esterase Neg Urine WBC (Auto) 5 Urine RBC (Auto) 1 Ur Squamous Epith Cells 1 Urine Opiates Screen Negative Urine Methadone Screen Negative Ur Barbiturates Screen Negative Ur Phencyclidine Scrn Negative Ur Amphetamines Screen Negative U Benzodiazepines Scrn Negative U Oth Cocaine Metabols Negative U Cannabinoids Screen Positive H Alcohol, Quantitative < 10 Assessment & Plan - Assessment and Plan (Free Text) Assessment: 62M with left reducible large inguinal hernia Plan: Plan for OR sometime this admission for left inguinal hernia repair Medical optimization per primary prior to OR. Patient should agree to quit drinking after surgery to prevent recurrence--discussed with patient who is willing PT Further surgical planning pending clinical course Discussed with Dr. Youngblood, who agrees with above Tennille Whelan, PGY2
[2018-03-12 21:44] LABS: VENOUS BLOOD GAS BASE EXCESS -6.2 mmol/L (0.0-2.0); VENOUS BLOOD GAS PCO2 31 mmHg (40-60); VENOUS BLOOD GAS PO2 68 mm/Hg (30-55); VENOUS BLOOD PH 7.37 (7.32-7.43)
[2018-03-12] MEDS: (Novolin R) Insulin Human Regular 100 units/ml vial SC SCH (21:52)
[2018-03-12 21:57] LABS: B-TYPE NATRIURETIC PEPTIDE 98.2 pg/mL (0-900)
[2018-03-13 05:58] LABS: BASO % 0.4 % (0.0-2.0); EOS # 0.2 K/uL (0.0-0.7); EOS % 3.1 % (0.0-4.0); HEMOGLOBIN 13.1 g/dL (12.0-18.0); LYMPH # 1.3 K/uL (1.0-4.3); MEAN CELL VOLUME 88.1 fL (80.0-94.0); MEAN CORPUSCULAR HEMOGLOBIN 29.4 pg (27.0-31.0); MEAN CORPUSCULAR HGB CONC 33.4 g/dL (33.0-37.0); MEAN PLATELET VOLUME 7.7 fL (7.2-11.7); MONO # 0.9 K/uL (0.0-0.8); NEUT % 66.5 % (50.0-75.0); NRBC % 0.1 % (0.0-2.0); RBC 4.45 Mil/uL (4.40-5.90); RED CELL DISTRIBUTION WIDTH 14.4 % (11.5-14.5); WHITE BLOOD COUNT 7.5 K/uL (4.8-10.8)
[2018-03-13 06:00] LABS: ALB/GLOB RATIO 1.3 (1.0-2.1); ALBUMIN 3.5 g/dL (3.5-5.0); ALT/SGPT 25 U/L (21-72); AST/SGOT 29 U/L (17-59); BLOOD UREA NITROGEN 6 mg/dL (9-20); CALCIUM 8.1 mg/dl (8.6-10.4); GFR NON-AFRICAN AMERICAN > 60; HDL CHOLESTEROL 56 mg/dL (30-70)
[2018-03-13 06:11] LABS: LDL CHOLESTEROL 58 mg/dL (0-129)
[2018-03-13 07:43] LABS: INR 1.2; PROTHROMBIN TIME 13.2 SECONDS (9.7-12.2)
[2018-03-13 07:46] VITALS: RESP 20
[2018-03-13] MEDS: (Novolin R) Insulin Human Regular 100 units/ml vial SC SCH ×4 (07:54→23:00)
[2018-03-13] MEDS ORDERED: (Novolin R) Insulin Human Regular 100 units/ml vial ONE (08:02)
[2018-03-13] MEDS: Multiple Vitamins Tab PO SCH (10:36)
[2018-03-13] MEDS: Pantoprazole 20 mg EC Tab PO SCH (10:37)
[2018-03-13] MEDS: Saccharomyces Boulardi 250 mg Cap PO SCH ×2 (10:37→18:07)
--- NOTE | 2018-03-13 11:07 | CP.PCM.PN ---
Subjective - Date & Time of Evaluation Date of Evaluation: 03/13/18 Time of Evaluation: 11:03 - Subjective Subjective: General Surgery Progress Note for Dr. Youngblood This 62M was seen and examined this AM at bedside. No acute events overnight. He reports his is passing gas and moving his bowels. He reports problems with urination. He denies any fevers chills chest pain SOB. Objective - Vital Signs/Intake and Output Vital Signs (last 24 hours): Temp Pulse Resp BP Pulse Ox 98.4 F 89 20 126/60 98 03/13/18 07:45 03/13/18 07:45 03/13/18 07:45 03/13/18 07:45 03/13/18 07:45 - Medications Medications: Current Medications Acetaminophen (Tylenol 325mg Tab) 650 mg PO Q6 PRN PRN Reason: Fever >100.4 F Dextrose (Dextrose 50% Inj) 0 ml IV STAT PRN; Protocol PRN Reason: Hypoglycemia Protocol Dextrose (Glutose 15) 0 gm PO ONCE PRN; Protocol PRN Reason: Hypoglycemia Protocol Folic Acid (Folic Acid) 1 mg PO DAILY [facility] Last Admin: 03/13/18 10:36 Dose: 1 mg Glucagon (Glucagen Diagnostic Kit) 0 mg IM STAT PRN; Protocol PRN Reason: Hypoglycemia Protocol Heparin Sodium (Porcine) (Heparin) 5,000 units SC Q8 [facility] Last Admin: 03/13/18 06:07 Dose: 5,000 units Dextrose (Dextrose 5% In Water 1000 Ml) 1,000 mls @ 0 mls/hr IV .Q0M PRN; Protocol PRN Reason: Hypoglycemia Protocol Clindamycin Phosphate 300 mg/ (Dextrose) 52 mls @ 100 mls/hr IVPB Q8H MALIK; Protocol Last Admin: 03/13/18 06:07 Dose: 100 mls/hr Insulin Human Regular (Novolin R) 0 unit SC ACHS MALIK; Protocol Last Admin: 03/13/18 07:54 Dose: 1 unit Lisinopril (Zestril) 2.5 mg PO DAILY MALIK Lorazepam (Ativan) 1 mg IVP Q6H PRN PRN Reason: Seizure activity Multivitamins (Hexavitamin) 1 tab PO DAILY [facility] Last Admin: 03/13/18 10:36 Dose: 1 tab Pantoprazole Sodium (Protonix Ec Tab) 20 mg PO DAILY [facility] Last Admin: 03/13/18 10:37 Dose: 20 mg Saccharomyces Boulardii (Florastor) 250 mg PO BID MALIK Last Admin: 03/13/18 10:37 Dose: 250 mg Thiamine HCl (Vitamin B1 Tab) 100 mg PO DAILY MALIK Last Admin: 03/13/18 10:36 Dose: 100 mg - Labs Labs: 03/13/18 05:34 03/13/18 05:34 PT 13.2 SECONDS (9.7-12.2) H 03/13/18 07:26 INR 1.2 03/13/18 07:26 APTT 33 SECONDS (21-34) 03/13/18 07:26 - Constitutional Appears: Non-toxic, No Acute Distress, Unkempt - Head Exam Head Exam: ATRAUMATIC, NORMOCEPHALIC - Eye Exam Eye Exam: absent: Conjunctival injection, Scleral icterus - ENT Exam ENT Exam: Mucous Membranes Moist, Normal Oropharynx - Respiratory Exam Respiratory Exam: NORMAL BREATHING PATTERN. absent: Accessory Muscle Use, Respiratory Distress - Cardiovascular Exam Cardiovascular Exam: RRR - GI/Abdominal Exam GI & Abdominal Exam: Distended, Soft. absent: Tenderness - Exam Additional comments: bilateral reducible inguinal hernia in the scrotum, soft, tender, reducible, with no overlying erythema - Extremities Exam Extremities exam: Positive for: pedal edema, pedal pulses present Additional comments: BL lower legs with 2+ pitting edema, superficial skin break down over the shins, BL erythema - Neurological Exam Neurological exam: Alert, Oriented x3 - Psychiatric Exam Psychiatric exam: Normal Affect, Normal Mood - Skin Skin Exam: Dry, Normal Color, Warm Assessment and Plan - Assessment and Plan (Free Text) Assessment: 62M with bilateral lower extremity cellulitis Continue medical management of cellulitis and ETOH dependence When medically optimized will plan for operative reduction and repair of his hernia defects Further recs per Dr. Ford Madrigal PGY3
[2018-03-13] MEDS ORDERED: Albuterol-Ipratrop 3 mg / 0.5 (3 ml) UD INH PRN (11:11)
--- NOTE | 2018-03-13 11:11 | CP.PCM.PN ---
Subjective - Date & Time of Evaluation Date of Evaluation: 03/13/18 Time of Evaluation: 09:30 - Subjective Subjective: PGY-1 Medicine progress note for Dr. Arreguin Pt was seen and examined at bedside. Pt is resting comfortably and has no acute complaints. No acute events overnight. Pt states that his leg pain and swelling is slightly improving. He denies fever, chills, chest pain, sob, abdominal pain, n/v/d. Objective - Vital Signs/Intake and Output Vital Signs (last 24 hours): Temp Pulse Resp BP Pulse Ox 98.4 F 89 20 126/60 98 03/13/18 07:45 03/13/18 07:45 03/13/18 07:45 03/13/18 07:45 03/13/18 07:45 - Medications Medications: Current Medications Acetaminophen (Tylenol 325mg Tab) 650 mg PO Q6 PRN PRN Reason: Fever >100.4 F Dextrose (Dextrose 50% Inj) 0 ml IV STAT PRN; Protocol PRN Reason: Hypoglycemia Protocol Dextrose (Glutose 15) 0 gm PO ONCE PRN; Protocol PRN Reason: Hypoglycemia Protocol Folic Acid (Folic Acid) 1 mg PO DAILY [facility] Last Admin: 03/13/18 10:36 Dose: 1 mg Glucagon (Glucagen Diagnostic Kit) 0 mg IM STAT PRN; Protocol PRN Reason: Hypoglycemia Protocol Heparin Sodium (Porcine) (Heparin) 5,000 units SC Q8 [facility] Last Admin: 03/13/18 06:07 Dose: 5,000 units Dextrose (Dextrose 5% In Water 1000 Ml) 1,000 mls @ 0 mls/hr IV .Q0M PRN; Protocol PRN Reason: Hypoglycemia Protocol Clindamycin Phosphate 300 mg/ (Dextrose) 52 mls @ 100 mls/hr IVPB Q8H [facility]; Protocol Last Admin: 03/13/18 06:07 Dose: 100 mls/hr Insulin Human Regular (Novolin R) 0 unit SC ACHS [facility]; Protocol Last Admin: 03/13/18 07:54 Dose: 1 unit Lisinopril (Zestril) 2.5 mg PO DAILY [facility] Lorazepam (Ativan) 1 mg IVP Q6H PRN PRN Reason: Seizure activity Multivitamins (Hexavitamin) 1 tab PO DAILY [facility] Last Admin: 03/13/18 10:36 Dose: 1 tab Pantoprazole Sodium (Protonix Ec Tab) 20 mg PO DAILY [facility] Last Admin: 03/13/18 10:37 Dose: 20 mg Saccharomyces Boulardii (Florastor) 250 mg PO BID [facility] Last Admin: 03/13/18 10:37 Dose: 250 mg Thiamine HCl (Vitamin B1 Tab) 100 mg PO DAILY [facility] Last Admin: 03/13/18 10:36 Dose: 100 mg - Labs Labs: 03/13/18 05:34 03/13/18 05:34 PT 13.2 SECONDS (9.7-12.2) H 03/13/18 07:26 INR 1.2 03/13/18 07:26 APTT 33 SECONDS (21-34) 03/13/18 07:26 - Additional Findings Additional findings: - Constitutional Appears: Non-toxic, No Acute Distress - Head Exam Head Exam: ATRAUMATIC, NORMAL INSPECTION - Eye Exam Eye Exam: EOMI, PERRL Additional comments: (+) bilateral cataracts - Neck Exam Neck exam: Positive for: Normal Inspection - Respiratory Exam Respiratory Exam: NORMAL BREATHING PATTERN. absent: Accessory Muscle Use, Rales, Rhonchi, Wheezes, Respiratory Distress - Cardiovascular Exam Cardiovascular Exam: Tachycardia, +S1, +S2 - GI/Abdominal Exam GI & Abdominal Exam: Distended (with visible veins), Hernia (scrotal hernia), Normal Bowel Sounds, Soft. absent: Firm, Guarding, Rebound, Rigid, Tenderness - Extremities Exam Extremities exam: Positive for: normal capillary refill, pedal edema. Negative for: calf tenderness Additional comments: (+) 2+ pitting edema bilateral lower extremitie DP is 2+ bilateral lower extremities good capillary refill, sensation and strength intact - Back Exam Back exam: NORMAL INSPECTION - Neurological Exam Neurological exam: Alert, Awake Oriented x3 - Psychiatric Exam Psychiatric exam: Normal Affect, Normal Mood - Skin Skin Exam: Dry, Normal Color, Warm Additional comments: (+) bilateral chronic venous stasis changes, with redness, swelling, and TTP Assessment and Plan - Assessment and Plan (Free Text) Assessment: 62 year old male PMH of homelessness, lower extremity cellulitis, HTN, DM, AFib (not on AC), hx of DVT, diastolic CHF, hypercholesterolemia, etoh abuse who presents with lower extremity swelling, redness and pain for the past 1.5 weeks. Plan: Cellulitis Podiatry consulted, Dr. Masters. Pt is known to his service. No Leukocytosis, tachycardia, pt afebrile Outline rubor and monitor Improving compared to yesterday Allergic to PCN (hives) Clindamycin 300 mg IVPB Q8H Florastor 250 mg PO BID If weeping will take wound culture Tylenol 650 mg PO Q6H PRN fever>100.4 Urine culture is negative Procalcitonin is less than 0.05 Bacteremia Blood culture x 1 prelim shows gram positive cocci Blood culture x 1 is negative for 24 hours Pt is on Clindamycin IVPB which covers MRSA Echocardiogram is pending Continue to monitor blood cultures Leg swelling f/u Venous doppler r/o DVT Echo reason: hx of diastolic heart failure Abd US shows fatty infiltration of the liver. No evidence of ascites. S/p cholecystectomy If DVT ruled out, then SCDs bilaterally Alcohol abuse CIWA Ativan 1 mg IVP Q6H PRN seizure activity Folic acid 1 mg PO daily Multivitamins 1 tab PO daily Thiamine 100 mg PO daily Ambulatory dysfunction PT/OT evaluation STEVE evaluation Hernia Genral surgery evaluation; optimization Cardiology, Dr. Bee service, consulted for cardiac clearance Diastolic CHF Intake and Output monitoring Fluid restriction (1500 mL) pro BNP is WNL f/u echocardiogram Cardiology consulted, Dr. 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 Rodríguez Tran, PGY-1
--- NOTE | 2018-03-13 11:21 | CP.PCM.CON ---
History of Present Illness - History of Present Illness History of Present Illness: 62 yo male with h/o T2D/HTN/AF, not on anticoagulation/chronic leg edema/Diastolic dsfxn on echo 2016; presents with worsening LE edema and pain. Patient states that walks with walker at baseline, but can walk a long distance without chest pain. Admits to baseline dyspnea and LE edema. Was evaluated at 07/2017, when peripheral angiogram was done without intervention. Admits to non- compliance with medical follow up and meds. Denies palpitations, fever, chills, nausea or vomiting. Review of Systems - Review of Systems Review of Systems: all others are negative except HPI Past Patient History - Infectious Disease Hx of Infectious Diseases: None - Tetanus Immunizations Tetanus Immunization: Unknown - Past Medical History & Family History Past Medical History?: Yes - Past Social History Smoking Status: Never Smoked - CARDIAC Hx Atrial Fibrillation: Yes Hx Hypercholesterolemia: Yes Hx Hypertension: Yes (NOT ON MED. NOTED ON MED.REC. AND MD'S NOTES) Hx Peripheral Edema: Yes (chronic) - PULMONARY Hx Respiratory Disorders: No Hx Tuberculosis: No - NEUROLOGICAL Hx Seizures: Yes (alcohol induced) - HEENT Hx HEENT Problems: Yes Hx Cataracts: Yes (Rt. and Lt. cataract sx) - RENAL Hx Chronic Kidney Disease: No - ENDOCRINE/METABOLIC Other/Comment: HX:SPOT ON PANCREAS - INTEGUMENTARY Other/Comment: Venous stasis bilateral legs. HX: CELLULITIS LEFT LOWER LIMB. HX: CELLULITIS RIGHT LOWER LIMB - MUSCULOSKELETAL/RHEUMATOLOGICAL Hx Arthritis: Yes (back, l hip) Hx Fractures: Yes (neck, back Rt. leg fx in 5 places) - GASTROINTESTINAL Hx Pancreatitis: Yes - PSYCHIATRIC Hx Anxiety: Yes Hx Depression: Yes Hx Substance Use: Yes - SURGICAL HISTORY Hx Cholecystectomy: Yes - ANESTHESIA Hx Anesthesia: Yes Hx Anesthesia Reactions: No Hx Malignant Hyperthermia: No Meds Allergies/Adverse Reactions: Allergies Allergy/AdvReac Type Severity Reaction Status Date / Time Penicillins Allergy Severe RASH Verified 08/26/17 08:22 - Medications Medications: Current Medications Acetaminophen (Tylenol 325mg Tab) 650 mg PO Q6 PRN PRN Reason: Fever >100.4 F Albuterol/Ipratropium (Duoneb 3 Mg/0.5 Mg (3 Ml) Ud) 3 ml INH RQ6 PRN PRN Reason: Wheezing Dextrose (Dextrose 50% Inj) 0 ml IV STAT PRN; Protocol PRN Reason: Hypoglycemia Protocol Dextrose (Glutose 15) 0 gm PO ONCE PRN; Protocol PRN Reason: Hypoglycemia Protocol Folic Acid (Folic Acid) 1 mg PO DAILY [facility] Last Admin: 03/13/18 10:36 Dose: 1 mg Glucagon (Glucagen Diagnostic Kit) 0 mg IM STAT PRN; Protocol PRN Reason: Hypoglycemia Protocol Heparin Sodium (Porcine) (Heparin) 5,000 units SC Q8 [facility] Last Admin: 03/13/18 06:07 Dose: 5,000 units Dextrose (Dextrose 5% In Water 1000 Ml) 1,000 mls @ 0 mls/hr IV .Q0M PRN; Protocol PRN Reason: Hypoglycemia Protocol Clindamycin Phosphate 300 mg/ (Dextrose) 52 mls @ 100 mls/hr IVPB Q8H [facility]; Protocol Last Admin: 03/13/18 06:07 Dose: 100 mls/hr Insulin Human Regular (Novolin R) 0 unit SC ACHS [facility]; Protocol Last Admin: 03/13/18 07:54 Dose: 1 unit Lisinopril (Zestril) 2.5 mg PO DAILY [facility] Lorazepam (Ativan) 1 mg IVP Q6H PRN PRN Reason: Seizure activity Multivitamins (Hexavitamin) 1 tab PO DAILY [facility] Last Admin: 03/13/18 10:36 Dose: 1 tab Pantoprazole Sodium (Protonix Ec Tab) 20 mg PO DAILY [facility] Last Admin: 03/13/18 10:37 Dose: 20 mg Saccharomyces Boulardii (Florastor) 250 mg PO BID [facility] Last Admin: 03/13/18 10:37 Dose: 250 mg Thiamine HCl (Vitamin B1 Tab) 100 mg PO DAILY [facility] Last Admin: 03/13/18 10:36 Dose: 100 mg Physical Exam - Constitutional Appears: No Acute Distress, Unkempt - Head Exam Head Exam: ATRAUMATIC, NORMOCEPHALIC - Eye Exam Eye Exam: EOMI Pupil Exam: PERRL - Neck Exam Neck exam: Positive for: Full Rom. Negative for: Thyromegaly - Respiratory Exam Respiratory Exam: Clear to Auscultation Bilateral, NORMAL BREATHING PATTERN - Cardiovascular Exam Cardiovascular Exam: REGULAR RHYTHM, +S1, +S2. absent: JVD - GI/Abdominal Exam GI & Abdominal Exam: Soft. absent: Bruit, Tenderness - Extremities Exam Extremities exam: Positive for: pedal edema, tenderness Additional comments: b/l LE with desquamation and chronic dermatitis 2+ edema b/l - Neurological Exam Neurological exam: CN II-XII Intact, Oriented x3 - Psychiatric Exam Psychiatric exam: Normal Affect, Normal Mood Results - Vital Signs Recent Vital Signs: Last Vital Signs Temp 98.4 F 03/13/18 07:45 Pulse 89 03/13/18 07:45 Resp 20 03/13/18 07:45 BP 126/60 03/13/18 07:45 Pulse Ox 98 03/13/18 07:45 - Labs Result Diagrams: 03/13/18 05:34 03/13/18 05:34 Labs: Laboratory Results - last 24 hr 03/12/18 03/12/18 03/12/18 11:03 21:15 21:25 WBC RBC Hgb Hct MCV MCH MCHC RDW Plt Count MPV Neut % (Auto) Lymph % (Auto) [place] % (Auto) Eos % (Auto) Baso % (Auto) Neut # (Auto) Lymph # (Auto) [place] # (Auto) Eos # (Auto) Baso # (Auto) PT INR APTT pO2 VBG pH VBG pCO2 VBG HCO3 VBG Total CO2 VBG O2 Sat (Calc) VBG Base Excess VBG Potassium Sodium Chloride Glucose Lactate Crit Value Called To Crit Value Called By Crit Value Read Back Blood Gas Notified Time Potassium Carbon Dioxide Anion Gap BUN Creatinine Est GFR ( Amer) Est GFR (Non-Af Amer) POC Glucose (mg/dL) 109 Random Glucose Calcium Total Bilirubin AST ALT Alkaline Phosphatase Total Creatine Kinase 94 NT-Pro-B Natriuret Pep 98.2 Total Protein Albumin Globulin Albumin/Globulin Ratio Triglycerides Cholesterol LDL Cholesterol Direct HDL Cholesterol Venous Blood Potassium Urine Opiates Screen Negative Urine Methadone Screen Negative Ur Barbiturates Screen Negative Ur Phencyclidine Scrn Negative Ur Amphetamines Screen Negative U Benzodiazepines Scrn Negative U Oth Cocaine Metabols Negative U Cannabinoids Screen Positive H 03/12/18 03/13/18 03/13/18 21:36 05:34 05:34 WBC 7.5 RBC 4.45 Hgb 13.1 Hct 39.2 MCV 88.1 MCH 29.4 MCHC 33.4 RDW 14.4 Plt Count 188 MPV 7.7 Neut % (Auto) 66.5 Lymph % (Auto) 18.0 L [place] % (Auto) 12.0 H Eos % (Auto) 3.1 Baso % (Auto) 0.4 Neut # (Auto) 5.0 Lymph # (Auto) 1.3 [place] # (Auto) 0.9 H Eos # (Auto) 0.2 Baso # (Auto) 0.0 PT INR APTT pO2 68 H VBG pH 7.37 VBG pCO2 31 L VBG HCO3 20.0 VBG Total CO2 18.9 L VBG O2 Sat (Calc) 97.5 H VBG Base Excess -6.2 L VBG Potassium 2.0 L* Sodium 148.0 134 Chloride 119.0 H 100 Glucose 77 Lactate 1.1 Crit Value Called To Sam winston rn Crit Value Called By Cathryn Crit Value Read Back Y Blood Gas Notified Time 2144 Potassium 3.6 Carbon Dioxide 25 Anion Gap 13 BUN 6 L Creatinine 0.5 L Est GFR ( Amer) > 60 Est GFR (Non-Af Amer) > 60 POC Glucose (mg/dL) Random Glucose 126 H Calcium 8.1 L Total Bilirubin 1.3 AST 29 ALT 25 Alkaline Phosphatase 137 H Total Creatine Kinase NT-Pro-B Natriuret Pep Total Protein 6.3 Albumin 3.5 Globulin 2.7 Albumin/Globulin Ratio 1.3 Triglycerides 49 Cholesterol 120 LDL Cholesterol Direct 58 HDL Cholesterol 56 Venous Blood Potassium 2.0 L* Urine Opiates Screen Urine Methadone Screen Ur Barbiturates Screen Ur Phencyclidine Scrn Ur Amphetamines Screen U Benzodiazepines Scrn U Oth Cocaine Metabols U Cannabinoids Screen 03/13/18 07:26 WBC RBC Hgb Hct MCV MCH MCHC RDW Plt Count MPV Neut % (Auto) Lymph % (Auto) [place] % (Auto) Eos % (Auto) Baso % (Auto) Neut # (Auto) Lymph # (Auto) [place] # (Auto) Eos # (Auto) Baso # (Auto) PT 13.2 H INR 1.2 APTT 33 pO2 VBG pH VBG pCO2 VBG HCO3 VBG Total CO2 VBG O2 Sat (Calc) VBG Base Excess VBG Potassium Sodium Chloride Glucose Lactate Crit Value Called To Crit Value Called By Crit Value Read Back Blood Gas Notified Time Potassium Carbon Dioxide Anion Gap BUN Creatinine Est GFR ( Amer) Est GFR (Non-Af Amer) POC Glucose (mg/dL) Random Glucose Calcium Total Bilirubin AST ALT Alkaline Phosphatase Total Creatine Kinase NT-Pro-B Natriuret Pep Total Protein Albumin Globulin Albumin/Globulin Ratio Triglycerides Cholesterol LDL Cholesterol Direct HDL Cholesterol Venous Blood Potassium Urine Opiates Screen Urine Methadone Screen Ur Barbiturates Screen Ur Phencyclidine Scrn Ur Amphetamines Screen U Benzodiazepines Scrn U Oth Cocaine Metabols U Cannabinoids Screen - EKG Data EKG comments: EKG my review: NSR, no acute ST-T changes Assessment & Plan (1) Leg edema Assessment and Plan: Possible multifactorial: diastolic CHF/venous stasis Peripheral angiogram 07/2017 showed no significant PAD Start furosemide 40 IVP 2D echo Status: Acute (2) Diastolic CHF, chronic Assessment and Plan: 2D echocardiogram Start furosemide Status: Acute (3) PAF (paroxysmal atrial fibrillation) Assessment and Plan: PAF by history Currently in [facility] of at least 2 Will start therapeutic enoxaparin 2D echo Status: Acute (4) Encounter for preprocedural cardiovascular examination Assessment and Plan: Planned for possible hernia repair Able to perform at least [address] [facility] Will get echo Status: Acute (5) Essential (primary) hypertension Status: Acute
[2018-03-13] MEDS: Enoxaparin 100 mg Syringe SC SCH ×2 (13:00→14:00)
--- NOTE | 2018-03-13 17:04 | US ---
Date of service: 03/13/2018 HISTORY: hx of etoh abuse, abd distention, leg swelling COMPARISON: None. TECHNIQUE: Sonographic evaluation of the abdomen. FINDINGS: LIVER: Measures 17.5 cm. Diffusely increased echogenicity of the liver parenchyma. Consistent with fatty infiltration. Smooth contour. No mass. No biliary ductal dilatation. GALLBLADDER: Status post cholecystectomy. COMMON BILE DUCT: Measures 5 mm. No stones. No dilatation. PANCREAS: Unremarkable as visualized. No mass. No ductal dilatation. RIGHT KIDNEY: Measures 12.7cm. 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 Mid right renal cortical cyst, 13 mm. No solid mass. No calculus or hydronephrosis. LEFT KIDNEY: Measures 13.4cm. 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 No mass, calculus or hydronephrosis. SPLEEN: Normal in size and contour. No mass. AORTA: No aneurysmal dilatation. IVC: Unremarkable. OTHER FINDINGS: None. IMPRESSION: Fatty infiltration of the liver. 13 mm mid right renal cortical cyst. Status post cholecystectomy. No evidence of ascites.
[2018-03-14] MEDS: Enoxaparin 100 mg Syringe SC SCH ×2 (00:51→10:44)
[2018-03-14 07:27] LABS: BASO % 0.7 % (0.0-2.0); EOS # 0.2 K/uL (0.0-0.7); EOS % 3.4 % (0.0-4.0); HEMOGLOBIN 12.8 g/dL (12.0-18.0); LYMPH # 1.4 K/uL (1.0-4.3); LYMPH % 26.8 % (20.0-40.0); MEAN CELL VOLUME 88.3 fL (80.0-94.0); MEAN CORPUSCULAR HEMOGLOBIN 30.1 pg (27.0-31.0); MEAN CORPUSCULAR HGB CONC 34.1 g/dL (33.0-37.0); MEAN PLATELET VOLUME 7.8 fL (7.2-11.7); MONO # 0.5 K/uL (0.0-0.8); MONO % 9.8 % (0.0-10.0); NEUT # 3.1 K/uL (1.8-7.0); NEUT % 59.3 % (50.0-75.0); NRBC % 0.1 % (0.0-2.0); RBC 4.26 Mil/uL (4.40-5.90); WHITE BLOOD COUNT 5.2 K/uL (4.8-10.8)
[2018-03-14 07:48] LABS: ALB/GLOB RATIO 1.1 (1.0-2.1); ALBUMIN 3.4 g/dL (3.5-5.0); ALT/SGPT 21 U/L (21-72); AST/SGOT 37 U/L (17-59); BLOOD UREA NITROGEN 12 mg/dL (9-20); CALCIUM 7.8 mg/dl (8.6-10.4); GFR NON-AFRICAN AMERICAN > 60
[2018-03-14] MEDS: (Novolin R) Insulin Human Regular 100 units/ml vial SC SCH ×4 (08:07→21:37)
--- NOTE | 2018-03-14 10:19 | VASCLAB ---
Date of service: 03/14/2018 PROCEDURE: Lower Extremity Venous Duplex Exam. HISTORY: Cellulitis, r/o dvt PRIORS: None. TECHNIQUE: Bilateral common femoral, femoral, popliteal and posterior tibial, peroneal and great saphenous veins were evaluated. Flow was assessed with color Doppler, compressibility, assessment of phasic flow and augmentation response. Report prepared by JASON Vasquez FINDINGS: RIGHT: 1. Common Femoral Vein: 1.1. Compressibility - Fully compressible: Thrombus - None : Flow - Phasic: Augmentation -Normal: Reflux - None. 2. Femoral Vein: 2.1. Compressibility - Fully compressible: Thrombus - None : Flow - Phasic: Augmentation -Normal: Reflux - None. 3. Popliteal Vein: 3.1. Compressibility - Fully compressible: Thrombus - None : Flow - Phasic: Augmentation -Normal: Reflux - None. 4. Posterior Tibial Vein: 5. Peroneal Vein: 6. Great Saphenous Vein: (upper) 6.1. Compressibility - Fully compressible: Thrombus - None: Flow - Phasic: Augmentation - Normal: Reflux - None. LEFT: 1. Common Femoral Vein: 1.1. Compressibility - Fully compressible: Thrombus - None: Flow - Phasic: Augmentation -Normal: Reflux - None. 2. Femoral Vein: 2.1. Compressibility - Fully compressible: Thrombus - None: Flow - Phasic: Augmentation -Normal: Reflux - None. 3. Popliteal Vein: 3.1. Compressibility - Fully compressible: Thrombus - None : Flow - Phasic: Augmentation -Normal: Reflux - None. 4. Posterior Tibial Vein: 5. Peroneal Vein: 6. Great Saphenous Vein (upper) 6.1. Compressibility - Fully compressible: Thrombus - None: Flow - Phasic: Augmentation - Normal: Reflux - None. OTHER FINDINGS: None. IMPRESSION: No evidence of deep or superficial vein thrombosis of bilateral lower extremities, for the examined veins. Unable to visualize bilateral calf veins, due to swelling.
--- NOTE | 2018-03-14 10:36 | CP.PCM.PN ---
Subjective - Date & Time of Evaluation Date of Evaluation: 03/14/18 Time of Evaluation: 10:30 - Subjective Subjective: Pt feels. ok, tolerating lasix Objective - Vital Signs/Intake and Output Vital Signs (last 24 hours): Temp Pulse Resp BP Pulse Ox 98 F 84 20 153/89 H 96 03/14/18 07:00 03/14/18 07:00 03/14/18 07:00 03/14/18 07:00 03/14/18 07:00 Intake and Output: 03/14/18 03/14/18 06:59 18:59 Intake Total 582 Output Total 700 Balance -118 - Medications Medications: Current Medications Acetaminophen (Tylenol 325mg Tab) 650 mg PO Q6 PRN PRN Reason: Fever >100.4 F Albuterol/Ipratropium (Duoneb 3 Mg/0.5 Mg (3 Ml) Ud) 3 ml INH RQ6 PRN PRN Reason: Wheezing Dextrose (Dextrose 50% Inj) 0 ml IV STAT PRN; Protocol PRN Reason: Hypoglycemia Protocol Dextrose (Glutose 15) 0 gm PO ONCE PRN; Protocol PRN Reason: Hypoglycemia Protocol Enoxaparin Sodium (Lovenox) 100 mg SC Q12H [facility] Last Admin: 03/14/18 00:51 Dose: 100 mg Folic Acid (Folic Acid) 1 mg PO DAILY [facility] Last Admin: 03/13/18 10:36 Dose: 1 mg Furosemide (Lasix) 40 mg IVP DAILY [facility] Last Admin: 03/13/18 14:20 Dose: 40 mg Glucagon (Glucagen Diagnostic Kit) 0 mg IM STAT PRN; Protocol PRN Reason: Hypoglycemia Protocol Dextrose (Dextrose 5% In Water 1000 Ml) 1,000 mls @ 0 mls/hr IV .Q0M PRN; Protocol PRN Reason: Hypoglycemia Protocol Clindamycin Phosphate 300 mg/ (Dextrose) 52 mls @ 100 mls/hr IVPB Q8H [facility]; Protocol Last Admin: 03/14/18 05:58 Dose: 100 mls/hr Influenza Virus Vaccine (Fluzone Quad [id number]) 60 mcg IM .ONCE ONE Stop: 03/15/18 10:01 Insulin Human Regular (Novolin R) 0 unit SC ACHS [facility]; Protocol Last Admin: 03/14/18 08:07 Dose: Not Given Lisinopril (Zestril) 2.5 mg PO DAILY [facility] Last Admin: 03/13/18 14:21 Dose: 2.5 mg Lorazepam (Ativan) 1 mg IVP Q6H PRN PRN Reason: Seizure activity Multivitamins (Hexavitamin) 1 tab PO DAILY [facility] Last Admin: 03/13/18 10:36 Dose: 1 tab Pantoprazole Sodium (Protonix Ec Tab) 20 mg PO DAILY [facility] Last Admin: 03/13/18 10:37 Dose: 20 mg Saccharomyces Boulardii (Florastor) 250 mg PO BID [facility] Last Admin: 03/13/18 18:07 Dose: 250 mg Thiamine HCl (Vitamin B1 Tab) 100 mg PO DAILY [facility] Last Admin: 03/13/18 10:36 Dose: 100 mg - Labs Labs: 03/14/18 07:17 03/14/18 07:17 PT 13.2 SECONDS (9.7-12.2) H 03/13/18 07:26 INR 1.2 03/13/18 07:26 APTT 33 SECONDS (21-34) 03/13/18 07:26 - Constitutional Appears: No Acute Distress, Chronically Ill - Head Exam Head Exam: ATRAUMATIC - Eye Exam Eye Exam: EOMI, Normal appearance - Neck Exam Neck Exam: Full ROM - Respiratory Exam Respiratory Exam: Clear to Ausculation Bilateral - Cardiovascular Exam Cardiovascular Exam: REGULAR RHYTHM - Extremities Exam Additional comments: discolored legs with erythema, firm induration, no pules felt. Assessment and Plan - Assessment and Plan (Free Text) Assessment: 1. Will review echo, assess LV and RV function, pa pressure, see if leg edema relates to pedal edema. 2. Pt will need hernia surgery> will make final decision after reviewing echo. 3. Pt is on lovenox: with h/o PAF, anticoagulation will be advised, but on lovenox now pending hernia surgery.
[2018-03-14] MEDS: Multiple Vitamins Tab PO SCH (10:43)
[2018-03-14] MEDS: Saccharomyces Boulardi 250 mg Cap PO SCH ×2 (10:43→18:43)
[2018-03-14] MEDS: Pantoprazole 20 mg EC Tab PO SCH (10:43)
--- NOTE | 2018-03-14 12:27 | CP.PCM.PN ---
Subjective - Date & Time of Evaluation Date of Evaluation: 03/14/18 Time of Evaluation: 06:45 - Subjective Subjective: general Surgery Dr. Youngblood PAtient seen and examined this am at bedside. NAEO per nursing. Patient states pain is improving and he is passing flatus and having BM. He has no other complaints at this time. Objective - Vital Signs/Intake and Output Vital Signs (last 24 hours): Temp Pulse Resp BP Pulse Ox 98 F 84 20 131/84 96 03/14/18 07:00 03/14/18 07:00 03/14/18 07:00 03/14/18 10:42 03/14/18 07:00 Intake and Output: 03/14/18 03/14/18 06:59 18:59 Intake Total 582 Output Total 700 Balance -118 - Medications Medications: Current Medications Acetaminophen (Tylenol 325mg Tab) 650 mg PO Q6 PRN PRN Reason: Fever >100.4 F Albuterol/Ipratropium (Duoneb 3 Mg/0.5 Mg (3 Ml) Ud) 3 ml INH RQ6 PRN PRN Reason: Wheezing Dextrose (Dextrose 50% Inj) 0 ml IV STAT PRN; Protocol PRN Reason: Hypoglycemia Protocol Dextrose (Glutose 15) 0 gm PO ONCE PRN; Protocol PRN Reason: Hypoglycemia Protocol Enoxaparin Sodium (Lovenox) 100 mg SC Q12H [facility] Last Admin: 03/14/18 10:44 Dose: 100 mg Folic Acid (Folic Acid) 1 mg PO DAILY [facility] Last Admin: 03/14/18 10:43 Dose: 1 mg Furosemide (Lasix) 40 mg IVP DAILY [facility] Last Admin: 03/14/18 10:42 Dose: 40 mg Glucagon (Glucagen Diagnostic Kit) 0 mg IM STAT PRN; Protocol PRN Reason: Hypoglycemia Protocol Dextrose (Dextrose 5% In Water 1000 Ml) 1,000 mls @ 0 mls/hr IV .Q0M PRN; Protocol PRN Reason: Hypoglycemia Protocol Clindamycin Phosphate 300 mg/ (Dextrose) 52 mls @ 100 mls/hr IVPB Q8H [facility]; Protocol Last Admin: 03/14/18 05:58 Dose: 100 mls/hr Influenza Virus Vaccine (Fluzone Quad [id number]) 60 mcg IM .ONCE ONE Stop: 03/15/18 10:01 Insulin Human Regular (Novolin R) 0 unit SC ACHS [facility]; Protocol Last Admin: 03/14/18 12:03 Dose: Not Given Lisinopril (Zestril) 2.5 mg PO DAILY [facility] Last Admin: 03/14/18 10:45 Dose: 2.5 mg Lorazepam (Ativan) 1 mg IVP Q6H PRN PRN Reason: Seizure activity Multivitamins (Hexavitamin) 1 tab PO DAILY [facility] Last Admin: 03/14/18 10:43 Dose: 1 tab Pantoprazole Sodium (Protonix Ec Tab) 20 mg PO DAILY [facility] Last Admin: 03/14/18 10:43 Dose: 20 mg Saccharomyces Boulardii (Florastor) 250 mg PO BID [facility] Last Admin: 03/14/18 10:43 Dose: 250 mg Thiamine HCl (Vitamin B1 Tab) 100 mg PO DAILY [facility] Last Admin: 03/14/18 10:43 Dose: 100 mg - Labs Labs: 03/14/18 07:17 03/14/18 07:17 PT 13.2 SECONDS (9.7-12.2) H 03/13/18 07:26 INR 1.2 03/13/18 07:26 APTT 33 SECONDS (21-34) 03/13/18 07:26 - Constitutional Appears: Well, Non-toxic, No Acute Distress - Head Exam Head Exam: ATRAUMATIC, NORMOCEPHALIC - Eye Exam Eye Exam: EOMI - ENT Exam ENT Exam: Mucous Membranes Moist - Respiratory Exam Respiratory Exam: NORMAL BREATHING PATTERN - Cardiovascular Exam Cardiovascular Exam: REGULAR RHYTHM - GI/Abdominal Exam GI & Abdominal Exam: Soft. absent: Distended, Guarding, Tenderness Additional comments: Left inguinal hernia - Extremities Exam Extremities Exam: absent: Calf Tenderness, Pedal Edema - Neurological Exam Neurological Exam: Alert, Awake - Psychiatric Exam Psychiatric exam: Normal Affect, Normal Mood - Skin Skin Exam: Dry, Intact, Normal Color, Warm Assessment and Plan - Assessment and Plan (Free Text) Assessment: 62 year old male with bilateral LE extremity cellulitis and Left inguinal hernia Plan: Continue medical management of cellulitis and ETOH dependence will f/u ECHO and cardio recs When medically optimized will plan for operative reduction and repair of his hernia defects Further recs per Dr. Ford Sapp, PGY 1
--- NOTE | 2018-03-14 13:27 | CP.PCM.PN ---
<Junior Tran - Last Filed: 03/14/18 17:10> Subjective - Date & Time of Evaluation Date of Evaluation: 03/14/18 Time of Evaluation: 10:00 - Subjective Subjective: PGY-1 Medicine progress note for Dr. Jocelyn Olivarez Pt was seen and examined at bedside. Pt is resting comfortably and has no acute complaints. No acute events overnight. Pt states that his leg pain and swelling is improving. He denies fever, chills, chest pain, sob, abdominal pain, n/v/d. pt is passing gas and having regular bowel movements. Objective - Vital Signs/Intake and Output Vital Signs (last 24 hours): Temp Pulse Resp BP Pulse Ox 98 F 84 20 131/84 96 03/14/18 07:00 03/14/18 07:00 03/14/18 07:00 03/14/18 10:42 03/14/18 07:00 Intake and Output: 03/14/18 03/14/18 06:59 18:59 Intake Total 582 Output Total 700 Balance -118 - Medications Medications: Current Medications Acetaminophen (Tylenol 325mg Tab) 650 mg PO Q6 PRN PRN Reason: Fever >100.4 F Albuterol/Ipratropium (Duoneb 3 Mg/0.5 Mg (3 Ml) Ud) 3 ml INH RQ6 PRN PRN Reason: Wheezing Dextrose (Dextrose 50% Inj) 0 ml IV STAT PRN; Protocol PRN Reason: Hypoglycemia Protocol Dextrose (Glutose 15) 0 gm PO ONCE PRN; Protocol PRN Reason: Hypoglycemia Protocol Enoxaparin Sodium (Lovenox) 100 mg SC Q12H [facility] Last Admin: 03/14/18 10:44 Dose: 100 mg Folic Acid (Folic Acid) 1 mg PO DAILY [facility] Last Admin: 03/14/18 10:43 Dose: 1 mg Furosemide (Lasix) 40 mg IVP DAILY [facility] Last Admin: 03/14/18 10:42 Dose: 40 mg Glucagon (Glucagen Diagnostic Kit) 0 mg IM STAT PRN; Protocol PRN Reason: Hypoglycemia Protocol Dextrose (Dextrose 5% In Water 1000 Ml) 1,000 mls @ 0 mls/hr IV .Q0M PRN; Protocol PRN Reason: Hypoglycemia Protocol Clindamycin Phosphate 300 mg/ (Dextrose) 52 mls @ 100 mls/hr IVPB Q8H [facility]; Protocol Last Admin: 03/14/18 05:58 Dose: 100 mls/hr Influenza Virus Vaccine (Fluzone Quad [id number]) 60 mcg IM .ONCE ONE Stop: 03/15/18 10:01 Insulin Human Regular (Novolin R) 0 unit SC ACHS [facility]; Protocol Last Admin: 03/14/18 12:03 Dose: Not Given Lisinopril (Zestril) 2.5 mg PO DAILY [facility] Last Admin: 03/14/18 10:45 Dose: 2.5 mg Lorazepam (Ativan) 1 mg IVP Q6H PRN PRN Reason: Seizure activity Multivitamins (Hexavitamin) 1 tab PO DAILY [facility] Last Admin: 03/14/18 10:43 Dose: 1 tab Pantoprazole Sodium (Protonix Ec Tab) 20 mg PO DAILY [facility] Last Admin: 03/14/18 10:43 Dose: 20 mg Saccharomyces Boulardii (Florastor) 250 mg PO BID [facility] Last Admin: 03/14/18 10:43 Dose: 250 mg Thiamine HCl (Vitamin B1 Tab) 100 mg PO DAILY [facility] Last Admin: 03/14/18 10:43 Dose: 100 mg - Labs Labs: 03/14/18 07:17 03/14/18 07:17 PT 13.2 SECONDS (9.7-12.2) H 03/13/18 07:26 INR 1.2 03/13/18 07:26 APTT 33 SECONDS (21-34) 03/13/18 07:26 - Additional Findings Additional findings: - Constitutional Appears: Non-toxic, No Acute Distress - Head Exam Head Exam: ATRAUMATIC, NORMAL INSPECTION - Eye Exam Eye Exam: EOMI, PERRL Additional comments: (+) bilateral cataracts - Neck Exam Neck exam: Positive for: Normal Inspection - Respiratory Exam Respiratory Exam: NORMAL BREATHING PATTERN. absent: Accessory Muscle Use, Rales, Rhonchi, Wheezes, Respiratory Distress - Cardiovascular Exam Cardiovascular Exam: Tachycardia, +S1, +S2 - GI/Abdominal Exam GI & Abdominal Exam: Distended (with visible veins), Hernia (scrotal hernia), Normal Bowel Sounds, Soft. absent: Firm, Guarding, Rebound, Rigid, Tenderness - Extremities Exam Extremities exam: Positive for: normal capillary refill, pedal edema. Negative for: calf tenderness Additional comments: (+) 1+ pitting edema bilateral lower extremities DP is 2+ bilateral lower extremities good capillary refill, sensation and strength intact - Back Exam Back exam: NORMAL INSPECTION - Neurological Exam Neurological exam: Alert, Awake Oriented x3 - Psychiatric Exam Psychiatric exam: Normal Affect, Normal Mood - Skin Skin Exam: Dry, Normal Color, Warm Additional comments: (+) bilateral chronic venous stasis changes, with redness, swelling, and TTP. Redness has retracted from the previous outline. Assessment and Plan - Assessment and Plan (Free Text) Assessment: 62 year old male PMH of homelessness, lower extremity cellulitis, HTN, DM, AFib (not on AC), hx of DVT, diastolic CHF, hypercholesterolemia, etoh abuse who presents with lower extremity swelling, redness and pain for the past 1.5 weeks. Plan: Cellulitis Podiatry consulted, Dr. Masters. Pt is known to his service. No Leukocytosis, tachycardia, pt afebrile Outline rubor and monitor Improving compared to yesterday Allergic to PCN (hives) Clindamycin 300 mg IVPB Q8H Florastor 250 mg PO BID If weeping will take wound culture Tylenol 650 mg PO Q6H PRN fever>100.4 Urine culture is negative Procalcitonin is less than 0.05 Bacteremia Blood culture x 1 prelim shows gram positive cocci Blood culture x 1 is negative for 24 hours Pt is on Clindamycin IVPB which covers MRSA Continue to monitor blood cultures F/u echo Leg swelling Venous doppler bilateral lower extremities shows no DVT in visible vasculature bilaterally; unable to see calf veins secondary to swelling. Echo reason: hx of diastolic heart failure Abd US shows fatty infiltration of the liver. No evidence of ascites. S/p cholecystectomy If DVT ruled out, then SCDs bilaterally Alcohol abuse CIWA Ativan 1 mg IVP Q6H PRN seizure activity Folic acid 1 mg PO daily Multivitamins 1 tab PO daily Thiamine 100 mg PO daily No signs of withdrawl at this time Will continue to monitor Ambulatory dysfunction PT/OT evaluation STEVE evaluation Hernia General surgery evaluation; optimization Cardiology, Dr. Bee service, consulted for cardiac clearance HPpEF CXR show NAD Intake and Output monitoring Fluid restriction (1500 mL) pro BNP is WNL f/u echocardiogram Cardiology consulted, Dr. 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 Hx of gastritis Hold ASA secondary to alcohol use Has had endoscopy; available on EMR to confirm PPX VTE: Pt is on therapeutic lovenox, SCDs pending DVT evaluation GI: PTX 20 mg PO daily PT/OT eval EKG, CXR, INR for possible hernia surgery Case discussed with Dr. Jocelyn Tran, PGY-1 <Eldon Olivarez - Last Filed: 03/18/18 22:51> Objective - Vital Signs/Intake and Output Vital Signs (last 24 hours): Temp Pulse Resp BP Pulse Ox 98.1 F 70 20 126/77 97 03/18/18 15:55 03/18/18 15:55 03/18/18 15:55 03/18/18 15:55 03/18/18 15:55 Intake and Output: 03/18/18 03/19/18 18:59 06:59 Intake Total 1250 Output Total 2050 Balance -800 - Labs Labs: 03/18/18 07:27 03/18/18 07:27 PT 13.2 SECONDS (9.7-12.2) H 03/13/18 07:26 INR 1.2 03/13/18 07:26 APTT 33 SECONDS (21-34) 03/13/18 07:26 Attending/Attestation - Attestation I have personally seen and examined this patient.: Yes I have fully participated in the care of the patient.: Yes I have reviewed all pertinent clinical information, including history, physical exam and plan: Yes Notes (Text): 03/18/18 22:50 This is a late entry. Care of this patient was gone over in detail with resident Dr. Tran. Eldon Olivarez D.O.
--- NOTE | 2018-03-14 20:16 | CP.PCM.CON ---
History of Present Illness - History of Present Illness History of Present Illness: Podiatry Consult note: Dr. Masters 62 year old male with PMHx of Anxiety, Arthritis, Atrial Fibrillation, Depression, Deep Vein Thrombosis, Fractures (neck, back Rt. leg fx in 5 places), Hepatitis, HTN, Hypercholesterolemia, Pancreatitis, Peripheral Edema (chronic), Seizures (alcohol induced), Chronic Pain (leg pain/dermatitis) was seen and evaluated with attending Dr. Masters for swelling in b/l LE. Denies of having any pain to the legs today. States that he came to the hospital for his hernia. Reports that his legs have been doing well compared to the past. Denies of any acute overnight events. Patient denies of having any recent F/N/V/C/SOB/CP/diarrhea/constipation. Patient denies of any other pedal complains at this time. PMHx: Anxiety, Arthritis, Atrial Fibrillation, Depression, Deep Vein Thrombosis, Fractures (neck, back Rt. leg fx in 5 places), Hepatitis, HTN, Hypercholesterolemia, Pancreatitis, Peripheral Edema (chronic), Seizures (alcohol induced), Chronic Pain (leg pain/dermatitis) PSHx: back surgery, cholecystectomy SHx: daily heavy ETOH use, +tobacco use, +illicit drug use (marijuana, cocaine, other unknown) Allergies: PCN Review of Systems - Constitutional Constitutional: As Per HPI Past Patient History - Infectious Disease Hx of Infectious Diseases: None - Tetanus Immunizations Tetanus Immunization: Unknown - Past Medical History & Family History Past Medical History?: Yes - Past Social History Smoking Status: Never Smoked - CARDIAC Hx Cardiac Disorders: Yes (A fib) Hx Hypercholesterolemia: Yes Hx Hypertension: Yes - PULMONARY Hx Respiratory Disorders: No Hx Tuberculosis: No - NEUROLOGICAL Hx Seizures: Yes (alcohol induced) - HEENT Hx HEENT Problems: Yes Hx Cataracts: Yes (Rt. and Lt. cataract sx) - RENAL Hx Chronic Kidney Disease: No - ENDOCRINE/METABOLIC Other/Comment: HX:SPOT ON PANCREAS - INTEGUMENTARY Other/Comment: Venous stasis bilateral legs. HX: CELLULITIS LEFT LOWER LIMB. HX: CELLULITIS RIGHT LOWER LIMB - MUSCULOSKELETAL/RHEUMATOLOGICAL Hx Arthritis: Yes - GASTROINTESTINAL Hx Pancreatitis: Yes - PSYCHIATRIC Hx Anxiety: Yes Hx Depression: Yes Hx Substance Use: Yes - SURGICAL HISTORY Hx Cholecystectomy: Yes - ANESTHESIA Hx Anesthesia: Yes Hx Anesthesia Reactions: No Hx Malignant Hyperthermia: No Meds Allergies/Adverse Reactions: Allergies Allergy/AdvReac Type Severity Reaction Status Date / Time Penicillins Allergy Severe RASH Verified 08/26/17 08:22 - Medications Medications: Current Medications Acetaminophen (Tylenol 325mg Tab) 650 mg PO Q6 PRN PRN Reason: Fever >100.4 F Albuterol/Ipratropium (Duoneb 3 Mg/0.5 Mg (3 Ml) Ud) 3 ml INH RQ6 PRN PRN Reason: Wheezing Dextrose (Dextrose 50% Inj) 0 ml IV STAT PRN; Protocol PRN Reason: Hypoglycemia Protocol Dextrose (Glutose 15) 0 gm PO ONCE PRN; Protocol PRN Reason: Hypoglycemia Protocol Enoxaparin Sodium (Lovenox) 100 mg SC Q12H [facility] Last Admin: 03/14/18 10:44 Dose: 100 mg Folic Acid (Folic Acid) 1 mg PO DAILY [facility] Last Admin: 03/14/18 10:43 Dose: 1 mg Furosemide (Lasix) 40 mg IVP DAILY [facility] Last Admin: 03/14/18 10:42 Dose: 40 mg Glucagon (Glucagen Diagnostic Kit) 0 mg IM STAT PRN; Protocol PRN Reason: Hypoglycemia Protocol Dextrose (Dextrose 5% In Water 1000 Ml) 1,000 mls @ 0 mls/hr IV .Q0M PRN; Protocol PRN Reason: Hypoglycemia Protocol Clindamycin Phosphate 300 mg/ (Dextrose) 52 mls @ 100 mls/hr IVPB Q8H [facility]; Protocol Last Admin: 03/14/18 13:41 Dose: 100 mls/hr Influenza Virus Vaccine (Fluzone Quad [id number]) 60 mcg IM .ONCE ONE Stop: 03/15/18 10:01 Insulin Human Regular (Novolin R) 0 unit SC ACHS [facility]; Protocol Last Admin: 03/14/18 16:52 Dose: Not Given Lisinopril (Zestril) 2.5 mg PO DAILY [facility] Last Admin: 03/14/18 10:45 Dose: 2.5 mg Lorazepam (Ativan) 1 mg IVP Q6H PRN PRN Reason: Seizure activity Multivitamins (Hexavitamin) 1 tab PO DAILY [facility] Last Admin: 03/14/18 10:43 Dose: 1 tab Pantoprazole Sodium (Protonix Ec Tab) 20 mg PO DAILY [facility] Last Admin: 03/14/18 10:43 Dose: 20 mg Saccharomyces Boulardii (Florastor) 250 mg PO BID [facility] Last Admin: 03/14/18 18:43 Dose: 250 mg Thiamine HCl (Vitamin B1 Tab) 100 mg PO DAILY [facility] Last Admin: 03/14/18 10:43 Dose: 100 mg Physical Exam - Constitutional Appears: Well, Non-toxic, No Acute Distress - Extremities Exam Additional comments: B/L low ext exam: VASC: DP/PT pulses are palpable 1/4 b/l, cap refill < 3 sec to all digits, skin temp runs warm to cool from proximal to distal, minimal pitting edema DERM: Small superficial bullae noted on the medial and lateral aspect of the b/l distal LE colleen-malleolar area, diffuse red glossy skin from the previously healed ulceration on b/l LE, no open lesions, no clinical suspicion of active infection NEURO: Protective sensation mildly diminished b/l ORTHO: No pain on palpation of the bilateral LE, no pain on compression of b/l calves - Neurological Exam Neurological exam: Alert, Oriented x3 - Psychiatric Exam Psychiatric exam: Normal Affect, Normal Mood Results - Vital Signs Recent Vital Signs: Last Vital Signs Temp 98 F 03/14/18 16:30 Pulse 81 03/14/18 16:30 Resp 20 03/14/18 16:30 BP 124/79 03/14/18 16:30 Pulse Ox 95 03/14/18 16:30 - Labs Result Diagrams: 03/14/18 07:17 03/14/18 07:17 Labs: Laboratory Results - last 24 hr 03/13/18 03/13/18 03/13/18 07:51 11:22 17:17 WBC RBC Hgb Hct MCV MCH MCHC RDW Plt Count MPV Neut % (Auto) Lymph % (Auto) [place] % (Auto) Eos % (Auto) Baso % (Auto) Neut # (Auto) Lymph # (Auto) [place] # (Auto) Eos # (Auto) Baso # (Auto) Sodium Potassium Chloride Carbon Dioxide Anion Gap BUN Creatinine Est GFR ( Amer) Est GFR (Non-Af Amer) POC Glucose (mg/dL) 158 H 110 148 H Random Glucose Calcium Total Bilirubin AST ALT Alkaline Phosphatase Total Protein Albumin Globulin Albumin/Globulin Ratio 03/13/18 03/14/18 03/14/18 21:12 06:54 07:17 WBC 5.2 RBC 4.26 L Hgb 12.8 Hct 37.6 MCV 88.3 MCH 30.1 MCHC 34.1 RDW 14.0 Plt Count 203 MPV 7.8 Neut % (Auto) 59.3 Lymph % (Auto) 26.8 [place] % (Auto) 9.8 Eos % (Auto) 3.4 Baso % (Auto) 0.7 Neut # (Auto) 3.1 Lymph # (Auto) 1.4 [place] # (Auto) 0.5 Eos # (Auto) 0.2 Baso # (Auto) 0.0 Sodium Potassium Chloride Carbon Dioxide Anion Gap BUN Creatinine Est GFR ( Amer) Est GFR (Non-Af Amer) POC Glucose (mg/dL) 177 H 101 Random Glucose Calcium Total Bilirubin AST ALT Alkaline Phosphatase Total Protein Albumin Globulin Albumin/Globulin Ratio 03/14/18 03/14/18 03/14/18 07:17 11:15 16:28 WBC RBC Hgb Hct MCV MCH MCHC RDW Plt Count MPV Neut % (Auto) Lymph % (Auto) [place] % (Auto) Eos % (Auto) Baso % (Auto) Neut # (Auto) Lymph # (Auto) [place] # (Auto) Eos # (Auto) Baso # (Auto) Sodium 135 Potassium 4.2 Chloride 96 L Carbon Dioxide 29 Anion Gap 15 BUN 12 Creatinine 0.7 L Est GFR ( Amer) > 60 Est GFR (Non-Af Amer) > 60 POC Glucose (mg/dL) 108 132 H Random Glucose 113 H Calcium 7.8 L Total Bilirubin 1.0 AST 37 ALT 21 Alkaline Phosphatase 93 Total Protein 6.6 Albumin 3.4 L Globulin 3.1 Albumin/Globulin Ratio 1.1 Assessment & Plan - Assessment and Plan (Free Text) Assessment: 62 year old male with significant PMHx was evaluated for b/l venous stasis ulceration - healed, and uninfected Plan: Patient seen and evaluated with attending Dr. Masters Labs, vitals and charts reviewed - afebrile, no leukocytosis Bilateral LE cleaned with saline and dressing applied to bullae using ABD, DSD, KELSEA IV abx as per ID Patient is stable from podiatry standpoint at this time Thank you for the podiatry consult and allowing to take part in patient care Will monitor patient while in-house - Date & Time Date: 03/14/18 Time: 11:50
--- NOTE | 2018-03-14 21:03 | CARD ---
APPROVED REPORT Date of service: 03/12/2018 EKG Measurement Heart [id number] <Conclusion> Sinus tachycardia with occasional premature ventricular complexes Left axis deviation Abnormal ECG
[2018-03-15] MEDS: Enoxaparin 100 mg Syringe SC SCH ×2 (01:13→10:49)
[2018-03-15] MEDS: (Novolin R) Insulin Human Regular 100 units/ml vial SC SCH ×4 (08:26→22:30)
[2018-03-15 08:55] LABS: BASO % 0.4 % (0.0-2.0); EOS # 0.2 K/uL (0.0-0.7); EOS % 3.9 % (0.0-4.0); HEMOGLOBIN 13.4 g/dL (12.0-18.0); LYMPH % 22.3 % (20.0-40.0); MEAN CELL VOLUME 87.8 fL (80.0-94.0); MEAN CORPUSCULAR HEMOGLOBIN 30.3 pg (27.0-31.0); MEAN CORPUSCULAR HGB CONC 34.5 g/dL (33.0-37.0); MEAN PLATELET VOLUME 7.1 fL (7.2-11.7); MONO # 0.3 K/uL (0.0-0.8); MONO % 6.9 % (0.0-10.0); NEUT # 3.1 K/uL (1.8-7.0); NEUT % 66.5 % (50.0-75.0); NRBC % 0.1 % (0.0-2.0); RBC 4.43 Mil/uL (4.40-5.90); RED CELL DISTRIBUTION WIDTH 14.1 % (11.5-14.5); WHITE BLOOD COUNT 4.7 K/uL (4.8-10.8)
[2018-03-15 09:07] LABS: ALB/GLOB RATIO 1.3 (1.0-2.1); ALBUMIN 3.9 g/dL (3.5-5.0); ALT/SGPT 24 U/L (21-72); AST/SGOT 25 U/L (17-59); BLOOD UREA NITROGEN 15 mg/dL (9-20); CALCIUM 8.9 mg/dl (8.6-10.4); GFR NON-AFRICAN AMERICAN > 60
--- NOTE | 2018-03-15 09:19 | CP.PCM.PN ---
<Junior Tran - Last Filed: 03/15/18 15:45> Subjective - Date & Time of Evaluation Date of Evaluation: 03/15/18 Time of Evaluation: 07:50 - Subjective Subjective: PGY-1 Medicine progress note for Dr. Jocelyn Olivarez Pt was seen and examined at bedside. Pt is resting comfortably and has no acute complaints. No acute events overnight. Pt states that his leg pain and swelling is improving. He is requesting that someone wash his home clothes, and a newspaper to read. He denies headache, dizziness, visual changes, fever, chills, chest pain, sob, abdominal pain, n/v/d. Pt is passing gas, but has not had a bowel movement today. Objective - Vital Signs/Intake and Output Vital Signs (last 24 hours): Temp Pulse Resp BP Pulse Ox 98.2 F 76 20 133/69 94 L 03/15/18 09:07 03/15/18 09:07 03/15/18 09:07 03/15/18 09:07 03/15/18 09:07 - Medications Medications: Current Medications Acetaminophen (Tylenol 325mg Tab) 650 mg PO Q6 PRN PRN Reason: Fever >100.4 F Albuterol/Ipratropium (Duoneb 3 Mg/0.5 Mg (3 Ml) Ud) 3 ml INH RQ6 PRN PRN Reason: Wheezing Dextrose (Dextrose 50% Inj) 0 ml IV STAT PRN; Protocol PRN Reason: Hypoglycemia Protocol Dextrose (Glutose 15) 0 gm PO ONCE PRN; Protocol PRN Reason: Hypoglycemia Protocol Enoxaparin Sodium (Lovenox) 100 mg SC Q12H [facility] Last Admin: 03/15/18 01:13 Dose: Not Given Folic Acid (Folic Acid) 1 mg PO DAILY [facility] Last Admin: 03/14/18 10:43 Dose: 1 mg Furosemide (Lasix) 40 mg IVP DAILY [facility] Last Admin: 03/14/18 10:42 Dose: 40 mg Glucagon (Glucagen Diagnostic Kit) 0 mg IM STAT PRN; Protocol PRN Reason: Hypoglycemia Protocol Dextrose (Dextrose 5% In Water 1000 Ml) 1,000 mls @ 0 mls/hr IV .Q0M PRN; Protocol PRN Reason: Hypoglycemia Protocol Clindamycin Phosphate 300 mg/ (Dextrose) 52 mls @ 100 mls/hr IVPB Q8H [facility]; Protocol Last Admin: 03/15/18 06:41 Dose: 100 mls/hr Influenza Virus Vaccine (Fluzone Quad 9135-0031) 60 mcg IM .ONCE ONE Stop: 03/15/18 10:01 Insulin Human Regular (Novolin R) 0 unit SC ACHS [facility]; Protocol Last Admin: 03/15/18 08:26 Dose: Not Given Lisinopril (Zestril) 2.5 mg PO DAILY [facility] Last Admin: 03/14/18 10:45 Dose: 2.5 mg Lorazepam (Ativan) 1 mg IVP Q6H PRN PRN Reason: Seizure activity Multivitamins (Hexavitamin) 1 tab PO DAILY [facility] Last Admin: 03/14/18 10:43 Dose: 1 tab Pantoprazole Sodium (Protonix Ec Tab) 20 mg PO DAILY [facility] Last Admin: 03/14/18 10:43 Dose: 20 mg Saccharomyces Boulardii (Florastor) 250 mg PO BID [facility] Last Admin: 03/14/18 18:43 Dose: 250 mg Thiamine HCl (Vitamin B1 Tab) 100 mg PO DAILY [facility] Last Admin: 03/14/18 10:43 Dose: 100 mg - Labs Labs: 03/15/18 08:45 03/15/18 08:45 PT 13.2 SECONDS (9.7-12.2) H 03/13/18 07:26 INR 1.2 03/13/18 07:26 APTT 33 SECONDS (21-34) 03/13/18 07:26 - Additional Findings Additional findings: - Constitutional Appears: Non-toxic, No Acute Distress - Head Exam Head Exam: ATRAUMATIC, NORMAL INSPECTION - Eye Exam Eye Exam: EOMI, PERRL Additional comments: (+) bilateral cataracts - Neck Exam Neck exam: Positive for: Normal Inspection - Respiratory Exam Respiratory Exam: NORMAL BREATHING PATTERN. absent: Accessory Muscle Use, Rales, Rhonchi, Wheezes, Respiratory Distress - Cardiovascular Exam Cardiovascular Exam: +S1, +S2. Absent: Tachycardia - GI/Abdominal Exam GI & Abdominal Exam: Distended (with visible veins), Hernia (scrotal hernia), Normal Bowel Sounds, Soft. absent: Firm, Guarding, Rebound, Rigid, Tenderness - Extremities Exam Extremities exam: Positive for: normal capillary refill, pedal edema. Negative for: calf tenderness Additional comments: (+) 1+ pitting edema bilateral lower extremities DP is 1+ bilateral lower extremities good capillary refill, sensation and stre ngth intact - Back Exam Back exam: NORMAL INSPECTION - Neurological Exam Neurological exam: Alert, Awake Oriented x3 - Psychiatric Exam Psychiatric exam: Normal Affect, Normal Mood - Skin Skin Exam: Dry, Normal Color, Warm Additional comments: (+) dark maroon fluid filled blister, irregularly shaped approximately 3-4 cm on the right medial malleolus and the left lateral malleolus (+) skin is shiny and tyhin; with blanching erythema that transitions to a pink color when the lower extremities are raised; erythema continues to improve from the previous outline. Assessment and Plan - Assessment and Plan (Free Text) Assessment: 62 year old male PMH of homelessness, lower extremity cellulitis, HTN, DM, AFib (not on AC), hx of DVT, diastolic CHF, hypercholesterolemia, etoh abuse who presents with lower extremity swelling, redness and pain for the past 1.5 weeks. Plan: Cellulitis Podiatry consulted, Dr. aMsters. Pt is known to his service. F/u culture of the serous fluid from the bullae taken No Leukocytosis, tachycardia, pt afebrile Outline rubor and monitor Improving compared to yesterday Allergic to PCN (hives) Clindamycin discontinued 03/15, Vancomycin 1250 mg IVPB Q12H (started 03/15) as per ID Florastor 250 mg PO BID Tylenol 650 mg PO Q6H PRN fever>100.4 Urine culture is negative Procalcitonin is less than 0.05 on admission As per Meron CHUA, dark maroon fluid filled blister on the right lateral mallelous was cultured Bacteremia Blood culture x 1 prelim shows coagulase negative staphlyococcus resistant to Clindamycin Blood culture x 1 is negative for 48 hours Likely contamination, but repeat cultures have been drawn ID consulted, Dr. Espinoza. Clindamycin discontinued, Pt started on Vancomycin 1250 mg IVPB Q12H (started 03/15) as per ID Continue to monitor blood cultures Echocardiogram (03/12) reading does not comment on a vegetation. F/u repeat blood cultures Leg swelling Venous doppler bilateral lower extremities shows no DVT in visible vasculature bilaterally; unable to see calf veins secondary to swelling. Echo reason: hx of diastolic heart failure Abd US shows fatty infiltration of the liver. No evidence of ascites. S/p cholecystectomy Alcohol abuse CIWA Ativan 1 mg IVP Q6H PRN seizure activity Folic acid 1 mg PO daily Multivitamins 1 tab PO daily Thiamine 100 mg PO daily No signs of withdrawal at this time Will continue to monitor Ambulatory dysfunction PT/OT evaluation STEVE evaluation Hernia, scrotal General surgery evaluation; optimization Cardiology, Dr. Bee service, consulted for cardiac clearance Clearance is pending HPpEF CXR show NAD Intake and Output monitoring Fluid restriction (1500 mL) pro BNP is WNL Echo (03/12) shows: LVEF is approximately 65-70%. Diastolic dysfunction. No AR. Mild TR. Mild pulmonary HTN. No pulmonic valvular regurgitation. Cardiology consulted, Dr. 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 Hx of gastritis Hold ASA secondary to alcohol use Has had endoscopy; available on EMR to confirm PPX VTE: Pt is on therapeutic lovenox GI: PTX 20 mg PO daily PT/OT eval EKG, CXR, INR for possible hernia surgery Case discussed with Dr. Jocelyn Tran, PGY-1 <Eldon Olivarez - Last Filed: 03/18/18 22:53> Objective - Vital Signs/Intake and Output Vital Signs (last 24 hours): Temp Pulse Resp BP Pulse Ox 98.1 F 70 20 126/77 97 03/18/18 15:55 03/18/18 15:55 03/18/18 15:55 03/18/18 15:55 03/18/18 15:55 Intake and Output: 03/18/18 03/19/18 18:59 06:59 Intake Total 1250 Output Total 2050 Balance -800 - Labs Labs: 03/18/18 07:27 03/18/18 07:27 PT 13.2 SECONDS (9.7-12.2) H 03/13/18 07:26 INR 1.2 03/13/18 07:26 APTT 33 SECONDS (21-34) 03/13/18 07:26 Attending/Attestation - Attestation I have personally seen and examined this patient.: Yes I have fully participated in the care of the patient.: Yes I have reviewed all pertinent clinical information, including history, physical exam and plan: Yes Notes (Text): 03/18/18 22:52 This is a late entry. Care of this patient was gone over in detail with resident Dr. Tran. Eldon Olivarez D.O.
[2018-03-15] MEDS ORDERED: Influenza Vaccine 60 MCG/0.5 ML SYR (3 yr & up) IM ONE (10:00)
--- NOTE | 2018-03-15 10:23 | CARD ---
APPROVED REPORT Date of service: 03/14/2018 EXAM: Two-dimensional and M-mode echocardiogram with Doppler and color Doppler. Other Information Quality : GoodRhythm : INDICATION Atrial Fibrillation Congestive Heart Failure alcohol abuse RISK FACTORS Hypertension 2D DIMENSIONS IVSd1.2 (0.7-1.1cm)LVDd5.1 (3.9-5.9cm) PWd1.1 (0.7-1.1cm)LA Ibvrxz58 (18-58mL) LVDs3.6 (2.5-4.0cm)FS (%) 29.5 % LVEF (%)56.1 (>50%)LVEF (Scott's)69.60 % M-Mode DIMENSIONS Left Atrium (MM)4.21 (2.5-4.0cm)IVSd1.10 (0.7-1.1cm) Aortic Root3.89 (2.2-3.7cm)LVDd5.69 (4.0-5.6cm) Aortic Cusp Exc.2.72 (1.5-2.0cm)PWd0.87 (0.7-1.1cm) FS (%) 27 %LVDs4.18 (2.0-3.8cm) LVEF (%)51 (>50%) Mitral Valve MV E Rfbhajeh94.9cm/sMV A Clheophs64.7cm/sE/A ratio0.8 TDI Lateral E' Peak V10.74cm/sMedial E' Peak V8.96cm/sE/Lateral E'5.9 E/Medial E'7.1 Tricuspid Valve TR Peak Frzdhbfm988fj/sTR Peak Gr.[id number] LEFT VENTRICLE The left ventricle is normal size. There is normal left ventricular wall thickness. Left ventricle systolic function is normal. The Ejection Fraction is 65-70%. There is normal LV segmental wall motion. Tissue Doppler imaging reveals abnormal left ventricular diastolic dysfunction. RIGHT VENTRICLE The right ventricle is normal size. There is normal right ventricular wall thickness. The right ventricular systolic function is normal. ATRIA The left atrium size is normal. The right atrium size is normal. The interatrial septum is intact with no evidence for an atrial septal defect. AORTIC VALVE The aortic valve is normal in structure. No aortic regurgitation is present. There is no aortic valvular stenosis. There is no aortic valvular vegetation. MITRAL VALVE The mitral valve is normal in structure. There is no evidence of mitral valve prolapse. There is no mitral valve stenosis. There is no mitral valve regurgitation noted. TRICUSPID VALVE The tricuspid valve is normal in structure. There is mild tricuspid regurgitation. Right ventricular systolic pressure is estimated at 30-40 mmHg. There is mild pulmonary hypertension. PULMONIC VALVE The pulmonic valve is not well visualized. There is no pulmonic valvular regurgitation. GREAT VESSELS The aortic root is normal in size. PERICARDIAL EFFUSION There is no significant pericardial effusion. <Conclusion> Left ventricle systolic function is normal. The Ejection Fraction is 65-70%. Diastolic dysfunction. No aortic regurgitation is present. There is no mitral valve regurgitation noted. There is mild tricuspid regurgitation. There is mild pulmonary hypertension. There is no pulmonic valvular regurgitation.
[2018-03-15] MEDS: Multiple Vitamins Tab PO SCH (10:34)
[2018-03-15] MEDS: Pantoprazole 20 mg EC Tab PO SCH (10:35)
[2018-03-15] MEDS: Saccharomyces Boulardi 250 mg Cap PO SCH ×2 (10:35→17:36)
--- NOTE | 2018-03-15 11:14 | CP.PCM.PN ---
Subjective - Date & Time of Evaluation Date of Evaluation: 03/15/18 Time of Evaluation: 11:12 - Subjective Subjective: Podiatry Progress note: Dr. Masters 62 year old male was seen and evaluated ]for swelling in b/l LE. Denies of having any pain to the legs today. Denies of any acute overnight events. Patient denies of having any recent F/N/V/C/SOB/CP/diarrhea/constipation. Patient denies of any other pedal complains at this time. Objective - Vital Signs/Intake and Output Vital Signs (last 24 hours): Temp Pulse Resp BP Pulse Ox 98.2 F 76 20 143/84 94 L 03/15/18 09:07 03/15/18 09:07 03/15/18 09:07 03/15/18 10:36 03/15/18 09:07 - Medications Medications: Current Medications Acetaminophen (Tylenol 325mg Tab) 650 mg PO Q6 PRN PRN Reason: Fever >100.4 F Albuterol/Ipratropium (Duoneb 3 Mg/0.5 Mg (3 Ml) Ud) 3 ml INH RQ6 PRN PRN Reason: Wheezing Dextrose (Dextrose 50% Inj) 0 ml IV STAT PRN; Protocol PRN Reason: Hypoglycemia Protocol Dextrose (Glutose 15) 0 gm PO ONCE PRN; Protocol PRN Reason: Hypoglycemia Protocol Docusate Sodium (Colace) 100 mg PO BID [facility] Enoxaparin Sodium (Lovenox) 100 mg SC Q12H [facility] Last Admin: 03/15/18 10:49 Dose: 100 mg Folic Acid (Folic Acid) 1 mg PO DAILY [facility] Last Admin: 03/15/18 10:35 Dose: 1 mg Furosemide (Lasix) 40 mg IVP DAILY [facility] Last Admin: 03/15/18 10:36 Dose: 40 mg Glucagon (Glucagen Diagnostic Kit) 0 mg IM STAT PRN; Protocol PRN Reason: Hypoglycemia Protocol Dextrose (Dextrose 5% In Water 1000 Ml) 1,000 mls @ 0 mls/hr IV .Q0M PRN; Protocol PRN Reason: Hypoglycemia Protocol Clindamycin Phosphate 300 mg/ (Dextrose) 52 mls @ 100 mls/hr IVPB Q8H [facility]; Protocol Last Admin: 03/15/18 06:41 Dose: 100 mls/hr Insulin Human Regular (Novolin R) 0 unit SC ACHS [facility]; Protocol Last Admin: 03/15/18 08:26 Dose: Not Given Lisinopril (Zestril) 2.5 mg PO DAILY [facility] Last Admin: 03/15/18 10:35 Dose: 2.5 mg Lorazepam (Ativan) 1 mg IVP Q6H PRN PRN Reason: Seizure activity Multivitamins (Hexavitamin) 1 tab PO DAILY [facility] Last Admin: 03/15/18 10:34 Dose: 1 tab Pantoprazole Sodium (Protonix Ec Tab) 20 mg PO DAILY [facility] Last Admin: 03/15/18 10:35 Dose: 20 mg Saccharomyces Boulardii (Florastor) 250 mg PO BID [facility] Last Admin: 03/15/18 10:35 Dose: 250 mg Thiamine HCl (Vitamin B1 Tab) 100 mg PO DAILY [facility] Last Admin: 03/15/18 10:35 Dose: 100 mg - Labs Labs: 03/15/18 08:45 03/15/18 08:45 PT 13.2 SECONDS (9.7-12.2) H 03/13/18 07:26 INR 1.2 03/13/18 07:26 APTT 33 SECONDS (21-34) 03/13/18 07:26 - Constitutional Appears: Well, Non-toxic, No Acute Distress - Extremities Exam Additional comments: B/L low ext exam: VASC: DP/PT pulses are palpable 1/4 b/l, cap refill < 3 sec to all digits, skin temp runs warm to cool from proximal to distal, minimal pitting edema DERM: Small superficial bullae noted on the medial and lateral aspect of the b/l distal LE colleen-malleolar area, diffuse red glossy skin from the previously healed ulceration on b/l LE, no open lesions, no clinical suspicion of active infection NEURO: Protective sensation mildly diminished b/l ORTHO: No pain on palpation of the bilateral LE, no pain on compression of b/l calves - Neurological Exam Neurological Exam: Alert, Awake, Oriented x3 - Psychiatric Exam Psychiatric exam: Normal Affect, Normal Mood Assessment and Plan - Assessment and Plan (Free Text) Assessment: 62 year old male evaluated for b/l venous stasis ulceration - healed, and uninfected Plan: Patient seen and evaluated Plan discussed with attending Dr. Masters Labs, vitals and charts reviewed - afebrile, no leukocytosis Bilateral LE cleaned with saline and dressing applied to bullae using ABD, DSD, KELSEA Culture of the serous fluid from the bullae taken - pending IV abx as per ID Patient is stable from podiatry standpoint at this time Will monitor patient while in-house
--- NOTE | 2018-03-15 11:25 | CP.PCM.PN ---
Subjective - Date & Time of Evaluation Date of Evaluation: 03/15/18 Time of Evaluation: 07:00 - Subjective Subjective: GENERAL SURGERY PROGRESS NOTE FOR DR. ORTEGA Patient seen and examined at bedside. Patient denies pain. Had a BM yesterday. Objective - Vital Signs/Intake and Output Vital Signs (last 24 hours): Temp Pulse Resp BP Pulse Ox 98.2 F 76 20 143/84 94 L 03/15/18 09:07 03/15/18 09:07 03/15/18 09:07 03/15/18 10:36 03/15/18 09:07 - Medications Medications: Current Medications Acetaminophen (Tylenol 325mg Tab) 650 mg PO Q6 PRN PRN Reason: Fever >100.4 F Albuterol/Ipratropium (Duoneb 3 Mg/0.5 Mg (3 Ml) Ud) 3 ml INH RQ6 PRN PRN Reason: Wheezing Dextrose (Dextrose 50% Inj) 0 ml IV STAT PRN; Protocol PRN Reason: Hypoglycemia Protocol Dextrose (Glutose 15) 0 gm PO ONCE PRN; Protocol PRN Reason: Hypoglycemia Protocol Docusate Sodium (Colace) 100 mg PO BID [facility] Enoxaparin Sodium (Lovenox) 100 mg SC Q12H [facility] Last Admin: 03/15/18 10:49 Dose: 100 mg Folic Acid (Folic Acid) 1 mg PO DAILY [facility] Last Admin: 03/15/18 10:35 Dose: 1 mg Furosemide (Lasix) 40 mg IVP DAILY [facility] Last Admin: 03/15/18 10:36 Dose: 40 mg Glucagon (Glucagen Diagnostic Kit) 0 mg IM STAT PRN; Protocol PRN Reason: Hypoglycemia Protocol Dextrose (Dextrose 5% In Water 1000 Ml) 1,000 mls @ 0 mls/hr IV .Q0M PRN; Protocol PRN Reason: Hypoglycemia Protocol Clindamycin Phosphate 300 mg/ (Dextrose) 52 mls @ 100 mls/hr IVPB Q8H [facility]; Protocol Last Admin: 03/15/18 06:41 Dose: 100 mls/hr Insulin Human Regular (Novolin R) 0 unit SC ACHS [facility]; Protocol Last Admin: 03/15/18 08:26 Dose: Not Given Lisinopril (Zestril) 2.5 mg PO DAILY [facility] Last Admin: 03/15/18 10:35 Dose: 2.5 mg Lorazepam (Ativan) 1 mg IVP Q6H PRN PRN Reason: Seizure activity Multivitamins (Hexavitamin) 1 tab PO DAILY [facility] Last Admin: 03/15/18 10:34 Dose: 1 tab Pantoprazole Sodium (Protonix Ec Tab) 20 mg PO DAILY [facility] Last Admin: 03/15/18 10:35 Dose: 20 mg Saccharomyces Boulardii (Florastor) 250 mg PO BID [facility] Last Admin: 03/15/18 10:35 Dose: 250 mg Thiamine HCl (Vitamin B1 Tab) 100 mg PO DAILY [facility] Last Admin: 03/15/18 10:35 Dose: 100 mg - Labs Labs: 03/15/18 08:45 03/15/18 08:45 PT 13.2 SECONDS (9.7-12.2) H 03/13/18 07:26 INR 1.2 03/13/18 07:26 APTT 33 SECONDS (21-34) 03/13/18 07:26 - Constitutional Appears: Non-toxic, No Acute Distress - Eye Exam Eye Exam: EOMI, Normal appearance - Respiratory Exam Respiratory Exam: NORMAL BREATHING PATTERN. absent: Respiratory Distress - Cardiovascular Exam Cardiovascular Exam: +S1, +S2 - GI/Abdominal Exam GI & Abdominal Exam: Soft, Hernia (left inguinal hernia). absent: Distended, Guarding, Tenderness - Neurological Exam Neurological Exam: Alert, Awake - Skin Skin Exam: Dry, Warm Assessment and Plan - Assessment and Plan (Free Text) Assessment: 62yo M with bilateral LE cellulitis and left inguinal hernia - Continue medical management of cellulitis and ETOH dependence - FU cardio recs for clearance for OR (ECHO done, EF 65-70%, diastolic dysfunction) - When medically optimized will plan for operative repair of hernia - Discussed plan with Dr. Ford Roberts PGY-4
--- NOTE | 2018-03-15 13:43 | CP.PCM.CON ---
History of Present Illness - History of Present Illness History of Present Illness: dictated Past Patient History - Infectious Disease Hx of Infectious Diseases: None - Tetanus Immunizations Tetanus Immunization: Unknown - Past Medical History & Family History Past Medical History?: Yes - Past Social History Smoking Status: Never Smoked - CARDIAC Hx Cardiac Disorders: Yes (A fib) Hx Hypercholesterolemia: Yes Hx Hypertension: Yes - PULMONARY Hx Respiratory Disorders: No Hx Tuberculosis: No - NEUROLOGICAL Hx Seizures: Yes (alcohol induced) - HEENT Hx HEENT Problems: Yes Hx Cataracts: Yes (Rt. and Lt. cataract sx) - RENAL Hx Chronic Kidney Disease: No - ENDOCRINE/METABOLIC Other/Comment: HX:SPOT ON PANCREAS - INTEGUMENTARY Other/Comment: Venous stasis bilateral legs. HX: CELLULITIS LEFT LOWER LIMB. HX: CELLULITIS RIGHT LOWER LIMB - MUSCULOSKELETAL/RHEUMATOLOGICAL Hx Arthritis: Yes - GASTROINTESTINAL Hx Pancreatitis: Yes - PSYCHIATRIC Hx Anxiety: Yes Hx Depression: Yes Hx Substance Use: Yes - SURGICAL HISTORY Hx Cholecystectomy: Yes - ANESTHESIA Hx Anesthesia: Yes Hx Anesthesia Reactions: No Hx Malignant Hyperthermia: No Meds Allergies/Adverse Reactions: Allergies Allergy/AdvReac Type Severity Reaction Status Date / Time Penicillins Allergy Severe RASH Verified 08/26/17 08:22 - Medications Medications: Current Medications Acetaminophen (Tylenol 325mg Tab) 650 mg PO Q6 PRN PRN Reason: Fever >100.4 F Albuterol/Ipratropium (Duoneb 3 Mg/0.5 Mg (3 Ml) Ud) 3 ml INH RQ6 PRN PRN Reason: Wheezing Dextrose (Dextrose 50% Inj) 0 ml IV STAT PRN; Protocol PRN Reason: Hypoglycemia Protocol Dextrose (Glutose 15) 0 gm PO ONCE PRN; Protocol PRN Reason: Hypoglycemia Protocol Docusate Sodium (Colace) 100 mg PO BID [facility] Last Admin: 03/15/18 13:09 Dose: Not Given Enoxaparin Sodium (Lovenox) 100 mg SC Q12H [facility] Last Admin: 03/15/18 10:49 Dose: 100 mg Folic Acid (Folic Acid) 1 mg PO DAILY [facility] Last Admin: 03/15/18 10:35 Dose: 1 mg Furosemide (Lasix) 40 mg IVP DAILY [facility] Last Admin: 03/15/18 10:36 Dose: 40 mg Glucagon (Glucagen Diagnostic Kit) 0 mg IM STAT PRN; Protocol PRN Reason: Hypoglycemia Protocol Dextrose (Dextrose 5% In Water 1000 Ml) 1,000 mls @ 0 mls/hr IV .Q0M PRN; Protocol PRN Reason: Hypoglycemia Protocol Clindamycin Phosphate 300 mg/ (Dextrose) 52 mls @ 100 mls/hr IVPB Q8H [facility]; Protocol Last Admin: 03/15/18 06:41 Dose: 100 mls/hr Insulin Human Regular (Novolin R) 0 unit SC ACHS [facility]; Protocol Last Admin: 03/15/18 12:13 Dose: Not Given Lisinopril (Zestril) 2.5 mg PO DAILY [facility] Last Admin: 03/15/18 10:35 Dose: 2.5 mg Lorazepam (Ativan) 1 mg IVP Q6H PRN PRN Reason: Seizure activity Multivitamins (Hexavitamin) 1 tab PO DAILY [facility] Last Admin: 03/15/18 10:34 Dose: 1 tab Pantoprazole Sodium (Protonix Ec Tab) 20 mg PO DAILY [facility] Last Admin: 03/15/18 10:35 Dose: 20 mg Saccharomyces Boulardii (Florastor) 250 mg PO BID [facility] Last Admin: 03/15/18 10:35 Dose: 250 mg Thiamine HCl (Vitamin B1 Tab) 100 mg PO DAILY [facility] Last Admin: 03/15/18 10:35 Dose: 100 mg Results - Vital Signs Recent Vital Signs: Last Vital Signs Temp 98.2 F 03/15/18 09:07 Pulse 76 03/15/18 09:07 Resp 20 03/15/18 09:07 BP 143/84 03/15/18 10:36 Pulse Ox 94 L 03/15/18 09:07 - Labs Result Diagrams: 03/15/18 08:45 03/15/18 08:45 Labs: Laboratory Results - last 24 hr 03/14/18 03/14/18 03/15/18 16:28 21:29 06:32 WBC RBC Hgb Hct MCV MCH MCHC RDW Plt Count MPV Neut % (Auto) Lymph % (Auto) [place] % (Auto) Eos % (Auto) Baso % (Auto) Neut # (Auto) Lymph # (Auto) [place] # (Auto) Eos # (Auto) Baso # (Auto) Sodium Potassium Chloride Carbon Dioxide Anion Gap BUN Creatinine Est GFR ( Amer) Est GFR (Non-Af Amer) POC Glucose (mg/dL) 132 H 123 H 108 Random Glucose Calcium Total Bilirubin AST ALT Alkaline Phosphatase Total Protein Albumin Globulin Albumin/Globulin Ratio 03/15/18 03/15/18 03/15/18 08:45 08:45 12:04 WBC 4.7 L RBC 4.43 Hgb 13.4 Hct 38.9 MCV 87.8 MCH 30.3 MCHC 34.5 RDW 14.1 Plt Count 250 MPV 7.1 L Neut % (Auto) 66.5 Lymph % (Auto) 22.3 [place] % (Auto) 6.9 Eos % (Auto) 3.9 Baso % (Auto) 0.4 Neut # (Auto) 3.1 Lymph # (Auto) 1.0 [place] # (Auto) 0.3 Eos # (Auto) 0.2 Baso # (Auto) 0.0 Sodium 137 Potassium 3.7 Chloride 100 Carbon Dioxide 28 Anion Gap 12 BUN 15 Creatinine 0.6 L Est GFR ( Amer) > 60 Est GFR (Non-Af Amer) > 60 POC Glucose (mg/dL) 114 H Random Glucose 145 H Calcium 8.9 Total Bilirubin 0.7 AST 25 ALT 24 Alkaline Phosphatase 137 H D Total Protein 7.0 Albumin 3.9 Globulin 3.1 Albumin/Globulin Ratio 1.3
--- NOTE | 2018-03-15 16:31 | CP.PCM.PN ---
Subjective - Date & Time of Evaluation Date of Evaluation: 03/15/18 Time of Evaluation: 16:22 - Subjective Subjective: Pt feels well. Echo reveals normal LV EF, type I diastolic dysfunction. Objective - Vital Signs/Intake and Output Vital Signs (last 24 hours): Temp Pulse Resp BP Pulse Ox 98.2 F 76 20 143/84 94 L 03/15/18 09:07 03/15/18 09:07 03/15/18 09:07 03/15/18 10:36 03/15/18 09:07 Intake and Output: 03/15/18 03/15/18 06:59 18:59 Intake Total 600 Output Total 1400 Balance -800 - Medications Medications: Current Medications Acetaminophen (Tylenol 325mg Tab) 650 mg PO Q6 PRN PRN Reason: Fever >100.4 F Albuterol/Ipratropium (Duoneb 3 Mg/0.5 Mg (3 Ml) Ud) 3 ml INH RQ6 PRN PRN Reason: Wheezing Dextrose (Dextrose 50% Inj) 0 ml IV STAT PRN; Protocol PRN Reason: Hypoglycemia Protocol Dextrose (Glutose 15) 0 gm PO ONCE PRN; Protocol PRN Reason: Hypoglycemia Protocol Docusate Sodium (Colace) 100 mg PO BID [facility] Last Admin: 03/15/18 13:09 Dose: Not Given Enoxaparin Sodium (Lovenox) 100 mg SC Q12H [facility] Last Admin: 03/15/18 10:49 Dose: 100 mg Folic Acid (Folic Acid) 1 mg PO DAILY [facility] Last Admin: 03/15/18 10:35 Dose: 1 mg Furosemide (Lasix) 40 mg IVP DAILY [facility] Last Admin: 03/15/18 10:36 Dose: 40 mg Glucagon (Glucagen Diagnostic Kit) 0 mg IM STAT PRN; Protocol PRN Reason: Hypoglycemia Protocol Dextrose (Dextrose 5% In Water 1000 Ml) 1,000 mls @ 0 mls/hr IV .Q0M PRN; Protocol PRN Reason: Hypoglycemia Protocol Vancomycin HCl 1,250 mg/ (Sodium Chloride) 250 mls @ 166.6 mls/hr IVPB Q12H [facility]; Protocol Last Admin: 03/15/18 14:41 Dose: 166.6 mls/hr Insulin Human Regular (Novolin R) 0 unit SC ACHS [facility]; Protocol Last Admin: 03/15/18 12:13 Dose: Not Given Lisinopril (Zestril) 2.5 mg PO DAILY [facility] Last Admin: 03/15/18 10:35 Dose: 2.5 mg Lorazepam (Ativan) 1 mg IVP Q6H PRN PRN Reason: Seizure activity Multivitamins (Hexavitamin) 1 tab PO DAILY [facility] Last Admin: 03/15/18 10:34 Dose: 1 tab Pantoprazole Sodium (Protonix Ec Tab) 20 mg PO DAILY [facility] Last Admin: 03/15/18 10:35 Dose: 20 mg Saccharomyces Boulardii (Florastor) 250 mg PO BID [facility] Last Admin: 03/15/18 10:35 Dose: 250 mg Thiamine HCl (Vitamin B1 Tab) 100 mg PO DAILY [facility] Last Admin: 03/15/18 10:35 Dose: 100 mg - Labs Labs: 03/15/18 08:45 03/15/18 08:45 PT 13.2 SECONDS (9.7-12.2) H 03/13/18 07:26 INR 1.2 03/13/18 07:26 APTT 33 SECONDS (21-34) 03/13/18 07:26 - Constitutional Appears: Well - Head Exam Head Exam: ATRAUMATIC - Eye Exam Eye Exam: EOMI - ENT Exam ENT Exam: Mucous Membranes Moist - Neck Exam Neck Exam: Full ROM, Normal Inspection - Respiratory Exam Respiratory Exam: Clear to Ausculation Bilateral, NORMAL BREATHING PATTERN - Cardiovascular Exam Cardiovascular Exam: REGULAR RHYTHM - GI/Abdominal Exam GI & Abdominal Exam: Soft, Normal Bowel Sounds - Rectal Exam Rectal Exam: NORMAL INSPECTION - Exam External exam: NORMAL EXTERNAL EXAM Speculum exam: NORMAL SPECULUM EXAM Bimanual exam: NORMAL BIMANUAL EXAM - Extremities Exam Additional comments: erythema and discoloration. - Neurological Exam Neurological Exam: Alert, Awake, CN II-XII Intact - Psychiatric Exam Psychiatric exam: Normal Affect, Normal Mood - Skin Skin Exam: Dry Assessment and Plan - Assessment and Plan (Free Text) Assessment: 1. The patient is stable. He is cleared for hernia surgery. 2. Pt has a h/o afib, but has been in nsr: due to alcoholism and falling, patie nt is high risk for custodial anticoagulation.
[2018-03-16] MEDS: Enoxaparin 100 mg Syringe SC SCH ×2 (00:38→11:30)
--- NOTE | 2018-03-16 00:54 | CON ---
DATE: 03/15/2018 INFECTIOUS DISEASE CONSULT Infectious disease consult was requested for positive blood culture and for cellulitis of the lower extremities. HISTORY OF PRESENT ILLNESS: This patient is a 62-year-old male. He is admitted. He has long-term history of alcoholism and he was treated few years back for cellulitis. He presented to the ____ with chronic bilateral lower extremity cellulitis and has also chronic left inguinal hernia, which required general surgery, and I am asked to evaluate because he has positive blood culture. Also, he is tender to touch and he says it hurts in the scrotal area wherever in one position. He is waiting for surgery evaluation. He denies any nausea, vomiting, or diarrhea, and he denies any abdominal pain. No fever. No chills, but has lower extremity cellulitis. PAST MEDICAL HISTORY: Significant for hypertension, hyperlipidemia, diabetes, atrial fibrillation, alcoholic hepatitis, DVT, pancreatitis, seizure disorder, anxiety, arthritis, bilateral lower leg ulcers, and CHF. ALLERGIES: HE IS ALLERGIC TO PENICILLIN, GIVES HIM SEVERE RASH.. PAST SURGICAL HISTORY: Significant for orthopedic surgery in the right hip, tibia, back, and neck, and history of cholecystectomy. SOCIAL HISTORY: He admits to drinking alcohol, and he smokes marijuana and he says marijuana is now legal. He thinks smoking marijuana has no consequences. REVIEW OF SYSTEMS: Other systems are negative at this time. Past medical history is significant as above. CARDIAC: He has atrial fibrillation cardiac martinez, hypercholesterolemia, hypertension, and peripheral leg edema. PULMONARY: He denies any respiratory issues. No history of TB. NEUROLOGIC: He has seizures, alcohol related. HEENT: He has had cataract surgery in both eyes. RENAL: He has chronic kidney disease. He says he has some spots on his pancreas, maybe, he has chronic pancreatitis, and cellulitis of the right and the left lower extremities with venous stasis and arthritis. He said I treated him several years ago with a bone infection and has psych history of anxiety, depression, and substance abuse. Surgical history is significant for cholecystectomy, has history of anesthesia. MEDICATIONS: At the present time, he is on Tylenol and DuoNeb. He is on clindamycin, dextrose, Colace, folic acid, Lasix, glucagon, Novolin R, Zestril, Ativan, Hexavitamin, Protonix, Florastor, and B1. PHYSICAL EXAMINATION: VITAL SIGNS: I find he is 6 feet 3 inches, his weight is 257 pounds, and BMI is 32.1. HEENT: Head is atraumatic, normocephalic. Pupils are reacting to light. No icterus present. Mucous membranes are moist. NECK: Supple. JVP is flat. LUNGS: Clear. No crackles or rales present. Decreased breath sounds bilaterally. HEART: S1, S2, regular. No murmurs appreciated. ABDOMEN: Soft, nontender. No guarding, no rigidity present. EXTREMITIES: A lot of discoloration on lower extremities because he has had many venous stasis ulcerations and there are dressings on both lower extremities, which were explored, and he has ulcerations and warmth and cellulitis of the left leg more than the right. He is improving on present clindamycin. LABORATORY DATA: Labs show white count is 4.7, hemoglobin 13.4, hematocrit 38.9, platelet count is 250. BUN is 15 and creatinine 0.6. Venous Dopplers were negative. Micro martinez, he had blood cultures, one of them is coagulase-negative, other is negative, and urine culture is negative. ASSESSMENT AND PLAN: Since he only has one set positive, which is coagulase-negative staphylococcus, and it is tetracycline sensitive, vancomycin sensitive, and gentamicin sensitive, but is clindamycin resistant, his creatinine is 0.6 at this time, and he is allergic to penicillin, so at this time I would discontinue the clindamycin as the organism is resistant to it; however, I think one culture out of two repeat cultures are following, it could probably a contaminant. We will order an echo anyway and we will follow. Bhavana Nolasco MD
[2018-03-16] MEDS: (Novolin R) Insulin Human Regular 100 units/ml vial SC SCH ×4 (07:53→22:11)
[2018-03-16 08:03] LABS: BASO % 0.5 % (0.0-2.0); EOS # 0.2 K/uL (0.0-0.7); EOS % 4.3 % (0.0-4.0); HEMOGLOBIN 13.4 g/dL (12.0-18.0); LYMPH # 1.1 K/uL (1.0-4.3); LYMPH % 20.7 % (20.0-40.0); MEAN CELL VOLUME 88.8 fL (80.0-94.0); MEAN CORPUSCULAR HEMOGLOBIN 30.3 pg (27.0-31.0); MEAN CORPUSCULAR HGB CONC 34.1 g/dL (33.0-37.0); MEAN PLATELET VOLUME 7.2 fL (7.2-11.7); MONO # 0.4 K/uL (0.0-0.8); MONO % 7.1 % (0.0-10.0); NEUT # 3.5 K/uL (1.8-7.0); NEUT % 67.4 % (50.0-75.0); RBC 4.42 Mil/uL (4.40-5.90); RED CELL DISTRIBUTION WIDTH 14.2 % (11.5-14.5); WHITE BLOOD COUNT 5.2 K/uL (4.8-10.8)
[2018-03-16 08:11] LABS: ALB/GLOB RATIO 1.3 (1.0-2.1); ALBUMIN 3.8 g/dL (3.5-5.0); ALT/SGPT 27 U/L (21-72); AST/SGOT 24 U/L (17-59); BLOOD UREA NITROGEN 16 mg/dL (9-20); CALCIUM 8.6 mg/dl (8.6-10.4); GFR NON-AFRICAN AMERICAN > 60
--- NOTE | 2018-03-16 09:40 | CP.PCM.PN ---
<Junior Tran - Last Filed: 03/16/18 15:23> Subjective - Date & Time of Evaluation Date of Evaluation: 03/16/18 Time of Evaluation: 07:15 - Subjective Subjective: PGY-1 Medicine progress note for Dr. Jocelyn Olivarez Pt was seen and examined at bedside. Pt is resting comfortably and has no acute complaints. No acute events overnight. His leg pain and swelling continue to improve. He denies headache, dizziness, visual changes, fever, chills, chest pain, sob, abdominal pain, n/v/d, hematochezia, melena. He is having normal bowel movements. Objective - Vital Signs/Intake and Output Vital Signs (last 24 hours): Temp Pulse Resp BP Pulse Ox 98.1 F 72 20 122/77 95 03/16/18 08:49 03/16/18 08:49 03/16/18 08:49 03/16/18 08:49 03/16/18 08:49 Intake and Output: 03/16/18 03/16/18 06:59 18:59 Output Total 200 Balance -200 - Medications Medications: Current Medications Acetaminophen (Tylenol 325mg Tab) 650 mg PO Q6 PRN PRN Reason: Fever >100.4 F Albuterol/Ipratropium (Duoneb 3 Mg/0.5 Mg (3 Ml) Ud) 3 ml INH RQ6 PRN PRN Reason: Wheezing Dextrose (Dextrose 50% Inj) 0 ml IV STAT PRN; Protocol PRN Reason: Hypoglycemia Protocol Dextrose (Glutose 15) 0 gm PO ONCE PRN; Protocol PRN Reason: Hypoglycemia Protocol Docusate Sodium (Colace) 100 mg PO BID [facility] Last Admin: 03/15/18 17:37 Dose: Not Given Enoxaparin Sodium (Lovenox) 100 mg SC Q12H [facility] Last Admin: 03/16/18 00:38 Dose: Not Given Folic Acid (Folic Acid) 1 mg PO DAILY [facility] Last Admin: 03/15/18 10:35 Dose: 1 mg Furosemide (Lasix) 40 mg IVP DAILY [facility] Last Admin: 03/15/18 10:36 Dose: 40 mg Glucagon (Glucagen Diagnostic Kit) 0 mg IM STAT PRN; Protocol PRN Reason: Hypoglycemia Protocol Dextrose (Dextrose 5% In Water 1000 Ml) 1,000 mls @ 0 mls/hr IV .Q0M PRN; Protocol PRN Reason: Hypoglycemia Protocol Vancomycin HCl 1,250 mg/ (Sodium Chloride) 250 mls @ 166.6 mls/hr IVPB Q12H [facility]; Protocol Last Admin: 03/16/18 07:16 Dose: 166.6 mls/hr Insulin Human Regular (Novolin R) 0 unit SC ACHS [facility]; Protocol Last Admin: 03/16/18 07:53 Dose: Not Given Lisinopril (Zestril) 2.5 mg PO DAILY [facility] Last Admin: 03/15/18 10:35 Dose: 2.5 mg Lorazepam (Ativan) 1 mg IVP Q6H PRN PRN Reason: Seizure activity Multivitamins (Hexavitamin) 1 tab PO DAILY [facility] Last Admin: 03/15/18 10:34 Dose: 1 tab Pantoprazole Sodium (Protonix Ec Tab) 20 mg PO DAILY [facility] Last Admin: 03/15/18 10:35 Dose: 20 mg Saccharomyces Boulardii (Florastor) 250 mg PO BID [facility] Last Admin: 03/15/18 17:36 Dose: 250 mg Thiamine HCl (Vitamin B1 Tab) 100 mg PO DAILY [facility] Last Admin: 03/15/18 10:35 Dose: 100 mg - Labs Labs: 03/16/18 07:56 03/16/18 07:56 PT 13.2 SECONDS (9.7-12.2) H 03/13/18 07:26 INR 1.2 03/13/18 07:26 APTT 33 SECONDS (21-34) 03/13/18 07:26 - Additional Findings Additional findings: - Constitutional Appears: Non-toxic, No Acute Distress - Head Exam Head Exam: ATRAUMATIC, NORMAL INSPECTION - Eye Exam Eye Exam: EOMI, PERRL Additional comments: (+) bilateral cataracts - Neck Exam Neck exam: Positive for: Normal Inspection - Respiratory Exam Respiratory Exam: NORMAL BREATHING PATTERN. absent: Accessory Muscle Use, Rales, Rhonchi, Wheezes, Respiratory Distress - Cardiovascular Exam Cardiovascular Exam: +S1, +S2. Absent: Tachycardia - GI/Abdominal Exam GI & Abdominal Exam: Hernia (scrotal hernia, nontender, nonerythematous), Normal Bowel Sounds, Soft. absent: Firm, Guarding, Rebound, Rigid, Tenderness - Extremities Exam Extremities exam: Positive for: normal capillary refill, pedal edema. Negative for: calf tenderness Additional comments: (+) trace edema bilateral lower extremities DPs are 2+ in bilateral lower extremities ,good capillary refill, sensation and strength intact - Back Exam Back exam: NORMAL INSPECTION - Neurological Exam Neurological exam: Alert, Awake Oriented x3 - Psychiatric Exam Psychiatric exam: Normal Affect, Normal Mood - Skin Skin Exam: Dry, Warm Additional comments: (+) dark maroon fluid filled blister, irregularly shaped approximately 3-4 cm on the right medial malleolus and the left lateral malleolus (+) skin is shiny and tyhin; with blanching erythema that transitions to a pink color when the lower extremities are raised; erythema continues to improve from the previous outline. Assessment and Plan - Assessment and Plan (Free Text) Assessment: 62 year old male PMH of homelessness, lower extremity cellulitis, HTN, DM, AFib (not on AC), hx of DVT, diastolic CHF, hypercholesterolemia, etoh abuse who presents with lower extremity swelling, redness and pain for the past 1.5 weeks. Plan: Possible Cellulitis Podiatry consulted, Dr. Masters. Pt is known to his service. F/u culture of the serous fluid from the bullae taken No Leukocytosis, tachycardia, pt afebrile Outline rubor and monitor Continue to improve Allergic to PCN (hives) Clindamycin discontinued 03/15, Vancomycin 1250 mg IVPB Q12H (started 03/15) as per ID Florastor 250 mg PO BID Tylenol 650 mg PO Q6H PRN fever>100.4 Urine culture is negative Procalcitonin is less than 0.05 on admission As per Meron CHUA, dark maroon fluid filled blister on the right lateral malleolus was cultured Culture is prelim negative for growth x 24 hours Bacteremia Blood culture x 1 final shows coagulase negative staphlyococcus resistant to Clindamycin Blood culture x 1 is negative for 3 days Likely contamination, but repeat cultures were drawn Blood culture x2 (03/15) is prelim negative for the past 24 hours Will wait for negative for at least 72 hours for potential discharge ID consulted, Dr. Espinoza. Clindamycin discontinued, Pt started on Vancomycin 1250 mg IVPB Q12H (started 03/15) as per ID Continue to monitor blood cultures Echocardiogram (03/12) reading does not comment on a vegetation. Leg swelling Venous doppler bilateral lower extremities shows no DVT in visible vasculature bilaterally; unable to see calf veins secondary to swelling. Type I diastolic dysfunction noted on echo (03/12) On Lasix 40 mg IVP daily Abd US shows fatty infiltration of the liver. No evidence of ascites. S/p cholecystectomy Alcohol abuse CIWA Ativan 1 mg IVP Q6H PRN seizure activity Folic acid 1 mg PO daily Multivitamins 1 tab PO daily Thiamine 100 mg PO daily Pt has exhibited no clinical signs of withdrawal during hospital stay Ambulatory dysfunction PT/OT evaluation STEVE evaluation Hernia, scrotal General surgery, Dr Youngblood, consulted Recommends outpatient surgery, pending loft worker head sobriety due to pt's history of alcoholism Cardiology, Dr. Bee service, consulted for cardiac clearance 1. The patient is stable. He is cleared for hernia surgery. 2. Pt has a h/o afib, but has been in nsr: due to alcoholism and falling, patient is high risk for loft worker head anticoagulation. HPpEF CXR show NAD Intake and Output monitoring Fluid restriction (1500 mL) pro BNP is WNL Echo (03/12) shows: LVEF is approximately 65-70%. Diastolic dysfunction. No AR. Mild TR. Mild pulmonary HTN. No pulmonic valvular regurgitation. Cardiology consulted, Dr. Wadsworth Continue Lasix 40 mg IVP daily Hx of atrial fibrillation CHADSVASC score of 3 HASBLED; alcohol and HTN Se echocardiogram results above As per cardio, pt started on therapeutic enoxaparin Pt will not be discharged on anticoagulation due to strong hx of alcohol use and high risk of falls Impaired glucose tolerance HgbA1c is 6.0 Controlled Continue Lisinopril 2.5 mg PO daily Hx of dyslipidemia as per pt TG/CHL/LDL/HDL is 49/120/58/56 Hx of seizures Secondary to alcohol intake Ativan 1 mg IVP Q6H PRN seizure Aspiration precautions Seizure precautions No seizure activity during this stay Hx of DVT Venous doppler bilateral lower extremities shows no DVT in visible vasculature bilaterally; unable to see calf veins secondary to swelling. Hx of gastritis Hold ASA secondary to alcohol use Has had endoscopy; available on EMR to confirm Cannabis use disorder UDS is positive for cannabinoid on admission Pt counselled on cessation PPX VTE: Pt is on therapeutic lovenox GI: PTX 20 mg PO daily Continue PT/OT Dispo: Pt will not have surgery during this admission. Waiting for blood culture x2 to be negative for at least 72 hours and will transfer to [facility] with PO antibiotics. Pending STEVE placement by [facility]. Case discussed with Dr. Jocelyn Tran, PGY-1 <Eldon Olivarez - Last Filed: 03/16/18 23:21> Objective - Vital Signs/Intake and Output Vital Signs (last 24 hours): Temp Pulse Resp BP Pulse Ox 97.4 F L 80 20 125/86 98 03/16/18 15:15 03/16/18 15:15 03/16/18 15:15 03/16/18 15:15 03/16/18 15:15 Intake and Output: 03/16/18 03/17/18 18:59 06:59 Intake Total 350 Output Total 1400 Balance -1400 350 - Medications Medications: Current Medications Acetaminophen (Tylenol 325mg Tab) 650 mg PO Q6 PRN PRN Reason: Fever >100.4 F Albuterol/Ipratropium (Duoneb 3 Mg/0.5 Mg (3 Ml) Ud) 3 ml INH RQ6 PRN PRN Reason: Wheezing Dextrose (Dextrose 50% Inj) 0 ml IV STAT PRN; Protocol PRN Reason: Hypoglycemia Protocol Dextrose (Glutose 15) 0 gm PO ONCE PRN; Protocol PRN Reason: Hypoglycemia Protocol Docusate Sodium (Colace) 100 mg PO BID [facility] Last Admin: 03/16/18 18:27 Dose: Not Given Enoxaparin Sodium (Lovenox) 100 mg SC Q12H [facility] Last Admin: 03/16/18 11:30 Dose: 100 mg Folic Acid (Folic Acid) 1 mg PO DAILY [facility] Last Admin: 03/16/18 10:25 Dose: 1 mg Furosemide (Lasix) 40 mg IVP DAILY [facility] Last Admin: 03/16/18 10:25 Dose: 40 mg Glucagon (Glucagen Diagnostic Kit) 0 mg IM STAT PRN; Protocol PRN Reason: Hypoglycemia Protocol Dextrose (Dextrose 5% In Water 1000 Ml) 1,000 mls @ 0 mls/hr IV .Q0M PRN; Protocol PRN Reason: Hypoglycemia Protocol Vancomycin HCl 1,250 mg/ (Sodium Chloride) 250 mls @ 166.6 mls/hr IVPB Q12H [facility]; Protocol Last Admin: 03/16/18 13:57 Dose: 166.6 mls/hr Insulin Human Regular (Novolin R) 0 unit SC ACHS [facility]; Protocol Last Admin: 03/16/18 22:11 Dose: Not Given Lisinopril (Zestril) 2.5 mg PO DAILY [facility] Last Admin: 03/16/18 10:25 Dose: 2.5 mg Lorazepam (Ativan) 1 mg IVP Q6H PRN PRN Reason: Seizure activity Multivitamins (Hexavitamin) 1 tab PO DAILY [facility] Last Admin: 03/16/18 10:25 Dose: 1 tab Pantoprazole Sodium (Protonix Ec Tab) 20 mg PO DAILY [facility] Last Admin: 03/16/18 10:25 Dose: 20 mg Saccharomyces Boulardii (Florastor) 250 mg PO BID [facility] Last Admin: 03/16/18 18:27 Dose: 250 mg Thiamine HCl (Vitamin B1 Tab) 100 mg PO DAILY [facility] Last Admin: 03/16/18 10:25 Dose: 100 mg - Labs Labs: 03/16/18 07:56 03/16/18 07:56 PT 13.2 SECONDS (9.7-12.2) H 03/13/18 07:26 INR 1.2 03/13/18 07:26 APTT 33 SECONDS (21-34) 03/13/18 07:26 Attending/Attestation - Attestation I have personally seen and examined this patient.: Yes I have fully participated in the care of the patient.: Yes I have reviewed all pertinent clinical information, including history, physical exam and plan: Yes Notes (Text): 03/16/18 23:11 Patient was seen and examined at 6:25 PM 03/16/18. Care of the patient was gone over with resident Dr. Tran. Please also note on exam: Fluid filled blister persists on the Right Medial Ankle area The fluid filled blister on the Laeft Lateral Ankle area has bursted and skin has denuded but no evidence of surrounding cellulitis Culture from Right Lateral Ankle Fluid Filled Blister 03/15/18 shows NO GROWTH TO DATE Repeat Blood Culture 03/15/18 is NEGATIVE TO DATE Blood Culture from 03/12/18 showed Coagulase Negative Staph in 1 bottle only and is likely contaminant Patient has Paroxysmal Afib but would not be a candidate for senior care an ticoagulation upon discharge considering his history of Alcohol Abuse and therefore high risk for fall Patient has been cleared by Cardiology for Scrotal Hernia Repair Surgery Team has stated that they plan on performing correction of Scrotal Hernia as outpatient. Medicine Team please speak with Surgery Team to reconsider and have correction of Scrotal Hernia perform while patient is in-patient considering patient is Homeless and may be difficult to have this arranged as an outpatient. Eldon Olivarez D.O.
[2018-03-16] MEDS: Saccharomyces Boulardi 250 mg Cap PO SCH ×3 (10:00→18:27)
[2018-03-16] MEDS: Multiple Vitamins Tab PO SCH (10:25)
[2018-03-16] MEDS: Pantoprazole 20 mg EC Tab PO SCH (10:25)
--- NOTE | 2018-03-16 15:42 | CP.PCM.PN ---
Subjective - Date & Time of Evaluation Date of Evaluation: 03/16/18 Time of Evaluation: 11:00 - Subjective Subjective: Surgery: Dr. Youngblood Pt seen and examined. No acute overnight events, states he feels fine and doesn't have any active complaints in regards to his hernia. He admits to tolerating his diet, having BMs. Denies fevers/chills. Objective - Vital Signs/Intake and Output Vital Signs (last 24 hours): Temp Pulse Resp BP Pulse Ox 98.1 F 72 20 124/84 95 03/16/18 08:49 03/16/18 08:49 03/16/18 08:49 03/16/18 10:25 03/16/18 08:49 Intake and Output: 03/16/18 03/16/18 06:59 18:59 Output Total 200 Balance -200 - Medications Medications: Current Medications Acetaminophen (Tylenol 325mg Tab) 650 mg PO Q6 PRN PRN Reason: Fever >100.4 F Albuterol/Ipratropium (Duoneb 3 Mg/0.5 Mg (3 Ml) Ud) 3 ml INH RQ6 PRN PRN Reason: Wheezing Dextrose (Dextrose 50% Inj) 0 ml IV STAT PRN; Protocol PRN Reason: Hypoglycemia Protocol Dextrose (Glutose 15) 0 gm PO ONCE PRN; Protocol PRN Reason: Hypoglycemia Protocol Docusate Sodium (Colace) 100 mg PO BID [facility] Last Admin: 03/16/18 10:26 Dose: Not Given Enoxaparin Sodium (Lovenox) 100 mg SC Q12H [facility] Last Admin: 03/16/18 11:30 Dose: 100 mg Folic Acid (Folic Acid) 1 mg PO DAILY [facility] Last Admin: 03/16/18 10:25 Dose: 1 mg Furosemide (Lasix) 40 mg IVP DAILY [facility] Last Admin: 03/16/18 10:25 Dose: 40 mg Glucagon (Glucagen Diagnostic Kit) 0 mg IM STAT PRN; Protocol PRN Reason: Hypoglycemia Protocol Dextrose (Dextrose 5% In Water 1000 Ml) 1,000 mls @ 0 mls/hr IV .Q0M PRN; Protocol PRN Reason: Hypoglycemia Protocol Vancomycin HCl 1,250 mg/ (Sodium Chloride) 250 mls @ 166.6 mls/hr IVPB Q12H [facility]; Protocol Last Admin: 03/16/18 13:57 Dose: 166.6 mls/hr Insulin Human Regular (Novolin R) 0 unit SC ACHS [facility]; Protocol Last Admin: 03/16/18 12:16 Dose: Not Given Lisinopril (Zestril) 2.5 mg PO DAILY [facility] Last Admin: 03/16/18 10:25 Dose: 2.5 mg Lorazepam (Ativan) 1 mg IVP Q6H PRN PRN Reason: Seizure activity Multivitamins (Hexavitamin) 1 tab PO DAILY [facility] Last Admin: 03/16/18 10:25 Dose: 1 tab Pantoprazole Sodium (Protonix Ec Tab) 20 mg PO DAILY [facility] Last Admin: 03/16/18 10:25 Dose: 20 mg Saccharomyces Boulardii (Florastor) 250 mg PO BID [facility] Last Admin: 03/16/18 12:41 Dose: 250 mg Thiamine HCl (Vitamin B1 Tab) 100 mg PO DAILY [facility] Last Admin: 03/16/18 10:25 Dose: 100 mg - Labs Labs: 03/16/18 07:56 03/16/18 07:56 PT 13.2 SECONDS (9.7-12.2) H 03/13/18 07:26 INR 1.2 03/13/18 07:26 APTT 33 SECONDS (21-34) 03/13/18 07:26 - Constitutional Appears: Well, No Acute Distress - Eye Exam Eye Exam: Normal appearance - ENT Exam ENT Exam: Mucous Membranes Moist - Respiratory Exam Respiratory Exam: NORMAL BREATHING PATTERN - Cardiovascular Exam Cardiovascular Exam: RRR - GI/Abdominal Exam GI & Abdominal Exam: Soft. absent: Tenderness - Neurological Exam Neurological Exam: Alert, Awake, Oriented x3 - Skin Skin Exam: Dry, Warm Assessment and Plan - Assessment and Plan (Free Text) Assessment: 62M with reducible L inguinal hernia Plan: - no plan for surgical intervention at this time - pt can follow up as outpt for elective repair - d/w Dr. Ford Dent
--- NOTE | 2018-03-16 21:11 | CP.PCM.PN ---
Subjective - Date & Time of Evaluation Date of Evaluation: 03/16/18 Time of Evaluation: 12:00 - Subjective Subjective: dictated Objective - Vital Signs/Intake and Output Vital Signs (last 24 hours): Temp Pulse Resp BP Pulse Ox 97.4 F L 80 20 125/86 98 03/16/18 15:15 03/16/18 15:15 03/16/18 15:15 03/16/18 15:15 03/16/18 15:15 Intake and Output: 03/16/18 03/17/18 18:59 06:59 Intake Total 350 Output Total 1400 Balance -1400 350 - Medications Medications: Current Medications Acetaminophen (Tylenol 325mg Tab) 650 mg PO Q6 PRN PRN Reason: Fever >100.4 F Albuterol/Ipratropium (Duoneb 3 Mg/0.5 Mg (3 Ml) Ud) 3 ml INH RQ6 PRN PRN Reason: Wheezing Dextrose (Dextrose 50% Inj) 0 ml IV STAT PRN; Protocol PRN Reason: Hypoglycemia Protocol Dextrose (Glutose 15) 0 gm PO ONCE PRN; Protocol PRN Reason: Hypoglycemia Protocol Docusate Sodium (Colace) 100 mg PO BID [facility] Last Admin: 03/16/18 18:27 Dose: Not Given Enoxaparin Sodium (Lovenox) 100 mg SC Q12H [facility] Last Admin: 03/16/18 11:30 Dose: 100 mg Folic Acid (Folic Acid) 1 mg PO DAILY [facility] Last Admin: 03/16/18 10:25 Dose: 1 mg Furosemide (Lasix) 40 mg IVP DAILY [facility] Last Admin: 03/16/18 10:25 Dose: 40 mg Glucagon (Glucagen Diagnostic Kit) 0 mg IM STAT PRN; Protocol PRN Reason: Hypoglycemia Protocol Dextrose (Dextrose 5% In Water 1000 Ml) 1,000 mls @ 0 mls/hr IV .Q0M PRN; Protocol PRN Reason: Hypoglycemia Protocol Vancomycin HCl 1,250 mg/ (Sodium Chloride) 250 mls @ 166.6 mls/hr IVPB Q12H [facility]; Protocol Last Admin: 03/16/18 13:57 Dose: 166.6 mls/hr Insulin Human Regular (Novolin R) 0 unit SC ACHS [facility]; Protocol Last Admin: 03/16/18 17:19 Dose: Not Given Lisinopril (Zestril) 2.5 mg PO DAILY [facility] Last Admin: 03/16/18 10:25 Dose: 2.5 mg Lorazepam (Ativan) 1 mg IVP Q6H PRN PRN Reason: Seizure activity Multivitamins (Hexavitamin) 1 tab PO DAILY [facility] Last Admin: 03/16/18 10:25 Dose: 1 tab Pantoprazole Sodium (Protonix Ec Tab) 20 mg PO DAILY [facility] Last Admin: 03/16/18 10:25 Dose: 20 mg Saccharomyces Boulardii (Florastor) 250 mg PO BID [facility] Last Admin: 03/16/18 18:27 Dose: 250 mg Thiamine HCl (Vitamin B1 Tab) 100 mg PO DAILY [facility] Last Admin: 03/16/18 10:25 Dose: 100 mg - Labs Labs: 03/16/18 07:56 03/16/18 07:56 PT 13.2 SECONDS (9.7-12.2) H 03/13/18 07:26 INR 1.2 03/13/18 07:26 APTT 33 SECONDS (21-34) 03/13/18 07:26
--- NOTE | 2018-03-16 23:21 | CP.PCM.PCO ---
Physician Communication Note - Physician Communication Note Physician Communication Note: Please see above
--- NOTE | 2018-03-17 02:07 | PN ---
DATE: 03/16/2018 INFECTIOUS DISEASE FOLLOWUP SUBJECTIVE: The patient was seen today. He was not complaining of any chest pain. He said he was feeling better. Denied any abdominal pain. His legs are getting better. OBJECTIVE: GENERAL: He feels better. VITAL SIGNS: T-max was 97.4, pulse 80, blood pressure 125/86, respirations are 20. HEENT: Head is atraumatic, normocephalic. NECK: Supple. LUNGS: Clear. HEART: S1, S2 regular. ABDOMEN: Soft, nontender. No guarding, no rigidity present. EXTREMITIES: Warmth was decreasing. Redness has decreased, previous blister sites were not draining any more. Extremities showed improvement. LABORATORY DATA: White count is 5.2, hemoglobin 13.4, hematocrit 39.3, platelet count is 257. BUN is 16, creatinine 0.7. One set had coagulase-negative Staph yesterday, and repeat cultures are negative 24 hours. Skin wound culture is negative at this time and urine culture is negative. ASSESSMENT AND PLAN: The patient is being treated for cellulitis and seems to be clinically improving, and he is also waiting for some hernia surgery which according to Dr. Youngblood's note may want to do it as outpatient. At this time if he improves further, we can probably switch him to something oral like doxycycline as he is ALLERGIC TO PENICILLIN. Bhavana Nolasco MD
[2018-03-17 07:19] LABS: BASO % 0.5 % (0.0-2.0); EOS # 0.2 K/uL (0.0-0.7); EOS % 2.9 % (0.0-4.0); HEMOGLOBIN 13.5 g/dL (12.0-18.0); LYMPH # 1.4 K/uL (1.0-4.3); LYMPH % 22.7 % (20.0-40.0); MEAN CELL VOLUME 88.8 fL (80.0-94.0); MEAN CORPUSCULAR HEMOGLOBIN 30.1 pg (27.0-31.0); MEAN CORPUSCULAR HGB CONC 33.9 g/dL (33.0-37.0); MEAN PLATELET VOLUME 7.1 fL (7.2-11.7); MONO # 0.4 K/uL (0.0-0.8); MONO % 6.8 % (0.0-10.0); NEUT # 4.3 K/uL (1.8-7.0); NEUT % 67.1 % (50.0-75.0); NRBC % 0.1 % (0.0-2.0); RBC 4.48 Mil/uL (4.40-5.90); WHITE BLOOD COUNT 6.4 K/uL (4.8-10.8)
[2018-03-17 08:14] LABS: ALB/GLOB RATIO 1.3 (1.0-2.1); ALBUMIN 3.9 g/dL (3.5-5.0); ALT/SGPT 28 U/L (21-72); AST/SGOT 36 U/L (17-59); BLOOD UREA NITROGEN 18 mg/dL (9-20); CALCIUM 8.7 mg/dl (8.6-10.4); GFR NON-AFRICAN AMERICAN > 60
[2018-03-17] MEDS: (Novolin R) Insulin Human Regular 100 units/ml vial SC SCH ×4 (08:55→21:23)
[2018-03-17] MEDS: Saccharomyces Boulardi 250 mg Cap PO SCH ×2 (10:11→17:57)
[2018-03-17] MEDS: Multiple Vitamins Tab PO SCH (10:11)
[2018-03-17] MEDS: Pantoprazole 20 mg EC Tab PO SCH (10:11)
[2018-03-17] MEDS: Enoxaparin 100 mg Syringe SC SCH ×2 (12:12)
--- NOTE | 2018-03-17 13:36 | CP.PCM.PN ---
Subjective - Date & Time of Evaluation Date of Evaluation: 03/17/18 Time of Evaluation: 13:33 - Subjective Subjective: Podiatry Progress note: Dr. Masters 62 year old male was seen and evaluated ]for swelling in b/l LE. Denies of having any pain to the legs today. Denies of any acute overnight events. Patient denies of having any recent F/N/V/C/SOB/CP/diarrhea/constipation. Patient denies of any other pedal complains at this time. Objective - Vital Signs/Intake and Output Vital Signs (last 24 hours): Temp Pulse Resp BP Pulse Ox 98.1 F 82 20 130/85 95 03/17/18 08:02 03/17/18 08:02 03/17/18 08:02 03/17/18 10:12 03/17/18 08:02 Intake and Output: 03/17/18 03/17/18 06:59 18:59 Intake Total 800 Output Total 500 Balance 300 - Medications Medications: Current Medications Acetaminophen (Tylenol 325mg Tab) 650 mg PO Q6 PRN PRN Reason: Fever >100.4 F Albuterol/Ipratropium (Duoneb 3 Mg/0.5 Mg (3 Ml) Ud) 3 ml INH RQ6 PRN PRN Reason: Wheezing Dextrose (Dextrose 50% Inj) 0 ml IV STAT PRN; Protocol PRN Reason: Hypoglycemia Protocol Dextrose (Glutose 15) 0 gm PO ONCE PRN; Protocol PRN Reason: Hypoglycemia Protocol Docusate Sodium (Colace) 100 mg PO BID [facility] Last Admin: 03/17/18 10:18 Dose: Not Given Enoxaparin Sodium (Lovenox) 100 mg SC Q12H [facility] Last Admin: 03/17/18 12:12 Dose: 100 mg Folic Acid (Folic Acid) 1 mg PO DAILY [facility] Last Admin: 03/17/18 10:11 Dose: 1 mg Furosemide (Lasix) 40 mg IVP DAILY [facility] Last Admin: 03/17/18 10:12 Dose: Not Given Glucagon (Glucagen Diagnostic Kit) 0 mg IM STAT PRN; Protocol PRN Reason: Hypoglycemia Protocol Dextrose (Dextrose 5% In Water 1000 Ml) 1,000 mls @ 0 mls/hr IV .Q0M PRN; Protocol PRN Reason: Hypoglycemia Protocol Vancomycin HCl 1,250 mg/ (Sodium Chloride) 250 mls @ 166.6 mls/hr IVPB Q12H [facility]; Protocol Last Admin: 03/17/18 03:00 Dose: 166.6 mls/hr Insulin Human Regular (Novolin R) 0 unit SC ACHS [facility]; Protocol Last Admin: 03/17/18 12:09 Dose: Not Given Lisinopril (Zestril) 2.5 mg PO DAILY [facility] Last Admin: 03/17/18 10:14 Dose: 2.5 mg Lorazepam (Ativan) 1 mg IVP Q6H PRN PRN Reason: Seizure activity Multivitamins (Hexavitamin) 1 tab PO DAILY [facility] Last Admin: 03/17/18 10:11 Dose: 1 tab Pantoprazole Sodium (Protonix Ec Tab) 20 mg PO DAILY [facility] Last Admin: 03/17/18 10:11 Dose: 20 mg Saccharomyces Boulardii (Florastor) 250 mg PO BID [facility] Last Admin: 03/17/18 10:11 Dose: 250 mg Thiamine HCl (Vitamin B1 Tab) 100 mg PO DAILY [facility] Last Admin: 03/17/18 10:11 Dose: 100 mg - Labs Labs: 03/17/18 07:08 03/17/18 07:08 PT 13.2 SECONDS (9.7-12.2) H 03/13/18 07:26 INR 1.2 03/13/18 07:26 APTT 33 SECONDS (21-34) 03/13/18 07:26 - Constitutional Appears: Well, Non-toxic, No Acute Distress - Extremities Exam Additional comments: B/L low ext exam: VASC: DP/PT pulses are palpable 1/4 b/l, cap refill < 3 sec to all digits, skin temp runs warm to cool from proximal to distal, minimal pitting edema DERM: Small superficial bullae noted on the medial and lateral aspect of the b/l distal LE colleen-malleolar area, diffuse red glossy skin from the previously healed ulceration on b/l LE, no open lesions, no clinical suspicion of active infection NEURO: Protective sensation mildly diminished b/l ORTHO: No pain on palpation of the bilateral LE, no pain on compression of b/l calves - Neurological Exam Neurological Exam: Alert, Awake, Oriented x3 - Psychiatric Exam Psychiatric exam: Normal Affect, Normal Mood Assessment and Plan - Assessment and Plan (Free Text) Assessment: 62 year old male evaluated for b/l venous stasis ulceration - healed, and uninfected Plan: Patient seen and evaluated Plan discussed with attending Dr. Masters Labs, vitals and charts reviewed - afebrile, no leukocytosis Bilateral LE cleaned with saline and dressing applied to bullae using ABD, DSD, KELSEA Culture of the serous fluid from the bullae taken - No growth (Prilim) IV abx as per ID Patient is stable from podiatry standpoint at this time Will monitor patient while in-house
--- NOTE | 2018-03-17 15:35 | CP.PCM.PN ---
Subjective - Date & Time of Evaluation Date of Evaluation: 03/17/18 Time of Evaluation: 10:00 - Subjective Subjective: PGY-1 Medicine progress note for Dr. Arreguin Pt was seen and examined at bedside. Pt is resting comfortably and has no complaints at this time. No acute events overnight. His erythema is resolved by raising of the bilateral lower extremities. He denies headache, dizziness, visual changes, fever, chills, chest pain, sob, abdominal pain, n/v/d, hematochezia, melena. He is having normal bowel movements. Objective - Vital Signs/Intake and Output Vital Signs (last 24 hours): Temp Pulse Resp BP Pulse Ox 98.1 F 82 20 130/85 95 03/17/18 08:02 03/17/18 08:02 03/17/18 08:02 03/17/18 10:12 03/17/18 08:02 Intake and Output: 03/17/18 03/17/18 06:59 18:59 Intake Total 800 Output Total 500 Balance 300 - Medications Medications: Current Medications Acetaminophen (Tylenol 325mg Tab) 650 mg PO Q6 PRN PRN Reason: Fever >100.4 F Albuterol/Ipratropium (Duoneb 3 Mg/0.5 Mg (3 Ml) Ud) 3 ml INH RQ6 PRN PRN Reason: Wheezing Dextrose (Dextrose 50% Inj) 0 ml IV STAT PRN; Protocol PRN Reason: Hypoglycemia Protocol Dextrose (Glutose 15) 0 gm PO ONCE PRN; Protocol PRN Reason: Hypoglycemia Protocol Docusate Sodium (Colace) 100 mg PO BID [facility] Last Admin: 03/17/18 10:18 Dose: Not Given Enoxaparin Sodium (Lovenox) 100 mg SC Q12H [facility] Last Admin: 03/17/18 12:12 Dose: 100 mg Folic Acid (Folic Acid) 1 mg PO DAILY [facility] Last Admin: 03/17/18 10:11 Dose: 1 mg Furosemide (Lasix) 40 mg IVP DAILY [facility] Last Admin: 03/17/18 10:12 Dose: Not Given Glucagon (Glucagen Diagnostic Kit) 0 mg IM STAT PRN; Protocol PRN Reason: Hypoglycemia Protocol Dextrose (Dextrose 5% In Water 1000 Ml) 1,000 mls @ 0 mls/hr IV .Q0M PRN; Protocol PRN Reason: Hypoglycemia Protocol Vancomycin HCl 1,250 mg/ (Sodium Chloride) 250 mls @ 166.6 mls/hr IVPB Q12H [facility]; Protocol Last Admin: 03/17/18 14:24 Dose: 166.6 mls/hr Insulin Human Regular (Novolin R) 0 unit SC ACHS [facility]; Protocol Last Admin: 03/17/18 12:09 Dose: Not Given Lisinopril (Zestril) 2.5 mg PO DAILY [facility] Last Admin: 03/17/18 10:14 Dose: 2.5 mg Lorazepam (Ativan) 1 mg IVP Q6H PRN PRN Reason: Seizure activity Multivitamins (Hexavitamin) 1 tab PO DAILY [facility] Last Admin: 03/17/18 10:11 Dose: 1 tab Pantoprazole Sodium (Protonix Ec Tab) 20 mg PO DAILY [facility] Last Admin: 03/17/18 10:11 Dose: 20 mg Saccharomyces Boulardii (Florastor) 250 mg PO BID [facility] Last Admin: 03/17/18 10:11 Dose: 250 mg Thiamine HCl (Vitamin B1 Tab) 100 mg PO DAILY [facility] Last Admin: 03/17/18 10:11 Dose: 100 mg - Labs Labs: 03/17/18 07:08 03/17/18 07:08 PT 13.2 SECONDS (9.7-12.2) H 03/13/18 07:26 INR 1.2 03/13/18 07:26 APTT 33 SECONDS (21-34) 03/13/18 07:26 - Additional Findings Additional findings: - Constitutional Appears: Non-toxic, No Acute Distress - Head Exam Head Exam: ATRAUMATIC, NORMAL INSPECTION - Eye Exam Eye Exam: EOMI, PERRL - Neck Exam Neck exam: Positive for: Normal Inspection - Respiratory Exam Respiratory Exam: NORMAL BREATHING PATTERN. absent: Accessory Muscle Use, Rales, Rhonchi, Wheezes, Respiratory Distress - Cardiovascular Exam Cardiovascular Exam: +S1, +S2. Absent: Tachycardia - GI/Abdominal Exam GI & Abdominal Exam: Hernia (scrotal hernia, nontender, nonerythematous), Normal Bowel Sounds, Soft. absent: Firm, Guarding, Rebound, Rigid, Tenderness - Extremities Exam Extremities exam: Positive for: normal capillary refill, pedal edema. Negative for: calf tenderness, pedal edema Additional comments: DPs are 2+ in bilateral lower extremities ,good capillary refill, sensation and strength intact - Back Exam Back exam: NORMAL INSPECTION - Neurological Exam Neurological exam: Alert, Awake Oriented x3 - Psychiatric Exam Psychiatric exam: Normal Affect, Normal Mood - Skin Skin Exam: Dry, Warm Additional comments: (+) skin is shiny and thin; with blanching erythema that transitions to a pink color when the lower extremities are raised; erythema continues to improve from the previous outline. Assessment and Plan - Assessment and Plan (Free Text) Assessment: 62 year old male PMH of homelessness, lower extremity cellulitis, HTN, DM, AFib (not on AC), hx of DVT, diastolic CHF, hypercholesterolemia, etoh abuse who presents with lower extremity swelling, redness and pain for the past 1.5 weeks. Plan: Possible Cellulitis Podiatry consulted, Dr. Masters. Pt is known to his service. F/u culture of the serous fluid from the bullae taken No Leukocytosis, tachycardia, pt afebrile Outline rubor and monitor Continue to improve Allergic to PCN (hives) Clindamycin discontinued 03/15, Vancomycin 1250 mg IVPB Q12H (started 03/15) as per ID 03/17: discontinue vancomycin, start on 10 day course of Doxycycline 100 mg PO BID Florastor 250 mg PO BID Tylenol 650 mg PO Q6H PRN fever>100.4 Urine culture is negative Procalcitonin is less than 0.05 on admission As per Meron CHUA, dark maroon fluid filled blister on the right lateral malleolus was cultured Culture is negative Bacteremia Blood culture x 1 03/12) final shows coagulase negative staphlyococcus resistant to Clindamycin Likely contamination, but repeat cultures were drawn Blood culture x 1 (03/12) is negative for 3 days Blood culture x2 (03/15) is prelim negative for the past 48 hours Will wait for negative for at least 72 hours for potential discharge ID consulted, Dr. Nolasco. Clindamycin discontinued, Pt started on Vancomycin 1250 mg IVPB Q12H (started 03/15) as per ID 03/17: discontinue vancomycin, start on 10 day course of Doxycycline 100 mg PO BID Continue to monitor blood cultures Echocardiogram (03/12) reading does not comment on a vegetation. Leg swelling Venous doppler bilateral lower extremities shows no DVT in visible vasculature bilaterally; unable to see calf veins secondary to swelling. Type I diastolic dysfunction noted on echo (03/12) Continue Lasix 40 mg IVP daily Abd US shows fatty infiltration of the liver. No evidence of ascites. S/p cholecystectomy Alcohol abuse CIWA Ativan 1 mg IVP Q6H PRN seizure activity Folic acid 1 mg PO daily Multivitamins 1 tab PO daily Thiamine 100 mg PO daily Pt has exhibited no clinical signs of withdrawal during hospital stay Ambulatory dysfunction PT/OT evaluation STEVE evaluation Hernia, scrotal General surgery, Dr Youngblood, consulted Recommends outpatient surgery, pending usp sobriety due to pt's history of alcoholism Cardiology, Dr. Bee service, consulted for cardiac clearance 1. The patient is stable. He is cleared for hernia surgery. 2. Pt has a h/o afib, but has been in nsr: due to alcoholism and falling, patient is high risk for usp anticoagulation. HPpEF CXR show NAD Intake and Output monitoring Fluid restriction (1500 mL) pro BNP is WNL Echo (03/12) shows: LVEF is approximately 65-70%. Diastolic dysfunction. No AR. Mild TR. Mild pulmonary HTN. No pulmonic valvular regurgitation. Cardiology consulted, Dr. Wadsworth Continue Lasix 40 mg IVP daily Hx of atrial fibrillation CHADSVASC score of 3 HASBLED; alcohol and HTN Se echocardiogram results above As per cardio, pt started on therapeutic enoxaparin Pt will not be discharged on anticoagulation due to strong hx of alcohol use and high risk of falls Impaired glucose tolerance HgbA1c is 6.0 Controlled Continue Lisinopril 2.5 mg PO daily Hx of dyslipidemia as per pt TG/CHL/LDL/HDL is 49/120/58/56 Hx of seizures Secondary to alcohol intake Ativan 1 mg IVP Q6H PRN seizure Aspiration precautions Seizure precautions No seizure activity during this stay Hx of DVT Venous doppler bilateral lower extremities shows no DVT in visible vasculature bilaterally; unable to see calf veins secondary to swelling. Hx of gastritis Hold ASA secondary to alcohol use Has had endoscopy; available on EMR to confirm Cannabis use disorder UDS is positive for cannabinoid on admission Pt counselled on cessation PPX VTE: Pt is on therapeutic lovenox while inpatient GI: PTX 20 mg PO daily Continue PT/OT Dispo: Waiting for blood culture x2 to be negative for at least 72 hours and will transfer to [facility] with Doxycycline 100 mg PO BID x 10 day course. Pending STEVE placement. Case discussed with Dr. Rodríguez Tran, PGY-1
[2018-03-18] MEDS: Enoxaparin 100 mg Syringe SC SCH ×2 (00:03→12:05)
[2018-03-18 08:02] LABS: ALB/GLOB RATIO 1.1 (1.0-2.1); ALBUMIN 3.5 g/dL (3.5-5.0); ALT/SGPT 32 U/L (21-72); AST/SGOT 28 U/L (17-59); BASO % 0.3 % (0.0-2.0); BLOOD UREA NITROGEN 13 mg/dL (9-20); CALCIUM 8.5 mg/dl (8.6-10.4); EOS # 0.2 K/uL (0.0-0.7); EOS % 3.7 % (0.0-4.0); GFR NON-AFRICAN AMERICAN > 60; HEMOGLOBIN 13.3 g/dL (12.0-18.0); LYMPH # 1.5 K/uL (1.0-4.3); LYMPH % 26.1 % (20.0-40.0); MEAN CELL VOLUME 88.1 fL (80.0-94.0); MEAN CORPUSCULAR HEMOGLOBIN 29.1 pg (27.0-31.0); MEAN PLATELET VOLUME 7.3 fL (7.2-11.7); MONO # 0.4 K/uL (0.0-0.8); MONO % 6.8 % (0.0-10.0); NEUT # 3.6 K/uL (1.8-7.0); NEUT % 63.1 % (50.0-75.0); NRBC % 0.1 % (0.0-2.0); RBC 4.57 Mil/uL (4.40-5.90); RED CELL DISTRIBUTION WIDTH 13.9 % (11.5-14.5); WHITE BLOOD COUNT 5.7 K/uL (4.8-10.8)
[2018-03-18] MEDS: (Novolin R) Insulin Human Regular 100 units/ml vial SC SCH ×3 (08:07→16:50)
[2018-03-18] MEDS: Multiple Vitamins Tab PO SCH (09:47)
[2018-03-18] MEDS: Saccharomyces Boulardi 250 mg Cap PO SCH (09:47)
[2018-03-18] MEDS: Pantoprazole 20 mg EC Tab PO SCH (09:47)
--- NOTE | 2018-03-18 14:39 | CP.PCM.DIS ---
Provider - Provider Date of Admission: 03/12/18 14:11 Attending physician: Eldon Olivarez MD Consults: 03/12/18 16:45 Physician Consult Routine Comment: Consulting Provider: Samantha Youngblood Consulting Physician: Samantha Youngblood Reason for Consult: inguinal hernia 03/12/18 16:59 Psychiatry Consult Routine Comment: Consulting Provider: Joe Boudreaux Consulting Physician: Joe Boudreaux Reason for Consult: pt requesting alcohol detox 03/12/18 19:21 Podiatry Consult Routine Comment: Consulting Provider: Danilo Masters Consulting Physician: Danilo Masters Reason for Consult: lower extremity cellulitis 03/12/18 20:59 Cardiology Consult Routine Comment: Consulting Provider: Marcus Bee Consulting Physician: Marcus Bee Reason for Consult: cardiac clearance for possible hernia repair 03/15/18 10:14 Infectious Disease Consult Routine Comment: Consulting Provider: Bhavana Nolasco Consulting Physician: Bhavana Nolasco Reason for Consult: B/L LE Cellulitis. Coag Neg Staph in blood x 1. On Clinda Time Spent in preparation of Discharge (in minutes): 35 Hospital Course - Lab Results Lab Results: Micro Results 03/15/18 09:00 Skin - Leg Gram Stain - Final 03/15/18 09:00 Skin - Leg Wound Culture - Final No growth. 03/15/18 09:00 Blood-Venous Blood Culture - Preliminary NO GROWTH AFTER 3 DAYS 03/15/18 08:40 Blood-Venous Blood Culture - Preliminary NO GROWTH AFTER 3 DAYS 03/12/18 Unknown Blood Blood Culture - Final NO GROWTH AFTER 5 DAYS 03/12/18 Unknown Blood Gram Stain - Final TEST NOT PERFORMED 03/12/18 08:50 Blood S.aureus & Coag-Neg Staph PNA FISH - Final 03/12/18 08:50 Blood Blood Culture - Final Coagulase Neg Staphylococcus 03/12/18 08:50 Blood Gram Stain - Final 03/12/18 21:28 Urine Urine Culture - Final No Growth (<1,000 CFU/ML) Most Recent Lab Values WBC 5.7 K/uL (4.8-10.8) 03/18/18 07:27 RBC 4.57 Mil/uL (4.40-5.90) 03/18/18 07:27 Hgb 13.3 g/dL (12.0-18.0) 03/18/18 07: Hct 40.3 % (35.0-51.0) 03/18/18 07: MCV 88.1 fL (80.0-94.0) 03/18/18 07: MCH 29.1 pg (27.0-31.0) 03/18/18 07: MCHC 33.0 g/dL (33.0-37.0) 03/18/18 07: RDW 13.9 % (11.5-14.5) 03/18/18 07:27 Plt Count 284 K/uL (130-400) 03/18/18 07: MPV 7.3 fL (7.2-11.7) 03/18/18 07: Neut % (Auto) 63.1 % (50.0-75.0) 03/18/18 07: Lymph % (Auto) 26.1 % (20.0-40.0) 03/18/18 07: Union % (Auto) 6.8 % (0.0-10.0) 03/18/18 07: Eos % (Auto) 3.7 % (0.0-4.0) 03/18/18 07: Baso % (Auto) 0.3 % (0.0-2.0) 03/18/18 07:27 Neut # (Auto) 3.6 K/uL (1.8-7.0) 03/18/18 07: Lymph # (Auto) 1.5 K/uL (1.0-4.3) 03/18/18 07:27 Union # (Auto) 0.4 K/uL (0.0-0.8) 03/18/18 07:27 Eos # (Auto) 0.2 K/uL (0.0-0.7) 03/18/18 07: Baso # (Auto) 0.0 K/uL (0.0-0.2) 03/18/18 07:27 Neutrophils % (Manual) 87 % (50-75) H 03/12/18 09:13 Lymphocytes % (Manual) 4 % (20-40) L 03/12/18 09:13 Monocytes % (Manual) 9 % (0-10) 03/12/18 09:13 Differential Comment 03/13/18 05:34 Platelet Estimate Normal (NORMAL) 03/12/18 09:13 RBC Morphology Normal 03/12/18 09:13 PT 13.2 SECONDS (9.7-12.2) H 03/13/18 07:26 INR 1.2 03/13/18 07:26 APTT 33 SECONDS (21-34) 03/13/18 07:26 pO2 68 mm/Hg (30-55) H 03/12/18 21:36 VBG pH 7.37 (7.32-7.43) 03/12/18 21:36 VBG pCO2 31 mmHg (40-60) L 03/12/18 21:36 VBG HCO3 20.0 mmol/L 03/12/18 21:36 VBG Total CO2 18.9 mmol/L (22-28) L 03/12/18 21:36 VBG O2 Sat (Calc) 97.5 % (40-65) H 03/12/18 21:36 VBG Base Excess -6.2 mmol/L (0.0-2.0) L 03/12/18 21:36 VBG Potassium 2.0 mmol/L (3.6-5.2) L* 03/12/18 21:36 Sodium 148.0 mmol/l (132-148) 03/12/18 21:36 Chloride 119.0 mmol/L (98-107) H 03/12/18 21:36 Glucose 77 mg/dl (75-110) 03/12/18 21:36 Lactate 1.1 mmol/L (0.7-2.1) 03/12/18 21:36 Crit Value Called To Sam winston rn 03/12/18 21:36 Crit Value Called By Cathryn 03/12/18 21:36 Crit Value Read Back Y 03/12/18 21:36 Blood Gas Notified Time 214303/12/18 21:36 Sodium 137 mmol/L (132-148) 03/18/18 07:27 Potassium 4.2 mmol/L (3.6-5.2) 03/18/18 07:27 Chloride 99 mmol/L (98-107) 03/18/18 07:27 Carbon Dioxide 28 mmol/L (22-30) 03/18/18 07:27 Anion Gap 14 (10-20) 03/18/18 07:27 BUN 13 mg/dL (9-20) 03/18/18 07:27 Creatinine 0.7 mg/dL (0.8-1.5) L 03/18/18 07:27 Est GFR ( Amer) > 60 03/18/18 07:27 Est GFR (Non-Af Amer) > 60 03/18/18 07:27 POC Glucose (mg/dL) 82 mg/dL (65-110) 03/18/18 11:21 Random Glucose 104 mg/dL (75-110) 03/18/18 07:27 Hemoglobin A1c 6.0 % (4.2-6.5) 03/13/18 05:34 Calcium 8.5 mg/dl (8.6-10.4) L 03/18/18 07:27 Total Bilirubin 0.4 mg/dL (0.2-1.3) 03/18/18 07:27 AST 28 U/L (17-59) 03/18/18 07:27 ALT 32 U/L (21-72) 03/18/18 07:27 Alkaline Phosphatase 116 U/L (38-126) 03/18/18 07:27 Total Creatine Kinase 94 U/L (55-170) 03/12/18 21:25 Troponin I 0.0130 ng/mL (0.00-0.120) 03/12/18 09:13 NT-Pro-B Natriuret Pep 98.2 pg/mL (0-900) 03/12/18 21:25 Total Protein 6.7 g/dL (6.3-8.3) 03/18/18 07:27 Albumin 3.5 g/dL (3.5-5.0) 03/18/18 07:27 Globulin 3.2 gm/dL (2.2-3.9) 03/18/18 07:27 Albumin/Globulin Ratio 1.1 (1.0-2.1) 03/18/18 07:27 Triglycerides 49 mg/dL (0-149) 03/13/18 05:34 Cholesterol 120 mg/dL (0-199) 03/13/18 05:34 LDL Cholesterol Direct 58 mg/dL (0-129) 03/13/18 05:34 HDL Cholesterol 56 mg/dL (30-70) 03/13/18 05:34 Procalcitonin < 0.05 NG/ML (0.19-0.49) L 03/13/18 05:34 Venous Blood Potassium 2.0 mmol/L (3.6-5.2) L* 03/12/18 21:36 Urine Color Yellow (YELLOW) 03/12/18 11:03 Urine Clarity Clear (Clear) 03/12/18 11:03 Urine pH 6.0 (5.0-8.0) 03/12/18 11:03 Ur Specific [place] 1.015 (1.003-1.030) 03/12/18 11:03 Urine Protein 1+ mg/dL (NEGATIVE) H 03/12/18 11:03 Urine Glucose (UA) Normal mg/dL (Normal) 03/12/18 11:03 Urine Ketones 1+ mg/dL (NEGATIVE) H 03/12/18 11:03 Urine Blood Negative (NEGATIVE) 03/12/18 11:03 Urine Nitrate Negative (NEGATIVE) 03/12/18 11:03 Urine Bilirubin Negative (NEGATIVE) 03/12/18 11:03 Urine Urobilinogen 2.0 mg/dL (0.2-1.0) 03/12/18 11:03 Ur Leukocyte Esterase Neg [place]/uL (Negative) 03/12/18 11:03 Urine WBC (Auto) 5 /hpf (0-5) 03/12/18 11:03 Urine RBC (Auto) 1 /hpf (0-3) 03/12/18 11:03 Ur Squamous Epith Cells 1 /hpf (0-5) 03/12/18 11:03 Urine Opiates Screen Negative (NEGATIVE) 03/12/18 11:03 Urine Methadone Screen Negative (NEGATIVE) 03/12/18 11:03 Ur Barbiturates Screen Negative (NEGATIVE) 03/12/18 11:03 Ur Phencyclidine Scrn Negative (NEGATIVE) 03/12/18 11:03 Ur Amphetamines Screen Negative (NEGATIVE) 03/12/18 11:03 U Benzodiazepines Scrn Negative (NEGATIVE) 03/12/18 11:03 U Oth Cocaine Metabols Negative (NEGATIVE) 03/12/18 11:03 U Cannabinoids Screen Positive (NEGATIVE) H 03/12/18 11:03 Alcohol, Quantitative < 10 mg/dl (0-10) 03/12/18 10:15 - Hospital Course Hospital Course: On admission: CC: leg swelling and pain This is a 62 year old male with PMH of 62 year old male PMH of homelessness, lower extremity cellulitis, HTN, DM, AFib (no AC), hx of DVT, diastolic CHF, hypercholesterolemia, etoh abuse with seizures in the past, gastritis who presents with lower extremity swelling, redness and pain for the past 1.5 weeks. Pt denies fever, chills, chest pain, sob, abdominal pain, n/v/d, hematochezia, melena, numbness or tingling, recent travel, falls. Pt's last drink was this morning. Hospital course: He was started on antibiotics for possible cellulitis, however he remained without leukoytosis, fever or tachycardia throughout the stay. His procalcitonin was not elevated. Podiatry, Dr. Masters, was consulted for management of chronic venous stasis. Surgery was consulted for inguinal hernia repair and pt was started on the path for cardiac clearance as per Dr. Hu. Pt was started on chemical AC due to paroxysmal afib and CHADSVASC score of 3, and lasix for chf as per cardiology. Venous doppler bilateral lower extremities did not show DVT. General surgery recommended that indirect inguinal hernia surgery was not emergent and could thus be done as outpatient, pending established sobriety due to strong history of alcohol abuse and falls. Antibiotics were tailored to cover coagulase negative staph resistant to clindamycin in BC x1 bottle, which was likely contaminant as repeat blood cultures (and lower extremity blister culture) have been negative. Aforementioned echo did not note any vegetations. However, after optimization of medical problems and leg pain, pt was discharged home on 10 day course of doxycycline. He was not discharged on any anticoagulation for paroxysmal afib or ASA due to high risk of alcohol abuse, hx of gastritis and falls. He was discharged with a scrotal hernia support, and given new clothes as requested by patient. Studies: Echo (03/12) shows: LVEF is approximately 65-70%. Diastolic dysfunction type I. No AR. Mild TR. Mild pulmonary HTN. No pulmonic valvular regurgitation. CXR: no active disease Venous doppler bilateral lower extremities shows no DVT in visible vasculature bilaterally; unable to see calf veins secondary to swelling. Abd US shows fatty infiltration of the liver. No evidence of ascites. S/p cholecystectomy This is a summary of the hospital course. Please see EMR for full details. Discharge Exam - Additional Findings Additional findings: - Constitutional Appears: Non-toxic, No Acute Distress - Head Exam Head Exam: ATRAUMATIC, NORMAL INSPECTION - Eye Exam Eye Exam: EOMI, PERRL - Neck Exam Neck exam: Positive for: Normal Inspection - Respiratory Exam Respiratory Exam: NORMAL BREATHING PATTERN. absent: Accessory Muscle Use, Rales, Rhonchi, Wheezes, Respiratory Distress - Cardiovascular Exam Cardiovascular Exam: +S1, +S2. Absent: Tachycardia - GI/Abdominal Exam GI & Abdominal Exam: Hernia (scrotal hernia, nontender, nonerythematous), Normal Bowel Sounds, Soft. absent: Firm, Guarding, Rebound, Rigid, Tenderness - Extremities Exam Extremities exam: Positive for: normal capillary refill. Negative for: calf tenderness, pedal edema Additional comments: DPs are 2+ in bilateral lower extremities, good capillary refill, sensation and strength intact - Back Exam Back exam: NORMAL INSPECTION - Neurological Exam Neurological exam: Alert, Awake Oriented x3 - Psychiatric Exam Psychiatric exam: Normal Affect, Normal Mood - Skin Skin Exam: Dry, Warm Additional comments: (+) skin is shiny and thin; with blanching erythema that transitions to a pink color when the lower extremities are raised Discharge Plan - Discharge Medications Prescriptions: Doxycycline Hyclate [Doryx] 100 mg PO BID #19 cap - Follow Up Plan Condition: GOOD Disposition: HOME/ ROUTINE Instructions: Cellulitis (Skin Infection), Adult (DC) Additional Instructions: Pt is medically stable as per Dr. Arreguin. Pt should complete a 10 day course of Doxycycline 100 mg by mouth twice a day. Pt should not be discharged home with any chemical anticoagulation due to high risk of falls and history of alcohol abuse. Pt should follow up with Dr. Youngblood, general surgery, for set up of outpatient indirect inguinal hernia repair. Please wear inguinal hernia support in the meantime, as well as avoid heavy lifting. Pt should be seen by Dr. aMsters, podiatry, for management of chronic venous stasis. Should symptoms worsen, please return to the nearest ER for evaluation. Discharge instructions explained to the pt who understands and agrees with discharge plan. Referrals: Samantha Youngblood MD [Staff Provider] - Danilo Masters DPM [Staff Provider] - Jacob Wadsworth MD [Medical Doctor] -
[2018-03-18 15:55] VITALS: BP 126/77; PULSE 70; TEMP 98.1; O2SAT 97
== END 2018-03-18 17:16 | disposition home or self-care (01) | DRG 563 ==
LOC: C.ER 06:53 → C.9E 14:11 → C.3T 19:43 → C.9E 20:30 → C.5S 03-13 06:48 → C.6T 03-13 15:10 → C.3T 03-16 20:05
PROVIDERS: ADMIT Family Medicine; ATTEND Family Medicine
DX: L03.115 Cellulitis of right lower limb (principal); I50.32 Chronic diastolic (congestive) heart failure; I11.0 Hypertensive heart disease with heart failure; L03.116 Cellulitis of left lower limb; Z59.0 Homelessness; I48.0 Paroxysmal atrial fibrillation; F12.90 Cannabis use, unspecified, uncomplicated; E78.5 Hyperlipidemia, unspecified; E11.9 Type 2 diabetes mellitus without complications; G40.909 Epilepsy, unspecified, not intractable, without status epilepticus; F10.20 Alcohol dependence, uncomplicated; I87.8 Other specified disorders of veins

== ENCOUNTER 2018-04-16 13:13 | Emergency (ER) | payer OTHER ==
[2018-04-16 13:13] VITALS: BMI 28.1
[2018-04-16 15:12] LABS: BASO % 0.6 % (0.0-2.0); EOS # 0.1 K/uL (0.0-0.7); EOS % 1.3 % (0.0-4.0); LYMPH # 0.9 K/uL (1.0-4.3); MEAN CELL VOLUME 89.9 fL (80.0-94.0); MEAN CORPUSCULAR HEMOGLOBIN 30.6 pg (27.0-31.0); MEAN PLATELET VOLUME 6.2 fL (7.2-11.7); MONO # 0.6 K/uL (0.0-0.8); MONO % 7.6 % (0.0-10.0); NEUT # 6.3 K/uL (1.8-7.0); NEUT % 79.5 % (50.0-75.0); RBC 3.91 Mil/uL (4.40-5.90); WHITE BLOOD COUNT 7.9 K/uL (4.8-10.8)
[2018-04-16 15:25] LABS: BLOOD UREA NITROGEN 15 mg/dL (9-20); CALCIUM 8.6 mg/dl (8.6-10.4); GFR NON-AFRICAN AMERICAN > 60
--- NOTE | 2018-04-16 15:34 | C.PDOC ---
History Of Present Illness Patient reports leg pain and swelling, has chronic wounds on both legs, states "it's been like this for 10-12 years[address] Masters for wound care, last saw him 1.5 months ago. States that he was seen at the ED in [place] yesterday and had his legs re-wrapped. Was admitted here about a month ago for cellulitis, cultures were negative. Denies fever or any other systemic symptoms. Time Seen by Provider: 04/16/18 13:40 Chief Complaint (Nursing): Abnormal Skin Integrity Past Medical History Reviewed: Historical Data, Nursing Documentation, Vital Signs Vital Signs: Last Vital Signs Temp 97.6 F 04/16/18 13:27 Pulse 78 04/16/18 13:27 Resp 20 04/16/18 13:27 BP 159/81 H 04/16/18 13:27 Pulse Ox 97 04/16/18 13:27 - Medical History PMH: Anxiety, Arthritis, Atrial Fibrillation, Depression, Deep Vein Thrombosis, Fractures (neck, back Rt. leg fx in 5 places), Gastritis, Hepatitis (Patient reported history of alcohol hepatitis), HTN, Hypercholesterolemia, Pancreatitis, Peripheral Edema (chronic), Seizures (alcohol induced), Chronic Pain (leg pain/dermatitis) Denies: Chronic Kidney Disease Surgical History: Back Surgery, Cholecystectomy Denies: Pacemaker - [facility] Procedures ALCOHOL DETOXIFICATION (09/09/13) CENTRAL VENOUS CATHETER PLACEMENT WITH GUIDANCE (11/27/13) DETOXIFICATION SERVICES FOR SUBSTANCE ABUSE TREATMENT (05/05/17) GROUP VIRTUAL OFFICE ASSISTANT FOR SUBSTANCE ABUSE TREATMENT, PSYCHOEDUCATION (05/05/17) GROUP VIRTUAL OFFICE ASSISTANT FOR SUBSTANCE ABUSE, COGNITIVE BEHAVIORAL (05/05/17) GROUP PSYCHOTHERAPY (06/02/15) INDIV PSYCHOTHERAPY FOR SUBSTANCE ABUSE TREATMENT, SUPPORT (05/05/17) INDIV PSYCHOTHERAPY FOR SUBSTANCE ABUSE, COGNITIV BEHAVIORAL (05/05/17) INDIV PSYCHOTHERAPY FOR SUBSTANCE ABUSE, PSYCHOEDUCATION (05/05/17) INFLUENZA VACCINATION (07/14/14) INJECT/INFUSE NEC (03/20/13) INSERTION OF TOTALLY IMPLANTABLE VASC ACCESS DEVIC (04/10/14) NONEXCIS DEBRID OF WOUND, INFECT, OR BURN (04/10/14) REMOV THERAPEUT DEV NEC (11/27/13) VACCINATION NEC (07/14/14) Family History: States: Unknown Family Hx - Social History Hx Tobacco Use: No Hx Alcohol Use: Yes Hx Substance Use: Yes - Immunization History Hx Tetanus Toxoid Vaccination: No Hx Influenza Vaccination: Yes (2017) Hx Pneumococcal Vaccination: No Review Of Systems Except As Marked, All Systems Reviewed And Found Negative. Constitutional: Negative for: Fever, Chills Cardiovascular: Negative for: Chest Pain Respiratory: Negative for: Cough, Shortness of Breath Gastrointestinal: Negative for: Nausea, Vomiting, Abdominal Pain, Diarrhea Musculoskeletal: Positive for: Leg Pain Skin: Positive for: Other (Venous stasis) Neurological: Negative for: Weakness, Numbness Physical Exam - Physical Exam Appears: Unkempt Skin: Other (Chronic venous stasis with weeping wounds to bilateral lower legs) Head: Atraumatic Oral Mucosa: Moist Cardiovascular: Rhythm Regular Respiratory: Normal Breath Sounds Gastrointestinal/Abdominal: Normal Exam Extremity: Pedal Edema, Swelling Neurological/Psych: Oriented x3 ED Course And Treatment - Laboratory Results Result Diagrams: 04/16/18 15:07 04/16/18 15:07 O2 Sat by Pulse Oximetry: 97 Medical Decision Making Medical Decision Making: Patient was recently admitted a month ago and had full workup of legs including venous duplex and cultures, and treatment with abx. he was seen by ID and podiatry during that visit. Labs done today and were unremarkable. Blood cu ltures redrawn and are pending. Patient is afebrile, not tachycardic, not hypotensive. Wounds appear to be chronic. Patient advised to follow up with Dr. Masters for further podiatric care. Disposition - Disposition Disposition: HOME/ ROUTINE Disposition Time: 15:30 Condition: STABLE - Clinical Impression Clinical Impression: Chronic wound of extremity, Homelessness, Stasis dermatitis of both legs
[2018-04-16 16:13] VITALS: BP 142/77; PULSE 90; RESP 16; TEMP 97.5; O2SAT 99
== END 2018-04-16 17:21 | disposition home or self-care (01) ==
LOC: C.ER 13:13
DX: L97.829 Non-pressure chronic ulcer of other part of left lower leg with unspecified severity (principal); L97.819 Non-pressure chronic ulcer of other part of right lower leg with unspecified severity; I87.2 Venous insufficiency (chronic) (peripheral); Z59.0 Homelessness; I10 Essential (primary) hypertension; Z86.718 Personal history of other venous thrombosis and embolism

== ENCOUNTER 2018-08-18 03:55 | Inpatient (IN) | payer OTHER ==
[2018-08-18 03:56] VITALS: BMI 32.5
--- NOTE | 2018-08-18 04:07 | C.PDOC ---
History Of Present Illness Pt found inebriated at [facility]. Pt has chronic venous stasis , is homeless. Has had his bandages [facility] on wednesday, however he got them wet and kept them on. Severe foul smelling, feet. Pt has not followed up in podiatry clinic. No f/c/n/v. Ambulating with walker Time Seen by Provider: 08/18/18 04:07 Chief Complaint (Nursing): Substance Abuse History Per: Patient History/Exam Limitations: no limitations Onset/Duration Of Symptoms: Days Current Symptoms Are (Timing): Still Present Past Medical History Reviewed: Historical Data, Nursing Documentation, Vital Signs - Medical History PMH: Anxiety, Arthritis, Atrial Fibrillation, Depression, Fractures (neck, back Rt. leg fx in 5 places), Gastritis, Hepatitis (Patient reported history of alcohol hepatitis), HTN, Hypercholesterolemia, Pancreatitis, Peripheral Edema (chronic), Seizures (alcohol induced), Chronic Pain (leg pain/dermatitis) Denies: Chronic Kidney Disease Surgical History: Back Surgery, Cholecystectomy Denies: Pacemaker - [facility] Procedures ALCOHOL DETOXIFICATION (09/09/13) CENTRAL VENOUS CATHETER PLACEMENT WITH GUIDANCE (11/27/13) DETOXIFICATION SERVICES FOR SUBSTANCE ABUSE TREATMENT (05/05/17) GROUP HOME WORKER FOR SUBSTANCE ABUSE TREATMENT, PSYCHOEDUCATION (05/05/17) GROUP HOME WORKER FOR SUBSTANCE ABUSE, COGNITIVE BEHAVIORAL (05/05/17) GROUP PSYCHOTHERAPY (06/02/15) INDIV PSYCHOTHERAPY FOR SUBSTANCE ABUSE TREATMENT, SUPPORT (05/05/17) INDIV PSYCHOTHERAPY FOR SUBSTANCE ABUSE, COGNITIV BEHAVIORAL (05/05/17) INDIV PSYCHOTHERAPY FOR SUBSTANCE ABUSE, PSYCHOEDUCATION (05/05/17) INFLUENZA VACCINATION (07/14/14) INJECT/INFUSE NEC (03/20/13) INSERTION OF TOTALLY IMPLANTABLE VASC ACCESS DEVIC (04/10/14) NONEXCIS DEBRID OF WOUND, INFECT, OR BURN (04/10/14) REMOV THERAPEUT DEV NEC (11/27/13) VACCINATION NEC (07/14/14) Family History: States: Unknown Family Hx - Social History Hx Tobacco Use: No Hx Alcohol Use: Yes (drink daily hard liquor) Hx Substance Use: Yes (marijuana) - Immunization History Hx Tetanus Toxoid Vaccination: No Hx Influenza Vaccination: Yes (2016) Hx Pneumococcal Vaccination: No Review Of Systems Constitutional: Negative for: Fever, Chills Cardiovascular: Negative for: Chest Pain Respiratory: Negative for: Shortness of Breath Musculoskeletal: Positive for: Leg Pain Skin: Positive for: Rash, Lesions Neurological: Negative for: Weakness Psych: Negative for: Anxiety Physical Exam - Physical Exam Appears: Non-toxic, No Acute Distress Oral Mucosa: Moist Gastrointestinal/Abdominal: Soft, No Tenderness Back: No CVA Tenderness Extremity: Tenderness, Pedal Edema, No Calf Tenderness, Capillary Refill, Swelling, Other (b/l macerated tissue, after removing the dressing) Extremity: Bilateral: Painful To Bear Weight Neurological/Psych: Oriented x3 Gait: With Assistance ED Course And Treatment O2 Sat by Pulse Oximetry: 98 Pulse Ox Interpretation: Normal Progress Note: spoke with podiatry resident. will come and see the pt in the ed Disposition Counseled Patient/Family Regarding: Studies Performed, Diagnosis - Disposition Disposition Time: 04:07 Condition: FAIR Forms: [facility] (Sami) - Clinical Impression Clinical Impression: Alcohol intoxication, Venous stasis ulcer of lower extremity, Stasis dermatitis Physician Patient Turnover Patient Signed Over To: Robyn Jimenez Handoff Comments: pending labs, sobriety , podiatry consult and disposition
[2018-08-18] MEDS ORDERED: Sodium Chloride 0.9% 1,000 ML IV ONE (06:40)
[2018-08-18] MEDS ORDERED: Sodium Chloride 0.9% 1,000 ML ONE (06:51)
[2018-08-18 07:14] LABS: BASO % 0.5 % (0.0-2.0); EOS # 0.2 K/uL (0.0-0.7); EOS % 2.9 % (0.0-4.0); HEMOGLOBIN 11.3 g/dL (12.0-18.0); LYMPH % 14.2 % (20.0-40.0); MEAN CELL VOLUME 84.3 fL (80.0-94.0); MEAN CORPUSCULAR HEMOGLOBIN 28.1 pg (27.0-31.0); MEAN CORPUSCULAR HGB CONC 33.4 g/dL (33.0-37.0); MEAN PLATELET VOLUME 6.3 fL (7.2-11.7); MONO # 0.6 K/uL (0.0-0.8); MONO % 8.2 % (0.0-10.0); NEUT # 5.2 K/uL (1.8-7.0); NEUT % 74.2 % (50.0-75.0); RBC 4.02 Mil/uL (4.40-5.90)
[2018-08-18 07:16] LABS: VENOUS BLOOD GAS BASE EXCESS -1.2 mmol/L (0.0-2.0); VENOUS BLOOD GAS PCO2 39 mmHg (40-60); VENOUS BLOOD GAS PO2 54 mm/Hg (30-55); VENOUS BLOOD PH 7.39 (7.32-7.43)
[2018-08-18 07:28] LABS: INR 1.1; PROTHROMBIN TIME 12.1 SECONDS (9.7-12.2)
[2018-08-18 07:30] LABS: ALB/GLOB RATIO 1.1 (1.0-2.1); ALBUMIN 3.5 g/dL (3.5-5.0); ALT/SGPT 22 U/L (21-72); AST/SGOT 24 U/L (17-59); BLOOD UREA NITROGEN 3 mg/dL (9-20); CALCIUM 8.4 mg/dl (8.6-10.4); GFR NON-AFRICAN AMERICAN > 60
--- NOTE | 2018-08-18 08:49 | CP.PCM.CON ---
History of Present Illness - History of Present Illness History of Present Illness: Podiatry Consult Note: Dr. Masters 62 year old male patient with PMH of Alcohol abuse, HTN, DMII, AFib, hx of DVT, diastolic CHF and HLD seen and examined in the ED for b/l lower extremity Painful venous stasis ulcerations. Patient is well known to Dr. Masters and to podiatry service. Patients dressings removed by ED staff as they were wet and soaked with his urine and feces. Patient states that he was last seen 2 weeks ago where his LE dressed and then he left to the street. Patient was recently admitted for alcohol detox/withdrawl. He states that he didn't follow up with Dr. Masters as instructed. Patient states that his right leg is painful at the ulceration sites. He denies any chills or fever. He states that he had episodes of nausea/vomiting today as he drank a lot. Patient denies any other pedal complaint at this time. PMHx: Alcohol abuse, HTN, DMII, AFib, hx of DVT, diastolic CHF, HLD PSHx: Cholecystectomy, right leg and hip fracture repair All: PCN Social Hx: Alcoholic, Denies tobacco use. Uses marijuana. Review of Systems - Review of Systems Review of Systems: As per HPI - Constitutional Constitutional: As Per HPI Past Patient History - Infectious Disease Hx of Infectious Diseases: None - Tetanus Immunizations Tetanus Immunization: Unknown - Past Medical History & Family History Past Medical History?: Yes - Past Social History Smoking Status: Light Smoker < 10 Cigarettes Daily - CARDIAC Hx Atrial Fibrillation: Yes Hx Hypercholesterolemia: Yes Hx Hypertension: Yes Hx Pacemaker: No Hx Peripheral Edema: Yes (chronic) - PULMONARY Hx Respiratory Disorders: No - NEUROLOGICAL Hx Seizures: Yes (alcohol induced) - HEENT Hx HEENT Problems: Yes - RENAL Hx Chronic Kidney Disease: No - ENDOCRINE/METABOLIC Hx Endocrine Disorders: Yes Other/Comment: HX:SPOT ON PANCREAS - INTEGUMENTARY Hx Dermatological Problems: Yes Hx Cellulitis: Yes - MUSCULOSKELETAL/RHEUMATOLOGICAL Hx Arthritis: Yes Hx Fractures: Yes (neck, back Rt. leg fx in 5 places) - GASTROINTESTINAL Hx Gastritis: Yes Hx Pancreatitis: Yes - PSYCHIATRIC Hx Anxiety: Yes Hx Depression: Yes Hx Substance Use: Yes (marijuana) - SURGICAL HISTORY Hx Cholecystectomy: Yes - ANESTHESIA Hx Anesthesia: Yes Hx Anesthesia Reactions: No Hx Malignant Hyperthermia: No Meds Allergies/Adverse Reactions: Allergies Allergy/AdvReac Type Severity Reaction Status Date / Time Penicillins Allergy Severe RASH Verified 08/18/18 04:11 Physical Exam - Constitutional Appears: No Acute Distress - Head Exam Head Exam: ATRAUMATIC, NORMOCEPHALIC - Extremities Exam Additional comments: B/L LE exam VASC: DP/PT pulses are palpable 1/4 b/l, cap refill < 3 sec to all digits, skin temp runs warm to warm from proximal to distal b/l, +2 pitting edema on the right LE and +2 pitting edema on the left LE. NEURO: Protective sensation mildly diminished b/l DERM: Circumferential, open venous ulcerations present to the b/l lower legs with granular and necrotic base with macerations on the right side and granular base on left side; no purulent drainage, serous drainage appreciated bilaterally, diffuse red glossy skin from the previously healed ulceration on b/l LE, positive malodor. Interdigital macerations noted in all interspaces. MSK: Moderate pain on palpation of lower extremity ulcerations, no pain on compression of b/l calves. MMT 5/5 to all groups - Neurological Exam Neurological exam: Alert, Oriented x3 Results - Vital Signs Recent Vital Signs: Last Vital Signs Temp 98.4 F 08/18/18 08:29 Pulse 108 H 08/18/18 06:18 Resp 18 08/18/18 06:18 BP 149/66 08/18/18 06:18 Pulse Ox 98 08/18/18 06:45 - Labs Result Diagrams: 08/18/18 07:11 08/18/18 07:11 Labs: Laboratory Results - last 24 hr 08/18/18 08/18/18 08/18/18 07:11 07:11 07:11 WBC 7.0 RBC 4.02 L Hgb 11.3 L Hct 33.9 L MCV 84.3 D MCH 28.1 MCHC 33.4 RDW 15.0 H Plt Count 355 D MPV 6.3 L Neut % (Auto) 74.2 Lymph % (Auto) 14.2 L Leslie % (Auto) 8.2 Eos % (Auto) 2.9 Baso % (Auto) 0.5 Neut # (Auto) 5.2 Lymph # (Auto) 1.0 Leslie # (Auto) 0.6 Eos # (Auto) 0.2 Baso # (Auto) 0.0 PT 12.1 INR 1.1 APTT 35.0 H pO2 VBG pH VBG pCO2 VBG HCO3 VBG Total CO2 VBG O2 Sat (Calc) VBG Base Excess VBG Potassium Glucose Lactate Sodium 141 Potassium 3.8 Chloride 102 Carbon Dioxide 23 Anion Gap 20 BUN 3 L Creatinine 0.7 L Est GFR ( Amer) > 60 Est GFR (Non-Af Amer) > 60 Random Glucose 109 Calcium 8.4 L Total Bilirubin 0.2 AST 24 ALT 22 Alkaline Phosphatase 133 H Total Protein 6.5 Albumin 3.5 Globulin 3.1 Albumin/Globulin Ratio 1.1 Venous Blood Potassium Alcohol, Quantitative 57 H 08/18/18 07:13 WBC RBC Hgb Hct MCV MCH MCHC RDW Plt Count MPV Neut % (Auto) Lymph % (Auto) Leslie % (Auto) Eos % (Auto) Baso % (Auto) Neut # (Auto) Lymph # (Auto) Leslie # (Auto) Eos # (Auto) Baso # (Auto) PT INR APTT pO2 54 VBG pH 7.39 VBG pCO2 39 L VBG HCO3 23.7 VBG Total CO2 24.8 VBG O2 Sat (Calc) 90.4 H VBG Base Excess -1.2 L VBG Potassium 3.7 Glucose 107 Lactate 1.6 Sodium 136.0 Potassium Chloride 105.0 Carbon Dioxide Anion Gap BUN Creatinine Est GFR ( Amer) Est GFR (Non-Af Amer) Random Glucose Calcium Total Bilirubin AST ALT Alkaline Phosphatase Total Protein Albumin Globulin Albumin/Globulin Ratio Venous Blood Potassium 3.7 Alcohol, Quantitative Assessment & Plan - Assessment and Plan (Free Text) Assessment: 62 year old male patient with PMH of Alcohol abuse, HTN, DMII, AFib, hx of DVT, diastolic CHF and HLD seen and examined in the ED for b/l lower extremity Painful venous stasis ulcerations. Plan: Patient seen and evaluated Discussed in detail with Dr. Masters Charts, labs and vitals reviewed: Afebrile, absent leukocytosis Wound culture taken Local wound care: Xeroform, DSD, kerlix, Betadine for the interdigital space, DSD, Charles bandage. Ordered B/L tib-fibula x-ray. Ordered venous duplex. Podiatry will continue to follow up the patient while in house. - Date & Time Date: 08/18/18 Time: 08:43
[2018-08-18] MEDS ORDERED: Vancomycin 500mg/D5W 100 ml 500 MG/100 ML BAG IVPB ONE (10:57)
[2018-08-18] MEDS ORDERED: Multivitamin (MVI) 10 ML, Thiamine 100 MG, Folic Acid 1 MG in Sodium Chloride 0.9% 1,00... IV ONE (10:57)
--- NOTE | 2018-08-18 11:09 | CP.PCM.PN ---
Subjective - Date & Time of Evaluation Date of Evaluation: 08/18/18 Time of Evaluation: 10:30 - Subjective Subjective: H&P dictated #[id number] Objective - Vital Signs/Intake and Output Vital Signs (last 24 hours): Temp Pulse Resp BP Pulse Ox 98 F 99 H 20 104/48 L 94 L 08/18/18 09:14 08/18/18 09:14 08/18/18 09:14 08/18/18 09:14 08/18/18 09:14 - Medications Medications: Current Medications Multivitamins/Vitamin C 10 ml/Thiamine HCl 100 mg/ Folic Acid 1 mg/ Sodium Chloride 1,011.2 mls @ 100 mls/hr IV .Q10H7M ONE Stop: 08/18/18 21:03 Vancomycin/Sodium Chloride (Vancomycin 1 Gm/Ns 200 Ml) 1 gm in 200 mls @ 100 mls/hr IVPB ONCE ONE; Protocol Stop: 08/18/18 13:14 Mupirocin (Bactroban Ointment) 1 gm TOP DAILY MALIK - Labs Labs: 08/18/18 07:11 08/18/18 07:11 PT 12.1 SECONDS (9.7-12.2) 08/18/18 07:11 INR 1.1 08/18/18 07:11 APTT 35.0 SECONDS (21-34) H 08/18/18 07:11
[2018-08-18] MEDS ORDERED: Vancomycin 1 gm/NS 200 ml 1 GM/200 ML BAG IVPB ONE (11:15)
--- NOTE | 2018-08-18 13:13 | RAD ---
Date of service: 08/18/2018 PROCEDURE: Radiographs of the bilateral Tibiae and Fibulae. HISTORY: B/L LE ulcerations COMPARISON: None available. TECHNIQUE: Frontal and lateral views obtained. 4 views obtained. FINDINGS: BONES: RIGHT TIBIA: Multiple healed fracture deformities are present involving the tibial and fibular shaft. No acute fracture here seen. No acute appearing periosteal reaction present. Generalized osteopenia at the ankle level suspect LEFT TIBIA: A lateral plate with multiple screws transfix a lateral tibial plateau fracture. There is bony excrescence and deformity over the posterior malleolus fibular region on the lateral view probably relating to remote old healed trauma here is well. No particular soft tissue swelling more focally prominent here is noted. At the ankle and hindfoot level generalized osteopenia is present. JOINT SPACES: RIGHT TIBIA: Narrowed LEFT TIBIA: Narrowed SOFT TISSUES: RIGHT TIBIA: Diffuse subcutaneous reticulated edema compatible with lymphedema and/or cellulitis no gas-forming cellulitis seen. LEFT TIBIA: Diffuse subcutaneous reticulated edema compatible with lymphedema and/or cellulitis no gas-forming cellulitis seen. OTHER FINDINGS: Some faint atherosclerotic vascular calcifications are believed present. Bandaging is probably also present annual appointment over the lower legs. Correlate clinically IMPRESSION: Chronic changes as noted above no acute fracture seen. Postsurgical changes on the left Soft tissue changes as referenced above.
--- NOTE | 2018-08-18 13:34 | VASCLAB ---
Date of service: 08/18/2018 PROCEDURE: Lower Extremity Venous Duplex Exam. HISTORY: DVT PRIORS: 03/12/2018, normal. TECHNIQUE: Bilateral common femoral, femoral, popliteal and posterior tibial, peroneal and great saphenous veins were evaluated. Flow was assessed with color Doppler, compressibility, assessment of phasic flow and augmentation response. Report prepared by JASON Vasquez FINDINGS: RIGHT: 1. Common Femoral Vein: 1.1. Compressibility - Fully compressible: Thrombus - None : Flow - Phasic: Augmentation -Normal: Reflux - None. 2. Femoral Vein: 2.1. Compressibility - Fully compressible: Thrombus - None : Flow - Phasic: Augmentation -Normal: Reflux - None. 3. Popliteal Vein: 3.1. Compressibility - Fully compressible: Thrombus - None : Flow - Phasic: Augmentation -Normal: Reflux - None. 4. Posterior Tibial Vein: 5. Peroneal Vein: 6. Great Saphenous Vein: 6.1. Compressibility - Fully compressible: Thrombus - None: Flow - Phasic: Augmentation - Normal: Reflux - None. LEFT: 1. Common Femoral Vein: 1.1. Compressibility - Fully compressible: Thrombus - None: Flow - Phasic: Augmentation -Normal: Reflux - None. 2. Femoral Vein: 2.1. Compressibility - Fully compressible: Thrombus - None: Flow - Phasic: Augmentation -Normal: Reflux - None. 3. Popliteal Vein: 3.1. Compressibility - Fully compressible: Thrombus - None : Flow - Phasic: Augmentation -Normal: Reflux - None. 4. Posterior Tibial Vein: 5. Peroneal Vein: 6. Great Saphenous Vein: 6.1. Compressibility - Fully compressible: Thrombus - None: Flow - Phasic: Augmentation - Normal: Reflux - None. OTHER FINDINGS: Bilateral calf veins could not be visualized due to severe swelling. IMPRESSION: No evidence of deep or superficial vein thrombosis of bilateral lower extremities, as visualized.
--- NOTE | 2018-08-18 14:20 | RAD ---
Chest x-ray single frontal view HISTORY: Shortness of breath. Comparison: 05/05/2017 Findings: Right central venous catheter with tip extending into the SVC. Postsurgical changes in the spine. Moderate venous congestion. Right hilar prominence with right infrahilar consolidative changes. Cardiomegaly. Degenerative changes in the spine and shoulders. Chronic deformity of the mid left clavicle. Impression: Right central venous catheter with tip extending into the SVC. Postsurgical changes in the spine. Moderate venous congestion. Right hilar prominence with right infrahilar consolidative changes. Cardiomegaly. Degenerative changes in the spine and shoulders. Chronic deformity of the mid left clavicle.
[2018-08-18 18:03] LABS: SQUAMOUS EPITHIAL < 1 /hpf (0-5); URINE BILIRUBIN NEGATIVE (NEGATIVE); URINE BLOOD NEGATIVE (NEGATIVE); URINE CLARITY Hazy (Clear); URINE COLOR Yellow (YELLOW); URINE GLUCOSE (UA) NORMAL (Normal); URINE LEUKOCYTE ESTERASE NEG Leu/uL (Negative); URINE PROTEIN 1+ mg/dL (NEGATIVE)
[2018-08-18 18:12] LABS: BARBITURATES, UR NEGATIVE (NEGATIVE); OPIATES, UR NEGATIVE (NEGATIVE); PHENCYCLIDINE, UR NEGATIVE (NEGATIVE)
[2018-08-18 18:13] LABS: BENZODIAZEPINES, UR POSITIVE (NEGATIVE)
[2018-08-18] MEDS: Clindamycin 600mg/50ml NS 600 MG/50 ML BAG IVPB SCH (18:41)
--- NOTE | 2018-08-18 21:15 | HP ---
CHIEF COMPLAINT: Lower extremity weakness and pain and alcohol intoxication. HISTORY OF PRESENT ILLNESS: Mr. Vines is a 62-year-old male with past medical history of atrial fibrillation, hypertension, hyperlipidemia, arthritis, peripheral arterial disease with chronic venous stasis, has been known to Podiatry Service, who goes to the [place] for change of his dressing, followed up by Dr. Masters, who is homeless. His dressing was changed at [place] on Wednesday. Since he is homeless, his dressing got wet and kept it on and he was found at the [facility] and his feet on admission to the ER was foul smelling. He uses his walker to ambulate and the patient is found to be having lower extremity cellulitis and the patient is being admitted for further evaluation and management. When I examined the patient, the patient was lethargic but arousable, answered the questions and going back to sleep. Had to be waking him up multiple times during my examination. He denied any headache, dizziness. Denied any chest pain, shortness of breath or wheezing other than leg pain. Denied any nausea, vomiting. Denied any other urinary complaints. PAST MEDICAL HISTORY: As described, atrial fibrillation, depression, multiple fractures, gastritis, hypertension, hyperlipidemia, peripheral arterial disease, alcoholic seizures, chronic leg pain with stasis dermatitis. PAST SURGICAL HISTORY: Back surgery, cholecystectomy. FAMILY HISTORY: Nothing contributory to the present illness. PERSONAL HISTORY: He is not , not having any children, homeless, unemployed. SOCIAL HISTORY: Drinks alcohol daily and drank few hours ago. He uses marijuana. Denies any smoking cigarettes. ALLERGIES: HE IS ALLERGIC TO PENICILLIN. HOME MEDICATIONS: Include thiamine 100 mg daily, Florastor, Protonix 20 mg daily, multivitamin daily, lisinopril 2.5 mg daily, Zyvox 600 mg p.o. every 12 hours, Lasix, folic acid 1 mg daily, Flonase nasal spray, Plavix 75 mg daily, Pletal 100 mg daily, Lipitor 10 mg p.o. at bedtime, ciprofloxacin 500 mg p.o. b.i.d., Tylenol as needed. REVIEW OF SYSTEMS: As described in history of present illness. PHYSICAL EXAMINATION: GENERAL: Middle-aged male, lying in bed, in no acute distress. VITAL SIGNS: Blood pressure 104/48, pulse 99, respirations 20, temperature 98 degrees Fahrenheit, O2 sat is 94% on room air. HEENT: Pupils equal, round and reacting to light and accommodation. Extraocular muscles intact. No icterus. No pallor. No oral thrush. No pharyngeal congestion. NECK: Supple. No JVD. LUNGS: Bilateral vesicular breath sounds. No wheezing, no rhonchi. CARDIOVASCULAR: S1 and S2 present. Not regular. ABDOMEN: Soft, nontender. Bowel sounds are present. No guarding, no rigidity, no rebound tenderness noted. CENTRAL NERVOUS SYSTEM: Arousable, answering the questions appropriately. EXTREMITIES: Both lower extremities with chronic venous changes, erythema, warm to touch and dressing in place. LABORATORY DATA: Labs done from the ED, WBC 7, hemoglobin 11.3, hematocrit 33.9, platelets 355. PT 12.1. INR 1.1, PTT 35. Sodium 141, potassium 3.6, chloride 102, bicarb 23, BUN 3, creatinine 0.7, glucose 109, calcium 8.4, total bilirubin 0.2, AST 24, ALT 22, alkaline phosphatase 133. Total protein 6.5, albumin 3.5. Alcohol level 57. Blood cultures, wound cultures done from the emergency room. Chest x-ray negative for any infiltrate. Lower extremity venous Doppler done. ASSESSMENT: Middle-aged male with history of hypertension, hyperlipidemia, atrial fibrillation, ethanol abuse, peripheral arterial disease with chronic venous stasis, admitted for worsening lower extremity cellulitis changes and pain. In the emergency department, the patient is found to be having lower extremity cellulitis and the patient is being admitted for further management and evaluation. 1. Lower extremity cellulitis with chronic venous stasis. 2. Hypertension. 3. Hyperlipidemia. 4. Ethanol abuse with ethanol intoxication. We will watch for delirium tremens and withdrawal symptoms. PLAN: The patient is being admitted to the floor. We will give banana bag at 100 mL an hour, give vancomycin dose. The patient received clindamycin in the emergency room. Obtain podiatric consult with Dr. Masters and Infectious Disease consult with Dr. Nolasco. Continue with his home medications, do Accu-Cheks. Follow up with vascular studies. Check EKG and x-ray. Repeat labs in the morning. We will check magnesium and phosphorus levels. We will add further recommendation as his clinical course progresses. Tato Caban MD [facility] # [id number]
[2018-08-19] MEDS: Vancomycin 1 gm/NS 200 ml 1 GM/200 ML BAG IVPB SCH ×2 (01:54→13:42)
[2018-08-19] MEDS: Clindamycin 600mg/50ml NS 600 MG/50 ML BAG IVPB SCH ×3 (01:55→18:29)
[2018-08-19] MEDS: Enoxaparin 40 mg Syringe SC SCH (10:03)
[2018-08-19] MEDS: Multiple Vitamins Tab PO SCH (10:03)
--- NOTE | 2018-08-19 10:32 | CP.PCM.PN ---
Subjective - Date & Time of Evaluation Date of Evaluation: 08/19/18 Time of Evaluation: 10:31 - Subjective Subjective: Progress note dictated #[id number] Objective - Vital Signs/Intake and Output Vital Signs (last 24 hours): Temp Pulse Resp BP Pulse Ox 98.3 F 81 20 120/65 99 08/19/18 08:50 08/19/18 08:50 08/19/18 08:50 08/19/18 08:50 08/19/18 08:50 Intake and Output: 08/19/18 08/19/18 06:59 18:59 Intake Total 1300 400 Output Total 800 Balance 500 400 - Medications Medications: Current Medications Enoxaparin Sodium (Lovenox) 40 mg SC DAILY MALIK Last Admin: 08/19/18 10:03 Dose: 40 mg Folic Acid (Folic Acid) 1 mg PO DAILY MALIK Last Admin: 08/19/18 10:03 Dose: 1 mg Clindamycin Phosphate (Cleocin 600mg/50ml Ns) 600 mg in 50 mls @ 100 mls/hr IVPB Q8H MALIK; Protocol Last Admin: 08/19/18 10:02 Dose: 100 mls/hr Vancomycin/Sodium Chloride (Vancomycin 1 Gm/Ns 200 Ml) 1 gm in 200 mls @ 133.333 mls/hr IVPB Q12H MALIK; Protocol Last Admin: 08/19/18 01:54 Dose: 133.333 mls/hr Lorazepam (Ativan) 1 mg IVP Q6H PRN PRN Reason: Anxiety Multivitamins (Hexavitamin) 1 tab PO DAILY MALIK Last Admin: 08/19/18 10:03 Dose: 1 tab Mupirocin (Bactroban Ointment) 1 gm TOP DAILY MALKI Last Admin: 08/19/18 10:03 Dose: Not Given - Labs Labs: 08/18/18 07:11 08/18/18 07:11 PT 12.1 SECONDS (9.7-12.2) 08/18/18 07:11 INR 1.1 08/18/18 07:11 APTT 35.0 SECONDS (21-34) H 08/18/18 07:11
--- NOTE | 2018-08-19 10:59 | CP.PCM.PN ---
Subjective - Date & Time of Evaluation Date of Evaluation: 08/19/18 Time of Evaluation: 10:59 - Subjective Subjective: Podiatry Consult Note - Dr. Masters 62M seen and evaluated at beside for bilateral lower extremity wounds. NAD. No acute events overnight. Patient reports pain in his lower extremities is subsiding. No new lower extremity complaints per per patient. Dressings b/l clean/dry/intact. Denies n/v/f/d/c/sob/hutchins/cp. Objective - Vital Signs/Intake and Output Vital Signs (last 24 hours): Temp Pulse Resp BP Pulse Ox 98.3 F 81 20 120/65 99 08/19/18 08:50 08/19/18 08:50 08/19/18 08:50 08/19/18 08:50 08/19/18 08:50 Intake and Output: 08/19/18 08/19/18 06:59 18:59 Intake Total 1300 400 Output Total 800 Balance 500 400 - Medications Medications: Current Medications Enoxaparin Sodium (Lovenox) 40 mg SC DAILY [facility] Last Admin: 08/19/18 10:03 Dose: 40 mg Folic Acid (Folic Acid) 1 mg PO DAILY MALIK Last Admin: 08/19/18 10:03 Dose: 1 mg Clindamycin Phosphate (Cleocin 600mg/50ml Ns) 600 mg in 50 mls @ 100 mls/hr IVPB Q8H MALIK; Protocol Last Admin: 08/19/18 10:02 Dose: 100 mls/hr Vancomycin/Sodium Chloride (Vancomycin 1 Gm/Ns 200 Ml) 1 gm in 200 mls @ 133.333 mls/hr IVPB Q12H MALIK; Protocol Last Admin: 08/19/18 01:54 Dose: 133.333 mls/hr Lorazepam (Ativan) 1 mg IVP Q6H PRN PRN Reason: Anxiety Multivitamins (Hexavitamin) 1 tab PO DAILY MALIK Last Admin: 08/19/18 10:03 Dose: 1 tab Mupirocin (Bactroban Ointment) 1 gm TOP DAILY MALIK Last Admin: 08/19/18 10:03 Dose: Not Given - Labs Labs: 08/18/18 07:11 08/18/18 07:11 PT 12.1 SECONDS (9.7-12.2) 08/18/18 07:11 INR 1.1 08/18/18 07:11 APTT 35.0 SECONDS (21-34) H 08/18/18 07:11 - Constitutional Appears: Non-toxic, No Acute Distress - Extremities Exam Additional comments: B/L LE exam VASC: DP/PT pulses are palpable 1/4 b/l, cap refill < 3 sec to all digits, skin temp runs warm to warm from proximal to distal b/l, +2 pitting edema on the right LE and +2 pitting edema on the left LE. NEURO: Protective sensation mildly diminished b/l DERM: Circumferential, open venous ulcerations present to the b/l lower legs with granular and necrotic base with macerations on the right side and granular base on left side; no purulent drainage, serous drainage appreciated bilaterally, diffuse red glossy skin from the previously healed ulceration on b/l LE, positive malodor. Interdigital macerations noted in all interspaces. MSK: Moderate pain on palpation of lower extremity ulcerations, no pain on compression of b/l calves. MMT 5/5 to all groups - Neurological Exam Neurological Exam: Alert, Awake, Oriented x3 Assessment and Plan - Assessment and Plan (Free Text) Assessment: 62M with bilateral lower extremity venous stasis ulcerations, improving Plan: Patient seen and evaluated Discussed with Dr. Sonam Rios LE duplex: (-)DVT Bilat tibfib XR: No acute changes L leg WCx: gram neg yessi, gram neg yessi#2, gram neg yessi #3 R leg WCx: gram neg yessi, gram pos cocci Continue abx per ID Wounds improving, will continue to monitor Continue local wound care: xeroform, DSD, KELSEA b/l Podiatry will continue to follow
--- NOTE | 2018-08-19 15:56 | CP.PCM.CON ---
History of Present Illness - History of Present Illness History of Present Illness: dictated Past Patient History - Infectious Disease Hx of Infectious Diseases: None - Tetanus Immunizations Tetanus Immunization: Unknown - Past Medical History & Family History Past Medical History?: Yes - Past Social History Smoking Status: Current Some Days Smoker - CARDIAC Hx Atrial Fibrillation: Yes Hx Hypercholesterolemia: Yes Hx Hypertension: Yes Hx Pacemaker: No Hx Peripheral Edema: Yes (chronic) - PULMONARY Hx Respiratory Disorders: No - NEUROLOGICAL Hx Seizures: Yes (alcohol induced) - HEENT Hx HEENT Problems: Yes - RENAL Hx Chronic Kidney Disease: No - ENDOCRINE/METABOLIC Hx Endocrine Disorders: Yes Other/Comment: HX:SPOT ON PANCREAS - INTEGUMENTARY Hx Dermatological Problems: Yes Hx Cellulitis: Yes - MUSCULOSKELETAL/RHEUMATOLOGICAL Hx Arthritis: Yes Hx Falls: No Hx Fractures: Yes (neck, back Rt. leg fx in 5 places) - GASTROINTESTINAL Hx Gastritis: Yes Hx Pancreatitis: Yes - PSYCHIATRIC Hx Anxiety: Yes Hx Depression: Yes Hx Substance Use: Yes - SURGICAL HISTORY Hx Cholecystectomy: Yes - ANESTHESIA Hx Anesthesia: Yes Hx Anesthesia Reactions: No Hx Malignant Hyperthermia: No Meds Allergies/Adverse Reactions: Allergies Allergy/AdvReac Type Severity Reaction Status Date / Time Penicillins Allergy Severe RASH Verified 08/18/18 04:11 - Medications Medications: Current Medications Enoxaparin Sodium (Lovenox) 40 mg SC DAILY [facility] Last Admin: 08/19/18 10:03 Dose: 40 mg Folic Acid (Folic Acid) 1 mg PO DAILY [facility] Last Admin: 08/19/18 10:03 Dose: 1 mg Clindamycin Phosphate (Cleocin 600mg/50ml Ns) 600 mg in 50 mls @ 100 mls/hr IVPB Q8H MALIK; Protocol Last Admin: 08/19/18 10:02 Dose: 100 mls/hr Vancomycin/Sodium Chloride (Vancomycin 1 Gm/Ns 200 Ml) 1 gm in 200 mls @ 133.333 mls/hr IVPB Q12H MALIK; Protocol Last Admin: 08/19/18 13:42 Dose: 133.333 mls/hr Ibuprofen (Motrin Tab) 800 mg PO Q8H PRN PRN Reason: Pain, moderate (4-7) Lorazepam (Ativan) 1 mg IVP Q6H PRN PRN Reason: Anxiety Multivitamins (Hexavitamin) 1 tab PO DAILY [facility] Last Admin: 08/19/18 10:03 Dose: 1 tab Mupirocin (Bactroban Ointment) 1 gm TOP DAILY MALIK Last Admin: 08/19/18 10:03 Dose: Not Given Results - Vital Signs Recent Vital Signs: Last Vital Signs Temp 98.3 F 08/19/18 08:50 Pulse 81 08/19/18 08:50 Resp 20 08/19/18 08:50 BP 120/65 08/19/18 08:50 Pulse Ox 99 08/19/18 08:50 - Labs Result Diagrams: 08/18/18 07:11 08/18/18 07:11 Labs: Laboratory Results - last 24 hr 08/18/18 08/18/18 08/18/18 16:50 17:26 17:30 POC Glucose (mg/dL) 107 Urine Color Yellow Urine Clarity Hazy Urine pH 5.0 Ur Specific [place] 1.019 Urine Protein 1+ H Urine Glucose (UA) Normal Urine Ketones Negative Urine Blood Negative Urine Nitrate Negative Urine Bilirubin Negative Urine Urobilinogen 2.0 Ur Leukocyte Esterase Neg Urine RBC (Auto) 1 Ur Squamous Epith Cells < 1 Urine Opiates Screen Negative Urine Methadone Screen Negative Ur Barbiturates Screen Negative Ur Phencyclidine Scrn Negative Ur Amphetamines Screen Negative U Benzodiazepines Scrn Positive U Oth Cocaine Metabols Negative U Cannabinoids Screen Positive H 08/18/18 08/19/18 08/19/18 21:02 06:29 11:33 POC Glucose (mg/dL) 111 H 91 104 Urine Color Urine Clarity Urine pH Ur Specific [place] Urine Protein Urine Glucose (UA) Urine Ketones Urine Blood Urine Nitrate Urine Bilirubin Urine Urobilinogen Ur Leukocyte Esterase Urine RBC (Auto) Ur Squamous Epith Cells Urine Opiates Screen Urine Methadone Screen Ur Barbiturates Screen Ur Phencyclidine Scrn Ur Amphetamines Screen U Benzodiazepines Scrn U Oth Cocaine Metabols U Cannabinoids Screen
[2018-08-19] MEDS: Aztreonam 1 GM in Sodium Chloride 0.9% 100 ML IVPB SCH (18:29)
--- NOTE | 2018-08-19 23:04 | PN ---
DATE: 08/19/2018 SUBJECTIVE: The patient is seen and examined at bedside. The patient offers no new complaints. PHYSICAL EXAMINATION: GENERAL: A middle-aged male, lying in bed, in no acute distress. VITAL SIGNS: Blood pressure 136/81, pulse 82, respirations 20, temperature 97.8 degrees Fahrenheit, and O2 saturations 96% on 2 L nasal cannula. HEENT: Pupils equal, round, and reacting to light and accommodation. Extraocular muscles are intact. No icterus, no pallor, no oral thrush, and no pharyngeal congestion. NECK: Supple, no JVD. LUNGS: Bilateral vesicular breath sounds. No wheezing, no rhonchi. CARDIOVASCULAR SYSTEM: S1 and S2 present, regular. ABDOMEN: Soft and nontender. Bowel sounds present. No guarding, no rigidity, and no rebound tenderness noted. CENTRAL NERVOUS SYSTEM: Alert, awake,and oriented x3. No focal deficits noted. EXTREMITIES: With chronic venous changes and cellulitic changes. MEDICATIONS: Include Azactam 1 g IV every 8 hours, clindamycin 600 mg IV every 8 hours, Lovenox 40 mg subcutaneously daily, folic acid 1 mg daily, Motrin 800 mg p.o. every 8 hours, Ativan 1 mg IV every 6 hours p.r.n., multivitamin, mupirocin, and vancomycin 1 g daily. LABORATORY DATA: Labs done from this morning; glucose 111, 91, 104, 117. Urine drug screen is positive for cannabinoids and benzodiazepines. Blood culture is negative so far. Wound culture grew gram-negative rods and gram-positive cocci. Lower extremity Doppler is negative for DVT. ASSESSMENT AND PLAN: A middle-aged male with history of depression, hypertension, hyperlipidemia, peripheral arterial disease, alcoholic seizures, chronic leg pain and stasis dermatitis, admitted for right leg cellulitis and venous stasis ulceration and wound culture is positive for multiple gram-negative rods and gram-positive cocci, identification pending. Podiatry followup appreciated. Infectious Disease consult appreciated. His antibiotics switched, Azactam was added and continue with clindamycin and vancomycin. Continue with thiamine, folic acid and multivitamin. Ativan as needed for withdrawal symptoms. Continue with wound care as per Podiatry. We will repeat labs in the a.m. Follow up with Podiatry and Infectious Disease. Tato Caban MD [facility] # [id number]
[2018-08-20] MEDS: Aztreonam 1 GM in Sodium Chloride 0.9% 100 ML IVPB SCH ×2 (01:04→10:21)
[2018-08-20] MEDS: Vancomycin 1 gm/NS 200 ml 1 GM/200 ML BAG IVPB SCH (02:06)
[2018-08-20] MEDS: Clindamycin 600mg/50ml NS 600 MG/50 ML BAG IVPB SCH (03:47)
--- NOTE | 2018-08-20 07:05 | CP.PCM.PN ---
<Danilo Masters - Last Filed: 08/20/18 07:04> Subjective - Date & Time of Evaluation Date of Evaluation: 08/20/18 Time of Evaluation: 07:05 Objective - Vital Signs/Intake and Output Vital Signs (last 24 hours): Temp Pulse Resp BP Pulse Ox 98.1 F 52 L 20 138/80 98 08/19/18 23:25 08/19/18 23:25 08/19/18 23:25 08/19/18 23:25 08/19/18 23:25 Intake and Output: 08/20/18 08/20/18 06:59 18:59 Intake Total 950 Balance 950 - Medications Medications: Current Medications Enoxaparin Sodium (Lovenox) 40 mg SC DAILY [facility] 234 BEDS AT [facility] Last Admin: 08/19/18 10:03 Dose: 40 mg Folic Acid (Folic Acid) 1 mg PO DAILY [facility]S [facility]CLUDE 234 BEDS AT THE [facility] Last Admin: 08/19/18 10:03 Dose: 1 mg Clindamycin Phosphate (Cleocin 600mg/50ml Ns) 600 mg in 50 mls @ 100 mls/hr IVPB Q8H [facility]; Protocol Last Admin: 08/20/18 03:47 Dose: 100 mls/hr Vancomycin/Sodium Chloride (Vancomycin 1 Gm/Ns 200 Ml) 1 gm in 200 mls @ 133.333 mls/hr IVPB Q12H [facility]; Protocol Last Admin: 08/20/18 02:06 Dose: 133.333 mls/hr Aztreonam 1 gm/ Sodium (Chloride) 100 mls @ 200 mls/hr IVPB Q8H [facility]; Protocol Last Admin: 08/20/18 01:04 Dose: 200 mls/hr Ibuprofen (Motrin Tab) 800 mg PO Q8H PRN PRN Reason: Pain, moderate (4-7) Last Admin: 08/20/18 03:04 Dose: 800 mg Lorazepam (Ativan) 1 mg IVP Q6H PRN PRN Reason: Anxiety Multivitamins (Hexavitamin) 1 tab PO DAILY [facility]S INCLUDE 234 BEDS AT THE [facility] Last Admin: 08/19/18 10:03 Dose: 1 tab Mupirocin (Bactroban Ointment) 1 gm TOP DAILY COUNTS INCLUDE 234 BEDS AT THE [facility] Last Admin: 08/19/18 10:03 Dose: Not Given Thiamine HCl (Vitamin B1 Tab) 100 mg PO DAILY [facility]S INCLUDE 234 BEDS AT THE [facility] - Labs Labs: 08/18/18 07:11 08/18/18 07:11 PT 12.1 SECONDS (9.7-12.2) 08/18/18 07:11 INR 1.1 08/18/18 07:11 APTT 35.0 SECONDS (21-34) H 08/18/18 07:11 <Nikhil Villeda - Last Filed: 08/20/18 09:47> Subjective - Subjective Subjective: Podiatry Consult Note - Dr. Masters 62M seen and evaluated at beside with Dr. Masters for bilateral lower extremity wounds. Resting comfortably. Patient reports pain in his lower extremities is subsiding. No new lower extremity complaints per per patient. Dressings b/l clean/dry/intact. Denies n/v/f/d/c/sob/hutchins/cp. Objective - Vital Signs/Intake and Output Vital Signs (last 24 hours): Temp Pulse Resp BP Pulse Ox 97.8 F 70 20 133/77 97 08/20/18 08:00 08/20/18 08:00 08/20/18 08:00 08/20/18 08:00 08/20/18 08:00 Intake and Output: 08/20/18 08/20/18 06:59 18:59 Intake Total 950 Balance 950 - Medications Medications: Current Medications Enoxaparin Sodium (Lovenox) 40 mg SC DAILY COUNTS INCLUDE 234 BEDS AT THE [facility] Last Admin: 08/19/18 10:03 Dose: 40 mg Folic Acid (Folic Acid) 1 mg PO DAILY [facility]S INCLUDE 234 BEDS AT THE [facility] Last Admin: 08/19/18 10:03 Dose: 1 mg Meropenem 1 gm/ Sodium (Chloride) 100 mls @ 100 mls/hr IVPB Q8H COUNTS INCLUDE 234 BEDS AT THE [facility]; Protocol Ibuprofen (Motrin Tab) 800 mg PO Q8H PRN PRN Reason: Pain, moderate (4-7) Last Admin: 08/20/18 03:04 Dose: 800 mg Lorazepam (Ativan) 1 mg IVP Q6H PRN PRN Reason: Anxiety Multivitamins (Hexavitamin) 1 tab PO DAILY [facility]S [facility]CLUDE 234 BEDS AT [facility] Last Admin: 08/19/18 10:03 Dose: 1 tab Mupirocin (Bactroban Ointment) 1 gm TOP DAILY [facility]S INCLUDE 234 BEDS AT THE [facility] Last Admin: 08/19/18 10:03 Dose: Not Given Thiamine HCl (Vitamin B1 Tab) 100 mg PO DAILY COUNTS INCLUDE 234 BEDS AT THE [facility] - Labs Labs: 08/20/18 07:30 08/20/18 07:30 PT 12.1 SECONDS (9.7-12.2) 08/18/18 07:11 INR 1.1 08/18/18 07:11 APTT 35.0 SECONDS (21-34) H 08/18/18 07:11 - Constitutional Appears: Non-toxic - Head Exam Head Exam: ATRAUMATIC - Extremities Exam Additional comments: B/L LE exam VASC: DP/PT pulses are palpable 1/4 b/l, cap refill < 3 sec to all digits, skin temp runs warm to warm from proximal to distal b/l, +2 pitting edema on the right LE and +2 pitting edema on the left LE. NEURO: Protective sensation mildly diminished b/l DERM: Circumferential, open venous ulcerations present to the b/l lower legs w ith granular and necrotic base with macerations on the right side and granular base on left side; no purulent drainage, serous drainage appreciated bilaterally, diffuse red glossy skin from the previously healed ulceration on b/l LE, positive malodor. Interdigital macerations noted in all interspaces. MSK: Moderate pain on palpation of lower extremity ulcerations, no pain on compression of b/l calves. MMT 5/5 to all groups - Neurological Exam Neurological Exam: Alert, Awake, Oriented x3 - Psychiatric Exam Psychiatric exam: Normal Affect Assessment and Plan - Assessment and Plan (Free Text) Assessment: 62M with bilateral lower extremity venous stasis ulcerations, improving Plan: Patient seen and evaluated with Dr. Sonam HOUSE, WBC 4.4 Bilat LE duplex: (-)DVT Bilat tibfib XR: No acute changes L leg WCx: gram neg yessi, gram neg yessi#2, gram neg yessi #3 R leg WCx: gram neg yessi, gram pos cocci Continue abx per ID Wounds improving, will continue to monitor Continue local wound care: xeroform, DSD, KELSEA b/l Podiatry will continue to follow
[2018-08-20 07:42] LABS: BASO % 0.6 % (0.0-2.0); EOS # 0.3 K/uL (0.0-0.7); EOS % 5.8 % (0.0-4.0); LYMPH % 21.7 % (20.0-40.0); MEAN CELL VOLUME 85.4 fL (80.0-94.0); MEAN CORPUSCULAR HEMOGLOBIN 28.8 pg (27.0-31.0); MEAN CORPUSCULAR HGB CONC 33.7 g/dL (33.0-37.0); MEAN PLATELET VOLUME 6.2 fL (7.2-11.7); MONO # 0.3 K/uL (0.0-0.8); MONO % 7.9 % (0.0-10.0); NEUT # 2.8 K/uL (1.8-7.0); NRBC % 0.1 % (0.0-2.0); RBC 3.81 Mil/uL (4.40-5.90); RED CELL DISTRIBUTION WIDTH 14.8 % (11.5-14.5); WHITE BLOOD COUNT 4.4 K/uL (4.8-10.8)
[2018-08-20 07:58] LABS: ALB/GLOB RATIO 1.1 (1.0-2.1); ALBUMIN 2.9 g/dL (3.5-5.0); ALT/SGPT 14 U/L (21-72); AST/SGOT 13 U/L (17-59); BLOOD UREA NITROGEN 5 mg/dL (9-20); CALCIUM 8.1 mg/dl (8.6-10.4); GFR NON-AFRICAN AMERICAN > 60
[2018-08-20] MEDS: Meropenem 1 GM in Sodium Chloride 0.9% 100 ML IVPB SCH ×2 (10:20→17:55)
[2018-08-20] MEDS: Multiple Vitamins Tab PO SCH (10:20)
[2018-08-20] MEDS: Enoxaparin 40 mg Syringe SC SCH (10:20)
--- NOTE | 2018-08-20 11:04 | CP.PCM.PN ---
Subjective - Date & Time of Evaluation Date of Evaluation: 08/20/18 Time of Evaluation: 11:03 - Subjective Subjective: Progress note dictated #[id number] Objective - Vital Signs/Intake and Output Vital Signs (last 24 hours): Temp Pulse Resp BP Pulse Ox 97.8 F 70 20 133/77 97 08/20/18 08:00 08/20/18 08:00 08/20/18 08:00 08/20/18 08:00 08/20/18 08:00 Intake and Output: 08/20/18 08/20/18 06:59 18:59 Intake Total 950 Balance 950 - Medications Medications: Current Medications Enoxaparin Sodium (Lovenox) 40 mg SC DAILY [facility] Last Admin: 08/20/18 10:20 Dose: 40 mg Folic Acid (Folic Acid) 1 mg PO DAILY [facility] Last Admin: 08/20/18 10:20 Dose: 1 mg Meropenem 1 gm/ Sodium (Chloride) 100 mls @ 100 mls/hr IVPB Q8H [facility]; Protocol Last Admin: 08/20/18 10:20 Dose: 100 mls/hr Ibuprofen (Motrin Tab) 800 mg PO Q8H PRN PRN Reason: Pain, moderate (4-7) Last Admin: 08/20/18 10:20 Dose: 800 mg Lorazepam (Ativan) 1 mg IVP Q6H PRN PRN Reason: Anxiety Multivitamins (Hexavitamin) 1 tab PO DAILY [facility] Last Admin: 08/20/18 10:20 Dose: 1 tab Mupirocin (Bactroban Ointment) 1 gm TOP DAILY [facility] Last Admin: 08/20/18 10:13 Dose: Not Given Thiamine HCl (Vitamin B1 Tab) 100 mg PO DAILY [facility] Last Admin: 08/20/18 10:20 Dose: 100 mg - Labs Labs: 08/20/18 07:30 08/20/18 07:30 PT 12.1 SECONDS (9.7-12.2) 08/18/18 07:11 INR 1.1 08/18/18 07:11 APTT 35.0 SECONDS (21-34) H 08/18/18 07:11
--- NOTE | 2018-08-20 17:13 | PN ---
DATE: 08/20/2018 SUBJECTIVE: The patient is seen and examined at bedside. The patient complains of lower extremity pain. Denies any other complaints. PHYSICAL EXAMINATION: GENERAL: A middle-aged male, lying in bed, in no acute distress. VITAL SIGNS: Blood pressure 133/77, pulse 70, respirations 20, temperature 97.8 degrees Fahrenheit, and O2 saturations 97% on room air. HEENT: Pupils equal, round, and reacting to light and accommodation. Extraocular muscles are intact. No icterus, no pallor, no oral thrush, and no pharyngeal congestion. NECK: Supple, no JVD. LUNGS: Bilateral vesicular breath sounds. No wheezing, no rhonchi. CARDIOVASCULAR SYSTEM: S1 and S2 present, regular. ABDOMEN: Soft and nontender. Bowel sounds present. No guarding, no rigidity, and no rebound tenderness noted. CENTRAL NERVOUS SYSTEM: Alert, awake,and oriented x3. No focal deficits noted. EXTREMITIES: Chronic venous stasis ulcers, cellulitic changes and oozing at certain areas with dressing in place. MEDICATIONS: Include Lovenox 40 mg daily, folic acid 1 mg daily, Motrin 800 mg p.o. every 8 hours p.r.n., Ativan as needed for anxiety, meropenem 1 g IV every 8 hours, multivitamin 1 tab daily, Bactroban 1 g topical daily, thiamine 100 mg p.o. daily. LABORATORY DATA: Labs done from today: WBC 4.4, hemoglobin 11, hematocrit 32.5, platelets 320. Sodium 137, potassium 3.9, chloride 104, bicarb 24, BUN 5, creatinine 0.6, glucose 103, calcium 8.1, phosphorus 3.6, magnesium 1.9. Total bilirubin 0.2, AST 13, ALT 14, alkaline phosphatase 111. Total protein 5.4, albumin 2.9. Wound culture were growing Klebsiella oxytoca, E-coli, gram-negative yessi #3 and MRSA. Blood cultures negative so far. ASSESSMENT AND PLAN: A middle-aged male with history of depression, hypertension, hyperlipidemia, peripheral arterial disease, chronic venous stasis, alcoholic seizures, admitted for lower extremity cellulitis with stasis dermatitis and ulceration. His antibiotic changed to meropenem. Continue with current antibiotics. Follow up with Podiatry. Restart his home medication. Watch for alcohol withdrawal. Continue with wound care. Tato Caban MD [facility] # [id number]
[2018-08-20] MEDS: Cilostazol 100 mg Tab UD PO SCH (17:55)
[2018-08-21] MEDS: Meropenem 1 GM in Sodium Chloride 0.9% 100 ML IVPB SCH ×3 (02:29→17:27)
[2018-08-21] MEDS: Cilostazol 100 mg Tab UD PO SCH ×2 (09:36→17:27)
[2018-08-21] MEDS: Multiple Vitamins Tab PO SCH (09:36)
[2018-08-21] MEDS: Enoxaparin 40 mg Syringe SC SCH (09:37)
--- NOTE | 2018-08-21 12:50 | CP.PCM.PN ---
Subjective - Date & Time of Evaluation Date of Evaluation: 08/21/18 Time of Evaluation: 12:50 - Subjective Subjective: Progress note dictated #[id number] Objective - Vital Signs/Intake and Output Vital Signs (last 24 hours): Temp Pulse Resp BP Pulse Ox 97.8 F 77 20 131/71 96 08/21/18 07:51 08/21/18 07:51 08/21/18 07:51 08/21/18 07:51 08/21/18 07:51 Intake and Output: 08/21/18 08/21/18 06:59 18:59 Intake Total 580 Output Total 1900 Balance -1320 - Medications Medications: Current Medications Cilostazol (Pletal) 100 mg PO BID [facility] Last Admin: 08/21/18 09:36 Dose: 100 mg Clopidogrel Bisulfate (Plavix) 75 mg PO DAILY [facility] Last Admin: 08/21/18 09:36 Dose: 75 mg Enoxaparin Sodium (Lovenox) 40 mg SC DAILY [facility] Last Admin: 08/21/18 09:37 Dose: 40 mg Folic Acid (Folic Acid) 1 mg PO DAILY [facility] Last Admin: 08/21/18 09:36 Dose: 1 mg Meropenem 1 gm/ Sodium (Chloride) 100 mls @ 100 mls/hr IVPB Q8H [facility]; Protocol Last Admin: 08/21/18 09:37 Dose: 100 mls/hr Ibuprofen (Motrin Tab) 800 mg PO Q8H PRN PRN Reason: Pain, moderate (4-7) Last Admin: 08/20/18 21:50 Dose: 800 mg Lisinopril (Zestril) 2.5 mg PO DAILY [facility] Last Admin: 08/21/18 09:36 Dose: 2.5 mg Lorazepam (Ativan) 1 mg IVP Q6H PRN PRN Reason: Anxiety Multivitamins (Hexavitamin) 1 tab PO DAILY [facility] Last Admin: 08/21/18 09:36 Dose: 1 tab Mupirocin (Bactroban Ointment) 1 gm TOP DAILY [facility] Last Admin: 08/21/18 09:36 Dose: Not Given Rosuvastatin Calcium (Crestor) 5 mg PO HS [facility] Last Admin: 08/20/18 21:46 Dose: 5 mg Thiamine HCl (Vitamin B1 Tab) 100 mg PO DAILY [facility] Last Admin: 08/21/18 09:36 Dose: 100 mg - Labs Labs: 08/20/18 07:30 08/20/18 07:30 PT 12.1 SECONDS (9.7-12.2) 08/18/18 07:11 INR 1.1 08/18/18 07:11 APTT 35.0 SECONDS (21-34) H 08/18/18 07:11
--- NOTE | 2018-08-21 18:45 | PN ---
DATE: 08/21/2018 SUBJECTIVE: The patient is seen and examined at bedside. The patient offers no new complaints. PHYSICAL EXAMINATION: VITAL SIGNS: Blood pressure 131/71, pulse 77, respirations 20, temperature 97.8 degrees Fahrenheit, O2 sat is 96% on room air. HEENT: Pupils equal, round, reacting to light and accommodation. Extraocular muscles intact. No icterus, no pallor, no oral thrush, no pharyngeal congestion. NECK: Supple, no JVD. LUNGS: Bilateral vesicular breath sounds. No wheezing, no rhonchi. CARDIOVASCULAR: S1, S2 present. Regular. ABDOMEN: Soft and nontender. Bowel sounds present. CENTRAL NERVOUS SYSTEM: Alert, awake, oriented x3. EXTREMITIES: Bilateral lower chronic venous stasis with stasis ulcers. Dressing in place. MEDICATIONS: Include Pletal 100 mg p.o. b.i.d., Plavix 75 mg daily, Lovenox 40 mg subcu daily, folic acid 1 mg daily, Motrin as needed, Zestril 2.5 mg p.o. daily, Ativan 1 mg IV every 6 hours p.r.n., meropenem 1 g IV every 8 hours, multivitamin 1 tab daily, mupirocin 1 g topical daily, Crestor 5 mg p.o. at bedtime, thiamine 100 mg daily. LABORATORY DATA: Accu-Cheks 109, 111, 153, 119, 123. ASSESSMENT AND PLAN: A middle-aged male with history of depression, hypertension, hyperlipidemia, peripheral arterial disease, chronic venous stasis, admitted for stasis dermatitis, cellulitis changes, ulceration and intoxication. Wound culture growing multiple organisms sensitive to meropenem. The patient is on intravenous antibiotics with Wound Care. Follow up with Infectious Disease regarding the length of antibiotics and follow up with Podiatry regarding discharge planning. We will defer Healthcare Economics Consultant for discharge planning and the patient may benefit from subacute rehab placement. Tato Caban MD
--- NOTE | 2018-08-21 19:50 | CP.PCM.PN ---
Subjective - Date & Time of Evaluation Date of Evaluation: 08/21/18 Time of Evaluation: 15:00 - Subjective Subjective: dictated Objective - Vital Signs/Intake and Output Vital Signs (last 24 hours): Temp Pulse Resp BP Pulse Ox 97.6 F 82 18 131/86 95 08/21/18 15:15 08/21/18 15:15 08/21/18 15:15 08/21/18 15:15 08/21/18 15:15 Intake and Output: 08/21/18 08/22/18 18:59 06:59 Intake Total 1200 300 Output Total 1880 Balance -680 300 - Medications Medications: Current Medications Cilostazol (Pletal) 100 mg PO BID [facility] Last Admin: 08/21/18 17:27 Dose: 100 mg Clopidogrel Bisulfate (Plavix) 75 mg PO DAILY [facility] Last Admin: 08/21/18 09:36 Dose: 75 mg Enoxaparin Sodium (Lovenox) 40 mg SC DAILY [facility] Last Admin: 08/21/18 09:37 Dose: 40 mg Folic Acid (Folic Acid) 1 mg PO DAILY [facility] Last Admin: 08/21/18 09:36 Dose: 1 mg Meropenem 1 gm/ Sodium (Chloride) 100 mls @ 100 mls/hr IVPB Q8H [facility]; Protocol Last Admin: 08/21/18 17:27 Dose: 100 mls/hr Ibuprofen (Motrin Tab) 800 mg PO Q8H PRN PRN Reason: Pain, moderate (4-7) Last Admin: 08/20/18 21:50 Dose: 800 mg Lisinopril (Zestril) 2.5 mg PO DAILY [facility] Last Admin: 08/21/18 09:36 Dose: 2.5 mg Lorazepam (Ativan) 1 mg IVP Q6H PRN PRN Reason: Anxiety Multivitamins (Hexavitamin) 1 tab PO DAILY [facility] Last Admin: 08/21/18 09:36 Dose: 1 tab Mupirocin (Bactroban Ointment) 1 gm TOP DAILY [facility] Last Admin: 08/21/18 09:36 Dose: Not Given Rosuvastatin Calcium (Crestor) 5 mg PO HS [facility] Last Admin: 08/20/18 21:46 Dose: 5 mg Thiamine HCl (Vitamin B1 Tab) 100 mg PO DAILY [facility] Last Admin: 08/21/18 09:36 Dose: 100 mg - Labs Labs: 05/04/19 07:30 08/20/18 07:30 PT 12.1 SECONDS (9.7-12.2) 08/18/18 07:11 INR 1.1 08/18/18 07:11 APTT 35.0 SECONDS (21-34) H 08/18/18 07:11
--- NOTE | 2018-08-21 20:59 | CON ---
DATE: 08/19/2018 INFECTIOUS DISEASE CONSULTATION REQUESTED BY: Tato Caban MD HISTORY OF PRESENT ILLNESS: This patient is a 62-year-old male. He has history of alcohol abuse, hypertension, diabetes type 2, atrial fib, history of DVT. Has bilateral ulcerations in the lower extremities, venous ulcerations. He has had them for long time. He also has diastolic CHF, and he followed with Dr. Masters; however, he today was saying that he was somewhere in [facility] rehab [facility] where he stayed, and he says it does not work and now returns here with alcohol abuse. He was last seen two weeks ago by braille coder. He states with Dr. Masters has had bilateral soiled dressings and complained of pain in both lower extremities, right worse than the left, and they have foul-smelling. Came in on 08/18/2018. He is also allergic to penicillin. He is awake, alert, but he is telling stories about the new work someplace where he may have lived. He was admitted. He drank a lot. He had an episode of nausea and vomiting. He is feeling little better right now and is awake and alert. PAST MEDICAL HISTORY: Alcohol abuse, hypertension, diabetes type 2, atrial fibrillation, history of DVT, diastolic CHF, hyperlipidemia. ALLERGIES: ALLERGIC TO PENICILLIN. PAST SURGICAL HISTORY: Right leg and hip fracture repair in the past, cholecystectomy. SOCIAL HISTORY: He denies any tobacco abuse. He uses alcohol and uses marijuana. REVIEW OF SYSTEMS: CONSTITUTIONAL: He says that he is a light smoker, history of atrial fibrillation. CARDIAC: Cardiac martinez, hypercholesterolemia, hypertension and peripheral edema. No pacemaker. RESPIRATORY: He has no lung problems. NEUROLOGIC: He has history of seizures. Neurologically, alcohol induced. HEENT: He denies any ear, nose, throat problems right now. RENAL: He denies any kidney issues. GASTROINTESTINAL: He does say spots on pancreas probably chronic pancreatitis. Also has a history of gastritis and pancreatitis. SKIN: He has extensive cellulitis on both lower extremities. MUSCULOSKELETAL: History of arthritis, history of fractures which was repaired, neck, back, right leg and knees. PSYCHIATRIC: History of anxiety, depression, substance abuse. SURGICAL HISTORY: Cholecystectomy. He has had anesthesia. ALLERGIES: Penicillin, he has allergy. It causes severe rash, he says. MEDICATIONS: He was started on vancomycin and clindamycin, and today I added Azactam as the wound was showing gram-negative rods. He is also on folic acid, ibuprofen. He is on lorazepam, multivitamin, mupirocin, thiamine, and vancomycin. He is getting 1 g every 12 hours. PHYSICAL EXAMINATION: VITAL SIGNS: He denied actually any fever; however before coming, T-max is 97.9 today, blood pressure 136/81, respirations are 20 and saturation is 96%. HEENT: Head is atraumatic, normocephalic. Pupils are reacting to light and no icterus present. NECK: Supple. JVP is flat. LUNGS: Clear to auscultation. No crackles or rales present. HEART: S1 and S2 are regular. Actually had atrial fib. ABDOMEN: Soft, flabby, nontender. EXTREMITIES: Remain with bilateral dressings and that seems extending to the knees from the feet at this time. LABORATORY DATA: Labs are noted. Labs show white count is 7, hemoglobin is 11.3, hematocrit 33.9, platelet count is 355. This is from yesterday. ASSESSMENT AND PLAN: I will order laboratories for tomorrow and continue. Micro martinez, his cultures came out gram-negative like mostly gram negatives and there is another culture from the right leg which shows gram-negative and gram-positive. Blood cultures x2 are negative. There was no urine culture that I see. Chest x-ray was done. He also had duplex scan of the lower extremities to rule out deep venous thrombosis and to treat. Bilateral calf veins could not be visualized due to severe swelling. No evidence of the possible visual vein thrombosis of bilateral lower extremities. Chest x-ray showed moderate venous congestion, right hilar prominence with right infrahilar consolidative changes, cardiomegaly, degenerative changes of the spine and shoulder, chronic deformity of the mid left clavicle. So at this time, he has congestion, cardiomegaly, has cardiac issues along with bilateral leg swelling and cellulitis and ulcerations which have been chronic with venous stasis. At this time, we will add Azactam. Continue vancomycin, clindamycin, and Azactam. We will evaluate the lesions, leg ulcerations. We will await for the identification and sensitivity of the organism at this time and repeat labs tomorrow. Bhavana Nolasco MD [facility] # [id number] [place]
--- NOTE | 2018-08-21 23:27 | PN ---
DATE: 08/21/2018 SUBJECTIVE: This patient was seen today. He still complains of lot of leg pain and he says, his fingers are hurting because they are doing lot of fingersticks, and he is complaining as usual, but he appears to be looking better. He is afebrile. He denies any shortness of breath. No abdominal pain. Has dressings on both legs. PHYSICAL EXAMINATION VITAL SIGNS: T-max is 97.6 now, pulse 82, blood pressure 131/86, respirations 18. HEENT: Head is atraumatic, normocephalic. NECK: Supple. LUNGS: Clear. HEART: S1, S2 is regular. ABDOMEN: Soft, nontender. No guarding. No rigidity present. He was on multiple antibiotics. EXTREMITIES: Bilateral ulcerations and dressings done. ASSESSMENT AND PLAN: At this time, since his cultures revealed he has methicillin sensitive Staph aureus, Klebsiella, and Escherichia coli and all these could be covered with meropenem, I have left him on Merrem, and he is getting that Merrem 1 g every 8 hours even though he is allergic to penicillin, he is tolerating it, and he has had it in the past. We will continue this and I am waiting to see. He has had a previous MRI, which I noted was done on 07/20/2018 in the other hospital and did not show any osteomyelitis. So, we will hold off on doing that. We will follow with Dr. Masters and continue IV antibiotics at this time. Bhavana Nolasco MD
[2018-08-22] MEDS: Meropenem 1 GM in Sodium Chloride 0.9% 100 ML IVPB SCH ×3 (00:44→18:13)
[2018-08-22] MEDS: Enoxaparin 40 mg Syringe SC SCH (10:06)
[2018-08-22] MEDS: Multiple Vitamins Tab PO SCH (10:06)
[2018-08-22] MEDS: Cilostazol 100 mg Tab UD PO SCH ×2 (10:06→18:12)
--- NOTE | 2018-08-22 10:58 | CP.PCM.PN ---
Subjective - Date & Time of Evaluation Date of Evaluation: 08/22/18 Time of Evaluation: 10:58 - Subjective Subjective: Progress note dictated #[id number] Objective - Vital Signs/Intake and Output Vital Signs (last 24 hours): Temp Pulse Resp BP Pulse Ox 98.2 F 82 18 112/72 96 08/22/18 09:54 08/22/18 09:54 08/22/18 09:54 08/22/18 09:54 08/22/18 09:54 Intake and Output: 08/22/18 08/22/18 06:59 18:59 Intake Total 640 Output Total 1300 Balance -660 - Medications Medications: Current Medications Cilostazol (Pletal) 100 mg PO BID [facility] Last Admin: 08/22/18 10:06 Dose: 100 mg Clopidogrel Bisulfate (Plavix) 75 mg PO DAILY [facility] Last Admin: 08/22/18 10:06 Dose: 75 mg Enoxaparin Sodium (Lovenox) 40 mg SC DAILY [facility] Last Admin: 08/22/18 10:06 Dose: 40 mg Folic Acid (Folic Acid) 1 mg PO DAILY [facility] Last Admin: 08/22/18 10:05 Dose: 1 mg Meropenem 1 gm/ Sodium (Chloride) 100 mls @ 100 mls/hr IVPB Q8H [facility]; Protocol Last Admin: 08/22/18 10:06 Dose: 100 mls/hr Ibuprofen (Motrin Tab) 800 mg PO Q8H PRN PRN Reason: Pain, moderate (4-7) Last Admin: 08/22/18 10:06 Dose: 800 mg Lisinopril (Zestril) 2.5 mg PO DAILY [facility] Last Admin: 08/22/18 10:06 Dose: 2.5 mg Lorazepam (Ativan) 1 mg IVP Q6H PRN PRN Reason: Anxiety Multivitamins (Hexavitamin) 1 tab PO DAILY [facility] Last Admin: 08/22/18 10:06 Dose: 1 tab Mupirocin (Bactroban Ointment) 1 gm TOP DAILY [facility] Last Admin: 08/22/18 10:07 Dose: Not Given Rosuvastatin Calcium (Crestor) 5 mg PO HS [facility] Last Admin: 08/21/18 21:26 Dose: 5 mg Thiamine HCl (Vitamin B1 Tab) 100 mg PO DAILY [facility] Last Admin: 08/22/18 10:06 Dose: 100 mg - Labs Labs: 08/20/18 07:30 08/20/18 07:30 PT 12.1 SECONDS (9.7-12.2) 08/18/18 07:11 INR 1.1 08/18/18 07:11 APTT 35.0 SECONDS (21-34) H 08/18/18 07:11
--- NOTE | 2018-08-22 16:16 | PN ---
DATE: 08/22/2018 SUBJECTIVE: The patient is seen and examined at bedside. The patient offers no new complaints other than pain all over the body. Denies any new complaints. PHYSICAL EXAMINATION: GENERAL: A middle-aged male lying in bed, in no acute distress. VITAL SIGNS: Blood pressure 112/72, pulse 82, respirations 20, temperature 98.2 degrees Fahrenheit, O2 sat is 96% on room air. HEENT: Pupils equal, round, reacting to light and accommodation. Extraocular muscles intact. No icterus, no pallor, no oral thrush, no pharyngeal congestion. NECK: Supple, no JVD. LUNGS: Bilateral vesicular breath sounds. No wheezing, no rhonchi. CARDIOVASCULAR: S1, S2 present. Regular. ABDOMEN: Soft and nontender. Bowel sounds present. No guarding, no rigidity. No rebound tenderness noted. CENTRAL NERVOUS SYSTEM: Alert, awake, oriented x3. EXTREMITIES: Bilateral lower extremity chronic venous stasis ulcers and dressing in place. MEDICATIONS: Include Pletal 100 mg p.o. b.i.d., Plavix 75 mg daily, Lovenox 40 mg daily, folic acid 1 mg daily, Neurontin 300 mg b.i.d., ibuprofen as needed, Zestril 2.5 mg daily, Ativan 1 mg as needed, meropenem 1 g IV every 8 hours, multivitamin, Crestor 5 mg at bedtime, thiamine 100 mg daily. LABORATORY DATA: Accu-Cheks 123, 121, 134, 105, 157. ASSESSMENT AND PLAN: A middle-aged male with hypertension, hyperlipidemia, peripheral arterial disease, chronic venous stasis with stasis dermatitis, admitted for cellulitis and lower extremity ulceration and alcohol intoxication. Wound culture growing multiple organisms sensitive to meropenem and the patient is started on meropenem. Continue with current antibiotics and wound care. Follow up with Podiatry and Infectious Disease, Fractionation Supervisor for discharge planning. Tato Caban MD
--- NOTE | 2018-08-22 20:07 | CP.PCM.PN ---
Subjective - Date & Time of Evaluation Date of Evaluation: 08/22/18 Time of Evaluation: 14:50 - Subjective Subjective: dictated Objective - Vital Signs/Intake and Output Vital Signs (last 24 hours): Temp Pulse Resp BP Pulse Ox 98.3 F 88 20 148/87 95 08/22/18 16:19 08/22/18 16:19 08/22/18 16:19 08/22/18 16:19 08/22/18 16:19 Intake and Output: 08/22/18 08/23/18 18:59 06:59 Intake Total 1400 Output Total 1000 Balance 400 - Medications Medications: Current Medications Cilostazol (Pletal) 100 mg PO BID [facility] Last Admin: 08/22/18 18:12 Dose: 100 mg Clopidogrel Bisulfate (Plavix) 75 mg PO DAILY [facility] Last Admin: 08/22/18 10:06 Dose: 75 mg Enoxaparin Sodium (Lovenox) 40 mg SC DAILY [facility] Last Admin: 08/22/18 10:06 Dose: 40 mg Folic Acid (Folic Acid) 1 mg PO DAILY [facility] Last Admin: 08/22/18 10:05 Dose: 1 mg Gabapentin (Neurontin) 300 mg PO BID [facility] Last Admin: 08/22/18 18:12 Dose: 300 mg Meropenem 1 gm/ Sodium (Chloride) 100 mls @ 100 mls/hr IVPB Q8H [facility]; Protocol Last Admin: 08/22/18 18:13 Dose: 100 mls/hr Ibuprofen (Motrin Tab) 800 mg PO Q8H PRN PRN Reason: Pain, moderate (4-7) Last Admin: 08/22/18 10:06 Dose: 800 mg Lisinopril (Zestril) 2.5 mg PO DAILY [facility] Last Admin: 08/22/18 10:06 Dose: 2.5 mg Lorazepam (Ativan) 1 mg IVP Q6H PRN PRN Reason: Anxiety Multivitamins (Hexavitamin) 1 tab PO DAILY [facility] Last Admin: 08/22/18 10:06 Dose: 1 tab Mupirocin (Bactroban Ointment) 1 gm TOP DAILY [facility] Last Admin: 08/22/18 10:07 Dose: Not Given Rosuvastatin Calcium (Crestor) 5 mg PO HS [facility] Last Admin: 08/21/18 21:26 Dose: 5 mg Thiamine HCl (Vitamin B1 Tab) 100 mg PO DAILY [facility] Last Admin: 08/22/18 10:06 Dose: 100 mg - Labs Labs: 08/20/18 07:30 08/20/18 07:30 PT 12.1 SECONDS (9.7-12.2) 08/18/18 07:11 INR 1.1 08/18/18 07:11 APTT 35.0 SECONDS (21-34) H 08/18/18 07:11
--- NOTE | 2018-08-23 01:29 | PN ---
DATE: 08/22/2018 INFECTIOUS DISEASE FOLLOWUP SUBJECTIVE: The patient says his dressings were not changed. The nurse tells me they be changed tomorrow morning. He says he can eat little bit of salt. He keeps talking about having less salt in his food, and I told him that he needs to wait to see his primary doctor to figure out if he can or if he cannot. PHYSICAL EXAMINATION: VITAL SIGNS: T-max is 98.3, pulse 88, blood pressure 148/87, respirations are 20. HEENT: Head is atraumatic, normocephalic. NECK: Supple. LUNGS: Clear. HEART: S1, S2, regular. ABDOMEN: Soft, nontender, flabby. He is obese. EXTREMITIES: He has bilateral dressings. His leg edema and thigh edema is getting better at this time. ASSESSMENT AND PLAN: He is on meropenem which is covering most of the bacteria which were seen on both the legs. We will continue the same. He did have a previous MRI recently which did not show any osteomyelitis. At this time, we will leave him on meropenem. Hopefully, he can go to rehab and get another 2 weeks like total of 3 weeks of meropenem. Follow up with Podiatry so that his leg ulcerations improve. However, I told him if he drinks too much and he gets confused, he is going to fall and he may worsen his situation, he realizes that but I am not sure if he will follow. Bhavana Nolasco MD
[2018-08-23] MEDS: Meropenem 1 GM in Sodium Chloride 0.9% 100 ML IVPB SCH ×3 (01:38→18:25)
--- NOTE | 2018-08-23 10:37 | CP.PCM.PN ---
Subjective - Date & Time of Evaluation Date of Evaluation: 08/23/18 Time of Evaluation: 10:37 - Subjective Subjective: progress note dictated # [id number] Objective - Vital Signs/Intake and Output Vital Signs (last 24 hours): Temp Pulse Resp BP Pulse Ox 97.7 F 68 18 154/88 H 96 08/23/18 07:52 08/23/18 07:52 08/23/18 07:52 08/23/18 07:52 08/23/18 07:52 Intake and Output: 08/23/18 08/23/18 06:59 18:59 Intake Total 900 Output Total 1000 Balance -100 - Medications Medications: Current Medications Cilostazol (Pletal) 100 mg PO BID [facility] Last Admin: 08/22/18 18:12 Dose: 100 mg Clopidogrel Bisulfate (Plavix) 75 mg PO DAILY [facility] Last Admin: 08/22/18 10:06 Dose: 75 mg Enoxaparin Sodium (Lovenox) 40 mg SC DAILY [facility] Last Admin: 08/22/18 10:06 Dose: 40 mg Folic Acid (Folic Acid) 1 mg PO DAILY [facility] Last Admin: 08/22/18 10:05 Dose: 1 mg Gabapentin (Neurontin) 300 mg PO BID [facility] Last Admin: 08/22/18 18:12 Dose: 300 mg Meropenem 1 gm/ Sodium (Chloride) 100 mls @ 100 mls/hr IVPB Q8H [facility]; Protocol Last Admin: 08/23/18 01:38 Dose: 100 mls/hr Ibuprofen (Motrin Tab) 800 mg PO Q8H PRN PRN Reason: Pain, moderate (4-7) Last Admin: 08/23/18 01:39 Dose: 800 mg Lisinopril (Zestril) 2.5 mg PO DAILY [facility] Last Admin: 08/22/18 10:06 Dose: 2.5 mg Lorazepam (Ativan) 1 mg IVP Q6H PRN PRN Reason: Anxiety Multivitamins (Hexavitamin) 1 tab PO DAILY [facility] Last Admin: 08/22/18 10:06 Dose: 1 tab Mupirocin (Bactroban Ointment) 1 gm TOP DAILY [facility] Last Admin: 08/22/18 10:07 Dose: Not Given Rosuvastatin Calcium (Crestor) 5 mg PO [facility] Last Admin: 05/06/19 21:20 Dose: 5 mg Thiamine HCl (Vitamin B1 Tab) 100 mg PO DAILY [facility] Last Admin: 08/22/18 10:06 Dose: 100 mg - Labs Labs: 08/20/18 07:30 08/20/18 07:30 PT 12.1 SECONDS (9.7-12.2) 08/18/18 07:11 INR 1.1 08/18/18 07:11 APTT 35.0 SECONDS (21-34) H 08/18/18 07:11
[2018-08-23] MEDS: Enoxaparin 40 mg Syringe SC SCH (10:50)
[2018-08-23] MEDS: Cilostazol 100 mg Tab UD PO SCH ×2 (10:50→18:25)
[2018-08-23] MEDS: Multiple Vitamins Tab PO SCH (10:50)
--- NOTE | 2018-08-23 15:25 | CP.PCM.PN ---
Subjective - Date & Time of Evaluation Date of Evaluation: 08/23/18 Time of Evaluation: 15:21 - Subjective Subjective: Podiatry Progress Note - Dr. Masters 62M seen and evaluated at [facility] for lower extremity wounds. NAD. No acute events overnight. Admits to minimal pain in lower extremities today, feeling better. Denies n/v/f/d/c/sob/hutchins/cp. Objective - Vital Signs/Intake and Output Vital Signs (last 24 hours): Temp Pulse Resp BP Pulse Ox 97.7 F 68 18 154/88 H 96 08/23/18 07:52 08/23/18 07:52 08/23/18 07:52 08/23/18 07:52 08/23/18 07:52 Intake and Output: 08/23/18 08/23/18 06:59 18:59 Intake Total 900 Output Total 1000 Balance -100 - Medications Medications: Current Medications Cilostazol (Pletal) 100 mg PO BID [facility] Last Admin: 08/23/18 10:50 Dose: 100 mg Clopidogrel Bisulfate (Plavix) 75 mg PO DAILY [facility] Last Admin: 08/23/18 10:50 Dose: 75 mg Enoxaparin Sodium (Lovenox) 40 mg SC DAILY [facility] Last Admin: 08/23/18 10:50 Dose: 40 mg Folic Acid (Folic Acid) 1 mg PO DAILY [facility] Last Admin: 08/23/18 10:50 Dose: 1 mg Gabapentin (Neurontin) 300 mg PO BID [facility] Last Admin: 08/23/18 10:50 Dose: 300 mg Meropenem 1 gm/ Sodium (Chloride) 100 mls @ 100 mls/hr IVPB Q8H [facility]; Protocol Last Admin: 08/23/18 10:50 Dose: 100 mls/hr Ibuprofen (Motrin Tab) 800 mg PO Q8H PRN PRN Reason: Pain, moderate (4-7) Last Admin: 08/23/18 01:39 Dose: 800 mg Lisinopril (Zestril) 2.5 mg PO DAILY [facility] Last Admin: 08/23/18 10:59 Dose: 2.5 mg Lorazepam (Ativan) 1 mg IVP Q6H PRN PRN Reason: Anxiety Multivitamins (Hexavitamin) 1 tab PO DAILY [facility] Last Admin: 08/23/18 10:50 Dose: 1 tab Mupirocin (Bactroban Ointment) 1 gm TOP DAILY [facility] Last Admin: 08/23/18 10:58 Dose: Not Given Rosuvastatin Calcium (Crestor) 5 mg PO HS [facility] Last Admin: 08/22/18 21:20 Dose: 5 mg Thiamine HCl (Vitamin B1 Tab) 100 mg PO DAILY [facility] Last Admin: 08/23/18 10:50 Dose: 100 mg - Labs Labs: 08/20/18 07:30 08/20/18 07:30 PT 12.1 SECONDS (9.7-12.2) 08/18/18 07:11 INR 1.1 08/18/18 07:11 APTT 35.0 SECONDS (21-34) H 08/18/18 07:11 - Constitutional Appears: Non-toxic, No Acute Distress - Extremities Exam Additional comments: B/L LE exam VASC: DP/PT pulses are palpable 1/4 b/l, cap refill < 3 sec to all digits, skin temp runs warm to warm from proximal to distal b/l, +2 pitting edema on the right LE and +2 pitting edema on the left LE. NEURO: Protective sensation mildly diminished b/l DERM: Circumferential, open venous ulcerations present to the b/l lower legs with granular and necrotic base with macerations on the right side and granular base on left side; no purulent drainage, serous drainage appreciated bilaterally, diffuse red glossy skin from the previously healed ulceration on b/l LE, positive malodor. Interdigital macerations noted in all interspaces. MSK: Moderate pain on palpation of lower extremity ulcerations, no pain on compression of b/l calves. MMT 5/5 to all groups - Neurological Exam Neurological Exam: Alert, Awake, Oriented x3 - Psychiatric Exam Psychiatric exam: Normal Affect, Normal Mood Assessment and Plan - Assessment and Plan (Free Text) Assessment: 62M with bilateral lower extremity venous stasis ulcerations, improving Plan: Patient seen and evaluated Discussed with attending, Dr. Sonam HOUSE Bilat LE duplex: (-)DVT Bilat tibfib XR: No acute changes L leg WCx: klebsiella oxytoca, escherichia coli, pseudomonas aeruginosa R leg WCx: klebsiella oxytoca, staphylococcus aureus Continue abx per ID - recommend d/c to rehab for total of 3 weeks of IV abx Wounds improving, will continue to monitor Continue local wound care: xeroform, DSD, KELSEA b/l Stable for d/c per podiatry Wound care orders: saline cleanse, and dress with xeroform, ABDs, kerlix, and KELSEA wrap QOD-Q3D b/l Upon discharge, patient to follow up with Dr. Masters at [facility] within 1 week Podiatry will continue to follow
--- NOTE | 2018-08-23 22:30 | CP.PCM.PN ---
Subjective - Date & Time of Evaluation Date of Evaluation: 08/23/18 Time of Evaluation: 15:00 - Subjective Subjective: dictated Objective - Vital Signs/Intake and Output Vital Signs (last 24 hours): Temp Pulse Resp BP Pulse Ox 97.6 F 88 20 152/88 H 96 08/23/18 15:38 08/23/18 15:38 08/23/18 15:38 08/23/18 15:38 08/23/18 15:38 Intake and Output: 08/23/18 08/24/18 18:59 06:59 Intake Total 1400 Output Total 1300 Balance 100 - Medications Medications: Current Medications Cilostazol (Pletal) 100 mg PO BID [facility] Last Admin: 08/23/18 18:25 Dose: 100 mg Clopidogrel Bisulfate (Plavix) 75 mg PO DAILY [facility] Last Admin: 08/23/18 10:50 Dose: 75 mg Enoxaparin Sodium (Lovenox) 40 mg SC DAILY [facility] Last Admin: 08/23/18 10:50 Dose: 40 mg Folic Acid (Folic Acid) 1 mg PO DAILY [facility] Last Admin: 08/23/18 10:50 Dose: 1 mg Gabapentin (Neurontin) 300 mg PO BID [facility] Last Admin: 08/23/18 18:25 Dose: 300 mg Meropenem 1 gm/ Sodium (Chloride) 100 mls @ 100 mls/hr IVPB Q8H [facility]; Protocol Last Admin: 08/23/18 18:25 Dose: 100 mls/hr Ibuprofen (Motrin Tab) 800 mg PO Q8H PRN PRN Reason: Pain, moderate (4-7) Last Admin: 08/23/18 01:39 Dose: 800 mg Lisinopril (Zestril) 2.5 mg PO DAILY [facility] Last Admin: 08/23/18 10:59 Dose: 2.5 mg Lorazepam (Ativan) 1 mg IVP Q6H PRN PRN Reason: Anxiety Multivitamins (Hexavitamin) 1 tab PO DAILY [facility] Last Admin: 08/23/18 10:50 Dose: 1 tab Mupirocin (Bactroban Ointment) 1 gm TOP DAILY [facility] Last Admin: 08/23/18 10:58 Dose: Not Given Rosuvastatin Calcium (Crestor) 5 mg PO HS [facility] Last Admin: 08/23/18 21:39 Dose: 5 mg Thiamine HCl (Vitamin B1 Tab) 100 mg PO DAILY [facility] Last Admin: 08/23/18 10:50 Dose: 100 mg - Labs Labs: 08/20/18 07:30 08/20/18 07:30 PT 12.1 SECONDS (9.7-12.2) 08/18/18 07:11 INR 1.1 08/18/18 07:11 APTT 35.0 SECONDS (21-34) H 08/18/18 07:11
[2018-08-24] MEDS: Meropenem 1 GM in Sodium Chloride 0.9% 100 ML IVPB SCH ×3 (01:53→19:04)
--- NOTE | 2018-08-24 03:39 | PN ---
DATE: 08/23/2018 SUBJECTIVE: The patient is seen and examined at bedside. He offers no new complaints other than pain in the extremities. PHYSICAL EXAMINATION: GENERAL: A middle-aged male, lying in bed, in no acute distress. VITAL SIGNS: Blood pressure 152/88, pulse 88, respirations 20, temperature 97.6 degrees Fahrenheit, and O2 saturations 96% on room air. HEENT: Pupils equal, round, and reacting to light and accommodation. Extraocular muscles are intact. No icterus, no pallor, no oral thrush, and no pharyngeal congestion. NECK: Supple, no JVD. LUNGS: Bilateral vesicular breath sounds. N wheezing, no rhonchi. CARDIOVASCULAR SYSTEM: S1 and S2 present, regular. ABDOMEN: Soft and nontender. Bowel sounds present. No guarding, no rigidity, no rebound tenderness noted. CENTRAL NERVOUS SYSTEM: Alert, awake, oriented x 3. No focal deficits noted. EXTREMITIES: No edema. Chronic venous changes with ulceration and dressing in place, foul smelling. MEDICATIONS: Include Pletal 100 mg b.i.d., Plavix 75 mg daily, Lovenox 40 mg daily, folic acid 1 mg daily, Neurontin 300 mg b.i.d., ibuprofen as needed, lisinopril 2.5 mg daily, Ativan as needed, meropenem 1 g IV every 8 hours, multivitamin daily, Crestor 5 mg at bedtime, thiamine 100 mg daily, LABORATORY DATA: Accu-Cheks, glucose 116, 113, 167, 128, 110. ASSESSMENT AND PLAN: A middle-aged male with hypertension, hyperlipidemia, peripheral arterial disease, chronic venous stasis with stasis dermatitis and ulceration. Wound culture grew multiple organisms, sensitive to meropenem. The patient is cleared by Podiatry and Infectious Disease. ID wanted 3 weeks of IV antibiotics. We will continue with wound care. [facility]le made arrangements for transfer to subacute rehab, waiting for authorization from the insurance company. Once authorization available, the patient may be transferred to subacute rehab for completion of the antibiotics and for wound care. Repeat labs in a.m. Tato Caban MD [facility] # [id number]
--- NOTE | 2018-08-24 03:43 | PN ---
DATE: 08/23/2018 SUBJECTIVE: The patient was seen today. Whenever I see him in the afternoon, he is always very drowsy, but he says that he is feeling better. His leg swelling is getting less. He denies any other complaints. He does not want to go to one of the places he has been before. He says there he was not taken care of and people were rude. PHYSICAL EXAMINATION: VITAL SIGNS: He is afebrile. Vitals are stable. Blood pressure 154/88, pulse is 68, respirations are 18, and saturation 96%. HEENT: Head; atraumatic and normocephalic. NECK: Supple. LUNGS: Clear. He is obese. HEART: S1 and S2. Regular. ABDOMEN: Soft and nontender. Has a Port-A-Cath present. EXTREMITIES: Bilaterally have dressing. We checked Podiatry note which shows that there are circumferential open ulcerations to the bilateral lower legs and granular necrotic base with maceration. No purulent drainage. Serous drainage appreciated bilaterally. Diffuse red glossy skin. So he does have extensive ulceration. I am not sure if this will ever get better, and he has bilateral venous stasis ulceration but the patient at this time, I would let him be continued on meropenem, and he should be followed by Podiatry, and he needs to take care of them. Since the patient is alcoholic and homeless, it is very difficult to cure him, but I would give him IV antibiotics at this time. Otherwise, he is looking for amputation it seems. He should get at least three weeks of antibiotics and then be reevaluated if need be. Bhavana Nolasco MD
[2018-08-24 04:19] VITALS: O2SAT 95
[2018-08-24 07:43] VITALS: BP 127/77; PULSE 62; RESP 18; TEMP 97.8
--- NOTE | 2018-08-24 10:07 | CP.PCM.PN ---
Subjective - Date & Time of Evaluation Date of Evaluation: 08/24/18 Time of Evaluation: 10:07 - Subjective Subjective: Discharge summary dictated #[id number] Objective - Vital Signs/Intake and Output Vital Signs (last 24 hours): Temp Pulse Resp BP Pulse Ox 97.8 F 62 18 127/77 95 08/24/18 07:42 08/24/18 07:42 08/24/18 07:42 08/24/18 07:42 08/24/18 07:42 Intake and Output: 08/24/18 08/24/18 06:59 18:59 Output Total 1000 Balance -1000 - Medications Medications: Current Medications Cilostazol (Pletal) 100 mg PO BID [facility] Last Admin: 08/23/18 18:25 Dose: 100 mg Clopidogrel Bisulfate (Plavix) 75 mg PO DAILY [facility] Last Admin: 08/23/18 10:50 Dose: 75 mg Enoxaparin Sodium (Lovenox) 40 mg SC DAILY [facility] Last Admin: 08/23/18 10:50 Dose: 40 mg Folic Acid (Folic Acid) 1 mg PO DAILY [facility] Last Admin: 08/23/18 10:50 Dose: 1 mg Gabapentin (Neurontin) 300 mg PO BID [facility] Last Admin: 08/23/18 18:25 Dose: 300 mg Meropenem 1 gm/ Sodium (Chloride) 100 mls @ 100 mls/hr IVPB Q8H [facility]; Protocol Last Admin: 08/24/18 01:53 Dose: 100 mls/hr Ibuprofen (Motrin Tab) 800 mg PO Q8H PRN PRN Reason: Pain, moderate (4-7) Last Admin: 08/23/18 01:39 Dose: 800 mg Lisinopril (Zestril) 2.5 mg PO DAILY [facility] Last Admin: 08/23/18 10:59 Dose: 2.5 mg Lorazepam (Ativan) 1 mg IVP Q6H PRN PRN Reason: Anxiety Multivitamins (Hexavitamin) 1 tab PO DAILY [facility] Last Admin: 08/23/18 10:50 Dose: 1 tab Mupirocin (Bactroban Ointment) 1 gm TOP DAILY [facility] Last Admin: 08/23/18 10:58 Dose: Not Given Rosuvastatin Calcium (Crestor) 5 mg PO HS [facility] Last Admin: 08/23/18 21:39 Dose: 5 mg Thiamine HCl (Vitamin B1 Tab) 100 mg PO DAILY [facility] Last Admin: 08/23/18 10:50 Dose: 100 mg - Labs Labs: 08/20/18 07:30 08/20/18 07:30 PT 12.1 SECONDS (9.7-12.2) 08/18/18 07:11 INR 1.1 08/18/18 07:11 APTT 35.0 SECONDS (21-34) H 08/18/18 07:11
[2018-08-24] MEDS: Multiple Vitamins Tab PO SCH (10:34)
[2018-08-24] MEDS: Cilostazol 100 mg Tab UD PO SCH ×2 (10:34→19:04)
[2018-08-24] MEDS: Enoxaparin 40 mg Syringe SC SCH (10:35)
[2018-08-24 11:47] LABS: BASO % 0.3 % (0.0-2.0); EOS # 0.2 K/uL (0.0-0.7); EOS % 2.9 % (0.0-4.0); LYMPH # 1.3 K/uL (1.0-4.3); LYMPH % 21.7 % (20.0-40.0); MEAN CELL VOLUME 84.7 fL (80.0-94.0); MEAN CORPUSCULAR HEMOGLOBIN 28.5 pg (27.0-31.0); MEAN CORPUSCULAR HGB CONC 33.7 g/dL (33.0-37.0); MEAN PLATELET VOLUME 6.4 fL (7.2-11.7); MONO # 0.5 K/uL (0.0-0.8); MONO % 7.9 % (0.0-10.0); NEUT % 67.2 % (50.0-75.0); NRBC % 0.1 % (0.0-2.0); RBC 4.22 Mil/uL (4.40-5.90); RED CELL DISTRIBUTION WIDTH 14.9 % (11.5-14.5); WHITE BLOOD COUNT 5.9 K/uL (4.8-10.8)
[2018-08-24 12:08] LABS: ALB/GLOB RATIO 1.1 (1.0-2.1); ALBUMIN 3.4 g/dL (3.5-5.0); ALT/SGPT 21 U/L (21-72); AST/SGOT 28 U/L (17-59); BLOOD UREA NITROGEN 11 mg/dL (9-20); CALCIUM 8.5 mg/dl (8.6-10.4); GFR NON-AFRICAN AMERICAN > 60
--- NOTE | 2018-08-24 21:05 | CP.PCM.PN ---
Subjective - Date & Time of Evaluation Date of Evaluation: 08/24/18 Time of Evaluation: 20:55 - Subjective Subjective: Podiatry Progress Note - Dr. Masters 62M seen and evaluated at [facility] for lower extremity wounds. Upon arrival, patient wishing to leave AMA because nurses are unable to provide pants for him. Objective - Vital Signs/Intake and Output Vital Signs (last 24 hours): Temp Pulse Resp BP Pulse Ox 97.8 F 62 18 127/77 95 08/24/18 07:42 08/24/18 07:42 08/24/18 07:42 08/24/18 07:42 08/24/18 07:42 - Medications Medications: Current Medications Cilostazol (Pletal) 100 mg PO BID [facility] Last Admin: 08/24/18 19:04 Dose: 100 mg Clopidogrel Bisulfate (Plavix) 75 mg PO DAILY [facility] Last Admin: 08/24/18 10:35 Dose: 75 mg Enoxaparin Sodium (Lovenox) 40 mg SC DAILY [facility] Last Admin: 08/24/18 10:35 Dose: 40 mg Folic Acid (Folic Acid) 1 mg PO DAILY [facility] Last Admin: 08/24/18 10:34 Dose: 1 mg Gabapentin (Neurontin) 300 mg PO BID [facility] Last Admin: 08/24/18 19:04 Dose: 300 mg Meropenem 1 gm/ Sodium (Chloride) 100 mls @ 100 mls/hr IVPB Q8H [facility]; Protocol Last Admin: 08/24/18 19:04 Dose: 100 mls/hr Ibuprofen (Motrin Tab) 800 mg PO Q8H PRN PRN Reason: Pain, moderate (4-7) Last Admin: 08/23/18 01:39 Dose: 800 mg Lisinopril (Zestril) 2.5 mg PO DAILY [facility] Last Admin: 08/24/18 11:05 Dose: 2.5 mg Lorazepam (Ativan) 1 mg IVP Q6H PRN PRN Reason: Anxiety Multivitamins (Hexavitamin) 1 tab PO DAILY [facility] Last Admin: 08/24/18 10:34 Dose: 1 tab Mupirocin (Bactroban Ointment) 1 gm TOP DAILY [facility] Last Admin: 08/24/18 10:35 Dose: 1 applic Rosuvastatin Calcium (Crestor) 5 mg PO HS [facility] Last Admin: 08/23/18 21:39 Dose: 5 mg Thiamine HCl (Vitamin B1 Tab) 100 mg PO DAILY [facility] Last Admin: 08/24/18 10:34 Dose: 100 mg - Labs Labs: 08/24/18 11:28 08/24/18 11:28 PT 12.1 SECONDS (9.7-12.2) 08/18/18 07:11 INR 1.1 08/18/18 07:11 APTT 35.0 SECONDS (21-34) H 08/18/18 07:11 - Constitutional Appears: Non-toxic, No Acute Distress - Extremities Exam Additional comments: Dressings to bilateral lower extremities clean/dry/intact - Neurological Exam Neurological Exam: Alert, Awake, Oriented x3 - Psychiatric Exam Psychiatric exam: Normal Affect, Normal Mood Assessment and Plan - Assessment and Plan (Free Text) Assessment: 62M with bilateral lower extremity venous stasis ulcerations, improving Plan: Patient seen and evaluated with attending, Dr. Masters VSS, WBC WNL 5.9 Bilat LE duplex: (-)DVT Bilat tibfib XR: No acute changes L leg WCx: klebsiella oxytoca, escherichia coli, pseudomonas aeruginosa R leg WCx: klebsiella oxytoca, staphylococcus aureus Continue abx per ID - recommend d/c to rehab for total of 3 weeks of IV abx -Patient refused d/c to [facility] today Continue local wound care: xeroform, DSD, KELSEA b/l Stable for d/c per podiatry Wound care orders: saline cleanse, and dress with xeroform, ABDs, kerlix, and KELSEA wrap QOD-Q3D b/l Upon discharge, patient to follow up with Dr. Masters at [facility] within 1 week Podiatry will continue to follow
--- NOTE | 2018-08-30 06:42 | DS ---
DISCHARGE DIAGNOSES: Cellulitis of the lower extremities, chronic venous stasis ulcerations of the lower extremities. Wound culture growing multiple organisms including Klebsiella oxytoca, Escherichia coli, Pseudomonas aeruginosa, and Staphylococcus aureus. Hypertension, hyperlipidemia, ethyl alcohol abuse, recurrent intoxication, status post electrolyte imbalance. HISTORY OF PRESENT ILLNESS: Mr. Vines is a 62-year-old male with history of hypertension, hyperlipidemia, arthritis, peripheral arterial disease with chronic venous stasis. Admitted for lower extremity pain with cellulitic changes and venous stasis ulcers. On the day of discharge, the patient was feeling better. Denied any headache or dizziness. Denied any chest pain, shortness of breath, or wheezing. Denied any nausea, vomiting, abdominal pain, diarrhea, or constipation. Denied any urinary complaints. Has been complaining of lower extremity pain, which is better than on admission. His ulcers are improving. Cellulitis is improving. Denied any new neurologic symptoms. All other systems reviewed and were found to be negative. PHYSICAL EXAMINATION: GENERAL: Middle-aged male, lying in bed, in no acute distress. VITAL SIGNS: Blood pressure 127/77, pulse 62, respirations 18, temperature 97.8 degrees Fahrenheit, O2 saturation is 95% on room air. HEENT: Pupils equal, round, reacting to light and accommodation. Extraocular muscles intact. No icterus. No pallor. No oral thrush. No pharyngeal congestion. NECK: Supple. No JVD. LUNGS: Bilateral vesicular breath sounds. No wheezing. No rhonchi. CARDIOVASCULAR SYSTEM: S1 and S2 present, regular. ABDOMEN: Soft, nontender. Bowel sounds present. No guarding, no rigidity, no rebound tenderness noted. CENTRAL NERVOUS SYSTEM: Alert, awake, oriented x3. No focal deficits noted. EXTREMITIES: Chronic venous stasis ulcers with cellulitis and healing ulcers. LABORATORY DATA: Labs done from 08/24/2018: WBC 5.9, hemoglobin 12, hematocrit 35.7, platelets 360. Sodium 137, potassium 4.1, chloride 103, bicarb 24, BUN 11, creatinine 0.6, glucose 100, calcium 8.5. Total bilirubin 0.3, AST 28, ALT 21, alkaline phosphatase 110, total protein 6.5, albumin 3.4. HOSPITAL COURSE: The patient was admitted to the hospital. The patient was started on IV antibiotics. Wound cultures were done by Podiatry. Lower extremity Doppler is negative. Chest x-ray is negative. The patient was evaluated by Infectious Disease. His wound culture grew multiple organisms, sensitive to meropenem. The patient was started on meropenem. Dr. Nolasco recommended three weeks of IV antibiotics. Podiatry recommended wound care also as outpatient. The patient was initially accepted to [facility] [place]. The patient refused to go. Later, the patient changed his mind and decided to go to subacute rehab for completion of long-term IV antibiotics and for wound care and physical therapy. As the patient is otherwise hemodynamically stable and cleared by all the consultants, the patient was discharged to subacute rehab. Advised the patient to follow up with Podiatry at outpatient clinic. CONDITION UPON DISCHARGE: The patient was alert and oriented x3 and hemodynamically stable at the time of discharge. DISCHARGE INSTRUCTIONS: Follow up with Podiatry. Follow up with PMD. Follow up with ID. DISCHARGE MEDICATIONS: Please also refer to medication reconciliation given at the time of discharge. Discharge medications: Lipitor 10 mg daily, Pletal 100 mg b.i.d., Plavix 75 mg daily, folic acid 1 mg daily, Neurontin 300 mg p.o. b.i.d., lisinopril 2.5 mg daily, meropenem 1 g IV every 8 hours for a total of three weeks until 09/14/2018, multivitamin daily, thiamine 100 mg daily. DIET: Low-sodium, low-cholesterol, heart-healthy diet. ACTIVITY: As tolerated. FOLLOWUP: Follow up with PMD for further care. Tato Caban MD
== END 2018-08-24 22:52 | disposition home or self-care (01) | DRG 563 ==
LOC: C.ER 03:55 → C.9E 08:45 → C.5S 11:32
PROVIDERS: ADMIT Internal Medicine; ATTEND Internal Medicine
DX: L03.116 Cellulitis of left lower limb (principal); L97.929 Non-pressure chronic ulcer of unspecified part of left lower leg with unspecified severity; E11.51 Type 2 diabetes mellitus with diabetic peripheral angiopathy without gangrene; I87.2 Venous insufficiency (chronic) (peripheral); I11.0 Hypertensive heart disease with heart failure; I50.32 Chronic diastolic (congestive) heart failure; B96.5 Pseudomonas (aeruginosa) (mallei) (pseudomallei) as the cause of diseases classified elsewhere; B96.1 Klebsiella pneumoniae [K. pneumoniae] as the cause of diseases classified elsewhere; L03.115 Cellulitis of right lower limb; L97.919 Non-pressure chronic ulcer of unspecified part of right lower leg with unspecified severity; F10.129 Alcohol abuse with intoxication, unspecified; F12.90 Cannabis use, unspecified, uncomplicated; K86.0 Alcohol-induced chronic pancreatitis; I48.91 Unspecified atrial fibrillation; E78.5 Hyperlipidemia, unspecified; E78.00 Pure hypercholesterolemia, unspecified; E66.9 Obesity, unspecified; Y90.2 Blood alcohol level of 40-59 mg/100 ml; F17.210 Nicotine dependence, cigarettes, uncomplicated; Z86.718 Personal history of other venous thrombosis and embolism; Z79.02 Long term (current) use of antithrombotics/antiplatelets; Z79.899 Other long term (current) drug therapy; Z59.0 Homelessness; Z88.0 Allergy status to penicillin; Z90.49 Acquired absence of other specified parts of digestive tract; B96.20 Unspecified Escherichia coli [E. coli] as the cause of diseases classified elsewhere; B95.8 Unspecified staphylococcus as the cause of diseases classified elsewhere